=== PATIENT | male | born 1960 ===

== ENCOUNTER 2020-10-06 12:42 | Outpatient (REF) | payer OTHER, SELFPAY ==
[2020-10-06 13:10] LABS: Basophils Absolute Auto 0.1 X10*3/uL (0.0-0.2); Basophils Percent Auto 0.8 % (0-2); Eosinophils Absolute Auto 0.5 X10*3/uL (0.0-0.4); Eosinophils Percent Auto 5.3 % (0-4); Hemoglobin 15.2 g/dl (14.0-18.0); Imm Gran Abs Auto 0.02 X10*3/uL (0.00-0.03); Imm Gran Pct Auto 0.2 % (0.0-0.4); Lymphocytes Absolute Auto 3.3 X10*3/uL (1.2-4.9); Lymphocytes Percent Auto 34.8 % (20-40); MANUAL DIFF FLAG NO; Mean Corpuscular Hemoglobin 31.5 pg (27.0-33.0); Mean Corpuscular Volume 95.4 fL (80-98); Mean Platelet Volume 10.3 fL (9.4-12.4); Monocytes Absolute Auto 0.9 X10*3/uL (0.1-1.2); Monocytes Percent Auto 9.7 % (2-11); Neutrophils Absolute Auto 4.7 X10*3/uL (2.0-8.3); Neutrophils Percent Auto 49.2 % (45-73); Platelet Count 267 X10*3/uL (160-400); Red Blood Count 4.82 X10*6/uL (4.60-5.80); Red Cell Distribution Width 12.8 % (11.0-16.0); White Blood Count 9.5 X10*3/uL (4.8-10.8)
[2020-10-06 13:38] LABS: Anion Gap 11 (12-20); Blood Urea Nitrogen 16 mg/dL (9-16); Calcium 9.1 mg/dL (8.4-10.2); Carbon Dioxide 29 mmol/L (22-29); Chloride 106 mmol/L (96-108); Estimated Glomerular Filt Rate 60; Glucose Fasting 93 mg/dL (60-99); Sodium 141 mmol/L (135-145)
== END 2020-10-06 12:43 | disposition home or self-care (01) ==
LOC: HO.LAB 12:42
PROVIDERS: PCP Internal Medicine; Visit Provider Nurse Practitioner Family
DX: H93.11 Tinnitus, right ear (principal); I10 Essential (primary) hypertension
CPT/HCPCS: 36415; 80048; 85025

== ENCOUNTER 2020-11-16 13:14 | Outpatient (REF) | payer OTHER, SELFPAY | END 2020-11-16 13:15 | disposition home or self-care (01) | LOC: HO.LAB 13:14 | PROVIDERS: Visit Provider Internal Medicine | DX: Z20.822 Contact with and (suspected) exposure to COVID-19 (principal) | CPT/HCPCS: 36415; C9803; U0003 ==

== ENCOUNTER 2020-12-18 13:11 | Outpatient (REF) | payer OTHER, SELFPAY ==
[2020-12-18 15:11] LABS: PSA,Total (Free>4and<10) 0.67 ng/mL (0.00-4.00)
== END 2020-12-18 13:12 | disposition home or self-care (01) ==
LOC: HO.LAB 13:11
PROVIDERS: PCP Internal Medicine; Visit Provider Urology
DX: Z12.5 Encounter for screening for malignant neoplasm of prostate (principal); N40.0 Benign prostatic hyperplasia without lower urinary tract symptoms
CPT/HCPCS: 36415; 84153

== ENCOUNTER 2021-01-01 13:53 | Outpatient (REF) | payer OTHER, SELFPAY ==
[2021-01-01 14:35] LABS: MANUAL DIFF FLAG NO
[2021-01-01 14:40] LABS: Basophils Absolute Auto 0.1 X10*3/uL (0.0-0.2); Basophils Percent Auto 0.7 % (0-2); Eosinophils Absolute Auto 0.6 X10*3/uL (0.0-0.4); Eosinophils Percent Auto 5.6 % (0-4); Hematocrit 46.3 % (42-52); Hemoglobin 15.3 g/dl (14.0-18.0); Imm Gran Abs Auto 0.03 X10*3/uL (0.00-0.03); Imm Gran Pct Auto 0.3 % (0.0-0.4); Lymphocytes Absolute Auto 3.8 X10*3/uL (1.2-4.9); Lymphocytes Percent Auto 36.8 % (20-40); Mean Corpuscular Hemoglobin 31.7 pg (27.0-33.0); Mean Corpuscular Volume 95.9 fL (80-98); Mean Platelet Volume 10.5 fL (9.4-12.4); Monocytes Absolute Auto 0.9 X10*3/uL (0.1-1.2); Monocytes Percent Auto 9.1 % (2-11); Neutrophils Absolute Auto 4.9 X10*3/uL (2.0-8.3); Neutrophils Percent Auto 47.5 % (45-73); Platelet Count 279 X10*3/uL (160-400); Red Blood Count 4.83 X10*6/uL (4.60-5.80); Red Cell Distribution Width 13.3 % (11.0-16.0); White Blood Count 10.3 X10*3/uL (4.8-10.8)
[2021-01-01 15:00] LABS: Alanine Aminotransferase 20 U/L (0-40); Albumin Level 4.3 g/dL (3.5-5.0); Alkaline Phosphatase 86 U/L (39-117); Anion Gap 12 (12-20); Aspartate Amino Transferase 21 U/L (5-37); Bilirubin Total 0.5 mg/dL (0.0-1.0); Blood Urea Nitrogen 18 mg/dL (9-16); Calcium 9.5 mg/dL (8.4-10.2); Carbon Dioxide 31 mmol/L (22-29); Chloride 105 mmol/L (96-108); Cholesterol 181 mg/dL; Estimated Glomerular Filt Rate > 60; Glucose Fasting 101 mg/dL (60-99); HDL Cholesterol 41 mg/dL; LDL Cholesterol Calculated 111 mg/dl; Potassium 4.9 mmol/L (3.3-5.1); Sodium 143 mmol/L (135-145); Total Protein 7.5 g/dL (6.5-8.0); Triglycerides 145 mg/dL
== END 2021-01-01 13:54 | disposition home or self-care (01) ==
LOC: HO.LAB 13:53
PROVIDERS: PCP Internal Medicine; Visit Provider Nurse Practitioner Family
DX: I10 Essential (primary) hypertension (principal)
CPT/HCPCS: 36415; 80053; 80061; 85025

== ENCOUNTER → 2021-01-07 10:45 | Outpatient (BNVA) | payer OTHER, SELFPAY | PROVIDERS: PCP Internal Medicine; Visit Provider Urology | DX: Z13.89 Encounter for screening for other disorder (principal) | CPT/HCPCS: 99212 ==

== ENCOUNTER 2021-03-28 20:01 | Emergency (ER) | payer OTHER, SELFPAY ==
--- NOTE | ~2021-03-28 | XR_ITS ---
EXAMINATION: XR RIBS, RIGHT CLINICAL INFORMATION: Rib pain, fall COMPARISON: Chest x-ray 03/28/2021 TECHNIQUE: 3 views of the right ribs were obtained. FINDINGS: No displaced rib fracture is seen. Included portions of the lungs and mediastinum appear unremarkable. XR/XR ribs RT 2V IMPRESSION: No rib fracture identified.
--- NOTE | ~2021-03-28 | XR_ITS ---
EXAMINATION: PORTABLE CHEST 1 VIEW CLINICAL INFORMATION: FALL . COMPARISON: 12/12/2018. TECHNIQUE: Portable frontal view of the chest was obtained. FINDINGS: The lungs are mildly hypoexpanded. No focal infiltrate, effusion, edema, or pneumothorax. Cardiac and mediastinal silhouettes are within normal limits for technique. No acute bony abnormality seen. XR/XR chest 1V IMPRESSION: No evidence of acute disease.
--- NOTE | ~2021-03-28 | XR_ITS ---
EXAMINATION: XR ELBOW, RIGHT CLINICAL INFORMATION: Right elbow pain COMPARISON: None TECHNIQUE: AP, lateral, and oblique views of the right elbow. FINDINGS: Osseous alignment is anatomic. No acute fracture is seen. Sclerotic focus in the proximal radius is suggestive of a bone island. No evidence of effusion. XR/XR elbow RT min 3V IMPRESSION: No acute findings identified.
[2021-03-28 20:43] VITALS: BP 148/79; PULSE 72; RESP 16; TEMP 36.7; O2SAT 97; BMI 39.4
[2021-03-28 22:22] LABS: MANUAL DIFF FLAG NO
[2021-03-28 22:24] LABS: Basophils Absolute Auto 0.1 X10*3/uL (0.0-0.2); Basophils Percent Auto 0.6 % (0-2); Eosinophils Absolute Auto 0.5 X10*3/uL (0.0-0.4); Eosinophils Percent Auto 3.6 % (0-4); Hematocrit 40.7 % (42-52); Hemoglobin 13.7 g/dl (14.0-18.0); Imm Gran Abs Auto 0.04 X10*3/uL (0.00-0.03); Imm Gran Pct Auto 0.3 % (0.0-0.4); Lymphocytes Absolute Auto 3.5 X10*3/uL (1.2-4.9); Lymphocytes Percent Auto 27.6 % (20-40); Mean Corpuscular HGB Conc 33.7 g/dl (31.0-36.0); Mean Corpuscular Hemoglobin 32.2 pg (27.0-33.0); Mean Corpuscular Volume 95.8 fL (80-98); Mean Platelet Volume 10.4 fL (9.4-12.4); Monocytes Absolute Auto 1.1 X10*3/uL (0.1-1.2); Monocytes Percent Auto 8.5 % (2-11); Neutrophils Absolute Auto 7.5 X10*3/uL (2.0-8.3); Neutrophils Percent Auto 59.4 % (45-73); Platelet Count 286 X10*3/uL (160-400); Red Blood Count 4.25 X10*6/uL (4.60-5.80); Red Cell Distribution Width 12.7 % (11.0-16.0); White Blood Count 12.5 X10*3/uL (4.8-10.8)
[2021-03-28 22:57] LABS: Anion Gap 13 (12-20); Blood Urea Nitrogen 28 mg/dL (9-16); Calcium 9.3 mg/dL (8.4-10.2); Carbon Dioxide 25 mmol/L (22-29); Chloride 104 mmol/L (96-108); Creatinine Clr Calc Pharmacy 64.8; Estimated Glomerular Filt Rate 50; Glucose Random 116 mg/dL (60-115); Magnesium 2.1 mg/dL (1.6-2.6); Potassium 4.9 mmol/L (3.3-5.1); Sodium 137 mmol/L (135-145)
[2021-03-29 01:27] LABS: Glucose Urine UA NEG (NEG); Leukocyte Esterase Urine NEG (NEG); Nitrite Urine NEG (NEG); PH 6.5 (5.0-8.0); Urine Blood TRACE (NEG); Urine Ketones NEG (NEG); Urine Protein NEG (NEG-TRACE)
[2021-03-29 01:28] LABS: Appearance Urine CLEAR; Color Urine STRAW
[2021-03-29 01:33] LABS: RBC Urine 0-2 /HPF (0); WBC Urine 0 /HPF (0-4)
[2021-03-29 01:37] LABS: Amphetamine Screen Urine Not Detected (Not Detect); Barbiturates, Urine Not Detected (Not Detect); Benzodiazepines Screen Urine Not Detected (Not Detect); Cannabinoid Screen Urine Not Detected (Not Detect); Cocaine Screen Urine Not Detected (Not Detect); Opiate Screen Urine Not Detected (Not Detect); Phencyclidine Screen Urine Not Detected (Not Detect)
[2021-03-29] MEDS: 0.9 % Sodium Chloride 1,000 ML 999 ML IV ×3 (02:21)
--- NOTE | 2021-03-29 02:42 | ED_ITS ---
HPI - General Adult General Chief complaint: Fall <JOSE Rudd Last Filed: 03/29/21 02:52> Stated complaint: fall <JOSE Rudd Last Filed: 03/29/21 02:52> Time Seen by Provider: 03/28/21 23:34 <JOSE Rudd Last Filed: 03/29/21 02:52> Source: patient <JOSE Rudd Last Filed: 03/29/21 02:52> Mode of arrival: ambulatory <JOSE Rudd Last Filed: 03/29/21 02:52> Limitations: no limitations <JOSE Rudd Last Filed: 03/29/21 02:52> History of Present Illness HPI narrative: Patient presents ED for fall. Patient states he fell down some stairs and fell on his right rib and right elbow. Patient states he tripped. Patient denies hitting head or loss of consciousness. Patient is not any blood thinners. Patient has secondary complaint is generalized cramping of his body that is painful and has been chronic for the past year. Patient denies any fever or chills. <JOSE Rudd Last Filed: 03/29/21 02:52> Related Data Home medications: Previous Rx's Medication Instructions Recorded citalopram 10 mg tablet 10 mg PO DAILY 90 Days #90 tab 02/01/21 lisinopril 20 mg tablet 20 mg PO DAILY 90 Days #90 tab 02/01/21 <JOSE Rudd Last Filed: 03/29/21 02:52> Allergies/adverse reactions: Allergies Allergy/AdvReac Type Severity Reaction Status Date / Time Penicillins Allergy Mild UNKNOWN Verified 03/28/21 20:43 nicotine [NICOTINE] AdvReac Intermediate TACHYCARDIA Verified 03/28/21 20:43 (PATCH) <JOSE Rudd Last Filed: 03/29/21 02:52> Review of Systems Constitutional: Constitutional: Reports as per HPI and Reports no additional constitutional complaints <JOSE Rudd Last Filed: 03/29/21 02:52> Eyes: Eyes: Reports as per HPI and Reports no additional eye complaints <JOSE Rudd Last Filed: 03/29/21 02:52> ENT: Reports system reviewed and no additional complaints, except as documented and Reports as per HPI <JOSE Rudd Last Filed: 03/29/21 02:52> Cardiovascular: Cardiovascular: Reports as per HPI and Reports no additional cardiovascular complaints <JOSE Rudd Last Filed: 03/29/21 02:52> Comments: Right-sided rib pain due to fall <JOSE Rudd Last Filed: 03/29/21 02:52> Respiratory: Respiratory: Reports as per HPI and Reports no additional respiratory complaints <JOSE Rudd Last Filed: 03/29/21 02:52> Gastrointestinal: Gastrointestinal: Reports as per HPI and Reports no additional gastrointestinal complaints <JOSE Rudd Last Filed: 03/29/21 02:52> Genitourinary: Genitourinary: Reports no additional male genitourinary complaints and Reports as per HPI <JOSE Rudd Last Filed: 03/29/21 02:52> Musculoskeletal: Musculoskeletal: Reports no additional musculoskeletal complaints, Reports as per HPI and Reports muscle cramps (Generalized) <JOSE Rudd Last Filed: 03/29/21 02:52> Comments: Right elbow pain. <JOSE Rudd Last Filed: 03/29/21 02:52> Neurologic: Reports system reviewed and no additional complaints, except as documented and Reports as per HPI <JOSE Rudd Last Filed: 03/29/21 02:52> Psychiatric: Psychiatric: Reports no additional psychiatric complaints and Reports as per HPI <JOSE Rudd Last Filed: 03/29/21 02:52> Endocrine: Endocrine: Reports no additional endocrine complaints and Reports as per HPI <JOSE Rudd Last Filed: 03/29/21 02:52> [facility] Past Medical History Medical History: Medical History Balance disorder Dizziness Hypertension Hypertension Ringing in ears <JOSE Rudd Last Filed: 03/29/21 02:52> Surgical History: Surgical History History of surgery <JOSE Rudd Last Filed: 03/29/21 02:52> Family History Family History: Family History Father CVD (cardiovascular disease) Diabetes Mother No problems noted. Maternal Uncle Prostate cancer <JOSE Rudd - Last Filed: 03/29/21 02:52> Social History Social History: Social History (Updated 02/01/21 @ 16:16 by Ashwini Jolly MD) Alcohol intake: never Cigarettes Per Day: 10 Advance Directives: No Advance Directives Information Provided: Yes <JOSE Rudd - Last Filed: 03/29/21 02:52> Physical Exam Vital Signs: Vital Signs: Last Vital Signs Temp 98.0 F 03/28/21 20:43 Pulse 72 03/28/21 20:43 Resp 16 03/28/21 20:43 BP 148/79 H 03/28/21 20:43 Pulse Ox 97 03/28/21 20:43 Body Mass Index 39.4 <JOSE Rudd - Last Filed: 03/29/21 02:52> Vital Signs: Last Vital Signs Temp 98.0 F 03/28/21 20:43 Pulse 72 03/28/21 20:43 Resp 16 03/28/21 20:43 BP 148/79 H 03/28/21 20:43 Pulse Ox 97 03/28/21 20:43 Body Mass Index 39.4 <Cally Brush MD - Last Filed: 03/29/21 03:33> Const: General: cooperative, healthy appearing, comfortable, no acute distress, well developed, alert and awake <JOSE Rudd - Last Filed: 03/29/21 02:52> Orientation/consciousness: patient oriented x3 <JOSE Rudd - Last Filed: 03/29/21 02:52> HENMT: Head: Yes normal to inspection, Yes No palpable skull fracture present, Yes normocephalic and Yes atraumatic <JOSE Rudd - Last Filed: 03/29/21 02:52> Eyes: General: appearance normal, both eyes and all related structures <JOSE Rudd Last Filed: 03/29/21 02:52> Neck: Neck: Yes normal visual inspection, Yes full ROM, Yes no lymphadenopathy, Yes no meningeal signs, Yes trachea midline, Yes supple and No tender <Dirk Prasanna JOSE Last Filed: 03/29/21 02:52> Chest: Chest palpation & inspection: normal inspection of the chest and normal palpation of entire chest wall (Right lower rib tenderness on palpation) <Dirk PrasannaJOSE Julia Last Filed: 03/29/21 02:52> Resp: Effort & Inspection: normal respiratory effort and able to speak in complete sentences <Dirk Prasanna, PA Last Filed: 03/29/21 02:52> Auscultation: clear to auscultation bilaterally <Dirk Prasanna, [facility] Last Filed: 03/29/21 02:52> Cardio: Jugular venous distension: no JVD <Dirk Prasanna, PA Last Filed: 03/29/21 02:52> Heart sounds: S1 normal heart sound present and S2 normal heart sound present <Dirk Prasanna, PA Last Filed: 03/29/21 02:52> GI: Inspection: Yes normal to inspection and No abdominal wall ecchymosis <Dirk Prasanna [facility] Last Filed: 03/29/21 02:52> Palpation (GI): Soft to palpation, not firm, nontender, no guarding and not rigid <Dirk Prasanna, JOSE Last Filed: 03/29/21 02:52> : General: No CVA tenderness <Dirk Prasanna, JOSE Last Filed: 03/29/21 02:52> Back/Spine/Pelvis: Back: no CVA tenderness, No CVA tenderness and No back tenderness <Dirk Prasanna, PA Last Filed: 03/29/21 02:52> Skin: General skin exam: no rashes or lesions noted and elasticity normal <Dirk Prasanna, JOSE Last Filed: 03/29/21 02:52> Neuro: General: patient oriented x3, gait normal, no meningeal signs and CN's II-XI intact bilaterally <Dirk Prasanna, PA Last Filed: 03/29/21 02:52> Cranial nerves: Yes CN's II-XII intact bilaterally <Dirk Prasanna, PA Last Filed: 03/29/21 02:52> Extrem: General: Yes normal to inspection and Yes full ROM <JOSE Rudd - Last Filed: 03/29/21 02:52> Psych: Appearance: grossly normal, well kempt and not disheveled <JOSE Rudd - Last Filed: 03/29/21 02:52> Course Course Course Narrative: Patient will have labs drawn and imaging of chest ribs and right elbow. <JOSE Rudd - Last Filed: 03/29/21 02:52> Patient labs reviewed. The CPK is now trending down and there has been resolution of patient's JOHNNY. He was informed of all results, encouraged to increase water intake and discharged home in stable condition. <Cally Brush MD - Last Filed: 03/29/21 03:33> Reevaluation(s) Reevaluation #1: Initial labs shows JOHNNY with mild rhabdomyolsis. Patient will be given 3 bags of fluid and repeat chemistry and CPK will be drawn. Case signed out to Dr. Brush. No indication for head CT or cervical spine CT. Patient denies any head trauma and denies being on any blood thinners. <JOSE Rudd - Last Filed: 03/29/21 02:52> Medical Decision Making MDM Narrative Medical decision making narrative: Rib contusion. A bone contusion. Mild rhabdomyolysis. <JOSE Rudd - Last Filed: 03/29/21 02:52> Lab Data Result diagrams: : 03/28/21 22:16 03/29/21 02:57 <JOSE Rudd - Last Filed: 03/29/21 02:52> Labs: Lab Results 03/28/21 03/28/21 03/29/21 Range/Units 22:16 22:16 01:19 WBC 12.5 H (4.8-10.8) X10*3/uL RBC 4.25 L (4.60-5.80) X10*6/uL Hgb 13.7 L (14.0-18.0) g/dl Hct 40.7 L (42-52) % MCV 95.8 (80-98) fL MCH 32.2 (27.0-33.0) pg MCHC 33.7 (31.0-36.0) g/dl RDW 12.7 (11.0-16.0) % Plt Count 286 (160-400) X10*3/uL MPV 10.4 (9.4-12.4) fL Immature Gran % (Auto) 0.3 (0.0-0.4) % Neut % (Auto) 59.4 (45-73) % Lymph % (Auto) 27.6 (20-40) % [place] % (Auto) 8.5 (2-11) % Eos % (Auto) 3.6 (0-4) % Baso % (Auto) 0.6 (0-2) % Lymph # (Auto) 3.5 (1.2-4.9) X10*3/uL [place] # (Auto) 1.1 (0.1-1.2) X10*3/uL Eos # (Auto) 0.5 H (0.0-0.4) X10*3/uL Baso # (Auto) 0.1 (0.0-0.2) X10*3/uL Abs Immat Gran (auto) 0.04 H (0.00-0.03) X10*3/uL Absolute Neuts (auto) 7.5 (2.0-8.3) X10*3/uL Absolute Nucleated RBC 0.000 (0.0-0.012) X10*3/uL Nucleated RBC % (auto) 0.0 (0.0-0.2) /100WBC Sodium 137 (135-145) mmol/L Potassium 4.9 (3.3-5.1) mmol/L Chloride 104 (96-108) mmol/L Carbon Dioxide 25 (22-29) mmol/L Anion Gap 13 (12-20) BUN 28 H D (9-16) mg/dL Creatinine 1.45 H (0.5-1.4) mg/dL Estim Creat Clear Calc 64.8 Estimated GFR 50 Random Glucose 116 H (60-115) mg/dL Calcium 9.3 (8.4-10.2) mg/dL Magnesium 2.1 (1.6-2.6) mg/dL Total Bilirubin (0.0-1.0) mg/dL AST (5-37) U/L ALT (0-40) U/L Alkaline Phosphatase (39-117) U/L Total Creatine Kinase 1437 H (38-174) U/L Total Protein (6.5-8.0) g/dL Albumin (3.5-5.0) g/dL Urine Color STRAW Urine Appearance CLEAR Urine pH 6.5 (5.0-8.0) Ur Specific [place] 1.010 (1.005-1.025) Urine Protein NEG (NEG-TRACE) MG/DL Urine Glucose (UA) NEG (NEG) MG/DL Urine Ketones NEG (NEG) MG/DL Urine Blood TRACE (NEG) Urine Nitrite NEG (NEG) Ur Leukocyte Esterase NEG (NEG) Urine RBC 0-2 (0) /HPF Urine WBC 0 (0-4) /HPF Ur Squamous Epith Cells NONE /LPF Urine Bacteria NONE /LPF Urine Opiates Screen (Not Detect) Ur Barbiturates Screen (Not Detect) Ur Phencyclidine Scrn (Not Detect) Ur Amphetamines Screen (Not Detect) U Benzodiazepines Scrn (Not Detect) Urine Cocaine Screen (Not Detect) U Marijuana (THC) Screen (Not Detect) 03/29/21 03/29/21 Range/Units 01:19 02:57 WBC (4.8-10.8) X10*3/uL RBC (4.60-5.80) X10*6/uL Hgb (14.0-18.0) g/dl Hct (42-52) % MCV (80-98) fL MCH (27.0-33.0) pg MCHC (31.0-36.0) g/dl RDW (11.0-16.0) % Plt Count (160-400) X10*3/uL MPV (9.4-12.4) fL Immature Gran % (Auto) (0.0-0.4) % Neut % (Auto) (45-73) % Lymph % (Auto) (20-40) % [place] % (Auto) (2-11) % Eos % (Auto) (0-4) % Baso % (Auto) (0-2) % Lymph # (Auto) (1.2-4.9) X10*3/uL [place] # (Auto) (0.1-1.2) X10*3/uL Eos # (Auto) (0.0-0.4) X10*3/uL Baso # (Auto) (0.0-0.2) X10*3/uL Abs Immat Gran (auto) (0.00-0.03) X10*3/uL Absolute Neuts (auto) (2.0-8.3) X10*3/uL Absolute Nucleated RBC (0.0-0.012) X10*3/uL Nucleated RBC % (auto) (0.0-0.2) /100WBC Sodium 140 (135-145) mmol/L Potassium 4.4 (3.3-5.1) mmol/L Chloride 110 H (96-108) mmol/L Carbon Dioxide 26 (22-29) mmol/L Anion Gap 8 L (12-20) BUN 24 H (9-16) mg/dL Creatinine 1.22 (0.5-1.4) mg/dL Estim Creat Clear Calc 77.0 Estimated GFR > 60 Random Glucose 117 H (60-115) mg/dL Calcium 8.0 L D (8.4-10.2) mg/dL Magnesium (1.6-2.6) mg/dL Total Bilirubin 0.5 (0.0-1.0) mg/dL AST 31 D (5-37) U/L ALT 23 (0-40) U/L Alkaline Phosphatase 91 (39-117) U/L Total Creatine Kinase 1257 H (38-174) U/L Total Protein 6.0 L (6.5-8.0) g/dL Albumin 3.5 (3.5-5.0) g/dL Urine Color Urine Appearance Urine pH (5.0-8.0) Ur Specific [place] (1.005-1.025) Urine Protein (NEG-TRACE) MG/DL Urine Glucose (UA) (NEG) MG/DL Urine Ketones (NEG) MG/DL Urine Blood (NEG) Urine Nitrite (NEG) Ur Leukocyte Esterase (NEG) Urine RBC (0) /HPF Urine WBC (0-4) /HPF Ur Squamous Epith Cells /LPF Urine Bacteria /LPF Urine Opiates Screen Not Detected (Not Detect) Ur Barbiturates Screen Not Detected (Not Detect) Ur Phencyclidine Scrn Not Detected (Not Detect) Ur Amphetamines Screen Not Detected (Not Detect) U Benzodiazepines Scrn Not Detected (Not Detect) Urine Cocaine Screen Not Detected (Not Detect) U Marijuana (THC) Screen Not Detected (Not Detect) <JOSE Rudd Last Filed: 03/29/21 02:52> Lab Results 03/28/21 03/28/21 03/29/21 Range/Units 22:16 22:16 01:19 WBC 12.5 H (4.8-10.8) X10*3/uL RBC 4.25 L (4.60-5.80) X10*6/uL Hgb 13.7 L (14.0-18.0) g/dl Hct 40.7 L (42-52) % MCV 95.8 (80-98) fL MCH 32.2 (27.0-33.0) pg MCHC 33.7 (31.0-36.0) g/dl RDW 12.7 (11.0-16.0) % Plt Count 286 (160-400) X10*3/uL MPV 10.4 (9.4-12.4) fL Immature Gran % (Auto) 0.3 (0.0-0.4) % Neut % (Auto) 59.4 (45-73) % Lymph % (Auto) 27.6 (20-40) % [place] % (Auto) 8.5 (2-11) % Eos % (Auto) 3.6 (0-4) % Baso % (Auto) 0.6 (0-2) % Lymph # (Auto) 3.5 (1.2-4.9) X10*3/uL [place] # (Auto) 1.1 (0.1-1.2) X10*3/uL Eos # (Auto) 0.5 H (0.0-0.4) X10*3/uL Baso # (Auto) 0.1 (0.0-0.2) X10*3/uL Abs Immat Gran (auto) 0.04 H (0.00-0.03) X10*3/uL Absolute Neuts (auto) 7.5 (2.0-8.3) X10*3/uL Absolute Nucleated RBC 0.000 (0.0-0.012) X10*3/uL Nucleated RBC % (auto) 0.0 (0.0-0.2) /100WBC Sodium 137 (135-145) mmol/L Potassium 4.9 (3.3-5.1) mmol/L Chloride 104 (96-108) mmol/L Carbon Dioxide 25 (22-29) mmol/L Anion Gap 13 (12-20) BUN 28 H D (9-16) mg/dL Creatinine 1.45 H (0.5-1.4) mg/dL Estim Creat Clear Calc 64.8 Estimated GFR 50 Random Glucose 116 H (60-115) mg/dL Calcium 9.3 (8.4-10.2) mg/dL Magnesium 2.1 (1.6-2.6) mg/dL Total Bilirubin (0.0-1.0) mg/dL AST (5-37) U/L ALT (0-40) U/L Alkaline Phosphatase (39-117) U/L Total Creatine Kinase 1437 H (38-174) U/L Total Protein (6.5-8.0) g/dL Albumin (3.5-5.0) g/dL Urine Color STRAW Urine Appearance CLEAR Urine pH 6.5 (5.0-8.0) Ur Specific [place] 1.010 (1.005-1.025) Urine Protein NEG (NEG-TRACE) MG/DL Urine Glucose (UA) NEG (NEG) MG/DL Urine Ketones NEG (NEG) MG/DL Urine Blood TRACE (NEG) Urine Nitrite NEG (NEG) Ur Leukocyte Esterase NEG (NEG) Urine RBC 0-2 (0) /HPF Urine WBC 0 (0-4) /HPF Ur Squamous Epith Cells NONE /LPF Urine Bacteria NONE /LPF Urine Opiates Screen (Not Detect) Ur Barbiturates Screen (Not Detect) Ur Phencyclidine Scrn (Not Detect) Ur Amphetamines Screen (Not Detect) U Benzodiazepines Scrn (Not Detect) Urine Cocaine Screen (Not Detect) U Marijuana (THC) Screen (Not Detect) 03/29/21 03/29/21 Range/Units 01:19 02:57 WBC (4.8-10.8) X10*3/uL RBC (4.60-5.80) X10*6/uL Hgb (14.0-18.0) g/dl Hct (42-52) % MCV (80-98) fL MCH (27.0-33.0) pg MCHC (31.0-36.0) g/dl RDW (11.0-16.0) % Plt Count (160-400) X10*3/uL MPV (9.4-12.4) fL Immature Gran % (Auto) (0.0-0.4) % Neut % (Auto) (45-73) % Lymph % (Auto) (20-40) % [place] % (Auto) (2-11) % Eos % (Auto) (0-4) % Baso % (Auto) (0-2) % Lymph # (Auto) (1.2-4.9) X10*3/uL [place] # (Auto) (0.1-1.2) X10*3/uL Eos # (Auto) (0.0-0.4) X10*3/uL Baso # (Auto) (0.0-0.2) X10*3/uL Abs Immat Gran (auto) (0.00-0.03) X10*3/uL Absolute Neuts (auto) (2.0-8.3) X10*3/uL Absolute Nucleated RBC (0.0-0.012) X10*3/uL Nucleated RBC % (auto) (0.0-0.2) /100WBC Sodium 140 (135-145) mmol/L Potassium 4.4 (3.3-5.1) mmol/L Chloride 110 H (96-108) mmol/L Carbon Dioxide 26 (22-29) mmol/L Anion Gap 8 L (12-20) BUN 24 H (9-16) mg/dL Creatinine 1.22 (0.5-1.4) mg/dL Estim Creat Clear Calc 77.0 Estimated GFR > 60 Random Glucose 117 H (60-115) mg/dL Calcium 8.0 L D (8.4-10.2) mg/dL Magnesium (1.6-2.6) mg/dL Total Bilirubin 0.5 (0.0-1.0) mg/dL AST 31 D (5-37) U/L ALT 23 (0-40) U/L Alkaline Phosphatase 91 (39-117) U/L Total Creatine Kinase 1257 H (38-174) U/L Total Protein 6.0 L (6.5-8.0) g/dL Albumin 3.5 (3.5-5.0) g/dL Urine Color Urine Appearance Urine pH (5.0-8.0) Ur Specific [place] (1.005-1.025) Urine Protein (NEG-TRACE) MG/DL Urine Glucose (UA) (NEG) MG/DL Urine Ketones (NEG) MG/DL Urine Blood (NEG) Urine Nitrite (NEG) Ur Leukocyte Esterase (NEG) Urine RBC (0) /HPF Urine WBC (0-4) /HPF Ur Squamous Epith Cells /LPF Urine Bacteria /LPF Urine Opiates Screen Not Detected (Not Detect) Ur Barbiturates Screen Not Detected (Not Detect) Ur Phencyclidine Scrn Not Detected (Not Detect) Ur Amphetamines Screen Not Detected (Not Detect) U Benzodiazepines Scrn Not Detected (Not Detect) Urine Cocaine Screen Not Detected (Not Detect) U Marijuana (THC) Screen Not Detected (Not Detect) <Cally Brush MD - Last Filed: 03/29/21 03:33> Discharge Plan Discharge Clinical Impression: Acute dehydration, Contusion, Rhabdomyolysis <JOSE Rudd - Last Filed: 03/29/21 02:52> Patient Disposition: Home, Self-Care <JOSE Rudd - Last Filed: 03/29/21 02:52> Instructions: Dehydration (ED), Rhabdomyolysis (ED), Contusion in Adults (ED) <JOSE Rudd - Last Filed: 03/29/21 02:52> Additional Instructions: regresar al servicio de urgencias por dolor en el pecho, falta de aire, empeoramiento de los calambres musculares, brandon corporales, dolor de brenden, fiebre, escalofr?os, mareos, dolor abdominal, garrick en las heces, v?mitos con garrick, orina con garrick o cualquier otro s?ntoma preocupante Rbyant an?lisis de garrick mostr? rabdomilosis leve y deshidrataci?n. Recomendar maria esther adecuada hidrataci?n oral. Pato un seguimiento con bryant PCP. <JOSE Rudd - Last Filed: 03/29/21 02:52> Prescriptions: No Action lisinopril 20 mg tablet 20 mg PO DAILY 90 Days Qty: 90 RF: 3 citalopram 10 mg tablet 10 mg PO DAILY 90 Days Qty: 90 RF: 3 <JOSE Rudd - Last Filed: 03/29/21 02:52> Referrals: Ashwini Teague MD [Primary Care Provider] - 2 days (Dehydration. Mild rhabdomyolysis) <JOSE Rudd - Last Filed: 03/29/21 02:52>
[2021-03-29 03:29] LABS: Alanine Aminotransferase 23 U/L (0-40); Albumin Level 3.5 g/dL (3.5-5.0); Alkaline Phosphatase 91 U/L (39-117); Anion Gap 8 (12-20); Aspartate Amino Transferase 31 U/L (5-37); Bilirubin Total 0.5 mg/dL (0.0-1.0); Blood Urea Nitrogen 24 mg/dL (9-16); Carbon Dioxide 26 mmol/L (22-29); Chloride 110 mmol/L (96-108); Estimated Glomerular Filt Rate > 60; Glucose Random 117 mg/dL (60-115); Potassium 4.4 mmol/L (3.3-5.1); Sodium 140 mmol/L (135-145)
== END 2021-03-29 03:45 | disposition home or self-care (01) ==
PROVIDERS: Physician Assistant; Emergency Provider Student in an Organized Health Care Education/Training Program; PCP Internal Medicine
DX: E86.0 Dehydration (principal); T79.6XXA Traumatic ischemia of muscle, initial encounter; S20.211A Contusion of right front wall of thorax, initial encounter; W10.8XXA Fall (on) (from) other stairs and steps, initial encounter; M25.521 Pain in right elbow; I10 Essential (primary) hypertension; F41.1 Generalized anxiety disorder; F17.210 Nicotine dependence, cigarettes, uncomplicated; Y93.9 Activity, unspecified; Y92.038 Other place in apartment as the place of occurrence of the external cause; Y99.9 Unspecified external cause status; Z79.899 Other long term (current) drug therapy
CPT/HCPCS: 36415; 71045; 71100; 73080; 80048; 80053; 80307; 81001; 82550; 83735; 85025; 96360; 96361; 99283; 99284

== ENCOUNTER 2021-04-01 12:48 | Emergency (ER) | payer OTHER, SELFPAY ==
--- NOTE | ~2021-04-01 | XR_ITS ---
EXAMINATION: XR LUMBOSACRAL SPINE CLINICAL INFORMATION: Low back pain COMPARISON: Radiographs lumbar spine 02/15/2018; and renal ultrasound 05/09/2018 TECHNIQUE: Three views of the lumbosacral spine. FINDINGS: There is normal lumbar segmentation with 5 nonrib-bearing lumbar vertebrae of normal height and normal lumbar lordosis. There is no lumbar compression, spondylolisthesis, destructive process. Again, there are degenerative disc changes at L4-L5 and L5-S1. There are also degenerative changes lower thoracic spine. The SI joints and visualized sacrum are unremarkable. There are 2 calculi overlying the left kidney, lower pole 0.7 cm and interpolar region 0.4 cm. XR/XR lumbar spine 2-3V IMPRESSION: 1. Degenerative disc changes L4-L5, L5-S1, and lower thoracic spine. 2. No lumbar vertebral compression, spondylolisthesis, destructive process. 3. Left renal calculi.
--- NOTE | ~2021-04-01 | XR_ITS ---
EXAMINATION: XR KNEE, LEFT CLINICAL INFORMATION: Left knee pain COMPARISON: Radiographs left knee 07/31/2014. TECHNIQUE: Four views of the left knee. FINDINGS: There is no fracture, dislocation, or destructive process. No joint space narrowing or erosive change or chondrocalcinosis. There is likely small suprapatellar effusion with mild thickening of the suprapatellar bursa. Hoffa's fat pad appears normal. There is corticated ossicle and mild spurring at the proximal anterior tibial tubercle may represent sequela from remote [place]-Schlatter's. The deep infrapatellar recess is preserved. XR/XR knee LT 3V IMPRESSION: 1. No fracture or destructive process. 2. Probable small suprapatellar effusion. No joint narrowing or erosive change. 3. Spurring and benign corticated ossicle at the anterior tibial tubercle near the patellar tendon insertion.
[2021-04-01 13:28] VITALS: BP 133/62; PULSE 74; RESP 18; TEMP 36.6; O2SAT 97; BMI 39.4
--- NOTE | 2021-04-01 15:05 | ED.GENADULT ---
HPI - General Adult General Chief complaint: Extremity Problem Stated complaint: left leg Time Seen by Provider: 04/01/21 13:44 Source: patient Mode of arrival: ambulatory Limitations: no limitations History of Present Illness HPI narrative: 52-year-old male with history of hypertension anxiety who presents the emergency department with left low back pain that radiates into the left leg. States this started about 4 days ago after a fall for which he was seen in the emergency room. States he had no imaging low back. States the pain is bearable during the day with 100 mg of ibuprofen but at bedtime he cannot sleep. Denies associated fevers chills chest pain or shortness of breath. Denies abdominal pain nausea vomiting or changes in bowel or bladder habits. Denies any numbness and tingling in the genitals. Due to concern and continued discomfort he felt he needed to be seen. Related Data Previous Rx's Medication Instructions Recorded citalopram 10 mg tablet 10 mg PO DAILY 90 Days #90 tab 02/01/21 lisinopril 20 mg tablet 20 mg PO DAILY 90 Days #90 tab 02/01/21 acetaminophen [Tylenol] 650 mg PO Q6H PRN #60 tab 04/01/21 cyclobenzaprine 10 mg PO TID PRN 5 Days #15 tab 04/01/21 Allergies Allergy/AdvReac Type Severity Reaction Status Date / Time Penicillins Allergy Mild UNKNOWN Verified 03/28/21 20:43 nicotine [NICOTINE] AdvReac Intermediate TACHYCARDIA Verified 03/28/21 20:43 (PATCH) Review of Systems Review of Systems: Constitutional : No Weight loss, No Fever, No Chills, No Night Sweats, No Fatigue, No Malaise ENT/Mouth : No Hearing loss, No Ear Pain, No Nasal Congestion, No Sinus Pain, No Hoarseness, No sore throat, No Rhinorrhea, No Swallowing Difficulty Eyes: No Eye Pain, No Swelling, No Redness, No Foreign Body, No Discharge, No Vision Changes Cardiovascular : No Chest Pain, No SOB, No Dyspnea on Exertion, No Orthopnea, No Edema, No Palpitations Respiratory : No Cough, No Sputum, No Wheezing, No Smoke Exposure, No Dyspnea Gastrointestinal : No Nausea, No Vomiting, No Diarrhea, No Constipation, No abdominal Pain, No Hematochezia, No Melena Genitourinary : no irregular bleeding, No Dysuria, No Urinary Frequency, No Hematuria, No Urinary Incontinence, No Urgency, No Flank Pain, No Urinary Flow Changes, No Hesitancy Musculoskeletal : + back pain, + joint pain, No Myalgias, No Joint Swelling Skin : No Skin Lesions, No rash Neuro : No Weakness, No Numbness, No Paresthesias, No Loss of Consciousness, No Dizziness, No Headache Psych : No Depression, No SI/HI/AH/VH, No Social Issues, Heme/Lymph: No Bruising, No Bleeding,No Lymphadenopathy Endocrine : No Polyuria, No Polydipsia, No Temperature Intolerance [facility] Past Medical History Attestation statement: The following information was validated with the patient. Source: old records reviewed and nursing notes reviewed Medical History Balance disorder Dizziness Hypertension Hypertension Ringing in ears Surgical History History of surgery Family History Family History Father CVD (cardiovascular disease) Diabetes Mother No problems noted. Maternal Uncle Prostate cancer Social History Social History (Updated 02/01/21 @ 16:16 by Ashwini Jolly MD) Alcohol intake: never Cigarettes Per Day: 10 Advance Directives: Yes Advance Directives Information Provided: Yes Advance Directives on File: No Physical Exam Vital Signs: Vital Signs: Last Vital Signs Temp 97.9 F 04/01/21 13:28 Pulse 74 04/01/21 13:28 Resp 18 04/01/21 13:28 BP 133/62 04/01/21 13:28 Pulse Ox 97 04/01/21 13:28 Body Mass Index 39.4 vital signs have been reviewed as normal and appeared to be correct. Blood pressure normal. Heart rate normal. Respiration rate normal. Temperature normal. Oxygen saturation normal. Appearance: Alert. Oriented X3. Mild acute distress. Head: Normal external exam. Normocephalic. Atraumatic. No Walsh signs noted. No raccoon eyes noted Eyes: Conjunctiva and sclera normal. ENT: EAC normal. Moist mucous membranes. No drooling noted. No muffled voice noted. Neck: Normal inspection. Neck supple. FROM. No meningeal signs. CVS: Pulses normal throughout. Respiratory: No respiratory distress. Painless inspiration. No accessory muscle usage noted Abdomen: No visible injury noted. Back: Full range of motion noted. No midline lumbar tenderness, no CVA tenderness. Mild tenderness over left SI joint. Skin: Skin warm and dry. Normal skin color. Normal skin turgor. Extremities: No lower extremity edema. Extremities exhibit normal range of motion. Patient has mild tenderness over left knee with overlying ecchymosis no crepitus or acute deformity range of. Good distal Neuro: Oriented X 3. No motor deficit. No sensory deficit. Course Reevaluation(s) Reevaluation #1: Patient's x-rays with degenerative changes in the lumbar spine no acute fractures or dislocations. Will and muscle relaxer for continued use at home and encouraged continued use of Motrin Tylenol for pain control will refer back to primary care doctor for additional management of symptoms Medical Decision Making MDM Narrative Medical decision making narrative: Patient's vital signs are stable and he is afebrile. Patient presenting to the ED with left lower back pain with radiation to the left leg. Patient states this started 4 days ago after fall. Will obtain plain films of the left back as well as the left knee as he is also complaining of pain the region. Will medicate with Tylenol. No abnormal neurologic findings on exam no acute concern for ST cauda equina. Description of symptoms seems most consistent with sciatic will consider muscle relaxer pending plain films. No other signs of acute injury or trauma. Will continue to monitor. Discharge Plan Discharge Clinical Impression: Sciatica Qualifiers: Laterality: left Qualified Code(s): M54.32 - Sciatica, left side Back pain Qualifiers: Back pain location: low back pain Chronicity: acute Back pain laterality: left Sciatica presence: with sciatica Sciatica laterality: sciatica of left side Qualified Code(s): M54.42 - Lumbago with sciatica, left side Patient Disposition: Home, Self-Care Instructions: Sciatica (ED), Lower Back Exercises (ED) Additional Instructions: You were seen in the emergency department today for left-sided low back pain x-rays were done of the low back in the knee without abnormal findings you do have signs of early degenerative changes/arthritis which may be contributing to your discomfort. He will be prescribed a muscle relaxer to use to help with pain also continue using ibuprofen and Tylenol at home. Follow-up with your primary care doctor if pain persists. Prescriptions: New acetaminophen [Tylenol] 325 mg tablet 650 mg PO Q6H PRN (Reason: pain) Qty: 60 RF: 0 cyclobenzaprine 10 mg tablet 10 mg PO TID PRN (Reason: muscle spasm) 5 Days Qty: 15 RF: 0 No Action lisinopril 20 mg tablet 20 mg PO DAILY 90 Days Qty: 90 RF: 3 citalopram 10 mg tablet 10 mg PO DAILY 90 Days Qty: 90 RF: 3 Referrals: Physician,Unknown [Primary Care Provider] - 2 days (your pcp) Interventions: ED Discharge Assessment Last Done: 04/01/21 16:20 Discharge Date/Time: 04/01/21 16:21 Print Language: Jamaican
== END 2021-04-01 16:21 | disposition home or self-care (01) ==
PROVIDERS: Emergency Provider Emergency Medicine Emergency Medical Services
DX: M54.42 Lumbago with sciatica, left side (principal); M25.562 Pain in left knee; I10 Essential (primary) hypertension; Z79.899 Other long term (current) drug therapy
CPT/HCPCS: 72100; 73562; 99283

== ENCOUNTER 2021-06-02 09:53 | Emergency (ER) | payer OTHER, SELFPAY ==
--- NOTE | ~2021-06-02 | XR_ITS ---
EXAMINATION: XR CHEST CLINICAL INFORMATION: Right-sided chest pain COMPARISON: Chest radiographs 03/28/2021, 12/12/2018 TECHNIQUE: 2 views of the chest were obtained. FINDINGS: The lungs are clear. There is no pneumothorax, pleural reaction, infiltrate, or groundglass opacity. The costophrenic sulci are well-defined. There is no effusion. Cardiac and hilar and mediastinal contours are unremarkable. No visible acute bony abnormality. XR/XR chest 2V IMPRESSION: Unremarkable examination.
[2021-06-02 10:05] VITALS: BP 134/82; PULSE 69; RESP 18; TEMP 37; O2SAT 97; BMI 39.5
--- NOTE | 2021-06-02 10:16 | ECG_ITS ---
Test Reason : CHEST PAIN Blood Pressure : / mmHG Vent. Rate : 066 BPM Atrial Rate : 066 BPM P-R Int : 138 ms QRS Dur : 092 ms QT Int : 378 ms P-R-T Axes : 049 056 054 degrees QTc Int : 396 ms Normal sinus rhythm Normal ECG When compared with ECG of 12-DEC-2018 01:45, No significant change was found Referred By: Yas Smyth Electronically Signed By:TANIA BEAVERS MD
--- NOTE | 2021-06-02 10:17 | ED.GENADULT ---
HPI - General Adult General Chief complaint: General Medical Stated complaint: flank pain Time Seen by Provider: 06/02/21 10:16 Source: patient Mode of arrival: ambulatory Limitations: no limitations History of Present Illness HPI narrative: 60 y/o male with history of depression/anxiety and HTN presenting to the ED from home c/o right sided rib/chest pain since last night, worse this morning. He had a hard time sleeping last night and was tossing and turning all night. He denies his trouble sleeping being due to his pain. He was shakey and just couldn't sleep. He reports when he got out of bed this morning his right chest under his right underarm wsa very painful and worse when he moved or touches it. The pain radiates under his right breast. He is not SOB, has no N/V or abdominal pain. No urinary symptoms. He tried taking a hot shower to help with the pain but it didn't work. He came to the ER because he was very nervous about the pain. Since this morning the pain has gotten better after taking Tylenol. MD complaint: right sided chest paiun. Onset (ago): hour(s) Location: chest and back Radiation: other (anterior chest) Severity: mild Severity scale (1-10): 3 Quality: aching Pain Consistency: intermittent and now resolved (almost gone) Relieving factors: medication Exacerbating factors: movement and other (palpation) Associated symptoms: denies other symptoms Treatments prior to arrival: none and other (tylenol) Related Data Previous Rx's Medication Instructions Recorded citalopram 10 mg tablet 10 mg PO DAILY 90 Days #90 tab 02/01/21 lisinopril 20 mg tablet 20 mg PO DAILY 90 Days #90 tab 02/01/21 acetaminophen 325 mg tablet 650 mg PO Q6H PRN #60 tab 04/01/21 (Tylenol) cyclobenzaprine 10 mg tablet 10 mg PO TID PRN 5 Days #15 tab 04/01/21 Allergies Allergy/AdvReac Type Severity Reaction Status Date / Time Penicillins Allergy Mild UNKNOWN Verified 03/28/21 20:43 nicotine [NICOTINE] AdvReac Intermediate TACHYCARDIA Verified 03/28/21 20:43 (PATCH) Review of Systems Review of Systems: Constitutional: No Fever, No Chills ENT/Mouth: No sore throat, No Rhinorrhea, No Swallowing Difficulty Cardiovascular: + Chest Pain, No SOB, No Orthopnea, No Edema Respiratory: No Cough, No Sputum, No Wheezing, No dyspnea Gastrointestinal: No Nausea, No Vomiting, No Diarrhea, No abdominal Pain Genitourinary: No Dysuria, No Urinary Frequency, No Hematuria Musculoskeletal: No joint pain, + Myalgias Skin: No Skin Lesions, No rash Neuro: No Weakness, No Numbness, No Dizziness, No Headache Psych: + Anxiety/Panic, No Depression Heme/Lymph: No Bruising, No Lymphadenopathy [facility] Past Medical History Medical History Balance disorder Dizziness Hypertension Hypertension Ringing in ears Surgical History History of surgery Family History Family History Father CVD (cardiovascular disease) Diabetes Mother No problems noted. Maternal Uncle Prostate cancer Social History Social History (Updated 02/01/21 @ 16:16 by Ashwini Jolly MD) Alcohol intake: never Cigarettes Per Day: 10 Advance Directives: No Advance Directives Information Provided: No Physical Exam Vital Signs: Vital Signs: Last Vital Signs Temp 98.6 F 06/02/21 10:05 Pulse 69 06/02/21 10:05 Resp 18 06/02/21 10:05 BP 134/82 06/02/21 10:05 Pulse Ox 97 06/02/21 10:05 Body Mass Index 39.5 Appearance: Alert. Oriented X3. No acute distress. Eyes: Pupils equal, round and reactive to light. ENT: Pharynx normal. Neck: Normal inspection. Neck supple. CVS: Normal heart rate and rhythm. Pulses normal. Respiratory: No respiratory distress. Breath sounds normal. Right anteriolateral chest wall tenderness, no ecchymosis or erythema. Abdomen: Soft and nontender. +BS x4 Skin: Skin warm and dry. Normal skin color. Normal skin turgor. No rashes. Extremities: No lower extremity edema. Neuro: Oriented X 3. No motor deficit. No sensory deficit. Course Course Course Narrative: 60 y/o male presenting with right sided chest/flank pain. Tender chest wall in midaxillary line. VS are stable and he appears well. Suspect MSK pain. Will check EKG, labs and CXR. Reevaluation(s) Reevaluation #1: Labs showing mild JOHNNY with SCr 1.42 from a baseline of 1.22. He has had mild JOHNNY in the past. He is not vomiting or having diarrhea. His CXR is clear and EKG normal. His pain is minimal, only present with palpation. Most likely muscular pain. He follows with Dr. Soler. He is stable for discharge home with plans to increase oral hydration and follow up with Dr. Soler in 1 week for repeat blood work. All questions were answered and patient agrees with plan. Medical Decision Making Lab Data Result diagrams: 06/02/21 10:24 06/02/21 10:24 Labs: Lab Results 06/02/21 06/02/21 06/02/21 Range/Units 10:24 10:24 10:24 WBC 11.5 H (4.8-10.8) X10*3/uL RBC 4.61 (4.60-5.80) X10*6/uL Hgb 14.9 (14.0-18.0) g/dl Hct 43.8 (42-52) % MCV 95.0 (80-98) fL MCH 32.3 (27.0-33.0) pg MCHC 34.0 (31.0-36.0) g/dl RDW 12.7 (11.0-16.0) % Plt Count 278 (160-400) X10*3/uL MPV 10.1 (9.4-12.4) fL Immature Gran % (Auto) 0.3 (0.0-0.4) % Neut % (Auto) 42.3 L (45-73) % Lymph % (Auto) 41.6 H (20-40) % [place] % (Auto) 9.3 (2-11) % Eos % (Auto) 5.8 H (0-4) % Baso % (Auto) 0.7 (0-2) % Lymph # (Auto) 4.8 (1.2-4.9) X10*3/uL [place] # (Auto) 1.1 (0.1-1.2) X10*3/uL Eos # (Auto) 0.7 H (0.0-0.4) X10*3/uL Baso # (Auto) 0.1 (0.0-0.2) X10*3/uL Abs Immat Gran (auto) 0.03 (0.00-0.03) X10*3/uL Absolute Neuts (auto) 4.9 (2.0-8.3) X10*3/uL Absolute Nucleated RBC 0.000 (0.0-0.012) X10*3/uL Nucleated RBC % (auto) 0.0 (0.0-0.2) /100WBC Sodium 138 (135-145) mmol/L Potassium 4.5 (3.3-5.1) mmol/L Chloride 105 (96-108) mmol/L Carbon Dioxide 26 (22-29) mmol/L Anion Gap 12 (12-20) BUN 16 (9-16) mg/dL Creatinine 1.42 H (0.5-1.4) mg/dL Estim Creat Clear Calc 66.3 Estimated GFR 51 Random Glucose 109 (60-115) mg/dL Calcium 9.3 D (8.4-10.2) mg/dL Magnesium 2.0 (1.6-2.6) mg/dL Total Bilirubin 0.4 (0.0-1.0) mg/dL Direct Bilirubin 0.2 (0.0-0.5) mg/dL AST 20 (5-37) U/L ALT 23 (0-40) U/L Alkaline Phosphatase 93 (39-117) U/L Troponin I High Sens 4.0 (<3.5-35.0) ng/L Total Protein 7.3 D (6.5-8.0) g/dL Albumin 4.2 (3.5-5.0) g/dL Lipase 20 (8-78) U/L Urine Color Urine Appearance Urine pH (5.0-8.0) Ur Specific [place] (1.005-1.025) Urine Protein (NEG-TRACE) MG/DL Urine Glucose (UA) (NEG) MG/DL Urine Ketones (NEG) MG/DL Urine Blood (NEG) Urine Nitrite (NEG) Ur Leukocyte Esterase (NEG) 06/02/21 Range/Units 10:24 WBC (4.8-10.8) X10*3/uL RBC (4.60-5.80) X10*6/uL Hgb (14.0-18.0) g/dl Hct (42-52) % MCV (80-98) fL MCH (27.0-33.0) pg MCHC (31.0-36.0) g/dl RDW (11.0-16.0) % Plt Count (160-400) X10*3/uL MPV (9.4-12.4) fL Immature Gran % (Auto) (0.0-0.4) % Neut % (Auto) (45-73) % Lymph % (Auto) (20-40) % [place] % (Auto) (2-11) % Eos % (Auto) (0-4) % Baso % (Auto) (0-2) % Lymph # (Auto) (1.2-4.9) X10*3/uL [place] # (Auto) (0.1-1.2) X10*3/uL Eos # (Auto) (0.0-0.4) X10*3/uL Baso # (Auto) (0.0-0.2) X10*3/uL Abs Immat Gran (auto) (0.00-0.03) X10*3/uL Absolute Neuts (auto) (2.0-8.3) X10*3/uL Absolute Nucleated RBC (0.0-0.012) X10*3/uL Nucleated RBC % (auto) (0.0-0.2) /100WBC Sodium (135-145) mmol/L Potassium (3.3-5.1) mmol/L Chloride (96-108) mmol/L Carbon Dioxide (22-29) mmol/L Anion Gap (12-20) BUN (9-16) mg/dL Creatinine (0.5-1.4) mg/dL Estim Creat Clear Calc Estimated GFR Random Glucose (60-115) mg/dL Calcium (8.4-10.2) mg/dL Magnesium (1.6-2.6) mg/dL Total Bilirubin (0.0-1.0) mg/dL Direct Bilirubin (0.0-0.5) mg/dL AST (5-37) U/L ALT (0-40) U/L Alkaline Phosphatase (39-117) U/L Troponin I High Sens (<3.5-35.0) ng/L Total Protein (6.5-8.0) g/dL Albumin (3.5-5.0) g/dL Lipase (8-78) U/L Urine Color YELLOW Urine Appearance CLEAR Urine pH 6.0 (5.0-8.0) Ur Specific [place] 1.020 (1.005-1.025) Urine Protein NEG (NEG-TRACE) MG/DL Urine Glucose (UA) NEG (NEG) MG/DL Urine Ketones NEG (NEG) MG/DL Urine Blood NEG (NEG) Urine Nitrite NEG (NEG) Ur Leukocyte Esterase NEG (NEG) ECG Data Attestation: I personally reviewed and interpreted this ECG as follows: Interpretation: normal sinus rhythm, HR 66 bpom, normal CT interval, no ST segment elevations or depressions Discharge Plan Discharge Clinical Impression: Acute chest wall pain Patient Disposition: Home, Self-Care Instructions: Acute Kidney Injury (DC), Chest Wall Pain (ED) Additional Instructions: Your lab workup today showed some mild decrease in your kidney function, which you have had before. Recommend increasing your fluid intake and drinking plenty of water. Your should see your doctor in the next week for repeat labs. Your chest x-ray was normal. Your EKG was normal. Your pain is most likely due to muscular pain. Take Tylenol 975 mg every 6 hours as needed for pain. AVOID NSAIDs like Motrin, Aleve, ibuprofen due to your kidney function. If you develop new or worsening symptoms call 911 or come back to the ER for further evaluation. Prescriptions: No Action acetaminophen [Tylenol] 325 mg tablet 650 mg PO Q6H PRN (Reason: pain) Qty: 60 RF: 0 cyclobenzaprine 10 mg tablet 10 mg PO TID PRN (Reason: muscle spasm) 5 Days Qty: 15 RF: 0 lisinopril 20 mg tablet 20 mg PO DAILY 90 Days Qty: 90 RF: 3 citalopram 10 mg tablet 10 mg PO DAILY 90 Days Qty: 90 RF: 3 Interventions: ED Discharge Assessment Last Done: 06/02/21 12:31 Discharge Date/Time: 06/02/21 12:47 Print Language: Kyrgyz
[2021-06-02 10:28] LABS: MANUAL DIFF FLAG NO
[2021-06-02 10:30] LABS: Basophils Absolute Auto 0.1 X10*3/uL (0.0-0.2); Basophils Percent Auto 0.7 % (0-2); Eosinophils Absolute Auto 0.7 X10*3/uL (0.0-0.4); Eosinophils Percent Auto 5.8 % (0-4); Glucose Urine UA NEG (NEG); Hematocrit 43.8 % (42-52); Hemoglobin 14.9 g/dl (14.0-18.0); Imm Gran Abs Auto 0.03 X10*3/uL (0.00-0.03); Imm Gran Pct Auto 0.3 % (0.0-0.4); Leukocyte Esterase Urine NEG (NEG); Lymphocytes Absolute Auto 4.8 X10*3/uL (1.2-4.9); Lymphocytes Percent Auto 41.6 % (20-40); Mean Corpuscular Hemoglobin 32.3 pg (27.0-33.0); Mean Platelet Volume 10.1 fL (9.4-12.4); Monocytes Absolute Auto 1.1 X10*3/uL (0.1-1.2); Monocytes Percent Auto 9.3 % (2-11); Neutrophils Absolute Auto 4.9 X10*3/uL (2.0-8.3); Neutrophils Percent Auto 42.3 % (45-73); Nitrite Urine NEG (NEG); Platelet Count 278 X10*3/uL (160-400); Red Blood Count 4.61 X10*6/uL (4.60-5.80); Red Cell Distribution Width 12.7 % (11.0-16.0); Urine Blood NEG (NEG); Urine Ketones NEG (NEG); Urine Protein NEG (NEG-TRACE); White Blood Count 11.5 X10*3/uL (4.8-10.8)
[2021-06-02 10:32] LABS: Appearance Urine CLEAR; Color Urine YELLOW
[2021-06-02 11:36] LABS: Alanine Aminotransferase 23 U/L (0-40); Albumin Level 4.2 g/dL (3.5-5.0); Alkaline Phosphatase 93 U/L (39-117); Anion Gap 12 (12-20); Aspartate Amino Transferase 20 U/L (5-37); Bilirubin Direct 0.2 mg/dL (0.0-0.5); Bilirubin Total 0.4 mg/dL (0.0-1.0); Blood Urea Nitrogen 16 mg/dL (9-16); Calcium 9.3 mg/dL (8.4-10.2); Carbon Dioxide 26 mmol/L (22-29); Chloride 105 mmol/L (96-108); Creatinine Clr Calc Pharmacy 66.3; Estimated Glomerular Filt Rate 51; Glucose Random 109 mg/dL (60-115); Lipase 20 U/L (8-78); Potassium 4.5 mmol/L (3.3-5.1); Sodium 138 mmol/L (135-145); Total Protein 7.3 g/dL (6.5-8.0)
== END 2021-06-02 12:47 | disposition home or self-care (01) ==
PROVIDERS: Physician Assistant; Emergency Provider Emergency Medicine Emergency Medical Services; PCP Internal Medicine
DX: R07.89 Other chest pain (principal); I10 Essential (primary) hypertension; Z79.899 Other long term (current) drug therapy
CPT/HCPCS: 36415; 71046; 80048; 80076; 81003; 83690; 83735; 84484; 85025; 93005; 99283

== ENCOUNTER 2021-07-26 09:37 | Outpatient (REF) | payer OTHER, SELFPAY | END 2021-07-26 09:38 | disposition home or self-care (01) | LOC: HO.LAB 09:37 | PROVIDERS: PCP Internal Medicine; Visit Provider Internal Medicine | DX: Z20.822 Contact with and (suspected) exposure to COVID-19 (principal) | CPT/HCPCS: U0003; U0005 ==

== ENCOUNTER 2021-07-27 20:08 | Emergency (ER) | payer OTHER, SELFPAY ==
--- NOTE | 2021-07-27 21:44 | PC.NURSE ---
PT SITTING IN WAITING ROOM, REFUSING TO COME IN TO TRIAGE. STATES HES GOING TO COME BACK TOMORROW. WAITING FOR HIS ADULT SON TO BE SEEN. ADULT SON ANGRY THIS PT IS BEING CALLED IN TO TRIAGE- EXPLAINED TO BOTH THAT ADULT SON WAS ALREADY TRIAGED AND IS CURRENTLY WAITING TO SEE A DOCTOR. CURRENT PT BEING CALLED INTO TRIAGE NOT INTO A ROOM FOR TREATMENT. PT CONTINUES TO REFUSE TO BE TRIAGED.
== END 2021-07-27 21:47 | disposition left against medical advice (07) ==
PROVIDERS: Emergency Provider Emergency Medicine; PCP Internal Medicine
DX: R10.9 Unspecified abdominal pain (principal)

== ENCOUNTER 2021-11-09 09:39 | Emergency (ER) | payer OTHER, SELFPAY ==
--- NOTE | ~2021-11-09 | XR_ITS ---
EXAMINATION: XR CHEST CLINICAL INFORMATION: Chest pressure COMPARISON: Previous chest x-ray May 2021 TECHNIQUE: Frontal view of the chest was obtained. FINDINGS: No significant abnormality is noted involving the heart, lungs, mediastinum, bony thorax or soft tissues. XR/XR chest 1V IMPRESSION: Unremarkable examination.
[2021-11-09 10:47] VITALS: BP 137/85; PULSE 67; RESP 18; TEMP 36.9; O2SAT 97; BMI 33.9
--- NOTE | 2021-11-09 10:53 | ECG_ITS ---
Test Reason : chest pain Blood Pressure : / mmHG Vent. Rate : 072 BPM Atrial Rate : 072 BPM P-R Int : 138 ms QRS Dur : 082 ms QT Int : 384 ms P-R-T Axes : 041 037 053 degrees QTc Int : 420 ms Sinus rhythm with frequent Premature ventricular complexes Otherwise normal ECG When compared with ECG of 02-JUN-2021 10:24, Premature ventricular complexes are now Present Referred By: Generic ED Physician Electronically Signed By:Helio Ku
[2021-11-09 11:20] LABS: MANUAL DIFF FLAG NO
[2021-11-09 11:21] LABS: Basophils Absolute Auto 0.1 X10*3/uL (0.0-0.2); Basophils Percent Auto 0.7 % (0-2); Eosinophils Absolute Auto 0.6 X10*3/uL (0.0-0.4); Eosinophils Percent Auto 5.6 % (0-4); Hematocrit 45.6 % (42.0-52.0); Hemoglobin 15.4 g/dl (14.0-18.0); Imm Gran Abs Auto 0.02 X10*3/uL (0.00-0.03); Imm Gran Pct Auto 0.2 % (0.0-0.4); Lymphocytes Absolute Auto 4.1 X10*3/uL (1.2-4.9); Lymphocytes Percent Auto 40.7 % (20-40); Mean Corpuscular HGB Conc 33.8 g/dl (31.0-36.0); Mean Corpuscular Hemoglobin 32.5 pg (27.0-33.0); Mean Corpuscular Volume 96.2 fL (80.0-98.0); Mean Platelet Volume 10.4 fL (9.4-12.4); Monocytes Absolute Auto 1.1 X10*3/uL (0.1-1.2); Monocytes Percent Auto 10.5 % (2-11); Neutrophils Absolute Auto 4.3 x10*3/uL (2.0-8.3); Neutrophils Percent Auto 42.3 % (45-73); Platelet Count 280 X10*3/uL (160-400); Red Blood Count 4.74 X10*6/uL (4.60-5.80); Red Cell Distribution Width 12.5 % (11.0-16.0); White Blood Count 10.1 X10*3/uL (4.8-10.8)
[2021-11-09 11:35] LABS: Anion Gap 11 (12-20); Blood Urea Nitrogen 19 mg/dL (9-16); Calcium 9.7 mg/dL (8.4-10.2); Carbon Dioxide 28 mmol/L (22-29); Chloride 105 mmol/L (96-108); Creatinine Clr Calc Pharmacy 66.6; Estimated Glomerular Filt Rate 57; Glucose Random 119 mg/dL (60-115); Potassium 4.6 mmol/L (3.3-5.1); Sodium 139 mmol/L (135-145)
[2021-11-09 11:42] LABS: COVID-19 Test Negative (Negative)
--- NOTE | 2021-11-09 18:21 | ED_ITS ---
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 Mode of arrival: ambulatory Limitations: no limitations History of Present Illness complaint: HR 31 on pulse ox machine at home Onset (ago): hour(s) (8am today) Severity: mild Relieving factors: none Exacerbating factors: none Associated symptoms: other (felt some mild chest discomfort today early this morning checked his pulse and it stated 31) Treatments prior to arrival: none Related Data Previous Rx's Medication Instructions Recorded citalopram 10 mg tablet 10 mg PO DAILY 90 Days #90 tab 02/01/21 lisinopril 20 mg tablet 20 mg PO DAILY 90 Days #90 tab 02/01/21 acetaminophen 325 mg tablet 650 mg PO Q6H PRN #60 tab 04/01/21 (Tylenol) cyclobenzaprine 10 mg tablet 10 mg PO TID PRN 5 Days #15 tab 04/01/21 meclizine 25 mg tablet 25 mg PO TID PRN 30 Days #90 tab 07/07/21 gabapentin 100 mg capsule 100 mg PO TID 30 Days #90 cap 09/24/21 Allergies Allergy/AdvReac Type Severity Reaction Status Date / Time Penicillins Allergy Mild UNKNOWN Verified 07/07/21 14:07 nicotine [NICOTINE] AdvReac Intermediate TACHYCARDIA Verified 07/07/21 14:07 (PATCH) Review of Systems Review of Systems: Constitutional : No Weight loss, No Fever, No Chills ENT/Mouth : No sore throat, No Rhinorrhea Eyes: No Eye Pain, No Swelling Cardiovascular : pos Chest Pain, no SOB, no Dyspnea on Exertion, No Orthopnea, No Edema, No Palpitations Respiratory : No Cough, No Sputum Gastrointestinal : no Nausea, No Vomiting, No Diarrhea, No abdominal Pain, No Hematochezia, No Melena Genitourinary : No Dysuria, No Urinary Frequency Musculoskeletal : No joint pain, No Myalgias, No Joint Swelling Skin : No Skin Lesions, No rash Neuro : No Weakness, No Numbness, No Dizziness, No Headache Psych : No Anxiety/Panic, No Depression Heme/Lymph: No Bruising, No Lymphadenopathy Endocrine : No Polyuria, No Polydipsia All other systems reviewed and are negative PMFSH Past Medical History Attestation statement: The following information was validated with the patient. Medical History Balance disorder Dizziness Hypertension Hypertension Menieres disease Mild recurrent major depression Muscle spasm Ringing in ears Severe obesity with body mass index (BMI) of 35.0 to 39.9 with comorbidity Tremors of nervous system Surgical History History of surgery Family History Family History Father CVD (cardiovascular disease) Diabetes Mother No problems noted. Maternal Uncle Prostate cancer Family/Other Substance use disorder Social History Social History Housing: Apartment Alcohol intake: never Patient Tobacco Use Status: Current everyday Tobacco user Tobacco use type: Cigarette Cigarettes Per Day: 10 e-Cigarette/Vaping Use: Never Used Second Hand Smoke Exposure: No Advance Directives: No Advance Directives Information Provided: No service: No Current occupational status: disabled Physical Exam Vital Signs: Vital Signs: Last Vital Signs Temp 98.1 F 11/09/21 19:01 Pulse 68 11/09/21 19:20 Resp 19 11/09/21 19:20 BP 154/73 H 11/09/21 19:01 Pulse Ox 98 11/09/21 19:20 BMI result Body Mass Index 33.9 Appearance: Alert. Oriented X3. No acute distress. Eyes: Pupils equal, round and reactive to light. ENT: Pharynx normal. Neck: Normal inspection. Neck supple. CVS: Normal heart rate and rhythm. Pulses normal. on tele observed to have 3 PVCs in 2 minutes - asymptomatic during bouts Respiratory: No respiratory distress. Breath sounds normal. Abdomen: Soft and nontender. Skin: Skin warm and dry. Normal skin color. Normal skin turgor. Extremities: No lower extremity edema. No calf ttp Neuro: Oriented X 3. No motor deficit. No sensory deficit. Course Course Course Narrative: patient unsure what his machines are displaying including BP and pulse ox machines - had to go over machines I am unsure what his numbers are but currently HR above 60s trop flat Medical Decision Making MDM Narrative Medical decision making narrative: 61 yo male reported feeling a tight chest t his morning then noted his pulse ox machine at home read 31 - he tried 3 different machines and couldn't tell which was right. At this time he has no symptoms and his pulse ox machine from home is 10 pulse points lower than ours in the ED, suspect he was having PVCs at home and the machine was not picking it up. While in the ED here I can see PVCs on the monitor not in a pattern and he has no symptoms with them. I do not suspect ACS/PE. He has no CP/SOB now. Likely PVCs - will refer to PCP for holter monitoring. Lab Data Result diagrams: 11/09/21 11:05 11/09/21 11:05 Labs: Lab Results 11/09/21 11/09/21 11/09/21 Range/Units 11:05 11:05 11:06 WBC 10.1 (4.8-10.8) X10*3/uL RBC 4.74 (4.60-5.80) X10*6/uL Hgb 15.4 (14.0-18.0) g/dl Hct 45.6 (42.0-52.0) % MCV 96.2 (80.0-98.0) fL MCH 32.5 (27.0-33.0) pg MCHC 33.8 (31.0-36.0) g/dl RDW 12.5 (11.0-16.0) % Plt Count 280 (160-400) X10*3/uL MPV 10.4 (9.4-12.4) fL Immature Gran % (Auto) 0.2 (0.0-0.4) % Neut % (Auto) 42.3 L (45-73) % Lymph % (Auto) 40.7 H (20-40) % [place] % (Auto) 10.5 (2-11) % Eos % (Auto) 5.6 H (0-4) % Baso % (Auto) 0.7 (0-2) % Lymph # (Auto) 4.1 (1.2-4.9) X10*3/uL [place] # (Auto) 1.1 (0.1-1.2) X10*3/uL Eos # (Auto) 0.6 H (0.0-0.4) X10*3/uL Baso # (Auto) 0.1 (0.0-0.2) X10*3/uL Abs Immat Gran (auto) 0.02 (0.00-0.03) X10*3/uL Absolute Neuts (auto) 4.3 (2.0-8.3) x10*3/uL Absolute Nucleated RBC 0.000 (0.0-0.012) X10*3/uL Nucleated RBC % (auto) 0.0 (0.0-0.2) /100WBC Sodium 139 (135-145) mmol/L Potassium 4.6 (3.3-5.1) mmol/L Chloride 105 (96-108) mmol/L Carbon Dioxide 28 (22-29) mmol/L Anion Gap 11 L (12-20) BUN 19 H (9-16) mg/dL Creatinine 1.29 (0.5-1.4) mg/dL Estim Creat Clear Calc 66.6 Estimated GFR 57 Random Glucose 119 H (60-115) mg/dL Calcium 9.7 (8.4-10.2) mg/dL Troponin I High Sens (<3.5-35.0) ng/L COVID-19 (CHRISTIAN) Negative (Negative) COVID-19 Clin Com See Note 11/09/21 Range/Units 19:00 WBC (4.8-10.8) X10*3/uL RBC (4.60-5.80) X10*6/uL Hgb (14.0-18.0) g/dl Hct (42.0-52.0) % MCV (80.0-98.0) fL MCH (27.0-33.0) pg MCHC (31.0-36.0) g/dl RDW (11.0-16.0) % Plt Count (160-400) X10*3/uL MPV (9.4-12.4) fL Immature Gran % (Auto) (0.0-0.4) % Neut % (Auto) (45-73) % Lymph % (Auto) (20-40) % [place] % (Auto) (2-11) % Eos % (Auto) (0-4) % Baso % (Auto) (0-2) % Lymph # (Auto) (1.2-4.9) X10*3/uL [place] # (Auto) (0.1-1.2) X10*3/uL Eos # (Auto) (0.0-0.4) X10*3/uL Baso # (Auto) (0.0-0.2) X10*3/uL Abs Immat Gran (auto) (0.00-0.03) X10*3/uL Absolute Neuts (auto) (2.0-8.3) x10*3/uL Absolute Nucleated RBC (0.0-0.012) X10*3/uL Nucleated RBC % (auto) (0.0-0.2) /100WBC Sodium (135-145) mmol/L Potassium (3.3-5.1) mmol/L Chloride (96-108) mmol/L Carbon Dioxide (22-29) mmol/L Anion Gap (12-20) BUN (9-16) mg/dL Creatinine (0.5-1.4) mg/dL Estim Creat Clear Calc Estimated GFR Random Glucose (60-115) mg/dL Calcium (8.4-10.2) mg/dL Troponin I High Sens 3.9 (<3.5-35.0) ng/L COVID-19 ([facility]IAN) (Negative) COVID-19 Clin Com ECG Data Attestation: I personally reviewed and interpreted this ECG as follows: Interpretation: Rate: 72 Rhythm: NSR with occ PVCs [place]: normal Normal P waves. Normal NICOLAS. Normal QRS complex. ST T wave : normal no LEEROY qTC: normal prior studies: no acute ischemia The study has been interpreted contemporaneously by me. . Discharge Plan Discharge Clinical Impression: Frequent PVCs Patient Disposition: Home, Self-Care Instructions: Premature Ventricular Contractions (ED) Additional Instructions: return to ED for any worsening symptoms or concerns Prescriptions: No Action gabapentin 100 mg capsule 100 mg PO TID 30 Days Qty: 90 RF: 1 acetaminophen [Tylenol] 325 mg tablet 650 mg PO Q6H PRN (Reason: pain) Qty: 60 RF: 0 cyclobenzaprine 10 mg tablet 10 mg PO TID PRN (Reason: muscle spasm) 5 Days Qty: 15 RF: 0 lisinopril 20 mg tablet 20 mg PO DAILY 90 Days Qty: 90 RF: 3 citalopram 10 mg tablet 10 mg PO DAILY 90 Days Qty: 90 RF: 3 meclizine 25 mg tablet 25 mg PO TID PRN (Reason: dizziness) 30 Days Qty: 90 RF: 2 Referrals: Ashwini Teague MD [Primary Care Provider] - 2 days (Holter Monitor) Stand Alone Forms: Work/School Release Print Language: Guyanese
[2021-11-09 19:01] VITALS: BP 154/73; PULSE 65; RESP 15; TEMP 36.7; O2SAT 97
[2021-11-09 19:20] VITALS: PULSE 68; RESP 19; O2SAT 98
[2021-11-09 19:24] LABS: Troponin-I High Sensitivity 3.9 ng/L (<3.5-35.0)
== END 2021-11-09 20:06 | disposition home or self-care (01) ==
PROVIDERS: Emergency Provider Emergency Medicine; PCP Internal Medicine
DX: I49.3 Ventricular premature depolarization (principal); R07.9 Chest pain, unspecified; Z20.822 Contact with and (suspected) exposure to COVID-19; F17.200 Nicotine dependence, unspecified, uncomplicated
CPT/HCPCS: 36415; 71045; 80048; 84484; 85025; 87635; 93005; 99283; 99284

== ENCOUNTER 2021-12-14 14:40 | Outpatient (REF) | payer OTHER, SELFPAY ==
[2021-12-14 15:39] LABS: COVID-19 Test Negative (Negative)
== END 2021-12-14 14:41 | disposition home or self-care (01) ==
LOC: HO.LAB 14:40
PROVIDERS: Visit Provider Internal Medicine
DX: Z20.822 Contact with and (suspected) exposure to COVID-19 (principal)
CPT/HCPCS: 87635; C9803

== ENCOUNTER → 2021-12-30 12:42 | Outpatient (REF) | payer OTHER, SELFPAY ==
--- NOTE | 2021-12-30 12:51 | CA_ITS ---
Transthoracic Echocardiogram Patient (Last, First, Middle): Aleksandr White R Gender: Male Date of : 1960 Age: 61 Procedure Date: 12/30/2021 Procedure Type: Transthoracic Echocardiogram Location: OP Height: 170.18 cm Weight: 113.4 kg BSA: 2.22 m2 Heart Rate: bpm BP: 130 / 80 mmHg [employer] Consultant: KEVIN Rashid MD: Franchesca Ag [facility] Tear Down Matcher: Jaxson Dalal MD Symptoms: R07.89 - Other chest pain Study Quality: Fair/Contrast ECG Rhythm: Sinus Conclusions: - 1. Normal LV systolic function with impaired relaxation filling pattern 2. Normal cardiac valvular Doppler 3. Normal RV systolic pressure 4. No pericardial effusion Findings Procedure Information Contrast agent, definity, is being given per protocol without apparent complications. Left Ventricle Normal left ventricular size, thickness, and systolic function. The visually estimated ejection fraction is between 55-60%. Spectral Doppler is indicative of an impaired relaxation filling pattern. E/E prime ratio is between 8 and 15 consistent with indeterminate filling pressures. Right Ventricle Normal right ventricular cavity size and systolic function. Atria The left atrium is likely dilated. Interatrial shunt cannot be excluded. The right atrium was not well visualized. Aortic Valve The aortic valve structure and function is likely normal. There is no aortic valve stenosis. There is no aortic valve regurgitation. Mitral Valve Likely normal mitral valve structure and function. There is trace mitral valve regurgitation. There is no mitral valve stenosis. Pulmonic Valve The pulmonic valve was not well visualized. Tricuspid Valve Likely normal tricuspid valve structure and function. There is trace tricuspid valve regurgitation. The right ventricular systolic pressure is normal. The right ventricular systolic pressure is 19 mmHg. Normal right atrial pressure. There is no evidence of pulmonary hypertension. Great Vessels All visible segments of the aorta are normal in size. The pulmonary artery was not well visualized. Venous The inferior vena cava is normal in size and collapses greater than 50% with inspiration. Pericardium/Pleural There is no evidence of pericardial effusion. Prior Study Comparison Changes noted compared to prior study dated: 09/29/2017. Impaired relaxation filling pattern noted on this study Measurements 2D Linear Measurements IVSd: 1.05 0.6-0.9/0.6-1.0 cm LVIDd: 3.83 3.9-5.3/4.2-5.9 cm LVIDd Index: 1.73 2.4-3.2/2.2-3.1 cm/m2 LVIDs: 2.82 2.0-3.6 cm LVPWd: 1.00 0.7-1.1 cm LA Diam: 3.80 2.7-3.8/3.0-4.0 cm LAIDs Index: 1.71 1.5-2.3 cm/m2 LV Mass: 152.57 67-162/88-224 g LV Mass Index: 68.72 43-95/49-115 g/m2 LVOT Diam: 2.10 3.0+(-)1.3 cm 2D Systolic Function EF 4C: 55.50 >55% EF 2C: 61.90 >55% EF BiP: 56.90 >55% Mitral Valve MV Pk E: 0.58 MV PK A: 0.69 MV Decel Time: 278.00 E/A: 0.80 E'Lateral: 9.46 E'Medial: 6.96 E/E' Med: 8.30 E/E' Lat: 6.10 PHT: 81.00 MVA PHT: 2.72 Decel [place]: 2.09 Aortic Valve AoV Pk Thai: 1.49 AoV Mn Thai: 0.99 AoV VTI: 0.26 AoV Pk Grad: 9.00 Aov Mn Grad: 5.00 VERNON Cont.VTI: 2.80 LVOT LVOT Pk Thai: 1.10 LVOT Mn Thai: 0.74 LVOT VTI: 0.21 LVOT Pk Grad: 5.00 LVOT Mn Grad: 3.00 LVOT Diam: 2.10 LVOT Area: 3.46 Diastolic Function MV Pk E: 0.58 MV Pk A: 0.69 E/A: 0.80 E'Medial: 6.96 E/E' Med: 8.30 E' Laterial: 9.46 E/E' Lat: 6.10 Right Ventricle TAPSE (mm): 24.30 TVS' Thai: 11.70 Tricuspid Valve TR Pk Thai: 2.01 TR Pk Grad: 16.00 RA Press: 3.00 RVSP: 19.00 Great Vessels Aorta Sinus of Valsalva: 3.00 2.0-3.5 cm Ao Asc: 3.30 2.1-3.4 cm Ao Arch: 2.90 Updated in Other Vendor System with Status of Final Jaxson Dalal MD electronically signed on 12/31/2021 11:49:08 AM with status of Final
--- NOTE | 2021-12-30 12:51 | HM_ITS ---
* Total monitoring time 13 days and 21 hours. * Underlying rhythm is sinus. Average 73/Min. Range 46 to 154/Min. * No atrial fibrillation or flutter or AV blocks or pauses. * Rare supraventricular ectopy with minimal burden. * Rare ventricular ectopy with minimal burden. * No patient events. MTDD
== END ==
LOC: HO.CARD 12:42
PROVIDERS: PCP Internal Medicine; Visit Provider Nurse Practitioner Acute Care
DX: R07.89 Other chest pain (principal); R00.2 Palpitations
CPT/HCPCS: 93246; 93306; Q9957

== ENCOUNTER → 2022-03-10 11:22 | Outpatient (BNVA) | payer OTHER, SELFPAY | PROVIDERS: PCP Internal Medicine; Visit Provider Urology | DX: N52.9 Male erectile dysfunction, unspecified (principal) | CPT/HCPCS: 51798; 99212 ==

== ENCOUNTER 2022-12-01 07:55 | Outpatient (REF) | payer OTHER, SELFPAY ==
[2022-12-01 10:22] LABS: MANUAL DIFF FLAG NO
[2022-12-01 11:25] LABS: Basophils Absolute Auto 0.1 X10*3/uL (0.0-0.2); Basophils Percent Auto 0.7 % (0-2); Eosinophils Absolute Auto 0.5 X10*3/uL (0.0-0.4); Eosinophils Percent Auto 5.4 % (0-4); Hematocrit 42.1 % (42.0-52.0); Hemoglobin 14.2 g/dl (14.0-18.0); Imm Gran Abs Auto 0.02 X10*3/uL (0.00-0.03); Imm Gran Pct Auto 0.2 % (0.0-0.4); Lymphocytes Absolute Auto 4.2 X10*3/uL (1.2-4.9); Lymphocytes Percent Auto 41.3 % (20-40); Mean Corpuscular HGB Conc 33.7 g/dl (31.0-36.0); Mean Corpuscular Hemoglobin 31.9 pg (27.0-33.0); Mean Corpuscular Volume 94.6 fL (80.0-98.0); Mean Platelet Volume 11.1 fL (9.4-12.4); Monocytes Percent Auto 10.3 % (2-11); Neutrophils Absolute Auto 4.2 x10*3/uL (2.0-8.3); Neutrophils Percent Auto 42.1 % (45-73); Platelet Count 269 X10*3/uL (160-400); Red Blood Count 4.45 X10*6/uL (4.60-5.80); Red Cell Distribution Width 13.2 % (11.0-16.0); White Blood Count 10.1 X10*3/uL (4.8-10.8)
[2022-12-01 11:50] LABS: Estimated Average Glucose 134 mg/dL; Hemoglobin A1c % 6.3 %
[2022-12-01 12:22] LABS: PSA,Total (Free>4and<10) 1.37 ng/mL (0.00-4.00); Vitamin D 25-OH Total 15.7 ng/mL (>30)
[2022-12-01 12:29] LABS: Alanine Aminotransferase 31 U/L (0-40); Albumin Level 4.1 g/dL (3.5-5.0); Alkaline Phosphatase 87 U/L (39-117); Anion Gap 12 (12-20); Aspartate Amino Transferase 24 U/L (5-37); Bilirubin Total 0.4 mg/dL (0.0-1.0); Blood Urea Nitrogen 20 mg/dL (9-16); Carbon Dioxide 27 mmol/L (22-29); Chloride 109 mmol/L (96-108); Cholesterol 170 mg/dL; Estimated Glomerular Filt Rate 59; Glucose Fasting 92 mg/dL (60-99); HDL Cholesterol 33 mg/dL; LDL Cholesterol Calculated 99 mg/dl; Potassium 4.9 mmol/L (3.3-5.1); Sodium 143 mmol/L (135-145); Triglycerides 194 mg/dL
[2022-12-01 12:39] LABS: Folate 9.9 ng/mL (> or = 4.0); Vitamin B12 321 pg/mL (200-900)
[2022-12-01 13:11] LABS: Creatinine Urine 172.95 mg/dL
[2022-12-09 15:48] LABS: Testosterone, Free 49.2 pg/mL (35.0-155.0); Testosterone, Total 367 ng/dL (250-1100)
== END 2022-12-01 07:56 | disposition home or self-care (01) ==
LOC: HO.LAB 07:55
PROVIDERS: Nurse Practitioner Acute Care; Absent Provider Internal Medicine; PCP Internal Medicine; Visit Provider Nurse Practitioner Family
DX: Z12.5 Encounter for screening for malignant neoplasm of prostate (principal); R00.2 Palpitations; R06.02 Shortness of breath; R07.89 Other chest pain; N52.9 Male erectile dysfunction, unspecified; E66.01 Morbid (severe) obesity due to excess calories; E55.9 Vitamin D deficiency, unspecified; R25.1 Tremor, unspecified; R42 Dizziness and giddiness; R06.83 Snoring; G47.19 Other hypersomnia
CPT/HCPCS: 36415; 80053; 80061; 82043; 82306; 82607; 82746; 83036; 84153; 84402; 84403; 84443; 85025; 99202

== ENCOUNTER 2022-12-30 12:53 | Outpatient (RCR) | payer OTHER, SELFPAY ==
[2022-12-30 13:23] VITALS: BP 145/74; PULSE 66
--- NOTE | 2022-12-30 14:43 | MHC.PT.EP ---
[facility] [place] [facility] [place] [facility] [place] Office [address] Gian Stevenson [address] [phone] F: [phone] F: [phone] F: [phone] F: [phone] Physical Therapy Plan of Care Date of Evaluation: Date of Surgery: Diagnosis: DIZZINESS AND GIDDINESS Assessment: SARITA IS PLEASANT 62 YO MALE WHO REPORTS A TWO YEAR HISTORY OF EPISODES OF SHAKING WHICH BEGIN AT HIS FEET AND WORK UP THROUGH HIS ENTIRE BODY. THESE SPELLS LAST ABOUT A MINUTE OR LESS. NO PREVIOUS TRAUMA NOR INFECTIOUS PROCESS. SYMPTOMS ARE UNPREDICTABLE IN NATURE. HE ALSO REPORTS NEW ONSET OF TINNITUS AND STATES HIS NOTES HE HAS SEVERE SNORING WHICH IS WORSENING. HE SLEEPS IN A SEMI RECLINING POSITION TO AVOID BRINGING ON SYMPTOMS. HE DENIES SYMPTOMS OF DIZZINESS OR ROOM SPINNING. DENIES NAUSEA/VOMITING. EXAM IS NEGATIVE FOR BPPV AND EXAMINATION SHOWS NORMAL OCCULOMOTOR TESTING (-) VBI AND GROSSLY WNL CERVICAL AROM. HE IS NOT A CANDIDATE FOR SKILLED PT AT THIS TIME, WOULD RECOMMEND ADDITIONAL TESTING TO DETERMINE ETIOLOGY OF TREMORS. Frequency and Duration: EVAL ONLY, NOT A CANDIDATE FOR SKILLED THERAPY Short Term Goals: Fdc Goals: Treatment Plan: WOULD RECOMMEND ADDITIONAL TESTING TO DETERMINE ETIOLOGY OF TREMORS. Electronically signed by: ESTEFANIA ROBBINS PT, DPT Please sign and return to therapist. Thank you for your referral.
== END 2022-12-30 14:44 | disposition home or self-care (01) ==
LOC: HO.PT 12:53
PROVIDERS: PCP Internal Medicine; Visit Provider Nurse Practitioner Family
DX: R42 Dizziness and giddiness (principal)
CPT/HCPCS: 97161

== ENCOUNTER 2023-01-20 14:51 | Outpatient (REF) | payer OTHER, SELFPAY ==
--- NOTE | ~2023-01-20 | CT_ITS ---
EXAMINATION: CT CHEST SCREENING CLINICAL INFORMATION: Current smoker. 35 pack year history. COMPARISON: None available. TECHNIQUE: Multidetector volumetric CT imaging of the chest is performed without contrast using low dose technique. Additional 2D coronal and sagittal reformatted images and axial 3D maximum intensity projection (MIP) images are generated on the CT workstation. This CT examination was performed using dose optimization techniques as appropriate, variously including the following: *Automated exposure control *Adjustment of mA and/or kV according to patient size (this includes techniques or standardized protocols for targeted exams where dose is matched to indication/reason for exam; i.e. extremities or head) *Use of iterative reconstruction technique DLP: 81 mGy-cm FINDINGS: LUNGS: Linear scarring or subsegmental atelectasis at the left lung base. The lungs are otherwise clear with no evidence of inflammation or nodules. MEDIASTINUM: The mediastinum is normal. CORONARY ARTERY CALCIFICATION: None visualized on this study. PLEURA: There is no pleural effusion. No pleural mass or thickening. AXILLA: No lymphadenopathy. UPPER ABDOMEN: Fatty liver OSSEOUS STRUCTURES: Unremarkable. CT/CT lung screening IMPRESSION: Unremarkable examination. ASSESSMENT: Lung-RADS category 1: Negative RECOMMENDATION: Annual low-dose chest CT follow-up recommended
== END 2023-01-20 14:52 | disposition home or self-care (01) ==
LOC: HO.CT 14:51
PROVIDERS: PCP Internal Medicine; Visit Provider Physician Assistant Medical
DX: Z12.2 Encounter for screening for malignant neoplasm of respiratory organs (principal); F17.210 Nicotine dependence, cigarettes, uncomplicated
CPT/HCPCS: 71271; G0296

== ENCOUNTER → 2023-01-22 19:30 | Outpatient (REF) | payer OTHER, SELFPAY | LOC: HO.SL 19:30 | PROVIDERS: Visit Provider Nurse Practitioner Family | DX: G47.19 Other hypersomnia (principal); R06.83 Snoring; E66.01 Morbid (severe) obesity due to excess calories; R25.1 Tremor, unspecified | CPT/HCPCS: 95810 ==

== ENCOUNTER → 2023-03-02 14:03 | Outpatient (BNVA) | payer OTHER, SELFPAY | PROVIDERS: PCP Internal Medicine; Visit Provider Nurse Practitioner Family | DX: R06.83 Snoring (principal); G47.9 Sleep disorder, unspecified; G47.19 Other hypersomnia; R25.1 Tremor, unspecified | CPT/HCPCS: 99212 ==

== ENCOUNTER 2023-03-11 23:21 | Emergency (ER) | payer OTHER, SELFPAY ==
[2023-03-11 23:29] VITALS: BP 149/74; PULSE 97; RESP 18; TEMP 36; O2SAT 95; BMI 41.3
[2023-03-12 01:00] VITALS: BP 137/82; PULSE 82; RESP 16; O2SAT 98
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
== END 2023-03-12 01:30 | disposition home or self-care (01) ==
PROVIDERS: Emergency Provider Emergency Medicine; PCP Internal Medicine
DX: S16.1XXA Strain of muscle, fascia and tendon at neck level, initial encounter (principal); V43.52XA Car driver injured in collision with other type car in traffic accident, initial encounter; Y93.89 Activity, other specified; Y92.481 Parking lot as the place of occurrence of the external cause; Y99.9 Unspecified external cause status
CPT/HCPCS: 99283; 99284

== ENCOUNTER 2023-03-13 15:55 | Outpatient (REF) | payer OTHER, SELFPAY ==
[2023-03-13 18:48] LABS: Free T4 (Free Thyroxine) 1.02 ng/dL (0.71-1.85); PSA,Total (Free>4and<10) 1.07 ng/mL (0.00-4.00); Thyroid Stimulating Hormone 2.58 uIU/mL (0.32-4.0); Vitamin D 25-OH Total 26.8 ng/mL (>30)
[2023-03-16 09:17] LABS: Thyroglobulin Antibodies 36 IU/mL (< or = 1); Thyroid Peroxidase Antibodies 429 IU/mL (<9)
== END 2023-03-13 15:56 | disposition home or self-care (01) ==
LOC: HO.LAB 15:55
PROVIDERS: PCP Internal Medicine; Visit Provider Internal Medicine
DX: Z12.5 Encounter for screening for malignant neoplasm of prostate (principal); E55.9 Vitamin D deficiency, unspecified; R79.89 Other specified abnormal findings of blood chemistry
CPT/HCPCS: 36415; 82306; 84153; 84439; 84443; 86376; 86800

== ENCOUNTER → 2023-03-23 | Outpatient (REF) | payer OTHER, SELFPAY | LOC: HO.SL | PROVIDERS: PCP Internal Medicine; Visit Provider Nurse Practitioner Family | DX: G47.33 Obstructive sleep apnea (adult) (pediatric) (principal); R06.83 Snoring; G47.19 Other hypersomnia | CPT/HCPCS: 95806 ==

== ENCOUNTER → 2023-04-20 16:00 | Outpatient (REF) | payer OTHER, SELFPAY | LOC: HO.SL 16:00 | PROVIDERS: PCP Internal Medicine; Visit Provider Nurse Practitioner Family | DX: Z13.89 Encounter for screening for other disorder (principal) ==

== ENCOUNTER → 2023-06-08 14:11 | Outpatient (REF) | payer OTHER, SELFPAY | LOC: HO.SL 14:11 | PROVIDERS: Visit Provider Nurse Practitioner Family | DX: G47.33 Obstructive sleep apnea (adult) (pediatric) (principal); G47.19 Other hypersomnia; R06.83 Snoring | CPT/HCPCS: 95806 ==

== ENCOUNTER → 2023-06-08 19:00 | Outpatient (BNV) | payer OTHER, SELFPAY | PROVIDERS: Visit Provider Psychiatry & Neurology Neurology | DX: G47.33 Obstructive sleep apnea (adult) (pediatric) (principal) | CPT/HCPCS: 95806 ==

== ENCOUNTER 2023-06-12 02:12 | Emergency (ER) | payer OTHER, SELFPAY ==
--- NOTE | ~2023-06-12 | XR_ITS ---
EXAMINATION: XR CHEST CLINICAL INFORMATION: Short of breath COMPARISON: 11/09/2021 TECHNIQUE: Frontal view of the chest was obtained. FINDINGS: The lungs are well expanded. There is no focal consolidation, edema, or effusion. No pneumothorax. The cardiomediastinal silhouette is within normal limits. No acute osseous abnormality. XR/XR chest 1V IMPRESSION: Clear lungs.
[2023-06-12 02:15] VITALS: BP 162/82; PULSE 78; RESP 18; TEMP 36.9; O2SAT 97; BMI 41.2
[2023-06-12 03:01] LABS: COVID-19 Test Negative (Negative); IDNOW Serial# 08D9AD1C
[2023-06-12 03:03] LABS: IDNOW Serial# BCCEAD1C; Influenza A Negative (Negative); Influenza B2 Negative (Negative)
[2023-06-12 03:06] VITALS: O2SAT 94
--- NOTE | 2023-06-12 03:15 | PC.NURSE ---
Pt ca&ox4, no signs of distress and speaks w/o difficulty. Pt denies chest pain and sob. Pt reports an intermittent dry cough x 1 day[address] Pt vitals stable. CT in with pt. plan of care ongoing.
--- NOTE | 2023-06-12 03:20 | ED_ITS ---
HPI - General Adult General Chief complaint: Upper Respiratory Symptoms Stated complaint: Reflux, shortness of breath Time Seen by Provider: 06/12/23 02:56 Source: patient Mode of arrival: ambulatory Limitations: no limitations History of Present Illness HPI narrative: 62-year-old male came in for evaluation shortness of breath and coughing. Patient is a smoker, no recent travel or prolonged immobilization or DVT. No fever or chills. Coughing with clear sputum for about a week. When patient started to cough he started get anxious which he thinks that is why he came today to the hospital. Related Data Previous Rx's Medication Instructions Recorded acetaminophen 325 mg tablet 650 mg PO Q6H PRN pain #60 tabs 06/30/22 (Tylenol) meclizine 25 mg tablet 25 mg PO TID PRN dizziness 30 days 06/30/22 #90 tabs trazodone 50 mg tablet 50 mg PO .COMPLEX PRN sleep #2 tabs 12/01/22 cholecalciferol (vitamin D3) 50 50 mcg PO DAILY 90 days #90 caps 12/07/22 mcg (2,000 unit) capsule gabapentin 100 mg capsule 100 mg PO TID 90 days #270 caps 12/07/22 cyclobenzaprine 10 mg tablet 10 mg PO TID PRN muscle spasm #15 03/12/23 tabs ibuprofen 600 mg tablet 600 mg PO Q6H PRN pain #20 tabs 03/12/23 tadalafil 2.5 mg tablet 2.5 mg PO DAILY PRN sexual 03/13/23 activity 3 days #3 tabs citalopram 10 mg tablet 10 mg PO DAILY 90 days #90 tabs 06/03/23 lisinopril 20 mg tablet 20 mg PO DAILY 90 days #90 tabs 06/11/23 Allergies Allergy/AdvReac Type Severity Reaction Status Date / Time Penicillins Allergy Mild UNKNOWN Verified 03/13/23 15:03 nicotine [NICOTINE] AdvReac Intermediate TACHYCARDIA Verified 03/13/23 15:03 (PATCH) Review of Systems Review of Systems: All other systems are reviewed and are negative Constitutional: Reports as per HPI and Reports no additional constitutional complaints Eyes: Reports as per HPI and Reports no additional eye complaints Reports system reviewed and no additional complaints, except as documented Cardiovascular: Reports as per HPI and Reports no additional cardiovascular complaints Respiratory: Reports as per HPI and Reports no additional respiratory complaints Gastrointestinal: Reports as per HPI and Reports no additional gastrointestinal complaints Genitourinary: Reports no additional female genitourinary complaints Musculoskeletal: Reports no additional musculoskeletal complaints Skin/Breast: Reports system reviewed and no additional complaints, except as docu Psychiatric: Reports no additional psychiatric complaints Endocrine: Reports no additional endocrine complaints Hematologic/Lymphatic: Reports no additional hematologic/lymphatic complaints Allergic/Immunologic: Reports no additional allergic/immunologic complaints Reports system reviewed and no additional complaints, except as documented and Reports Abnormal speech present [facility] Past Medical History Medical History Erectile dysfunction Hypertension Hypovitaminosis D Menieres disease Moderate recurrent major depression Morbid obesity Nicotine dependence, cigarettes, uncomplicated Palpitations PVC's (premature ventricular contractions) Tremors of nervous system Surgical History History of colonoscopy History of surgery Family History Family History Father CVD (cardiovascular disease) Diabetes Mother No problems noted. Maternal Uncle Prostate cancer Family/Other Substance use disorder Social History Social History Housing: Apartment Alcohol intake: never Patient Tobacco Use Status: Current everyday Tobacco user Tobacco use type: Cigarette Cigarettes Per Day: 15 Years Smoked: (onset 17yo, 1/2-1ppd x 45yrs, 30+pyh) Smoked in Last 30 Days: Yes e-Cigarette/Vaping Use: Never Used Second Hand Smoke Exposure: Yes Use of substances other than those prescribed or required for medical reasons: No Advance Directives: No Advance Directives Information Provided: Yes service: No Current occupational status: disabled Cognitive needs: No Hearing needs: No Vision needs: Yes Physical Exam ED Vital Signs: Vital Signs - 24 hr 06/12/23 02:15 06/12/23 03:06 Temperature 98.4 F Pulse Rate 78 Respiratory Rate 18 Blood Pressure 162/82 H Pulse Oximetry 97 94 Oxygen Delivery Method Room Air Room Air BMI result Body Mass Index 41.2 Vital signs have been reviewed as appeared to be correct. Blood pressure normal . Heart rate normal. Respiration rate normal. Temperature normal. Oxygen saturation normal. Appearance: Alert. Oriented X3. No acute distress. Head: Normal external exam. Normocephalic. Atraumatic. No Walsh signs noted. No raccoon eyes noted Eyes: PERRLA. EOMI. Conjunctiva and sclera normal. Eyelids normal. ENT: TM's Normal. Pharynx normal. Uvula midline. Moist mucous membranes. No trismus noted. No drooling noted. No muffled voice noted. Neck: Normal inspection. Neck supple. FROM. No adenopathy. Thyroid Normal. No meningeal signs. No neck mass noted. CVS: Normal heart rate and rhythm. Heart sound normal. No murmurs noted. Pulses normal throughout. Respiratory: No respiratory distress. Painless inspiration. Breath sounds normal. No wheezes/rales/rhonchi noted. Chest nontender. No accessory muscle usage noted or decreased air movement noted. Abdomen: Soft and nontender. Bowel sounds normal in all 4 quadrants. No distention noted. No organomegaly noted. No visible injury noted. Back: No CVA tenderness. Full range of motion noted. Skin: Skin warm and dry. Normal skin color. Normal skin turgor. No rashes/lesions/lacerations noted. Extremities: No lower extremity edema. Extremities exhibit normal range of motion. Extremities nontender. Neuro: Oriented X 3. Cranial nerve exam: II-XII are grossly intact No motor deficit. No sensory deficit. Reflexes normal. Course Course Course Narrative: Anxious patient came in with chest pain and shortness of breath, physical exam, lab finding, chest x-ray, and EKG is unremarkable. Medical Decision Making Differential Diagnosis Differential Diagnoses: The differential diagnosis associated with the pr esentation includes (ACS, pulmonary embolism, pneumonia, pneumothorax, bronchitis, anxiety, severe anemia, electrolyte abnormality.) Admission/Observation Consideration of admission/observation: Escalation of care including admission/observation considered Lab Data MDM Lab Attestation statement: I reviewed the patient's lab results. 06/12/23 03:27 06/12/23 03:27 Labs: Lab Results 06/12/23 06/12/23 06/12/23 Range/Units 02:44 02:44 03:27 WBC 11.3 H (4.8-10.8) X10*3/uL RBC 4.14 L (4.60-5.80) X10*6/uL Hgb 13.3 L (14.0-18.0) g/dl Hct 39.2 L (42.0-52.0) % MCV 94.7 (80.0-98.0) fL MCH 32.1 (27.0-33.0) pg MCHC 33.9 (31.0-36.0) g/dl RDW 13.4 (11.0-16.0) % Plt Count 239 (160-400) X10*3/uL MPV 10.5 (9.4-12.4) fL Immature Gran % (Auto) 0.2 (0.0-0.4) % Neut % (Auto) 46.0 (45-73) % Lymph % (Auto) 40.2 H (20-40) % [place] % (Auto) 8.1 (2-11) % Eos % (Auto) 5.0 H (0-4) % Baso % (Auto) 0.5 (0-2) % Lymph # (Auto) 4.5 (1.2-4.9) X10*3/uL [place] # (Auto) 0.9 (0.1-1.2) X10*3/uL Eos # (Auto) 0.6 H (0.0-0.4) X10*3/uL Baso # (Auto) 0.1 (0.0-0.2) X10*3/uL Abs Immat Gran (auto) 0.02 (0.00-0.03) X10*3/uL Absolute Neuts (auto) 5.2 (2.0-8.3) x10*3/uL Absolute Nucleated RBC 0.000 (0.0-0.012) X10*3/uL Nucleated RBC % (auto) 0.0 (0.0-0.2) /100WBC D-Dimer High Sensitivty NG/ML Sodium (135-145) mmol/L Potassium (3.3-5.1) mmol/L Chloride (96-108) mmol/L Carbon Dioxide (22-29) mmol/L Anion Gap (12-20) BUN (9-16) mg/dL Creatinine (0.5-1.4) mg/dL Estim Creat Clear Calc Estimated GFR Random Glucose (60-115) mg/dL Calcium (8.4-10.2) mg/dL Troponin I High Sens (<3.5-35.0) ng/L COVID-19 ([facility]) Negative (Negative) COVID-19 Clin Com See Note Influenza Type A ([facility]) Negative (Negative) Influenza Type B ([facility]) Negative (Negative) Influenza A & B Note See Note 06/12/23 06/12/23 06/12/23 Range/Units 03:27 03:27 03:27 WBC (4.8-10.8) X10*3/uL RBC (4.60-5.80) X10*6/uL Hgb (14.0-18.0) g/dl Hct (42.0-52.0) % MCV (80.0-98.0) fL MCH (27.0-33.0) pg MCHC (31.0-36.0) g/dl RDW (11.0-16.0) % Plt Count (160-400) X10*3/uL MPV (9.4-12.4) fL Immature Gran % (Auto) (0.0-0.4) % Neut % (Auto) (45-73) % Lymph % (Auto) (20-40) % [place] % (Auto) (2-11) % Eos % (Auto) (0-4) % Baso % (Auto) (0-2) % Lymph # (Auto) (1.2-4.9) X10*3/uL [place] # (Auto) (0.1-1.2) X10*3/uL Eos # (Auto) (0.0-0.4) X10*3/uL Baso # (Auto) (0.0-0.2) X10*3/uL Abs Immat Gran (auto) (0.00-0.03) X10*3/uL Absolute Neuts (auto) (2.0-8.3) x10*3/uL Absolute Nucleated RBC (0.0-0.012) X10*3/uL Nucleated RBC % (auto) (0.0-0.2) /100WBC D-Dimer High Sensitivty < 150 NG/ML Sodium 143 (135-145) mmol/L Potassium 3.8 D (3.3-5.1) mmol/L Chloride 111 H (96-108) mmol/L Carbon Dioxide 25 (22-29) mmol/L Anion Gap 11 L (12-20) BUN 20 H (9-16) mg/dL Creatinine 1.40 (0.5-1.4) mg/dL Estim Creat Clear Calc 67.1 Estimated GFR 52 Random Glucose 120 H (60-115) mg/dL Calcium 9.4 (8.4-10.2) mg/dL Troponin I High Sens 4.2 (<3.5-35.0) ng/L COVID-19 ([facility]) (Negative) COVID-19 Clin Com Influenza Type A ([facility]) (Negative) Influenza Type B ([facility]) (Negative) Influenza A & B Note Independent Interpretation I performed an independent interpretation of an: EKG (Normal sinus rhythm at 63 beats per minutes, normal axis deviation, normal intervals, no ST-T changes.) and Plain X-Ray (No acute intrathoracic pathology) Radiology Impression Discussion of test interpretation with radiology: I have reviewed the radiologist's reading. (Clear lungs.) Chronic Conditions Patient?s care impacted by: Other (Smoker, anxiety.) Scores Heart Score History: -0- slightly suspicious ECG: -0- normal Age: -1- >45 - <65 Risk factory: -1- 1 or 2 risk factors Troponin: -0- < or = normal limit Score: 2 Risk: 1.7% Discharge Plan Discharge Clinical Impression: Anxiety about health Patient Disposition: Home, Self-Care Instructions: Anxiety (ED) Prescriptions: No Action acetaminophen [Tylenol] 325 mg tablet 650 mg PO Q6H PRN (Reason: pain) Qty: 60 0RF meclizine 25 mg tablet 25 mg PO TID PRN (Reason: dizziness) 30 Days Qty: 90 0RF citalopram 10 mg tablet 10 mg PO DAILY 90 Days Qty: 90 0RF lisinopril 20 mg tablet 20 mg PO DAILY 90 Days Qty: 90 0RF ibuprofen 600 mg tablet 600 mg PO Q6H PRN (Reason: pain) Qty: 20 0RF cyclobenzaprine 10 mg tablet 10 mg PO TID PRN (Reason: muscle spasm) Qty: 15 0RF gabapentin 100 mg capsule 100 mg PO TID 90 Days Qty: 270 1RF cholecalciferol (vitamin D3) 50 mcg (2,000 unit) capsule 50 mcg PO DAILY 90 Days Qty: 90 1RF tadalafil 2.5 mg tablet 2.5 mg PO DAILY PRN (Reason: sexual activity) 3 Days Qty: 3 2RF Rx Instructions: administer approximately 30min before sexual activity; do not use more than 1 dose per 24hrs trazodone 50 mg tablet 50 mg PO .COMPLEX PRN (Reason: sleep) Qty: 2 0RF Rx Instructions: 50 mg orally 1 tab 1 hr prior to sleep study, may repeat x's 1 PRN; Referrals: Ashwini Teague MD [Primary Care Provider] -
[2023-06-12 03:32] LABS: MANUAL DIFF FLAG NO
[2023-06-12 03:34] LABS: Basophils Absolute Auto 0.1 X10*3/uL (0.0-0.2); Basophils Percent Auto 0.5 % (0-2); Eosinophils Absolute Auto 0.6 X10*3/uL (0.0-0.4); Hematocrit 39.2 % (42.0-52.0); Hemoglobin 13.3 g/dl (14.0-18.0); Imm Gran Abs Auto 0.02 X10*3/uL (0.00-0.03); Imm Gran Pct Auto 0.2 % (0.0-0.4); Lymphocytes Absolute Auto 4.5 X10*3/uL (1.2-4.9); Lymphocytes Percent Auto 40.2 % (20-40); Mean Corpuscular HGB Conc 33.9 g/dl (31.0-36.0); Mean Corpuscular Hemoglobin 32.1 pg (27.0-33.0); Mean Corpuscular Volume 94.7 fL (80.0-98.0); Mean Platelet Volume 10.5 fL (9.4-12.4); Monocytes Absolute Auto 0.9 X10*3/uL (0.1-1.2); Monocytes Percent Auto 8.1 % (2-11); Neutrophils Absolute Auto 5.2 x10*3/uL (2.0-8.3); Platelet Count 239 X10*3/uL (160-400); Red Blood Count 4.14 X10*6/uL (4.60-5.80); Red Cell Distribution Width 13.4 % (11.0-16.0); White Blood Count 11.3 X10*3/uL (4.8-10.8)
[2023-06-12 03:49] LABS: D Dimer High Sensitivity < 150 NG/ML
[2023-06-12 03:55] LABS: Anion Gap 11 (12-20); Blood Urea Nitrogen 20 mg/dL (9-16); Calcium 9.4 mg/dL (8.4-10.2); Carbon Dioxide 25 mmol/L (22-29); Chloride 111 mmol/L (96-108); Creatinine Clr Calc Pharmacy 67.1; Estimated Glomerular Filt Rate 52; Glucose Random 120 mg/dL (60-115); Potassium 3.8 mmol/L (3.3-5.1); Sodium 143 mmol/L (135-145)
[2023-06-12 03:56] LABS: Troponin-I High Sensitivity 4.2 ng/L (<3.5-35.0)
--- NOTE | 2023-06-12 04:34 | ECG_ITS ---
Test Reason : CHEST PAIN Blood Pressure : / mmHG Vent. Rate : 063 BPM Atrial Rate : 063 BPM P-R Int : 170 ms QRS Dur : 094 ms QT Int : 402 ms P-R-T Axes : 051 061 057 degrees QTc Int : 411 ms Normal sinus rhythm Normal ECG When compared with ECG of 09-NOV-2021 11:10, Premature ventricular complexes are no longer Present Referred By: Adrien Caruso Electronically Signed By:OXANA ROSS
[2023-06-12 05:00] VITALS: BP 115/71; PULSE 66; RESP 18; TEMP 36.7; O2SAT 96
== END 2023-06-12 05:06 | disposition home or self-care (01) ==
PROVIDERS: Emergency Provider Emergency Medicine; PCP Internal Medicine
DX: F41.8 Other specified anxiety disorders (principal); R06.02 Shortness of breath; R05.9 Cough, unspecified; I10 Essential (primary) hypertension; F17.210 Nicotine dependence, cigarettes, uncomplicated; Z20.822 Contact with and (suspected) exposure to COVID-19
CPT/HCPCS: 36415; 71045; 80048; 84484; 85025; 85379; 87502; 87635; 93005; 99283; 99285

== ENCOUNTER 2023-07-18 15:31 | Outpatient (AMB) | payer OTHER, SELFPAY ==
[2023-07-18 15:35] VITALS: BP 124/80; BMI 41.5
--- NOTE | 2023-07-18 15:35 | A.OFFPC_ITS ---
Vital Signs 07/18/23 15:35 Height 5 ft 6 in Weight 257 lb BMI 41.5 BP 124/80 Blood Pressure Location Lt brachial Position Sitting Intake Visit Reasons: bp Intake Note: Patient here for a follow up BP Last Cleaner Required: No Accompanied by: Self / Same As Patient Allergies Penicillins Allergy (Mild, Verified 07/18/23 15:43) UNKNOWN nicotine [NICOTINE] Adverse Reaction (Intermediate, Verified 07/18/23 15:43) TACHYCARDIA (PATCH) Medication List - Last Reconciled 07/18/23 by Ashwini Jolly MD acetaminophen (Tylenol) 650 mg (2 x 325 mg) PO Q6H PRN cholecalciferol (vitamin D3) 50 mcg PO DAILY 90 days citalopram 10 mg PO DAILY 90 days cyclobenzaprine 10 mg PO TID PRN gabapentin 100 mg PO TID 90 days ibuprofen 600 mg PO Q6H PRN lisinopril 20 mg PO DAILY 90 days meclizine 25 mg PO TID PRN 30 days tadalafil 2.5 mg PO DAILY PRN 3 days trazodone 50 mg orally 1 tab 1 hr prior to sleep study, may repeat x's 1 PRN; Tobacco use date assessed: 12/07/22 Dental Screening Dental Screen Date: 07/18/23 Did you have a dental visit in the last 12 months?: No Did you have a dental problem in the last 6 months where you did not have access to dental care?: No Was dental information given to patient?: Patient has dentist HPI HPI Comments History of Present Illness Details This is a 62-year-old male with hypertension, moderate recurrent major depression, Meniere's disease and morbid obesity that comes today for follow-up on his conditions. Blood pressure stable. Depression well controlled with citalopram. On meclizine for Meniere's disease to be use as needed. He is morbidly obese with a BMI of 41.5 and was advised to diet and exercise to reach BMI goal less than 30. Still complains of occasional tremors that happens at that time and will be refer again to neurology. Advised to stop smoking. [facility] Medical History Nicotine dependence, cigarettes, uncomplicated Hypovitaminosis D Moderate recurrent major depression Morbid obesity PVC's (premature ventricular contractions) Palpitations Menieres disease Tremors of nervous system Erectile dysfunction Hypertension Surgical History History of colonoscopy History of surgery Family History Father CVD (cardiovascular disease) Diabetes Mother No problems noted. Maternal Uncle Prostate cancer Family/Other Substance use disorder Social History Housing: Apartment Alcohol intake: never Patient Tobacco Use Status: Current everyday Tobacco user Tobacco use type: Cigarette Cigarettes Per Day: 15 Years Smoked: (onset 17yo, 1/2-1ppd x 45yrs, 30+pyh) e-Cigarette/Vaping Use: Never Used Second Hand Smoke Exposure: Yes service: No Current occupational status: disabled Cognitive needs: No Hearing needs: No Vision needs: Yes Questionnaire Thrive Questionnaire Date Thrive assessed: 12/07/22 MORGAN-7 AMB Questionnaire MORGAN-7 Date MORGAN - 7 assessed: 12/07/22 Source: Developed by Drs. Ran Nolan, Elizabeth Ibrahim, Ryley Bui and colleagues, with an educational damian from [employer]. Review of Systems Const All systems reviewed & are unremarkable except as noted in HPI and below Eyes Reports no additional complaints, Denies change in vision and Denies other visual disturbances Card Denies chest pain at rest, Denies chest pain with activity, Denies edema, Denies irregular heart rhythm, Denies claudication, Denies dyspnea, Denies dyspnea on exertion, Denies orthopnea, Denies paroxysmal nocturnal dyspnea and Denies slow heart rate Resp Denies cough, Denies dyspnea and Denies dyspnea on exertion GI Denies abdominal pain, Denies change in bowel habits, Denies excessive flatus, Denies nausea and Denies vomiting Denies urinary hesitancy, Denies urinary incontinence and Denies urinary urgency Musc Denies abnormal gait, Denies atrophy, Denies deformity and Denies limited range of motion Skin/Breast Denies bleeding lesions, Denies changing lesions and Denies rash Neuro Denies abnormal gait and Denies lack of coordination Physical exam (Primary Care) Vital Signs: Last Vital Signs BP 124/80 07/18/23 15:35 BMI result Body Mass Index 41.5 Tobacco/Smoking Status: Tobacco use Status Tobacco use date assessed 12/07/22 07/18/23 15:38 Patient Tobacco Use Status Current everyday Tobacco 07/18/23 15:38 Tobacco use type Cigarette 07/18/23 15:38 e-Cigarette/Vaping Use Never Used 07/18/23 15:38 Thrive Assessment: Date of Thrive Assessment Date Thrive assessed 12/07/22 07/18/23 15:38 Eyes General: appearance normal, both eyes and all related structures Eyelids: Yes eyelids normal Conjunctivae: conjunctivae normal Neck Neck: Yes normal visual inspection and Yes supple Resp Effort & Inspection: normal respiratory effort Auscultation: clear to auscultation bilaterally Cardio Jugular venous distension: no JVD Rate: regular rate Rhythm: regular rhythm Heart sounds: S1 normal heart sound present and S2 normal heart sound present Extrem General: Yes full ROM Assessment and Plan Assessment & Plan (1) Hypertension: Code(s): I10 - Essential (primary) hypertension Qualifiers: Hypertension type: essential hypertension Qualified Code(s): I10 - Essential (primary) hypertension Plan: Continue lisinopril. Blood pressure goal is equal or less than 130/80. (2) Morbid obesity: Comment: (BMI 41 - 11/2022) Code(s): E66.01 - Morbid (severe) obesity due to excess calories Plan: Start diet and exercise. BMI goal is less than 30 (3) Moderate recurrent major depression: Code(s): F33.1 - Major depressive disorder, recurrent, moderate Plan: Continue citalopram. (4) Menieres disease: Code(s): H81.09 - Meniere's disease, unspecified ear Qualifiers: Laterality: bilateral Qualified Code(s): H81.03 - Meniere's disease, bilateral Plan: Continue meclizine as needed. Orders: Orders Lipid Panel Today E78.5 - Hyperlipidemia, unspecified Complete Blood Count Auto Diff Today D64.9 - Anemia, unspecified IRON PROFILE Today D64.9 - Anemia, unspecified Comprehensive [place]. Panel Fast Today E66.01 - Morbid (severe) obesity due to excess calories Vitamin D 25-OH Total Today E55.9 - Vitamin D deficiency, unspecified Vitamin B12 and Folate Today E53.8 - Deficiency of other specified B group vitamins PSA,Total (Free>4and<10) Today Z12.5 - Encounter for screening for malignant neoplasm of prostate Referrals Neurology Referral R25.1 - Tremor, unspecified Medications: Refilled meclizine 25 mg PO TID 30 days PRN 90 tabs 0RF dizziness meclizine 25 mg PO TID PRN 90 tabs 1RF dizziness 30 days Coding Level of Care Code Est Pt Level 4 (72722) Diagnoses Essential hypertension I10 Hypertension type: essential hypertension Morbid obesity E66.01 Moderate recurrent major depression F33.1 Meniere's disease of both ears H81.03 Laterality: bilateral Time Spent (min) 24
== END 2023-07-18 15:52 | disposition home or self-care (01) ==
PROVIDERS: PCP Internal Medicine; Visit Provider Internal Medicine
DX: I10 Essential (primary) hypertension (principal); E66.01 Morbid (severe) obesity due to excess calories; F33.1 Major depressive disorder, recurrent, moderate; Z68.41 Body mass index [BMI] 40.0-44.9, adult; H81.03 Meniere's disease, bilateral
CPT/HCPCS: 99214

== ENCOUNTER 2024-01-02 07:04 | Outpatient (REF) | payer OTHER, SELFPAY ==
[2024-01-02 07:51] LABS: Basophils Absolute Auto 0.1 X10*3/uL (0.0-0.2); Basophils Percent Auto 0.7 % (0-2); Eosinophils Absolute Auto 0.7 X10*3/uL (0.0-0.4); Eosinophils Percent Auto 5.1 % (0-4); Hematocrit 44.4 % (42.0-52.0); Hemoglobin 14.9 g/dl (14.0-18.0); Imm Gran Abs Auto 0.03 X10*3/uL (0.00-0.03); Imm Gran Pct Auto 0.2 % (0.0-0.4); Lymphocytes Absolute Auto 5.9 X10*3/uL (1.2-4.9); Lymphocytes Percent Auto 44.1 % (20-40); MANUAL DIFF FLAG SCAN; Mean Corpuscular HGB Conc 33.6 g/dl (31.0-36.0); Mean Corpuscular Volume 95.3 fL (80.0-98.0); Mean Platelet Volume 10.7 fL (9.4-12.4); Monocytes Absolute Auto 1.2 X10*3/uL (0.1-1.2); Monocytes Percent Auto 9.1 % (2-11); Neutrophils Absolute Auto 5.4 x10*3/uL (2.0-8.3); Neutrophils Percent Auto 40.8 % (45-73); Platelet Count 276 X10*3/uL (160-400); Red Blood Count 4.66 X10*6/uL (4.60-5.80); Red Cell Distribution Width 13.1 % (11.0-16.0); SCAN SMEAR FLAG 1; White Blood Count 13.3 X10*3/uL (4.8-10.8)
[2024-01-02 08:19] LABS: SLIDE REVIEW VERIFIED
[2024-01-02 08:25] LABS: Alanine Aminotransferase 22 U/L (0-40); Alkaline Phosphatase 116 U/L (39-117); Anion Gap 11 (12-20); Aspartate Amino Transferase 23 U/L (5-37); Bilirubin Total 0.2 mg/dL (0.0-1.0); Blood Urea Nitrogen 17 mg/dL (9-16); Calcium 9.3 mg/dL (8.4-10.2); Carbon Dioxide 26 mmol/L (22-29); Chloride 108 mmol/L (96-108); Cholesterol 190 mg/dL (<200); Estimated Glomerular Filt Rate > 60; Glucose Fasting 137 mg/dL (60-99); HDL Cholesterol 35 mg/dL (>40); Iron 60 mcg/dL (45-160); LDL Cholesterol Calculated 116 mg/dL (<100); Percent Iron Saturation 22 % (15-50); Potassium 4.2 mmol/L (3.3-5.1); Sodium 141 mmol/L (135-145); Total Iron Binding Capacity 275 mcg/dL (228-428); Total Protein 7.5 g/dL (6.5-8.0); Triglycerides 199 mg/dL (<150); Unsaturated Iron Binding 215 ug/dL
[2024-01-02 08:38] LABS: PSA,Total (Free>4and<10) 0.89 ng/mL (0.00-4.00)
[2024-01-02 08:40] LABS: Free T4 (Free Thyroxine) 0.85 ng/dL (0.71-1.85); Vitamin D 25-OH Total 18.9 ng/mL (>30)
[2024-01-02 08:53] LABS: Folate 8.5 ng/mL (> or = 4.0); Vitamin B12 351 pg/mL (200-900)
[2024-01-03 22:19] LABS: Thyroglobulin Antibodies 33 IU/mL (< or = 1); Thyroid Peroxidase Antibodies 271 IU/mL (<9)
== END 2024-01-02 07:05 | disposition home or self-care (01) ==
LOC: HO.LAB 07:04
PROVIDERS: PCP Internal Medicine; Visit Provider Internal Medicine
DX: Z12.5 Encounter for screening for malignant neoplasm of prostate (principal); E66.01 Morbid (severe) obesity due to excess calories; R79.89 Other specified abnormal findings of blood chemistry; E78.5 Hyperlipidemia, unspecified; D64.9 Anemia, unspecified; E55.9 Vitamin D deficiency, unspecified; E53.8 Deficiency of other specified B group vitamins
CPT/HCPCS: 36415; 80053; 80061; 82306; 82607; 82746; 83540; 84153; 84439; 84443; 85025; 86376; 86800

== ENCOUNTER 2024-01-17 15:53 | Outpatient (AMB) | payer OTHER, SELFPAY ==
[2024-01-17 15:54] VITALS: BP 128/72; BMI 41.8
--- NOTE | 2024-01-17 15:54 | A.OFFPC_ITS ---
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 Accompanied by: Self / Same As Patient Allergies Penicillins Allergy (Mild, Verified 01/17/24 16:14) UNKNOWN nicotine [NICOTINE] Adverse Reaction (Intermediate, Verified 01/17/24 16:14) TACHYCARDIA (PATCH) Medication List - Last Reconciled 01/17/24 by Ashwini Jolly MD acetaminophen (Tylenol) 650 mg (2 x 325 mg) PO Q6H PRN cholecalciferol (vitamin D3) 50 mcg PO DAILY 90 days citalopram 10 mg PO DAILY 90 days cyclobenzaprine 10 mg PO TID PRN gabapentin 100 mg PO TID 90 days ibuprofen 600 mg PO Q6H PRN lisinopril 20 mg PO DAILY 90 days meclizine 25 mg PO TID PRN 30 days tadalafil 2.5 mg PO DAILY PRN 3 days Tobacco use date assessed: 01/17/24 Dental Screening Dental Screen Date: 01/17/24 Did you have a dental visit in the last 12 months?: No Did you have a dental problem in the last 6 months where you did not have access to dental care?: No Was dental information given to patient?: Patient has dentist HPI HPI Comments History of Present Illness Details This is a 63-year-old male with hypertension, morbid obesity, moderate recurrent major depression and erectile dysfunction that complains of left elbow pain that started few weeks ago. He feels like he has a lump in the left elbow. No fever. Labs were discussed and he has impaired glucose tolerance but denies any polyuria or polydipsia. Also no weight changes. Blood pressure stable. He is morbidly obese with a BMI of 41.8 and was advised to do diet and exercise. He declines weight loss surgery. Depression has slightly improved with citalopram. Declines counseling for depression. He went to see Urology at [facility] in 2021 for his erectile dysfunction and he would like a 2nd opinion and this is why I will refer him to [facility]. [facility] Medical History (Updated 01/17/24 @ 16:29 by Ashwini Jolly MD) Nicotine dependence, cigarettes, uncomplicated Hypovitaminosis D Moderate recurrent major depression Morbid obesity PVC's (premature ventricular contractions) Palpitations Menieres disease Tremors of nervous system Erectile dysfunction Hypertension Surgical History History of colonoscopy History of surgery Family History Father CVD (cardiovascular disease) Diabetes Mother No problems noted. Maternal Uncle Prostate cancer Family/Other Substance use disorder Social History Housing: Apartment Alcohol intake: never Patient Tobacco Use Status: Current everyday Tobacco user Tobacco use type: Cigarette Cigarettes Per Day: 10 Years Smoked: (onset 17yo, 1/2-1ppd x 45yrs, 30+pyh) e-Cigarette/Vaping Use: Never Used Second Hand Smoke Exposure: Yes service: No Current occupational status: disabled Cognitive needs: No Hearing needs: No Vision needs: Yes Questionnaire PHQ-9 Over the last 2 weeks, how often have you been bothered by any of the following problems? 1. Little interest or pleasure in doing things: nearly every day 2. Feeling down, depressed, or hopeless: nearly every day 3. Trouble falling or staying asleep, or sleeping too much: nearly every day 4. Feeling tired or having little energy: nearly every day 5. Poor appetite or overeating: not at all 6. Feeling bad about yourself - or that you are a failure or have let yourself or your family down: not at all 7. Trouble concentrating on things, such as reading the newspaper or watching television: not at all 8. Moving or speaking so slowly that other people could have noticed. Or the opposite - being so fidgety or restless that you have been moving around a lot more than usual: not at all 9. Thoughts that you would be better off or of hurting yourself in some way: not at all Total score: 12 Depression Screening Interpretation: Positive Depression Screening Follow-up: Existing condition and In treatment Depression Screening Done: Yes 34360 - PHQ-9 Billing: Yes Source: Developed by Drs. Ran Nolan, ElizabethRyley Sanchez and colleagues, with an educational damian from [employer]. Thrive Questionnaire Date Thrive assessed: 01/17/24 I am a: Patient What is your living situation today?: I have a steady place to live Within the past 12 months, did the food you bought not last and you didn't have the money to get more?: Never true Within the past 12 months, did you worry whether your food would run out before you got money to buy more?: Never true Do you have trouble paying for medicines?: No Do you have trouble getting transportation to medical appointments?: No Do you have trouble paying your heating and electricity bill?: No Do you have trouble taking care of your child, family member or friend?: No Do you have trouble with day-to-day activities such as bathing, preparing meals, shopping, managing finances, etc.?: No Are you currently unemployed and looking for a job?: No Are you interested in more education?: No Please select the resources that you would like help with: None Currently or been in a relationship where the following occur: no concerns reported THRIVE Score: 0 AUDIT C Alcohol Use Questionnaire (AUDIT-C) 1. How often do you have a drink containing alcohol?: Never Total Score: 0 Score Reviewed/Action Taken: No MORGAN-7 AMB Questionnaire MORGAN-7 Date MORGAN - 7 assessed: 01/17/24 Feeling nervous, anxious, or on edge: 3 = Nearly every day Not being able to stop or control worryin = More than half the days Worrying too much about different things: 3 = Nearly every day Trouble relaxin = Not at all Being so restless that it is hard to sit still: 1 = Several days Becoming easily annoyed or irritable: 3 = Nearly every day Feeling afraid as if something awful might happen: 3 = Nearly every day Total MORGAN-7 score (0-4 normal; 5-9 mild; 10-14 moderate; 15-21 severe): 15 Source: Developed by Drs. Ran Nolan, Ryley Guzman and colleagues, with an educational damian from [employer]. MORGAN-7 Assessment Billing MORGAN-7 Assessment Tool: MORGAN-7 Assessment 38718 Review of Systems Const All systems reviewed & are unremarkable except as noted in HPI and below Eyes Reports no additional complaints, Denies change in vision and Denies other visual disturbances Card Denies chest pain at rest, Denies chest pain with activity, Denies edema, Denies irregular heart rhythm, Denies claudication, Denies dyspnea, Denies dyspnea on exertion, Denies orthopnea, Denies paroxysmal nocturnal dyspnea and Denies slow heart rate Resp Denies cough, Denies dyspnea and Denies dyspnea on exertion Physical exam (Primary Care) Vital Signs: Last Vital Signs BP 128/72 01/17/24 15:54 BMI result Body Mass Index 41.8 Tobacco/Smoking Status: Tobacco use Status Tobacco use date assessed 01/17/24 01/17/24 16:03 Patient Tobacco Use Status Current everyday Tobacco 01/17/24 16:03 Tobacco use type Cigarette 01/17/24 16:03 e-Cigarette/Vaping Use Never Used 01/17/24 16:03 PHQ-9: PHQ-9 Score PHQ-9: Total score 12 01/17/24 16:17 Depression Screening Interpretation: Positive Depression Screening Follow-up: Existing condition and In treatment Thrive Assessment: Date of Thrive Assessment Date Thrive assessed 01/17/24 01/17/24 16:03 Currently or been in a relationship where the following occur: no concerns reported Resp Effort & Inspection: normal respiratory effort Auscultation: clear to auscultation bilaterally Cardio Jugular venous distension: no JVD Rate: regular rate Rhythm: regular rhythm Heart sounds: S1 normal heart sound present and S2 normal heart sound present Extrem Other: left elbow tenderness, lump felt in left elbow General: Yes full ROM Assessment and Plan Assessment & Plan (1) Moderate recurrent major depression: Code(s): F33.1 - Major depressive disorder, recurrent, moderate Plan: Continue citalopram. (2) Hypertension: Code(s): I10 - Essential (primary) hypertension Qualifiers: Hypertension type: essential hypertension Qualified Code(s): I10 - Essential (primary) hypertension Plan: Continue lisinopril. Blood pressure goal is equal or less than 130/80. (3) Morbid obesity: Comment: (BMI 41 - 11/2022) Code(s): E66.01 - Morbid (severe) obesity due to excess calories Plan: Start diet and exercise. BMI goal is less than 30. (4) Impaired glucose tolerance: Code(s): R73.02 - Impaired glucose tolerance (oral) Plan: Repeat fasting blood glucose in 6 weeks. Start low-carbohydrate diet. (5) Left elbow pain: Code(s): M25.522 - Pain in left elbow Plan: X-ray ordered. Referred to Ortho. (6) Erectile dysfunction: Comment: (improved, no longer needs medication - per Dr. Wright - 02/2022) Code(s): N52.9 - Male erectile dysfunction, unspecified Plan: Referred to urology. Orders: Orders XR elbow LT 2V Today M25.522 - Pain in left elbow PSA,Total (Free>4and<10) Today Z12.5 - Encounter for screening for malignant neoplasm of prostate Testosterone, Free/Total Today N52.9 - Male erectile dysfunction, unspecified Comprehensive [place]. Panel Fast 6 Weeks R73.02 - Impaired glucose tolerance (oral) Referrals Urology Referral N52.9 - Male erectile dysfunction, unspecified Orthopedics Referral M25.522 - Pain in left elbow Medications: Refilled cholecalciferol (vitamin D3) 50 mcg PO DAILY 90 days 90 caps 1RF Coding Level of Care Code Est Pt Level 4 (41324) Diagnoses Moderate recurrent major depression F33.1 Essential hypertension I10 Hypertension type: essential hypertension Morbid obesity E66.01 Impaired glucose tolerance R73.02 Left elbow pain M25.522 Erectile dysfunction N52.9 Additional Codes MORGAN-7 Assessment Billing - MORGAN-7 Assessment Tool: MORGAN-7 Assessment 13968 ([id number]) Time Spent (min) 24
== END 2024-01-17 16:31 | disposition home or self-care (01) ==
PROVIDERS: PCP Internal Medicine; Visit Provider Internal Medicine
DX: I10 Essential (primary) hypertension (principal); F33.1 Major depressive disorder, recurrent, moderate; E66.01 Morbid (severe) obesity due to excess calories; Z68.41 Body mass index [BMI] 40.0-44.9, adult; R73.02 Impaired glucose tolerance (oral); M25.522 Pain in left elbow; N52.9 Male erectile dysfunction, unspecified
CPT/HCPCS: 99214

== ENCOUNTER 2024-01-24 11:17 | Outpatient (REF) | payer OTHER, SELFPAY ==
--- NOTE | ~2024-01-24 | XR_ITS ---
EXAMINATION: XR ELBOW, LEFT CLINICAL INFORMATION: Pain COMPARISON: None available. TECHNIQUE: AP, lateral, and oblique views of the left elbow. FINDINGS: No fracture or dislocation. No joint effusion. No significant degenerative changes. No localized soft tissue swelling. No radiopaque foreign body. XR/XR elbow LT 2V IMPRESSION: Unremarkable radiographs of the left elbow.
[2024-01-24 13:15] LABS: PSA,Total (Free>4and<10) 0.95 ng/mL (0.00-4.00)
[2024-01-28 14:57] LABS: Testosterone, Free 48.2 pg/mL (35.0-155.0); Testosterone, Total 292 ng/dL (250-1100)
== END 2024-01-24 11:18 | disposition home or self-care (01) ==
LOC: HO.XRAY 11:17
PROVIDERS: PCP Internal Medicine; Visit Provider Internal Medicine
DX: Z12.5 Encounter for screening for malignant neoplasm of prostate (principal); N52.9 Male erectile dysfunction, unspecified; M25.522 Pain in left elbow
CPT/HCPCS: 36415; 73070; 84153; 84402; 84403

== ENCOUNTER 2024-02-07 16:32 | Outpatient (REF) | payer OTHER, SELFPAY ==
--- NOTE | ~2024-02-07 | CT_ITS ---
EXAMINATION: CT CHEST SCREENING CLINICAL INFORMATION: Nicotine dependence, cigarettes, uncomplicated. The patient is a current smoker with a 35 pack-year history of smoking. COMPARISON: X-ray chest 06/12/2023. CT chest 01/10/2023. TECHNIQUE: Multidetector volumetric CT imaging of the chest is performed without contrast using low dose technique. Additional 2D coronal and sagittal reformatted images and axial 3D maximum intensity projection (MIP) images are generated on the CT workstation. This CT examination was performed using dose optimization techniques as appropriate, variously including the following: *Automated exposure control. *Adjustment of mA and/or kV according to patient size (this includes techniques or standardized protocols for targeted exams where dose is matched to indication/reason for exam; i.e. extremities or head). *Use of iterative reconstruction technique. DLP: 166 mGy-cm FINDINGS: LUNGS: Mild emphysematous changes are seen along with bronchial thickening. Small 3 mm nodule in the right upper lobe is unchanged (7:149 compare prior 5:147). A tiny 2 mm left upper lobe nodule is unchanged (7:233 compare 5:227). The lungs are otherwise clear with no evidence of inflammation or new or enlarging nodules. MEDIASTINUM: The mediastinum is normal. CORONARY ARTERY CALCIFICATION: None visualized on this study. PLEURA: There is no pleural effusion. No pleural mass or thickening. AXILLA: No lymphadenopathy. UPPER ABDOMEN: There is marked hepatic steatosis with heterogeneous liver attenuation. Focal fatty sparing noted near the kim hepatis. OSSEOUS STRUCTURES: Unremarkable. CT/CT lung screening IMPRESSION: No evidence of malignancy. ASSESSMENT: Lung-RADS category 2: Benign. RECOMMENDATION: Routine annual low-dose CT screening in 12 months.
== END 2024-02-07 16:33 | disposition home or self-care (01) ==
LOC: HO.CT 16:32
PROVIDERS: PCP Internal Medicine; Visit Provider Nurse Practitioner Family
DX: Z12.2 Encounter for screening for malignant neoplasm of respiratory organs (principal); F17.210 Nicotine dependence, cigarettes, uncomplicated
CPT/HCPCS: 71271

== ENCOUNTER → 2024-02-15 14:22 | Outpatient (BNVA) | payer OTHER, SELFPAY | PROVIDERS: PCP Internal Medicine; Visit Provider Physician Assistant | DX: M77.12 Lateral epicondylitis, left elbow (principal) | CPT/HCPCS: 20550; 99202; J1100 ==

== ENCOUNTER 2024-02-15 15:23 | Outpatient (AMB) | payer OTHER, SELFPAY ==
--- NOTE | 2024-02-15 14:44 | A.OFFVIS_ITS ---
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 Patient reports his pain has been present for over a year. His pain is located around all around his elbow. He has weakness and a visible lump in his elbow. No numbness or tingling. Denies injury. OTC pain mediation provides mild relief. 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 He states he has a very intense pain all around his elbow which makes him unable to use his left hand and has to compensate with his right arm. He also c/o weakness and a visible lump in his elbow. He denies any numbness or tingling and has not had any previous injury. He finds mild relief with OTC pain medication. He does not have a history of diabetes. [facility] Medical History Nicotine dependence, cigarettes, uncomplicated Hypovitaminosis D Moderate recurrent major depression Morbid obesity PVC's (premature ventricular contractions) Palpitations Menieres disease Tremors of nervous system Erectile dysfunction Hypertension Surgical History History of colonoscopy History of surgery Family History Father CVD (cardiovascular disease) Diabetes Mother No problems noted. Maternal Uncle Prostate cancer Family/Other Substance use disorder Social History Housing: Apartment Alcohol intake: never Patient Tobacco Use Status: Current everyday Tobacco user Tobacco use type: Cigarette Cigarettes Per Day: 10 Years Smoked: (onset 17yo, 1/2-1ppd x 45yrs, 30+pyh) e-Cigarette/Vaping Use: Never Used Second Hand Smoke Exposure: Yes service: No Current occupational status: disabled Cognitive needs: No Hearing needs: No Vision needs: Yes Review of Systems Const All systems reviewed & are unremarkable except as noted in HPI and below Physical Exam Vital Signs: BMI result Body Mass Index 41.8 Const General: cooperative, healthy appearing, comfortable, no acute distress, well developed and alert Orientation/consciousness: patient oriented x3 HEENT Head: Yes normal to inspection, Yes normocephalic and Yes atraumatic Eyes General: appearance normal, both eyes and all related structures Resp Effort & Inspection: normal respiratory effort and able to speak in complete sentences Cardio Rate: regular rate Peripheral pulses: Peripheral pulses 2+ throughout GI Palpation (GI): Soft to palpation Skin Lesions: no lesions Rashes: no rashes Neuro General: patient oriented x3 Extrem Other: Left elbow: Skin intact. No erythema or swelling. ROM full without pain. Tenderness over the lateral epicondyle and pain with resisted wrist extension. NVI. Office Procedures Joint Injection/Drain Joint Injection/Drain Primary Site: left tennis elbow Prep: site was prepped using aseptic technique, ethochloride spray was applied and injection warnings given Injected: 40 mg of, with 1 mL of, 1% plain lidocaine and decadron Procedure: The patient tolerated the procedure well and there was some relief with the local anesthesia Coding Details: tendon sheath Procedure code (CPT) selection complete Quality Reporting (2019) Adult ([facility] ) Smoking risk assessment performed?: Yes Patient Tobacco Use Status: Current everyday Tobacco user Assessment & Plan Assessment & Plan (1) Left lateral epicondylitis: Code(s): M77.12 - Lateral epicondylitis, left elbow Category: Medical Plan We discussed options today which include steroid injection. They did consent to move forward with the left elbow injection, which was tolerated well. I recommended rest, ice and elevation and OTC anti-inflammatories PRN for discomfort. He was also given a course of physical therapy in the office today. If symptoms persist or worsens over the next 6-8 weeks, patient will contact the office, otherwise follow-up as needed. Orders: Orders OT Evaluation and Treatment 02/15/24 M77.12 - Lateral epicondylitis, left elbow Patient Instructions: Scribed for Miguel Ángel Mitchell PA-C, by [employer], on 02/15/2024 at 3:00 PM Miguel Ángel MCDONALD PA-C, have personally reviewed and agree with the information entered by the scribe. Coding Level of Care Code New Pt Level 3 (80268) Diagnoses Left lateral epicondylitis M77.12
[2024-02-15 14:47] VITALS: BMI 41.8
== END 2024-02-15 15:29 | disposition home or self-care (01) ==
PROVIDERS: PCP Internal Medicine; Visit Provider Physician Assistant
DX: M77.12 Lateral epicondylitis, left elbow (principal)
CPT/HCPCS: 20550; 99203

== ENCOUNTER 2024-03-11 15:10 | Outpatient (REF) | payer OTHER, SELFPAY | END 2024-03-11 15:11 | disposition home or self-care (01) | LOC: HO.HOSX 15:10 | PROVIDERS: Visit Provider Physician Assistant | DX: Z13.89 Encounter for screening for other disorder (principal) ==

== ENCOUNTER 2024-03-15 12:58 | Outpatient (RCR) | payer OTHER, SELFPAY ==
--- NOTE | 2024-03-15 14:09 | MHC.OT.EP ---
[address] [phone] Occupational Therapy Plan of Care Patient Name: Aleksandr White Date of Evaluation: 03/15/24 Diagnosis: Pain Location: Lateral Epicondyle, ECRB, and proximal wrist Pain Score: 10 Pain Scale Used: Numeric (0 - 10) Aggravating Factors: movement, reaching, heavy lifting Alleviating Factors: tylenol & vicks Assessment: Pt is a 63 yr. old R hand dominant male who reports increased pain in his R elbow for over a yrs. now. 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 Thank you once again for your referral.
== END 2024-04-05 15:00 | disposition home or self-care (01) ==
LOC: HO.OT 12:58
PROVIDERS: PCP Internal Medicine; Visit Provider Physician Assistant
DX: M77.12 Lateral epicondylitis, left elbow (principal)
CPT/HCPCS: 97110; 97166; 97535

== ENCOUNTER 2024-04-02 09:25 | Emergency (ER) | payer OTHER, SELFPAY ==
--- NOTE | ~2024-04-02 | CT_ITS ---
EXAMINATION: CT ABDOMEN AND PELVIS WITHOUT CONTRAST CLINICAL INFORMATION: Left-sided flank pain with question of stone COMPARISON: None available. TECHNIQUE: Multidetector volumetric imaging was performed from the superior aspect of the liver through the pubic symphysis. Sagittal and coronal reformatted images were obtained on the technologist's workstation. This CT examination was performed using dose optimization techniques as appropriate, variously including the following: *Automated exposure control *Adjustment of mA and/or kV according to patient size (this includes techniques or standardized protocols for targeted exams where dose is matched to indication/reason for exam; i.e. extremities or head) *Use of iterative reconstruction technique DLP: 820 mGy-cm FINDINGS: LUNG BASES: The visualized lung bases are unremarkable. LIVER, GALLBLADDER, AND BILIARY TREE: The liver is enlarged with decreased attenuation consistent with hepatic steatosis. No focal hepatic lesion or biliary ductal dilatation is present. The gallbladder is unremarkable with no evidence of radiopaque gallstones, gallbladder wall thickening, or obvious pericholecystic inflammatory changes. PANCREAS: Unremarkable. SPLEEN: Unremarkable. ADRENAL GLANDS: Unremarkable. KIDNEYS AND URETERS: Left: Normal in size. Nonobstructing intrarenal calculi are seen on the left with the largest measuring 0.8 x 1.3 cm and 700 Hounsfield units. This stone is 10.1 cm from the posterior axillary line. There is a 2 mm mildly obstructing stone seen in the mid left ureter with some mild left-sided pelvocaliectasis and perinephric stranding. No left renal masses aside from presence of a single Bosniak class I upper pole cyst which needs no additional imaging or follow-up. Right: Normal in size. No calculi, hydronephrosis or renal masses are seen. The right ureter is normal. BLADDER: Unremarkable. GASTROINTESTINAL TRACT: The distal rectum appears thickened The small and large bowel are unremarkable. The appendix is not seen but there is no evidence of appendicitis evidence of appendicitis.. ABDOMINAL WALL: No significant hernia is appreciated. LYMPH NODES: No retroperitoneal lymphadenopathy. VASCULAR: Unremarkable. PELVIC VISCERA: Unremarkable. OSSEOUS STRUCTURES: Mild degenerative changes are seen from L4 through S1. No bony destruction. CT/CT abdomen pelvis wo IV con IMPRESSION: 1. 2 mm mildly obstructing mid left ureteral calculus with mild left-sided pelvocaliectasis and perinephric stranding. 2. Nonobstructing left intrarenal calculi. 3. Incidental note made of an enlarged fatty liver and thickening of the distal rectum. Fleischner guidelines were followed.
[2024-04-02 09:48] VITALS: BP 159/79; PULSE 61; RESP 18; TEMP 36.5; O2SAT 94; BMI 41.7
--- NOTE | 2024-04-02 09:52 | ECG_ITS ---
Test Reason : CHEST PAIN Blood Pressure : / mmHG Vent. Rate : 055 BPM Atrial Rate : 055 BPM P-R Int : 176 ms QRS Dur : 106 ms QT Int : 426 ms P-R-T Axes : 049 053 050 degrees QTc Int : 407 ms Sinus bradycardia Otherwise normal ECG When compared with ECG of 12-JUN-2023 04:43, No significant change was found Referred By: Generic ED Physician Electronically Signed By:AILEEN GLEASON
[2024-04-02 10:07] LABS: MANUAL DIFF FLAG NO
[2024-04-02 10:10] LABS: Basophils Absolute Auto 0.1 X10*3/uL (0.0-0.2); Basophils Percent Auto 0.8 % (0-2); Eosinophils Absolute Auto 0.6 X10*3/uL (0.0-0.4); Eosinophils Percent Auto 5.1 % (0-4); Hematocrit 42.2 % (42.0-52.0); Hemoglobin 14.6 g/dl (14.0-18.0); Imm Gran Abs Auto 0.03 X10*3/uL (0.00-0.03); Imm Gran Pct Auto 0.3 % (0.0-0.4); Lymphocytes Absolute Auto 4.6 X10*3/uL (1.2-4.9); Lymphocytes Percent Auto 40.5 % (20-40); Mean Corpuscular HGB Conc 34.6 g/dl (31.0-36.0); Mean Corpuscular Hemoglobin 32.7 pg (27.0-33.0); Mean Corpuscular Volume 94.4 fL (80.0-98.0); Mean Platelet Volume 10.6 fL (9.4-12.4); Monocytes Absolute Auto 1.2 X10*3/uL (0.1-1.2); Monocytes Percent Auto 10.2 % (2-11); Neutrophils Absolute Auto 4.9 x10*3/uL (2.0-8.3); Neutrophils Percent Auto 43.1 % (45-73); Platelet Count 217 X10*3/uL (160-400); Red Blood Count 4.47 X10*6/uL (4.60-5.80); Red Cell Distribution Width 13.1 % (11.0-16.0); White Blood Count 11.4 X10*3/uL (4.8-10.8)
[2024-04-02 10:32] LABS: Alanine Aminotransferase 22 U/L (0-40); Albumin Level 4.1 g/dL (3.5-5.0); Alkaline Phosphatase 84 U/L (39-117); Anion Gap 13 (12-20); Aspartate Amino Transferase 22 U/L (5-37); Bilirubin Direct 0.1 mg/dL (0.0-0.5); Bilirubin Total 0.4 mg/dL (0.0-1.0); Blood Urea Nitrogen 18 mg/dL (9-16); Calcium 9.3 mg/dL (8.4-10.2); Carbon Dioxide 24 mmol/L (22-29); Chloride 108 mmol/L (96-108); Creatinine Clr Calc Pharmacy 66.2; Estimated Glomerular Filt Rate 51; Glucose Random 171 mg/dL (60-115); Potassium 4.2 mmol/L (3.3-5.1); Sodium 141 mmol/L (135-145); Total Protein 7.3 g/dL (6.5-8.0)
[2024-04-02 10:41] LABS: Troponin-I High Sensitivity < 2.7 ng/L (<3.5-35.0)
[2024-04-02] MEDS: Ibuprofen 800 MG TABLET PO (11:36)
[2024-04-02] MEDS: Ondansetron ODT 4 MG TAB.RAPDIS TRANSLINGU (11:36)
--- NOTE | 2024-04-02 11:37 | PC.NURSE ---
pt medicated for nausea and pain
[2024-04-02 12:00] LABS: Appearance Urine Cloudy; Color Urine Dark Yellow; Glucose Urine UA Negative (Negative); Leukocyte Esterase Urine Trace (Negative); Nitrite Urine Negative (Negative); Specific Gravity - Urine >= 1.030 (1.005-1.025); UMIC TRIGGER UACC YES; Urine Blood Large (3+) (Negative); Urine Ketones Trace mg/dL (Negative); Urine Protein 100 (2+) mg/dL (Neg-Trace)
[2024-04-02 12:02] LABS: Bacteria Urine None Seen (None Seen); Hyaline Casts Urine 0-2 /LPF (0-2); RBC Urine >20 /HPF (0-2); UACC Culture Trigger YES
--- NOTE | 2024-04-02 13:03 | ED_ITS ---
HPI - Chest Pain General Chief Complaint: Chest Pain Stated Complaint: lower back pain Time Seen by Provider: 04/02/24 13:03 Source: patient Mode of arrival: ambulatory Limitations: no limitations History of Present Illness ED Provider: Julia Smyth PA-C HPI narrative: 63 yo male with history of anxiety, depression, MICHAEL, HTN presents for evaluation of L flank pain since this morning 5AM. He reports that he was woken up by severe pain in his left flank area, pain is now wrapping toward the front of his torso. MD complaint: chest pain Related Data Previous Rx's ?Medication ?Instructions ?Recorded acetaminophen 325 mg tablet 650 mg (2 x 325 mg) PO Q6H PRN 06/30/22 (Tylenol) pain #60 tabs cyclobenzaprine 10 mg tablet 10 mg PO TID PRN muscle spasm #15 03/12/23 tabs ibuprofen 600 mg tablet 600 mg PO Q6H PRN pain #20 tabs 03/12/23 tadalafil 2.5 mg tablet 2.5 mg PO DAILY PRN sexual 03/13/23 activity 3 days #3 tabs meclizine 25 mg tablet 25 mg PO TID PRN dizziness 30 days 07/18/23 #90 tabs cholecalciferol (vitamin D3) 50 50 mcg PO DAILY 90 days #90 caps 01/17/24 mcg (2,000 unit) capsule citalopram 10 mg tablet 10 mg PO DAILY 90 days #90 tabs 02/29/24 lisinopril 20 mg tablet 20 mg PO DAILY 90 days #90 tabs 03/10/24 gabapentin 100 mg capsule 100 mg PO TID 90 days #270 caps 04/02/24 Allergies Allergy/AdvReac Type Severity Reaction Status Date / Time Penicillins Allergy Mild UNKNOWN Verified 04/02/24 09:52 nicotine [NICOTINE] AdvReac Intermediate TACHYCARDIA Verified 04/02/24 09:52 (PATCH) [facility] Past Medical History Medical History Nicotine dependence, cigarettes, uncomplicated Hypovitaminosis D Moderate recurrent major depression Morbid obesity PVC's (premature ventricular contractions) Palpitations Menieres disease Tremors of nervous system Erectile dysfunction Hypertension Surgical History History of colonoscopy History of surgery Family History Family History Father CVD (cardiovascular disease) Diabetes Mother No problems noted. Maternal Uncle Prostate cancer Family/Other Substance use disorder Social History Social History Housing: Apartment Alcohol intake: never Patient Tobacco Use Status: Current everyday Tobacco user Tobacco use type: Cigarette Cigarettes Per Day: 10 Years Smoked: (onset 17yo, 1/2-1ppd x 45yrs, 30+pyh) e-Cigarette/Vaping Use: Never Used Second Hand Smoke Exposure: Yes Advance Directives: Yes Advance Directives Information Provided: Yes Advance Directives on File: No service: No Current occupational status: disabled Cognitive needs: No Hearing needs: No Vision needs: Yes Physical Exam 2 Vital Signs: Vital Signs: Last Vital Signs Temp 97.6 F 04/02/24 13:23 Pulse 66 04/02/24 13:23 Resp 16 04/02/24 13:23 BP 133/58 L 04/02/24 13:23 Pulse Ox 96 04/02/24 13:23 O2 Del Method Room Air 04/02/24 13:23 BMI result Body Mass Index 41.7 Medications Administered Discontinued Medications Generic Name Dose Route Start Last Admin Trade Name Denysq PRN Reason Stop Dose Admin Sodium Chloride 1,000 mls @ 999 mls/hr 04/02/24 13:15 04/02/24 13:28 Ns IV 04/02/24 14:15 999 mls/hr .Q1H1M MELISSA Administration Ibuprofen 800 mg 04/02/24 11:34 04/02/24 11:36 Ibuprofen 800 Mg Tablet PO 04/02/24 11:35 800 mg ONCE ONE Administration Ondansetron HCl 4 mg 04/02/24 11:34 04/02/24 11:36 Ondansetron Odt 4 Mg Tab.Rapdis TRANSLINGU 04/02/24 11:35 4 mg ONCE ONE Administration Medical Decision Making Lab Data 04/02/24 10:03 04/02/24 10:03 Labs: Lab Results 04/02/24 04/02/24 Range/Units 10:03 11:54 WBC 11.4 H (4.8-10.8) X10*3/uL RBC 4.47 L (4.60-5.80) X10*6/uL Hgb 14.6 (14.0-18.0) g/dl Hct 42.2 (42.0-52.0) % MCV 94.4 (80.0-98.0) fL MCH 32.7 (27.0-33.0) pg MCHC 34.6 (31.0-36.0) g/dl RDW 13.1 (11.0-16.0) % Plt Count 217 (160-400) X10*3/uL MPV 10.6 (9.4-12.4) fL Immature Gran % (Auto) 0.3 (0.0-0.4) % Neut % (Auto) 43.1 L (45-73) % Lymph % (Auto) 40.5 H (20-40) % [place] % (Auto) 10.2 (2-11) % Eos % (Auto) 5.1 H (0-4) % Baso % (Auto) 0.8 (0-2) % Lymph # (Auto) 4.6 (1.2-4.9) X10*3/uL [place] # (Auto) 1.2 (0.1-1.2) X10*3/uL Eos # (Auto) 0.6 H (0.0-0.4) X10*3/uL Baso # (Auto) 0.1 (0.0-0.2) X10*3/uL Abs Immat Gran (auto) 0.03 (0.00-0.03) X10*3/uL Absolute Neuts (auto) 4.9 (2.0-8.3) x10*3/uL Absolute Nucleated RBC 0.000 (0.0-0.012) X10*3/uL Nucleated RBC % (auto) 0.0 (0.0-0.2) /100WBC Sodium 141 (135-145) mmol/L Potassium 4.2 (3.3-5.1) mmol/L Chloride 108 (96-108) mmol/L Carbon Dioxide 24 (22-29) mmol/L Anion Gap 13 (12-20) BUN 18 H (9-16) mg/dL Creatinine 1.41 H (0.5-1.4) mg/dL Estim Creat Clear Calc 66.2 Estimated GFR 51 Random Glucose 171 H (60-115) mg/dL Calcium 9.3 (8.4-10.2) mg/dL Total Bilirubin 0.4 (0.0-1.0) mg/dL Direct Bilirubin 0.1 (0.0-0.5) mg/dL AST 22 (5-37) U/L ALT 22 (0-40) U/L Alkaline Phosphatase 84 (39-117) U/L Troponin I High Sens < 2.7 (<3.5-35.0) ng/L Total Protein 7.3 (6.5-8.0) g/dL Albumin 4.1 (3.5-5.0) g/dL Urine Color Dark Yellow Urine Appearance Cloudy Urine pH 5.0 (5.0-9.0) Ur Specific [place] >= 1.030 H (1.005-1.025) Urine Protein 100 (2+) H (Neg-Trace) mg/dL Urine Glucose (UA) Negative (Negative) mg/dL Urine Ketones Trace (Negative) mg/dL Urine Blood Large (3+) H (Negative) Urine Nitrite Negative (Negative) Ur Leukocyte Esterase Trace H (Negative) Urine RBC >20 H (0-2) /HPF Urine WBC 11-20 H (0-5) /HPF Ur Squamous Epith Cells 3-5 (0-2) /HPF Urine Bacteria None Seen (None Seen) Hyaline Casts 0-2 (0-2) /LPF Discharge Plan Discharge Prescriptions: No Action acetaminophen [Tylenol] 325 mg tablet 650 mg PO Q6H PRN (Reason: pain) Qty: 60 0RF citalopram 10 mg tablet 10 mg PO DAILY 90 Days Qty: 90 0RF lisinopril 20 mg tablet 20 mg PO DAILY 90 Days Qty: 90 0RF gabapentin 100 mg capsule 100 mg PO TID 90 Days Qty: 270 1RF ibuprofen 600 mg tablet 600 mg PO Q6H PRN (Reason: pain) Qty: 20 0RF cyclobenzaprine 10 mg tablet 10 mg PO TID PRN (Reason: muscle spasm) Qty: 15 0RF meclizine 25 mg tablet 25 mg PO TID PRN (Reason: dizziness) 30 Days Qty: 90 1RF tadalafil 2.5 mg tablet 2.5 mg PO DAILY PRN (Reason: sexual activity) 3 Days Qty: 3 2RF Rx Instructions: administer approximately 30min before sexual activity; do not use more than 1 dose per 24hrs cholecalciferol (vitamin D3) 50 mcg (2,000 unit) capsule 50 mcg PO DAILY 90 Days Qty: 90 1RF Print Language: Romanian
[2024-04-02 13:23] VITALS: BP 133/58; PULSE 66; RESP 16; TEMP 36.4; O2SAT 96
--- NOTE | 2024-04-02 13:23 | PC.NURSE ---
a&ox4. vss and up to date. pt presents to ED w/ sudden onset left flank pain that radiates to LLQ pain w/ associated n/v x 2 times. sx woke pt up around 0600 this am. pt denies urinary sx. hx of kidney stones. 20gIV placed in the right AC - IVF administered per provider order. plan of care ongoing. call hernandez placed within reach.
[2024-04-02] MEDS: 0.9 % Sodium Chloride 1,000 ML 999 ML IV (13:28)
--- NOTE | 2024-04-02 13:40 | PC.NURSE ---
pt to CT at this time.
[2024-04-02] MEDS: Morphine Sulfate 4 MG/ML CARTRIDGE IVPUSH ×2 (14:35→17:48)
[2024-04-02] MEDS: Tamsulosin HCL 0.4 MG CAPSULE PO (14:35)
[2024-04-02] MEDS: ondansetron HCL 4 MG/2 ML VIAL IVPUSH (14:36)
[2024-04-02 14:37] VITALS: BP 123/58
--- NOTE | 2024-04-02 14:47 | ED.ABDPAIN ---
HPI - Abdominal Pain General Chief Complaint: Chest Pain Stated Complaint: lower back pain Time Seen by Provider: 04/02/24 13:03 Source: patient, family, RN notes reviewed and old records reviewed Mode of arrival: ambulatory Limitations: no limitations History of Present Illness ED Provider: Julia Smyth HPI narrative: 63-year-old male with history of HTN, MICHAEL, anxiety, depression, kidney stones who presents for evaluation of left flank pain since 5AM this morning. Patient reports that he was woken up by severe sharp pain in his left flank. Pain is now wrapping toward the front of his torso. Vomited x3 this morning d/t pain. Denies urinary symptoms, denies blood in urine. Denies fevers, endorses cold sweats, does not feel like himself, unable to get comfortable. States he has had kidney stones before. Denies injury to the area. MD elicited complaint: flank pain Pertinent past history: kidney stones Onset (ago): hour(s) (10) Pain Consistency: colicky Location: L flank Severity: severe Quality: sharp Migration to: LUQ Relieving factors: medication Context: history of similar episodes Associated symptoms: nausea and vomiting Related Data Previous Rx's ?Medication ?Instructions ?Recorded acetaminophen 325 mg tablet 650 mg (2 x 325 mg) PO Q6H PRN 06/30/22 (Tylenol) pain #60 tabs meclizine 25 mg tablet 25 mg PO TID PRN dizziness 30 days 07/18/23 #90 tabs cholecalciferol (vitamin D3) 50 50 mcg PO DAILY 90 days #90 caps 01/17/24 mcg (2,000 unit) capsule citalopram 10 mg tablet 10 mg PO DAILY 90 days #90 tabs 02/29/24 lisinopril 20 mg tablet 20 mg PO DAILY 90 days #90 tabs 03/10/24 gabapentin 100 mg capsule 100 mg PO TID 90 days #270 caps 04/02/24 oxycodone 5 mg tablet 5 mg PO Q6H PRN pain #10 tabs 04/02/24 prednisone 20 mg tablet 20 mg PO DAILY #5 tabs 04/02/24 tamsulosin 0.4 mg capsule 0.4 mg PO BEDTIME #7 caps 04/02/24 Allergies Allergy/AdvReac Type Severity Reaction Status Date / Time Penicillins Allergy Mild UNKNOWN Verified 04/03/24 06:56 nicotine [NICOTINE] AdvReac Intermediate TACHYCARDIA Verified 04/03/24 06:56 (PATCH) Review of Systems Review of Systems Yes all other systems are reviewed and are negative [facility] Past Medical History Medical History Nicotine dependence, cigarettes, uncomplicated Hypovitaminosis D Moderate recurrent major depression Morbid obesity PVC's (premature ventricular contractions) Palpitations Menieres disease Tremors of nervous system Erectile dysfunction Hypertension Surgical History History of colonoscopy History of surgery Family History Family History Father CVD (cardiovascular disease) Diabetes Mother No problems noted. Maternal Uncle Prostate cancer Family/Other Substance use disorder Social History Social History Household Members: Spouse Housing: Apartment Do you presently have visiting nurse or other home services: No Alcohol intake: never Patient Tobacco Use Status: Current everyday Tobacco user Tobacco use type: Cigarette Cigarette Packs Per Day: 0.5 Cigarettes Per Day: 10.0 Years Smoked: (onset 17yo, 1/2-1ppd x 45yrs, 30+pyh) e-Cigarette/Vaping Use: Never Used Second Hand Smoke Exposure: Yes service: No Current occupational status: disabled Cognitive needs: No Hearing needs: No Vision needs: Yes Physical Exam ED Vital Signs: Vital Signs - 24 hr 04/02/24 09:48 04/02/24 13:23 04/02/24 14:37 Temperature 97.7 F 97.6 F Pulse Rate 61 66 Respiratory Rate 18 16 Blood Pressure 159/79 H 133/58 L 123/58 L Pulse Oximetry 94 96 Oxygen Delivery Method Room Air Room Air 04/02/24 18:05 04/02/24 20:50 Temperature 97.9 F 98.0 F Pulse Rate 62 69 Respiratory Rate 18 18 Blood Pressure 116/53 L 100/49 L Pulse Oximetry 95 92 Oxygen Delivery Method Room Air Room Air BMI result Body Mass Index 41.7 Appearance: Alert. Oriented X3. Appears uncomfortable. Head: normocephalic, atraumatic. Eyes: Pupils equal, round and reactive to light. Neck: Normal inspection. Neck supple. CVS: Normal heart rate and rhythm. Pulses normal. Respiratory: No respiratory distress. Breath sounds normal. Abdomen: Soft. +BS x4. TTP over left flank. Skin: Skin warm, diaphoretic. Normal skin color. Normal skin turgor. No rashes. Extremities: No lower extremity edema. No joint swelling. Neuro/psych: Oriented X 3. No motor deficit. No sensory deficit. CN II-XII grossly intact. Normal speech and cognition. Course Reevaluation(s) Reevaluation #1: CT/CT abdomen pelvis wo IV con IMPRESSION: 1. 2 mm mildly obstructing mid left ureteral calculus with mild left-sided pelvocaliectasis and perinephric stranding. 2. Nonobstructing left intrarenal calculi. 3. Incidental note made of an enlarged fatty liver and thickening of the distal rectum. The above findings were discussed with patient, suspect carrera extending is secondary to acute inflammatory process rather than infectious process, no evidence of infection on urinalysis, afebrile, no left shift. Send prescription for tamsulosin, prednisone, oxycodone to pharmacy, advised outpatient follow-up with Urology, strict return precautions. All questions answered. Stable for discharge home. Time: 22:12 Medical Decision Making Medical Decision Making [facility] Narrative: 63-year-old male with history of HTN, MICHAEL, anxiety, depression presents for evaluation of left flank pain since 5AM this morning. Pain is colicky in his left flank and wrapping to front torso, patient endorses history of kidney stones, urine dip positive for RBCs and WBCs, CBC shows leukocytosis. This presentation is suggestive of nephrolithiasis, CT abd/pelvis obtained with signficant delay due to IT rad down time. Signed out to David Art NP for f/u CT scan reading and dispo Also considered pyelonephritis as patient is having flank pain with leukocytosis. Patient denies urinary symptoms including urgency, frequency, dysuria. Patient is also afebrile. Therefore less concern for pyelonephritis. Patient denies injury preceding injury, therefore unlikely rib strain, muscle strain, and splenic contusion. Differential Diagnosis Differential Diagnoses: The differential diagnosis associated with the presentation includes Nephrolithiasis, pyelonephritis, rib strain, thoracic muscle strain, splenic contusion Lab Data [facility] Lab Attestation statement: I reviewed the patient's lab results. mild leukocytosis, mild JOHNNY 04/02/24 10:03 04/02/24 10:03 Labs: Lab Results 04/02/24 04/02/24 Range/Units 10:03 11:54 WBC 11.4 H (4.8-10.8) X10*3/uL RBC 4.47 L (4.60-5.80) X10*6/uL Hgb 14.6 (14.0-18.0) g/dl Hct 42.2 (42.0-52.0) % MCV 94.4 (80.0-98.0) fL MCH 32.7 (27.0-33.0) pg MCHC 34.6 (31.0-36.0) g/dl RDW 13.1 (11.0-16.0) % Plt Count 217 (160-400) X10*3/uL MPV 10.6 (9.4-12.4) fL Immature Gran % (Auto) 0.3 (0.0-0.4) % Neut % (Auto) 43.1 L (45-73) % Lymph % (Auto) 40.5 H (20-40) % [place] % (Auto) 10.2 (2-11) % Eos % (Auto) 5.1 H (0-4) % Baso % (Auto) 0.8 (0-2) % Lymph # (Auto) 4.6 (1.2-4.9) X10*3/uL [place] # (Auto) 1.2 (0.1-1.2) X10*3/uL Eos # (Auto) 0.6 H (0.0-0.4) X10*3/uL Baso # (Auto) 0.1 (0.0-0.2) X10*3/uL Abs Immat Gran (auto) 0.03 (0.00-0.03) X10*3/uL Absolute Neuts (auto) 4.9 (2.0-8.3) x10*3/uL Absolute Nucleated RBC 0.000 (0.0-0.012) X10*3/uL Nucleated RBC % (auto) 0.0 (0.0-0.2) /100WBC Sodium 141 (135-145) mmol/L Potassium 4.2 (3.3-5.1) mmol/L Chloride 108 (96-108) mmol/L Carbon Dioxide 24 (22-29) mmol/L Anion Gap 13 (12-20) BUN 18 H (9-16) mg/dL Creatinine 1.41 H (0.5-1.4) mg/dL Estim Creat Clear Calc 66.2 Estimated GFR 51 Random Glucose 171 H (60-115) mg/dL Calcium 9.3 (8.4-10.2) mg/dL Total Bilirubin 0.4 (0.0-1.0) mg/dL Direct Bilirubin 0.1 (0.0-0.5) mg/dL AST 22 (5-37) U/L ALT 22 (0-40) U/L Alkaline Phosphatase 84 (39-117) U/L Troponin I High Sens < 2.7 (<3.5-35.0) ng/L Total Protein 7.3 (6.5-8.0) g/dL Albumin 4.1 (3.5-5.0) g/dL Urine Color Dark Yellow Urine Appearance Cloudy Urine pH 5.0 (5.0-9.0) Ur Specific [place] >= 1.030 H (1.005-1.025) Urine Protein 100 (2+) H (Neg-Trace) mg/dL Urine Glucose (UA) Negative (Negative) mg/dL Urine Ketones Trace (Negative) mg/dL Urine Blood Large (3+) H (Negative) Urine Nitrite Negative (Negative) Ur Leukocyte Esterase Trace H (Negative) Urine RBC >20 H (0-2) /HPF Urine WBC 11-20 H (0-5) /HPF Ur Squamous Epith Cells 3-5 (0-2) /HPF Urine Bacteria None Seen (None Seen) Hyaline Casts 0-2 (0-2) /LPF Independent Historian Clinical information obtained from an independent historian. History obtained from or confirmed by: Other (adult son at bedside) External Record Review External record reviewed: Office record, Outpatient record and Prior outpatient labs Prescription Management I considered prescription management with: Pain Medication and Antibiotic Chronic Conditions Patient?s care impacted by: Hypertension Medications Administered Discontinued Medications Generic Name Dose Route Start Last Admin Trade Name Freq PRN Reason Stop Dose Admin Sodium Chloride 1,000 mls @ 999 mls/hr 04/02/24 13:15 04/02/24 15:32 Ns IV 04/02/24 14:15 Infused .Q1H1M MELISSA Infusion Sodium Chloride 1,000 mls @ 999 mls/hr 04/02/24 14:30 04/02/24 16:45 Ns IVCONT 04/02/24 15:30 Infused .Q1H1M MELISSA Infusion Ibuprofen 800 mg 04/02/24 11:34 04/02/24 11:36 Ibuprofen 800 Mg Tablet PO 04/02/24 11:35 800 mg ONCE ONE Administration Morphine Sulfate 4 mg 04/02/24 14:28 04/02/24 14:35 Morphine Sulfate 4 Mg/Ml Cartridge IVPUSH 04/02/24 14:29 4 mg ONCE ONE Administration Protocol Morphine Sulfate 4 mg 04/02/24 17:42 04/02/24 17:48 Morphine Sulfate 4 Mg/Ml Cartridge IVPUSH 04/02/24 17:43 4 mg ONCE ONE Administration Protocol Ondansetron HCl 4 mg 04/02/24 11:34 04/02/24 11:36 Ondansetron Odt 4 Mg Tab.Rapdis TRANSLINGU 04/02/24 11:35 4 mg ONCE ONE Administration Ondansetron HCl 4 mg 04/02/24 14:30 04/02/24 14:36 Ondansetron Hcl 4 Mg/2 Ml Vial IVPUSH 04/02/24 14:31 4 mg ONCE ONE Administration Tamsulosin HCl 0.4 mg 04/02/24 14:29 04/02/24 14:35 Tamsulosin Hcl 0.4 Mg Capsule PO 04/02/24 14:30 0.4 mg ONCE ONE Administration Critical Care Time Critical Care Time Critical Care Time: Yes Total Critical Care Time: 32 Attestation: I have personally provided critical care time exclusive of time spent on separately billable procedures. Time includes review of lab data, radiology results, bedside reassessments of pain after IV narcotics, VS reassessments after IVF bolus x2, and monitoring for potential decompensation. Intervention performed as documented. Discharge Plan Discharge Clinical Impression: Calculi, ureter Patient Disposition: Home, Self-Care Instructions: Ureteral Stones (ED) Additional Instructions: Imaging today reveals a kidney stone in your left ureter. Take Flomax as prescribed in addition to prednisone. A prescription for oxycodone was sent to your pharmacy for pain management. This is a narcotic medication. It may make you drowsy. You should not drive, drink alcohol, or work while taking this medication. Contact urology in the morning to arrange for a follow-up visit. Return back to emergency department any new or worsening symptoms or concerns Prescriptions: New tamsulosin 0.4 mg capsule 0.4 mg PO BEDTIME Qty: 7 0RF prednisone 20 mg tablet 20 mg PO DAILY Qty: 5 0RF oxycodone 5 mg tablet 5 mg PO Q6H PRN (Reason: pain) Qty: 10 0RF Rx Instructions: Partial Fill upon patient request. No Action acetaminophen [Tylenol] 325 mg tablet 650 mg PO Q6H PRN (Reason: pain) Qty: 60 0RF citalopram 10 mg tablet 10 mg PO DAILY 90 Days Qty: 90 0RF lisinopril 20 mg tablet 20 mg PO DAILY 90 Days Qty: 90 0RF gabapentin 100 mg capsule 100 mg PO TID 90 Days Qty: 270 1RF meclizine 25 mg tablet 25 mg PO TID PRN (Reason: dizziness) 30 Days Qty: 90 1RF cholecalciferol (vitamin D3) 50 mcg (2,000 unit) capsule 50 mcg PO DAILY 90 Days Qty: 90 1RF Referrals: Rashawn Wright MD [Physician] - Interventions: ED Discharge Assessment Last Done: 04/02/24 22:48 Discharge Date/Time: 04/02/24 22:24 Print Language: Turkmen
[2024-04-02] MEDS: 0.9 % Sodium Chloride 1,000 ML 999 ML IVCONT (15:31)
--- NOTE | 2024-04-02 15:31 | PC.NURSE ---
pt verbalizing pain level decreased s/p medication administration. IVF administered per provider order. pt waiting for CT results at this time. family bedside for support. plan of care ongoing.
--- NOTE | 2024-04-02 17:49 | PC.NURSE ---
pt verbalizing pain level increased at this time. medication administered per provider order. effectiveness pending. pt still waiting for CT results at this time.
[2024-04-02 18:05] VITALS: BP 116/53; PULSE 62; RESP 18; TEMP 36.6; O2SAT 95
[2024-04-02 20:50] VITALS: BP 100/49; PULSE 69; RESP 18; TEMP 36.7; O2SAT 92
[2024-04-02 22:48] VITALS: BP 119/55; PULSE 89; RESP 20; TEMP 36.9; O2SAT 95
== END 2024-04-02 22:24 | disposition home or self-care (01) ==
PROVIDERS: Emergency Provider Emergency Medicine; PCP Internal Medicine
DX: N20.1 Calculus of ureter (principal); R10.9 Unspecified abdominal pain; R11.2 Nausea with vomiting, unspecified; R07.89 Other chest pain; R00.1 Bradycardia, unspecified; Z79.899 Other long term (current) drug therapy
CPT/HCPCS: 36415; 74176; 80053; 81001; 82248; 84484; 85025; 87086; 87147; 93005; 96361; 96374; 96375; 96376; 99285; J2270; J2405

== ENCOUNTER → 2024-04-02 09:52 | Outpatient (BNV) | payer OTHER, SELFPAY | PROVIDERS: Emergency Provider Emergency Medicine; PCP Internal Medicine; Visit Provider Internal Medicine | DX: R07.9 Chest pain, unspecified (principal); R00.1 Bradycardia, unspecified | CPT/HCPCS: 93010 ==

== ENCOUNTER 2024-04-03 06:38 | Inpatient (IN) | payer OTHER, SELFPAY ==
[2024-04-03] VITALS (8 sets, daily range): BP systolic 96–154; BP diastolic 44–64; PULSE 63–76; RESP 14–20; TEMP 36.3–37; O2SAT 93–97; BMI 43.0; BMI 44.3
--- NOTE | ~2024-04-03 | US_ITS ---
EXAMINATION: US RETROPERITONEAL LIMITED (RENAL ONLY) CLINICAL INFORMATION: Bilateral flank pain, worse on the left side. COMPARISON: Ultrasound examination of kidneys on 05/09/2018 TECHNIQUE: Real-time ultrasound imaging of bilateral kidneys FINDINGS: RIGHT KIDNEY: 10.7 x 6.7 x 5.8 cm (SAG x AP x TRV). The kidney is normal in size, contour, and echogenicity. Renal cortical thickness is normal. No calculi or focal parenchymal lesions. No hydronephrosis. LEFT KIDNEY: 11.7 x 6.7 x 5.5 cm (SAG x AP x TRV). The kidney is normal in size, contour, and echogenicity. Renal cortical thickness is normal. Echogenic focus is seen in mid left kidney measuring 1.6 x 0.4 x 1.0 cm in size (previously 0.4 cm). Left lower pole echogenic focus is seen measuring 0.6 x 0.4 x 0.4 cm in size. There is mild right renal caliectasis and pelviectasis. US/US renal BI IMPRESSION: 1. Unchanged normal sonographic appearance of right kidney. 2. Persistent or recurrent Left renal calculi. Interval development of mild left renal caliectasis and pelviectasis.
--- NOTE | ~2024-04-03 | FL_ITS ---
EXAMINATION: XR FLUOROSCOPY WITH IMAGES CLINICAL INFORMATION: Cystoscopy and stent placement, left COMPARISON: None available. TECHNIQUE: Fluoroscopy Supervised By: Dr. Perez. Fluoroscopy Time: 13.2 seconds. Cumulative Dose: 9.52 mGy. DAP: Not recorded Images: 4. FINDINGS: 4 images demonstrate placement of a ureteral stent with injection of contrast into the left kidney. For full details, please see Dr. Perez's report. FL/FL guidance in OR IMPRESSION: Left ureteral stent placement. For full details, please see Dr. Perez's report.
[2024-04-03 07:21] LABS: MANUAL DIFF FLAG NO
[2024-04-03 07:26] LABS: Appearance Urine Clear; Color Urine Yellow; Glucose Urine UA Negative (Negative); Leukocyte Esterase Urine Trace (Negative); Nitrite Urine Negative (Negative); Specific Gravity - Urine 1.025 (1.005-1.025); UMIC TRIGGER UACC YES; Urine Blood Moderate (2+) (Negative); Urine Ketones Trace mg/dL (Negative); Urine Protein Trace mg/dL (Neg-Trace)
[2024-04-03 07:26] LABS: Basophils Absolute Auto 0.1 X10*3/uL (0.0-0.2); Basophils Percent Auto 0.4 % (0-2); Eosinophils Absolute Auto 0.3 X10*3/uL (0.0-0.4); Eosinophils Percent Auto 2.3 % (0-4); Hematocrit 39.2 % (42.0-52.0); Hemoglobin 13.5 g/dl (14.0-18.0); Imm Gran Abs Auto 0.06 X10*3/uL (0.00-0.03); Imm Gran Pct Auto 0.4 % (0.0-0.4); Lymphocytes Absolute Auto 2.6 X10*3/uL (1.2-4.9); Lymphocytes Percent Auto 17.7 % (20-40); Mean Corpuscular HGB Conc 34.4 g/dl (31.0-36.0); Mean Corpuscular Volume 95.8 fL (80.0-98.0); Mean Platelet Volume 10.6 fL (9.4-12.4); Monocytes Absolute Auto 1.1 X10*3/uL (0.1-1.2); Monocytes Percent Auto 7.5 % (2-11); Neutrophils Absolute Auto 10.5 x10*3/uL (2.0-8.3); Neutrophils Percent Auto 71.7 % (45-73); Platelet Count 218 X10*3/uL (160-400); Red Blood Count 4.09 X10*6/uL (4.60-5.80); Red Cell Distribution Width 13.2 % (11.0-16.0); White Blood Count 14.6 X10*3/uL (4.8-10.8)
[2024-04-03 07:42] LABS: Bacteria Urine None Seen (None Seen); Hyaline Casts Urine 0-2 /LPF (0-2); UACC Culture Trigger YES
[2024-04-03 07:48] LABS: Alanine Aminotransferase 24 U/L (0-40); Alkaline Phosphatase 62 U/L (39-117); Anion Gap 15 (12-20); Aspartate Amino Transferase 23 U/L (5-37); Bilirubin Direct 0.2 mg/dL (0.0-0.5); Bilirubin Total 0.4 mg/dL (0.0-1.0); Blood Urea Nitrogen 22 mg/dL (9-16); Carbon Dioxide 22 mmol/L (22-29); Chloride 107 mmol/L (96-108); Creatinine Clr Calc Pharmacy 46.3; Estimated Glomerular Filt Rate 33; Glucose Random 172 mg/dL (60-115); Lipase 45 U/L (8-78); Potassium 4.2 mmol/L (3.3-5.1); Sodium 140 mmol/L (135-145)
--- NOTE | 2024-04-03 07:58 | ED.ABDPAIN ---
HPI - Abdominal Pain General Chief Complaint: Abdominal Pain Stated Complaint: possible kidney stones Time Seen by Provider: 04/03/24 07:54 Source: patient Mode of arrival: ambulatory Limitations: no limitations History of Present Illness ED Provider: Asael MOLINA HPI narrative: This is a 63-year-old male history of obesity, hypertension, depression, anxiety, obstructive sleep apnea, kidney stones, depression, PVCs, nicotine dependence, Meniere's disease presenting to the emergency department with complaints of left-sided flank pain that wraps into his abdomen that started yesterday morning and has persisted ever since. He reports he was seen here yesterday and was told he had a kidney stone his his left kidney, he reports pain is intolerable, he reports that he was discharged home with pain medicine, he went to pick it up however does not seem to be helping. Reports he has not been able to sleep and he is very uncomfortable. Reports he woke up drenched in sweat he has not sure if he is having fevers. He has had a history of stones before this and they have felt similar. Denies chest pain, shortness of breath, nausea, vomiting, abdominal pain. MD elicited complaint: flank pain Onset (ago): day(s) (2) Pain Consistency: constant Location: L flank Severity: severe Pain scale (0-10): 10 Related Data Previous Rx's ?Medication ?Instructions ?Recorded acetaminophen 325 mg tablet 650 mg (2 x 325 mg) PO Q6H PRN 06/30/22 (Tylenol) pain #60 tabs cyclobenzaprine 10 mg tablet 10 mg PO TID PRN muscle spasm #15 03/12/23 tabs ibuprofen 600 mg tablet 600 mg PO Q6H PRN pain #20 tabs 03/12/23 tadalafil 2.5 mg tablet 2.5 mg PO DAILY PRN sexual 03/13/23 activity 3 days #3 tabs meclizine 25 mg tablet 25 mg PO TID PRN dizziness 30 days 07/18/23 #90 tabs cholecalciferol (vitamin D3) 50 50 mcg PO DAILY 90 days #90 caps 01/17/24 mcg (2,000 unit) capsule citalopram 10 mg tablet 10 mg PO DAILY 90 days #90 tabs 02/29/24 lisinopril 20 mg tablet 20 mg PO DAILY 90 days #90 tabs 03/10/24 gabapentin 100 mg capsule 100 mg PO TID 90 days #270 caps 04/02/24 oxycodone 5 mg tablet 5 mg PO Q6H PRN pain #10 tabs 04/02/24 prednisone 20 mg tablet 20 mg PO DAILY #5 tabs 04/02/24 tamsulosin 0.4 mg capsule 0.4 mg PO BEDTIME #7 caps 04/02/24 Allergies Allergy/AdvReac Type Severity Reaction Status Date / Time Penicillins Allergy Mild UNKNOWN Verified 04/03/24 06:56 nicotine [NICOTINE] AdvReac Intermediate TACHYCARDIA Verified 04/03/24 06:56 (PATCH) Review of Systems Review of Systems Yes all other systems are reviewed and are negative [facility] Past Medical History Attestation statement: The following information was validated with the patient. Source: old records reviewed and nursing notes reviewed Medical History Nicotine dependence, cigarettes, uncomplicated Hypovitaminosis D Moderate recurrent major depression Morbid obesity PVC's (premature ventricular contractions) Palpitations Menieres disease Tremors of nervous system Erectile dysfunction Hypertension Surgical History History of colonoscopy History of surgery Family History Family History Father CVD (cardiovascular disease) Diabetes Mother No problems noted. Maternal Uncle Prostate cancer Family/Other Substance use disorder Social History Social History Housing: Apartment Alcohol intake: never Patient Tobacco Use Status: Current everyday Tobacco user Tobacco use type: Cigarette Cigarettes Per Day: 10 Years Smoked: (onset 17yo, 1/2-1ppd x 45yrs, 30+pyh) Smoked in Last 30 Days: Yes e-Cigarette/Vaping Use: Never Used Second Hand Smoke Exposure: Yes Use of substances other than those prescribed or required for medical reasons: No Advance Directives: No Advance Directives Information Provided: Yes service: No Current occupational status: disabled Cognitive needs: No Hearing needs: No Vision needs: Yes Physical Exam ED Vital Signs: Vital Signs - 24 hr 04/03/24 06:54 04/03/24 08:42 04/03/24 08:48 Temperature 97.3 F 98.0 F Pulse Rate 63 66 Respiratory Rate 20 14 16 Blood Pressure 154/54 H 139/64 Pulse Oximetry 93 93 Oxygen Delivery Method Room Air Room Air BMI result Body Mass Index 43.0 vss Appearance: Alert.? Oriented X3.? No acute distress.? Head: Normocephalic, atraumatic, no step-offs or deformities Eyes: Pupils equal, round and reactive to light.? Neck: Normal inspection.? Neck supple.? CVS: Normal heart rate and rhythm.? Pulses normal.? Respiratory: No respiratory distress.? Breath sounds normal.? Abdomen: Soft and nontender.? Skin: Skin warm and dry.? Normal skin color.? Normal skin turgor.? Extremities: 5/5 strength to bilateral upper and lower extremities Back: No midline tenderness, no C-spine tenderness, full range of motion, +L CVA tenderness negative on the right Neuro: Oriented X 3.? No motor deficit.? No sensory deficit. CN 2-12 intact Course Reevaluation(s) Reevaluation #1: CBC with leukocytosis no left shift. It is increased from yesterday's labs. Chemistry with worsening BUN and creatinine likely secondary to infection and or obstructing uropathy. Urine unchanged from yesterday. No signs of infection. Ultrasound still pending. At this time infection suspected antibiotics as well as fluids ordered. Time: 08:09 Reevaluation #2: Urology recommends admission for pylo. IV atbx and hydration. On re-evaluation patient feeling better with IV morphine. Will give tamsulosin. Plan is for hospital admission Time: 11:02 Medical Decision Making Medical Decision Making [facility] Narrative: 0800 63-year-old male presents with complaints of left-sided flank pain, known kidney stone to the left flank, reports pain is worsening and thinks he may have fevers. Physical exam left-sided CVA tenderness. Patient appears uncomfortable. This is likely obstructive uropathy with superimposed pyelonephritis. Unlikely dissection, rib strain or sprain, splenic contusion or infarct, pancreatitis. Will rule out metabolic derangements. Plan will obtain ultrasound, repeat labs, urine. Differential Diagnosis Differential Diagnoses: The differential diagnosis associated with the presentation includes This is likely obstructive uropathy with superimposed pyelonephritis. Unlikely dissection, rib strain or sprain, splenic contusion or infarct, pancreatitis. Will rule out metabolic derangements. Admission/Observation Consideration of admission/observation: Escalation of care including admission/observation considered Possible Consult Healthcare Provider Management of the patient was discussed with: Assistant Secretary (Urology ) Lab Data MDM Lab Attestation statement: I reviewed the patient's lab results. 04/03/24 07:16 04/03/24 07:16 Labs: Lab Results 04/03/24 04/03/24 04/03/24 Range/Units 07:16 07:18 08:59 WBC 14.6 H (4.8-10.8) X10*3/uL RBC 4.09 L (4.60-5.80) X10*6/uL Hgb 13.5 L (14.0-18.0) g/dl Hct 39.2 L (42.0-52.0) % MCV 95.8 (80.0-98.0) fL MCH 33.0 (27.0-33.0) pg MCHC 34.4 (31.0-36.0) g/dl RDW 13.2 (11.0-16.0) % Plt Count 218 (160-400) X10*3/uL MPV 10.6 (9.4-12.4) fL Immature Gran % (Auto) 0.4 (0.0-0.4) % Neut % (Auto) 71.7 (45-73) % Lymph % (Auto) 17.7 L (20-40) % [place] % (Auto) 7.5 (2-11) % Eos % (Auto) 2.3 (0-4) % Baso % (Auto) 0.4 (0-2) % Lymph # (Auto) 2.6 (1.2-4.9) X10*3/uL [place] # (Auto) 1.1 (0.1-1.2) X10*3/uL Eos # (Auto) 0.3 (0.0-0.4) X10*3/uL Baso # (Auto) 0.1 (0.0-0.2) X10*3/uL Abs Immat Gran (auto) 0.06 H (0.00-0.03) X10*3/uL Absolute Neuts (auto) 10.5 H (2.0-8.3) x10*3/uL Absolute Nucleated RBC 0.000 (0.0-0.012) X10*3/uL Nucleated RBC % (auto) 0.0 (0.0-0.2) /100WBC Sodium 140 (135-145) mmol/L Potassium 4.2 (3.3-5.1) mmol/L Chloride 107 (96-108) mmol/L Carbon Dioxide 22 (22-29) mmol/L Anion Gap 15 (12-20) BUN 22 H (9-16) mg/dL Creatinine 2.05 H (0.5-1.4) mg/dL Estim Creat Clear Calc 46.3 Estimated GFR 33 Random Glucose 172 H (60-115) mg/dL Lactic Acid 1.2 (0.5-2.0) mmol/L Calcium 9.0 (8.4-10.2) mg/dL Total Bilirubin 0.4 (0.0-1.0) mg/dL Direct Bilirubin 0.2 (0.0-0.5) mg/dL AST 23 (5-37) U/L ALT 24 (0-40) U/L Alkaline Phosphatase 62 (39-117) U/L Total Protein 7.0 (6.5-8.0) g/dL Albumin 4.0 (3.5-5.0) g/dL Lipase 45 (8-78) U/L Urine Color Yellow Urine Appearance Clear Urine pH 5.0 (5.0-9.0) Ur Specific [place] 1.025 (1.005-1.025) Urine Protein Trace (Neg-Trace) mg/dL Urine Glucose (UA) Negative (Negative) mg/dL Urine Ketones Trace (Negative) mg/dL Urine Blood Moderate (2+) H (Negative) Urine Nitrite Negative (Negative) Ur Leukocyte Esterase Trace H (Negative) Urine RBC 6-10 H (0-2) /HPF Urine WBC 11-20 H (0-5) /HPF Ur Squamous Epith Cells 3-5 (0-2) /HPF Urine Bacteria None Seen (None Seen) Hyaline Casts 0-2 (0-2) /LPF Independent Interpretation I performed an independent interpretation of an: Ultrasound and CT Scan (Ct from 04/02/24 CT/CT abdomen pelvis wo IV con IMPRESSION: 1. 2 mm mildly obstructing mid left ureteral calculus with mild left-sided pelvocaliectasis and perinephric stranding. 2. Nonobstructing left intrarenal calculi. 3. Incidental note made of an enlarged fatty liver and thickening of the dis) Radiology Impression Discussion of test interpretation with radiology: I have reviewed the radiologist's reading. External Record Review External record reviewed: Inpatient record, Office record, Outpatient record, Prior outpatient labs, Prior outpatient radiology, Primary care record and Outside ED record Prescription Management I considered prescription management with: Pain Medication (oxycodone at home ) Chronic Conditions Patient?s care impacted by: Other (obesity, hypertension, depression, anxiety, obstructive sleep apnea, kidney stones, depression, PVCs, nicotine dependence, Meniere's disease) Medications Administered Discontinued Medications Generic Name Dose Route Start Last Admin Trade Name Freq PRN Reason Stop Dose Admin Ceftriaxone Sodium 1 gm/ 50 mls @ 100 mls/hr 04/03/24 08:09 04/03/24 10:35 Sodium Chloride IV 04/03/24 08:38 Infused ONCE ONE Infusion Sodium Chloride 3,624 mls @ 3,624 mls/hr 04/03/24 08:09 04/03/24 08:42 Ns 30 ml/kg infuse over 1 hr (3624 ml) 04/03/24 09:08 3,624 mls/hr IV Administration .Q1H STA Ketorolac Tromethamine 30 mg 04/03/24 07:53 04/03/24 08:42 Ketorolac Tromethamine 15 Mg/Ml Vial IVPUSH 04/03/24 07:54 30 mg ONCE ONE Administration Morphine Sulfate 4 mg 04/03/24 07:53 04/03/24 08:42 Morphine Sulfate 4 Mg/Ml Cartridge IVPUSH 04/03/24 07:54 4 mg ONCE ONE Administration Protocol Critical Care Time Critical Care Time Critical Care Time: Yes Total Critical Care Time: 35 Attestation: I attest to this time spent taking care of the patient, obtaining history, physical, reviewing labs, imaging, speaking to my attending, specialist or hospitalist. Discharge Plan Discharge Clinical Impression: Acute pyelonephritis, Obstructive uropathy, JOHNNY (acute kidney injury) Patient Disposition: Admitted As Inpatient Prescriptions: No Action acetaminophen [Tylenol] 325 mg tablet 650 mg PO Q6H PRN (Reason: pain) Qty: 60 0RF citalopram 10 mg tablet 10 mg PO DAILY 90 Days Qty: 90 0RF lisinopril 20 mg tablet 20 mg PO DAILY 90 Days Qty: 90 0RF gabapentin 100 mg capsule 100 mg PO TID 90 Days Qty: 270 1RF ibuprofen 600 mg tablet 600 mg PO Q6H PRN (Reason: pain) Qty: 20 0RF cyclobenzaprine 10 mg tablet 10 mg PO TID PRN (Reason: muscle spasm) Qty: 15 0RF tamsulosin 0.4 mg capsule 0.4 mg PO BEDTIME Qty: 7 0RF prednisone 20 mg tablet 20 mg PO DAILY Qty: 5 0RF oxycodone 5 mg tablet 5 mg PO Q6H PRN (Reason: pain) Qty: 10 0RF Rx Instructions: Partial Fill upon patient request. meclizine 25 mg tablet 25 mg PO TID PRN (Reason: dizziness) 30 Days Qty: 90 1RF tadalafil 2.5 mg tablet 2.5 mg PO DAILY PRN (Reason: sexual activity) 3 Days Qty: 3 2RF Rx Instructions: administer approximately 30min before sexual activity; do not use more than 1 dose per 24hrs cholecalciferol (vitamin D3) 50 mcg (2,000 unit) capsule 50 mcg PO DAILY 90 Days Qty: 90 1RF Print Language: Luxembourgish
[2024-04-03] MEDS: Ketorolac Tromethamine 15 MG/ML VIAL 30 MG IVPUSH (08:42)
[2024-04-03] MEDS: Morphine Sulfate 4 MG/ML CARTRIDGE IVPUSH ×2 (08:42→14:14)
--- NOTE | 2024-04-03 09:08 | PC.NURSE ---
pt a&ox4, hypertensive, other vss, 20G PIV R AC, sepsis fld bolus running, medicated per MAR for pain. delay in abx d/t need for blood cultures. u/s at bedside. no new orders at this time.
[2024-04-03 09:13] LABS: Lactic Acid 1.2 mmol/L (0.5-2.0)
[2024-04-03] MEDS: cefTRIAXone sodium 1 GM in 0.9 % Sodium Chloride 50 ML IV (09:13)
--- NOTE | 2024-04-03 11:13 | P.HPHOSP_ITS ---
History of Present Illness Date of Service: 04/03/24 Attending physician on admission: Sara Pimentel Chief Complaint: Flank Pain Pt is a 63-year-old male with a PMH significant for HTN, peripheral neuropathy, Meniere's disease, and mood disorder?who originally presented to the ED yesterday for evaluation of left flank pain. Patient reports he noticed severe left flank pain wrapping around to his lower abdomen yesterday morning when he awoke. Has experienced subjective fever and chills, though never took his temperature at home. Has noticed a reduction in the quantity of his urine stream, but denies gross hematuria or dysuria. Some nausea with 2 episodes of vomiting. Presented to the ED yesterday were CT of abdomen and pelvis found a small 2 mm mildly obstructing left ureteral calculus. Was discharged home on tamsulosin, prednisone, and pain meds. Patient did not experience any reduction his symptoms last night or this morning, so presented again to the ED for evaluation of intractable left flank pain. Denies chest pain/pressure, palpitations. No shortness of breath or difficulty breathing. Denies alcohol history, but currently reports smoking half a pack daily. In the ED pt was slightly hypertensive up to 154/54, vitals otherwise WNL. Labs were significant for leukocytosis of 14.6 and creatinine 2.05, otherwise grossly unremarkable. Stable H& H. No significant electrolyte abnormalities. Lactic acid WNL. Hepatic function WNL. UA showing moderate amount of blood, trace amount of leukocyte esterase, and urine wbc's [address]?of abdomen and pelvis yesterday found 2 mm mildly obstructing mid left ureteral calculus with mild left-sided pelvocaliectasis empiric phrenic stranding. Renal ultrasound today found persistent left renal calculi with interval development of mild left renal caliectasis and pelviectasis. EKG demonstrated sinus bradycardia 55 with no evidence of significant ST elevations or depressions. Pt was treated with IVF, ketorolac, morphine, tamsulosin, and ceftriaxone. Pt will be admitted to the hospital for treatment further evaluation of JOHNNY in the setting of left obstructing uropathy. Review of Systems 2 Review of Systems: Left flank pain Reduced urine stream Subjective fever and chills at home Nausea and vomiting Denies chest pain/pressure, palpitations No shortness of breath or difficulty breathing [facility] Medical History Nicotine dependence, cigarettes, uncomplicated Hypovitaminosis D Moderate recurrent major depression Morbid obesity PVC's (premature ventricular contractions) Palpitations Menieres disease Tremors of nervous system Erectile dysfunction Hypertension Family History Father CVD (cardiovascular disease) Diabetes Mother No problems noted. Maternal Uncle Prostate cancer Family/Other Substance use disorder Surgical History History of colonoscopy History of surgery Social History Housing: Apartment Alcohol intake: never Patient Tobacco Use Status: Current everyday Tobacco user Tobacco use type: Cigarette Cigarettes Per Day: 10 Years Smoked: (onset 17yo, 1/2-1ppd x 45yrs, 30+pyh) Smoked in Last 30 Days: Yes e-Cigarette/Vaping Use: Never Used Second Hand Smoke Exposure: Yes Use of substances other than those prescribed or required for medical reasons: No Advance Directives: No Advance Directives Information Provided: Yes service: No Current occupational status: disabled Cognitive needs: No Hearing needs: No Vision needs: Yes Meds Allergies Allergy/AdvReac Type Severity Reaction Status Date / Time Penicillins Allergy Mild UNKNOWN Verified 04/03/24 06:56 nicotine [NICOTINE] AdvReac Intermediate TACHYCARDIA Verified 04/03/24 06:56 (PATCH) Physical Exam 2 Vital Signs and Narrative: Vital Signs: Last Vital Signs Temp 98.0 F 04/03/24 08:48 Pulse 66 04/03/24 08:48 Resp 16 04/03/24 08:48 BP 139/64 04/03/24 08:48 Pulse Ox 93 04/03/24 08:48 O2 Del Method Room Air 04/03/24 08:48 BMI result Body Mass Index 43.0 Constitutional: Alert, in no acute distress. Mental Status: Oriented to person, place and time. Eyes: Pupils are equal, round, and reactive to light. Ear, Nose, and Throat: Oropharynx clear, mucous membranes moist. Ears and nose without deformities. Trachea midline. Respiratory: Clear to auscultation bilaterally. No wheezing, rales, or rhonchi. Cardiovascular: S1, S2 regular. No murmurs, rubs, or gallops. Gastrointestinal: Abdomen soft, non-distended, but with LLQ tenderness. Normal bowel sounds. Back: Left CVA tenderness. Neurologic: Cranial nerves II-XII are grossly intact bilaterally. No focal neurological deficits. Moves all extremities spontaneously. Skin: Warm, dry. Extremities: No edema. Psychiatric: Normal mood and affect. Results Labs 04/03/24 07:16 04/03/24 07:16 Labs: Laboratory Results - last 24 hr 04/03/24 04/03/24 04/03/24 07:16 07:18 08:59 MCV 95.8 MCH 33.0 MCHC 34.4 RDW 13.2 Plt Count 218 MPV 10.6 Immature Gran % (Auto) 0.4 Neut % (Auto) 71.7 Lymph % (Auto) 17.7 L [place] % (Auto) 7.5 Eos % (Auto) 2.3 Baso % (Auto) 0.4 Lymph # (Auto) 2.6 [place] # (Auto) 1.1 Eos # (Auto) 0.3 Baso # (Auto) 0.1 Abs Immat Gran (auto) 0.06 H Absolute Neuts (auto) 10.5 H Absolute Nucleated RBC 0.000 Nucleated RBC % (auto) 0.0 Anion Gap 15 Estim Creat Clear Calc 46.3 Estimated GFR 33 Random Glucose 172 H Lactic Acid 1.2 Calcium 9.0 Total Bilirubin 0.4 Direct Bilirubin 0.2 AST 23 ALT 24 Alkaline Phosphatase 62 Total Protein 7.0 Albumin 4.0 Lipase 45 Urine Color Yellow Urine Appearance Clear Urine pH 5.0 Ur Specific [place] 1.025 Urine Protein Trace Urine Glucose (UA) Negative Urine Ketones Trace Urine Blood Moderate (2+) H Urine Nitrite Negative Ur Leukocyte Esterase Trace H Urine RBC 6-10 H Urine WBC 11-20 H Ur Squamous Epith Cells 3-5 Urine Bacteria None Seen Hyaline Casts 0-2 Imaging Radiologist's Impressions: Impressions Renal Ultrasound 04/03/24 09:30 IMPRESSION: 1. Unchanged normal sonographic appearance of right kidney. 2. Persistent or recurrent Left renal calculi. Interval development of mild left renal caliectasis and pelviectasis. Assessment and Plan (1) JOHNNY (acute kidney injury): Status: Acute (2) Obstructive uropathy: Status: Acute Plan Pt is a 63-year-old male with a PMH significant for HTN, peripheral neuropathy, Meniere's disease, and mood disorder?who originally presented to the ED yesterday for evaluation of left flank pain. Pt will be admitted to the hospital for treatment further evaluation of JOHNNY in the setting of left obstructive uropathy. JOHNNY in the setting of left obstructive uropathy CT of abdomen/pelvis yesterday found 2 mm mildly obstructing mid left ureteral calculus Renal ultrasound today found interval development of mild left renal caliectasis and pelviectasis Pt initially presented to ED yesterday and d/c on tamsulosin, prednisone, and pain control Will treat with maintenance fluids, tamsulosin, and analgesics for pain management Hold prednisone Urology consult Screen urine for passing of stone Question of pyelonephritis In the setting of obstructive uropathy Does not meet sepsis criteria: Leukocytosis, but no tachycardia, tachypnea, or fever; lactic acid WNL Patient given IVF and started on broad-spectrum antibiotics in the ED Will empirically treat with ceftriaxone, started 04/03/2024 Will get urine culture, follow cultures HTN Hold lisinopril due to JOHNNY Monitor BP Meniere's disease Continue meclizine Peripheral neuropathy Continue gabapentin Mood disorder Continue citalopram Full Code Attending:?Dr. Pimentel DVT Prophylaxis: Lovenox Pt will require a hospitalization of at least two nights for treatment of?JOHNNY in the setting of left obstructive uropathy. Given that patient initially presented to the hospital yesterday and has had interval change of worsening left renal caliectasis and pelviectasis,pPatient required administration of IV fluids, IV analgesics, close monitoring of labs for JOHNNY resolution, and specialist consultation with Urology. Quality Stroke Does the patient have a stroke diagnosis?: No VTE Prior VTE?: No VTE Risk Level:: Medical - moderate - high VTE Device Contraindication: Treatment Not Indicated VTE Drug Contraindication: N/A - Med Ordered
[2024-04-03] MEDS: Tamsulosin HCL 0.4 MG CAPSULE PO (11:33)
--- NOTE | 2024-04-03 12:01 | PHA.MEDREC ---
Pharmacy Consult ? Medication Reconciliation Pharmacy has completed the medication reconciliation.[employer] used. Spoke to pt at bedside, able to name most medications unprompted. Pt reports needing to start vitamin D but has not filled from pharmacy yet. Reports taking blood pressure, pain meds, and prednisone this morning
--- NOTE | 2024-04-03 12:43 | PC.NURSE ---
pt reeducated multiple time on keeping arm straight for fld administration. pt also requesting to go outside to smoke cigarettes stating he left yesterday to smoke and was able to come back in. explained to pt that he was admitted and that he cannot leave to go smoke and come back in, nor would he be able to on the floor. offered patches and gum - pt declined d/t tachycardia w meds. pt requesting additional pain medicine.
[2024-04-03] MEDS: 0.9 % Sodium Chloride 1,000 ML 100 ML IVCONT (15:54)
[2024-04-03] MEDS: Gabapentin 100 MG CAPSULE PO ×2 (15:55→20:30)
[2024-04-03] MEDS: Enoxaparin Sodium 40 MG/0.4 ML SYRINGE SUBCUT (15:57)
[2024-04-03] MEDS: 0.9 % Sodium Chloride Flush 3 ML SYRINGE IVFLUSH (20:30)
[2024-04-04] VITALS (10 sets, daily range): BP systolic 114–170; BP diastolic 55–79; PULSE 58–102; RESP 17–20; TEMP 36.2–37.2; O2SAT 92–96
[2024-04-04 06:51] LABS: Hematocrit 36.8 % (42.0-52.0); Hemoglobin 12.3 g/dl (14.0-18.0); Mean Corpuscular HGB Conc 33.4 g/dl (31.0-36.0); Mean Corpuscular Hemoglobin 32.5 pg (27.0-33.0); Mean Corpuscular Volume 97.1 fL (80.0-98.0); Platelet Count 206 X10*3/uL (160-400); Red Blood Count 3.79 X10*6/uL (4.60-5.80); Red Cell Distribution Width 13.2 % (11.0-16.0); White Blood Count 15.1 X10*3/uL (4.8-10.8)
[2024-04-04 07:01] LABS: Anion Gap 9 (12-20); Blood Urea Nitrogen 23 mg/dL (9-16); Calcium 7.9 mg/dL (8.4-10.2); Carbon Dioxide 21 mmol/L (22-29); Chloride 112 mmol/L (96-108); Creatinine Clr Calc Pharmacy 46.6; Estimated Glomerular Filt Rate 33; Glucose Random 168 mg/dL (60-115); Potassium 4.1 mmol/L (3.3-5.1); Sodium 138 mmol/L (135-145)
[2024-04-04] MEDS: Escitalopram Oxalate 5 MG TABLET PO (08:05)
[2024-04-04] MEDS: Cholecalciferol (Vitamin D3) 25 MCG TABLET 50 MCG PO (08:05)
[2024-04-04] MEDS: Gabapentin 100 MG CAPSULE PO ×3 (08:05→20:07)
[2024-04-04] MEDS: Morphine Sulfate 4 MG/ML CARTRIDGE IVPUSH ×2 (08:09→20:08)
--- NOTE | 2024-04-04 08:09 | PM.UROCN ---
History of Present Illness Consult details Consult date: 04/04/24 Requesting physician: Sara Pimentel Narrative: Aleksandr is a 63-year-old Croatian-speaking male who presented to the ED on 04/02/2024 with left flank pain. CT imaging noted left renal stone and a 2 mm ureteral stone. The patient re-presented on 04/03/2024 with persistent left flank pain renal ultrasound was done noting persistent mild hydronephrosis on the left. Blood work noted worsening renal function. I have discussed cystoscopy left ureteral stent. Certified orthopedic podiatrist present. Consent obtained. Review of Systems Review of Systems: 10 point review of systems negative other than stated in HPI [facility] Past Medical History Medical History Nicotine dependence, cigarettes, uncomplicated Hypovitaminosis D Moderate recurrent major depression Morbid obesity PVC's (premature ventricular contractions) Palpitations Menieres disease Tremors of nervous system Erectile dysfunction Hypertension Family History Family History Father CVD (cardiovascular disease) Diabetes Mother No problems noted. Maternal Uncle Prostate cancer Family/Other Substance use disorder Surgical History Surgical History History of colonoscopy History of surgery Social History Social History Household Members: Spouse Housing: Apartment Do you presently have visiting nurse or other home services: No Alcohol intake: never Patient Tobacco Use Status: Current everyday Tobacco user Tobacco use type: Cigarette Cigarette Packs Per Day: 0.5 Cigarettes Per Day: 10.0 Years Smoked: (onset 17yo, 1/2-1ppd x 45yrs, 30+pyh) e-Cigarette/Vaping Use: Never Used Second Hand Smoke Exposure: Yes service: No Current occupational status: disabled Cognitive needs: No Hearing needs: No Vision needs: Yes Meds Allergies Allergy/AdvReac Type Severity Reaction Status Date / Time Penicillins Allergy Mild UNKNOWN Verified 04/03/24 06:56 nicotine [NICOTINE] AdvReac Intermediate TACHYCARDIA Verified 04/03/24 06:56 (PATCH) Active Medications: Current Medications Acetaminophen (Acetaminophen 325 Mg Tablet) 650 mg PO Q6H PRN PRN Reason: Pain, Mild (Pain Scale 1-3) Benzonatate (Benzonatate 100 Mg Capsule) 100 mg PO TID PRN PRN Reason: Cough Docusate Sodium (Docusate Sodium 100 Mg Capsule) 100 mg PO DAILY PRN PRN Reason: Constipation Enoxaparin Sodium (Enoxaparin Sodium 40 Mg/0.4 Ml Syringe) 40 mg SUBCUT Q24H [facility] Last Admin: 04/03/24 15:57 Dose: 40 mg Escitalopram Oxalate (Escitalopram Oxalate 5 Mg Tablet) 5 mg PO DAILY [facility] Gabapentin (Gabapentin 100 Mg Capsule) 100 mg PO TID [facility] Last Admin: 04/03/24 20:30 Dose: 100 mg Sodium Chloride (Ns) 1,000 mls @ 100 mls/hr IVCONT .Q10H [facility] Last Infusion: 04/04/24 07:49 Dose: Infused Ceftriaxone Sodium 1 gm/ (Sodium Chloride) 50 mls @ 100 mls/hr IV Q24H [facility] Meclizine HCl (Meclizine Hcl 25 Mg Tablet) 25 mg PO TID PRN PRN Reason: dizziness Melatonin (Melatonin 3 Mg Tablet) 6 mg PO BEDTIME PRN PRN Reason: Insomnia Morphine Sulfate (Morphine Sulfate 4 Mg/Ml Cartridge) 4 mg IVPUSH Q4H PRN; Protocol PRN Reason: Pain, Severe (Pain Scale 7-10) Last Admin: 04/03/24 14:14 Dose: 4 mg Ondansetron HCl (Ondansetron Hcl 4 Mg/2 Ml Vial) 4 mg IVPUSH Q8H PRN PRN Reason: Nausea and Vomiting Sodium Chloride (0.9 % Sodium Chloride Flush 3 Ml Syringe) 3 ml IVFLUSH QSHIFT [facility] Last Admin: 04/03/24 20:30 Dose: 3 ml Tamsulosin HCl (Tamsulosin Hcl 0.4 Mg Capsule) 0.4 mg PO BEDTIME [facility] Vitamin D (Cholecalciferol (Vitamin D3) 25 Mcg Tablet) 50 mcg PO DAILY [facility] Physical Exam Vital Signs: Vital Signs: Last Vital Signs Temp 97.4 F 04/04/24 07:56 Pulse 60 04/04/24 07:56 Resp 18 04/04/24 07:56 BP 167/71 H 04/04/24 07:56 Pulse Ox 96 04/04/24 07:56 O2 Del Method Room Air 04/04/24 07:56 BMI result Body Mass Index 44.3 Const: General: healthy appearing, no acute distress and well developed Orientation/consciousness: patient oriented x3 HEENT: Head: Yes normocephalic and Yes atraumatic Eyes: Conjunctivae: conjunctivae normal Neck: Neck: Yes normal visual inspection Chest: Chest palpation & inspection: normal inspection of the chest Resp: Effort & Inspection: normal respiratory effort Cardio: Rate: regular rate GI: Inspection: Yes normal to inspection Palpation (GI): Soft to palpation : General: Yes CVA tenderness (Left) Back/Spine/Pelvis: Back: CVA tenderness (Left) Skin: General skin exam: no rashes or lesions noted Neuro: General: patient oriented x3 Extrem: General: No pedal edema Psych: Appearance: grossly normal Affect: normal affect Results Labs 04/04/24 06:26 04/04/24 06:26 Labs: Abnormal lab results 04/03/24 04/04/24 Range/Units 07:18 06:26 WBC 15.1 H (4.8-10.8) X10*3/uL RBC 3.79 L (4.60-5.80) X10*6/uL Hgb 12.3 L (14.0-18.0) g/dl Hct 36.8 L (42.0-52.0) % Chloride 112 H (96-108) mmol/L Carbon Dioxide 21 L (22-29) mmol/L Anion Gap 9 L (12-20) BUN 23 H (9-16) mg/dL Creatinine 2.07 H (0.5-1.4) mg/dL Random Glucose 168 H (60-115) mg/dL Calcium 7.9 L D (8.4-10.2) mg/dL Urine Blood Moderate (2+) H (Negative) Ur Leukocyte Esterase Trace H (Negative) Urine RBC 6-10 H (0-2) /HPF Urine WBC 11-20 H (0-5) /HPF Short CBC 04/04/24 Range/Units 06:26 WBC 15.1 H (4.8-10.8) X10*3/uL Hgb 12.3 L (14.0-18.0) g/dl Hct 36.8 L (42.0-52.0) % Plt Count 206 (160-400) X10*3/uL BMP 04/04/24 06:26 Sodium 138 Potassium 4.1 Chloride 112 H Carbon Dioxide 21 L BUN 23 H Creatinine 2.07 H Calcium 7.9 L D Urine 04/03/24 Range/Units 07:18 Urine Color Yellow Urine Appearance Clear Urine pH 5.0 (5.0-9.0) Ur Specific [place] 1.025 (1.005-1.025) Urine Protein Trace (Neg-Trace) mg/dL Urine Glucose (UA) Negative (Negative) mg/dL Imaging Abdomen CT scan report/results: report reviewed and image reviewed Additional studies: Date of Service: 04/02/24 EXAMINATION: CT ABDOMEN AND PELVIS WITHOUT CONTRAST CLINICAL INFORMATION: Left-sided flank pain with question of stone COMPARISON: None available. TECHNIQUE: Multidetector volumetric imaging was performed from the superior aspect of the liver through the pubic symphysis. Sagittal and coronal reformatted images were obtained on the technologist's workstation. This CT examination was performed using dose optimization techniques as appropriate, variously including the following: *Automated exposure control *Adjustment of mA and/or kV according to patient size (this includes techniques or standardized protocols for targeted exams where dose is matched to indication/reason for exam; i.e. extremities or head) *Use of iterative reconstruction technique DLP: 820 mGy-cm FINDINGS: LUNG BASES: The visualized lung bases are unremarkable. LIVER, GALLBLADDER, AND BILIARY TREE: The liver is enlarged with decreased attenuation consistent with hepatic steatosis. No focal hepatic lesion or biliary ductal dilatation is present. The gallbladder is unremarkable with no evidence of radiopaque gallstones, gallbladder wall thickening, or obvious pericholecystic inflammatory changes. PANCREAS: Unremarkable. SPLEEN: Unremarkable. ADRENAL GLANDS: Unremarkable. KIDNEYS AND URETERS: Left: Normal in size. Nonobstructing intrarenal calculi are seen on the left with the largest measuring 0.8 x 1.3 cm and 700 Hounsfield units. This stone is 10.1 cm from the posterior axillary line. There is a 2 mm mildly obstructing stone seen in the mid left ureter with some mild left-sided pelvocaliectasis and perinephric stranding. No left renal masses aside from presence of a single Bosniak class I upper pole cyst which needs no additional imaging or follow-up. Right: Normal in size. No calculi, hydronephrosis or renal masses are seen. The right ureter is normal. BLADDER: Unremarkable. GASTROINTESTINAL TRACT: The distal rectum appears thickened The small and large bowel are unremarkable. The appendix is not seen but there is no evidence of appendicitis evidence of appendicitis.. ABDOMINAL WALL: No significant hernia is appreciated. LYMPH NODES: No retroperitoneal lymphadenopathy. VASCULAR: Unremarkable. PELVIC VISCERA: Unremarkable. OSSEOUS STRUCTURES: Mild degenerative changes are seen from L4 through S1. No bony destruction. IMPRESSION: 1. 2 mm mildly obstructing mid left ureteral calculus with mild left-sided pelvocaliectasis and perinephric stranding. 2. Nonobstructing left intrarenal calculi. 3. Incidental note made of an enlarged fatty liver and thickening of the distal rectum. Assessment and Plan (1) JOHNNY (acute kidney injury): Status: Acute (2) Obstructive uropathy: Status: Acute Plan Cystoscopy left ureteral stent. Certified orthopedic podiatrist present. Consent obtained. Procedures Date of Service Date of Service: 04/04/24
[2024-04-04] MEDS: cefTRIAXone sodium 1 GM in 0.9 % Sodium Chloride 50 ML IV (08:11)
[2024-04-04] MEDS: 0.9 % Sodium Chloride 1,000 ML 100 ML IVCONT ×2 (08:16→22:13)
[2024-04-04] MEDS: Acetaminophen 325 MG TABLET 650 MG PO (10:21)
[2024-04-04] MEDS: Enoxaparin Sodium 40 MG/0.4 ML SYRINGE SUBCUT (11:57)
--- NOTE | 2024-04-04 12:30 | MHC.CM.PN ---
PT REPORTS HE LIVES WITH HIS AND IS INDEPENDENT WITH CARE HE HAS NO DME AND NO SERVICES HE WILL COMPLETE A HCP NAMING HIS S/O AND SON HIS AGENTS PCP: [facility] DCP: HOME NO SERVICES VIA PRIVATE TRANSPORT
--- NOTE | 2024-04-04 15:44 | HO.PM.IMPN ---
Subjective Subjective Date of Service: 04/04/24 Interval History: Flank Pain Review of Systems flank pain improving no fevers or chills Physical Exam Vital Signs: Vital Signs: Last Vital Signs Temp 97.4 F 04/04/24 07:56 Pulse 60 04/04/24 07:56 Resp 18 04/04/24 07:56 BP 167/71 H 04/04/24 07:56 Pulse Ox 96 04/04/24 07:56 O2 Del Method Room Air 04/04/24 07:56 BMI result Body Mass Index 44.3 Appearance: Alert.? Oriented X3.? . cvs: rrr, [id number] , no murmur res: clear to auscultation ,no rhonchii or wheezing abd: no rebound or guarding ,nt, bs present. ext pulses present , no cyanosis neuro: axo3 , nonfocal. Objective Data Active Medications Acetaminophen (Acetaminophen 325 Mg Tablet) 650 mg PO Q6H PRN PRN Reason: Pain, Mild (Pain Scale 1-3) Last Admin: 04/04/24 10:21 Dose: 650 mg Documented By: PORTER Benzonatate (Benzonatate 100 Mg Capsule) 100 mg PO TID PRN PRN Reason: Cough Docusate Sodium (Docusate Sodium 100 Mg Capsule) 100 mg PO DAILY PRN PRN Reason: Constipation Enoxaparin Sodium (Enoxaparin Sodium 40 Mg/0.4 Ml Syringe) 40 mg SUBCUT Q24H [facility] Last Admin: 04/04/24 11:57 Dose: 40 mg Documented By: HEMANTH Escitalopram Oxalate (Escitalopram Oxalate 5 Mg Tablet) 5 mg PO DAILY [facility] Last Admin: 04/04/24 08:05 Dose: 5 mg Documented By: HEMANTH Gabapentin (Gabapentin 100 Mg Capsule) 100 mg PO TID [facility] Last Admin: 04/04/24 15:04 Dose: 100 mg Documented By: PORTER Sodium Chloride (Ns) 1,000 mls @ 100 mls/hr IVCONT .Q10H [facility] Last Admin: 04/04/24 08:16 Dose: 100 mls/hr Documented By: HEMANTH Comments: 100 ml/hr Ceftriaxone Sodium 1 gm/ (Sodium Chloride) 50 mls @ 100 mls/hr IV Q24H [facility] Last Infusion: 04/04/24 08:52 Dose: Infused Documented By: PORTER Meclizine HCl (Meclizine Hcl 25 Mg Tablet) 25 mg PO TID PRN PRN Reason: dizziness Melatonin (Melatonin 3 Mg Tablet) 6 mg PO BEDTIME PRN PRN Reason: Insomnia Morphine Sulfate (Morphine Sulfate 4 Mg/Ml Cartridge) 4 mg IVPUSH Q4H PRN; Protocol PRN Reason: Pain, Severe (Pain Scale 7-10) Last Admin: 04/04/24 08:09 Dose: 4 mg Documented By: PORTER Ondansetron HCl (Ondansetron Hcl 4 Mg/2 Ml Vial) 4 mg IVPUSH Q8H PRN PRN Reason: Nausea and Vomiting Sodium Chloride (0.9 % Sodium Chloride Flush 3 Ml Syringe) 3 ml IVFLUSH QSHIFT [facility] Last Admin: 04/04/24 15:00 Dose: Not Given Documented By: PORTER Non-Admin Reason: IV Running Tamsulosin HCl (Tamsulosin Hcl 0.4 Mg Capsule) 0.4 mg PO BEDTIME [facility] Vitamin D (Cholecalciferol (Vitamin D3) 25 Mcg Tablet) 50 mcg PO DAILY [facility] Last Admin: 04/04/24 08:05 Dose: 50 mcg Documented By: HEMANTH Labs 04/04/24 06:26 04/04/24 06:26 Labs: Laboratory Results - last 24 hr 04/04/24 06:26 MCV 97.1 MCH 32.5 MCHC 33.4 RDW 13.2 Plt Count 206 MPV 11.0 Absolute Nucleated RBC 0.000 Nucleated RBC % (auto) 0.0 Anion Gap 9 L Estim Creat Clear Calc 46.6 Estimated GFR 33 Random Glucose 168 H Calcium 7.9 L D Microbiology Microbiology Results: Microbiology 04/03/24 18:22 Urine Culture - Preliminary Urine clean catch - Clean Catch Midstream No growth to date. 04/03/24 09:07 Blood Culture - Preliminary Blood - Venous No growth after 24 hours. 04/03/24 08:59 Blood Culture - Preliminary Blood - Venous No growth after 24 hours. Assessment and Plan (1) JOHNNY (acute kidney injury): Status: Acute (2) Obstructive uropathy: Status: Acute (3) Acute pyelonephritis: Status: Acute Assessment and Plan: 63-year-old male with a PMH significant for HTN, peripheral neuropathy, Meniere's disease, and mood disorder?who originally presented to the ED yesterday for evaluation of left flank pain. Pt will be admitted to the hospital for treatment further evaluation of JOHNNY in the setting of left obstructive uropathy. JOHNNY in the setting of left obstructive uropathy CT of abdomen/pelvis yesterday found 2 mm mildly obstructing mid left ureteral calculus Renal ultrasound today found interval development of mild left renal caliectasis and pelviectasis continue maintenance fluids, tamsulosin, and analgesics for pain management,Hold prednisone Urology consult Question of pyelonephritis In the setting of obstructive uropathy Does not meet sepsis criteria: Leukocytosis, but no tachycardia, tachypnea, or fever; lactic acid WNL Patient given IVF and started on broad-spectrum antibiotics in the ED Will empirically treat with ceftriaxone, started 04/03/2024 Will get urine culture, follow cultures HTN Hold lisinopril due to JOHNNY Monitor BP Meniere's disease Continue meclizine Peripheral neuropathy Continue gabapentin Mood disorder Continue citalopram Full Code DVT Prophylaxis: Lovenox ongoing hospitalization of at least two nights for treatment of?JOHNNY in the setting of left obstructive uropathy- require administration of IV fluids, IV analgesics, close monitoring of labs for JOHNNY resolution, and specialist consultation with Urology. Quality Stroke Does the patient have a stroke diagnosis?: No VTE Prior VTE?: No VTE Risk Level:: Medical - moderate - high VTE Device Contraindication: Treatment Not Indicated VTE Drug Contraindication: N/A - Med Ordered
--- NOTE | 2024-04-04 16:39 | MHC.SHP ---
Pre-Procedural Eval Section A - 24 Hr Update-Section A only Date of Service: 04/04/24 The patient is an INPATIENT: Yes The patient has been examined within 24 hours of the surgical procedure. The History & Physical has been completed within 30 days and I have reviewed it.: Yes Section B - Complete if H&P > 30 days Chief Complaint: Left obstructive uropathy pyelonephritis Allergies: Allergies Allergy/AdvReac Type Severity Reaction Status Date / Time Penicillins Allergy Mild UNKNOWN Verified 04/03/24 06:56 nicotine [NICOTINE] AdvReac Intermediate TACHYCARDIA Verified 04/03/24 06:56 (PATCH) Plan Diagnosis/Plan: Unchanged I have reviewed the history and physical and performed a pertinent physical examination on my patient. No changes have occurred unless specified. Plan for Cystoscopy, Left retrograde ureteral stent, possible ureteroscopy. Risks discussed included but not limited to, possible need to repeat procedure. Irritative voiding symptoms, bladder spasms, urgency, blood in urine. Time Spent With Patient Time: Total time managing care of this patient today ____ minutes.
[2024-04-04 16:52] LABS: Glucose, Whole Blood 98 mg/dL (60-115)
--- NOTE | 2024-04-04 18:12 | HO.ANESPROP2 ---
[facility] Active Problems Active Problems: All Active Problems JOHNNY (acute kidney injury) (Acute) Obstructive uropathy (Acute) Acute pyelonephritis (Acute) Left lateral epicondylitis (Acute) Impaired glucose tolerance (Acute) Left elbow pain (Acute) Physical exam (Acute) Erectile dysfunction (Acute) Sleep difficulties (Acute) Hypovitaminosis D (Acute) PVC's (premature ventricular contractions) (Acute) Morbid obesity (Acute) Hypertension (Acute) Shortness of breath (Acute) Nicotine dependence, cigarettes, uncomplicated (Acute) MICHAEL (obstructive sleep apnea) (Acute) Snoring (Acute) Excessive daytime sleepiness (Acute) Elevated TSH (Acute) Moderate recurrent major depression (Acute) MORGAN (generalized anxiety disorder) (Acute) Menieres disease (Acute) Ringing in ears (Acute) Balance disorder (Acute) Tremors of nervous system (Acute) Past Medical History Medical History Nicotine dependence, cigarettes, uncomplicated Hypovitaminosis D Moderate recurrent major depression Morbid obesity PVC's (premature ventricular contractions) Palpitations Menieres disease Tremors of nervous system Erectile dysfunction Hypertension Family History Family History Father CVD (cardiovascular disease) Diabetes Mother No problems noted. Maternal Uncle Prostate cancer Family/Other Substance use disorder Family history of problems with anesthesia: No Surgical History Surgical History History of colonoscopy History of surgery History of Problems with Anesthesia: No Social History Social History Household Members: Spouse Housing: Apartment Do you presently have visiting nurse or other home services: No Alcohol intake: never Patient Tobacco Use Status: Current everyday Tobacco user Tobacco use type: Cigarette Cigarette Packs Per Day: 0.5 Cigarettes Per Day: 10.0 Years Smoked: (onset 17yo, 1/2-1ppd x 45yrs, 30+pyh) e-Cigarette/Vaping Use: Never Used Second Hand Smoke Exposure: Yes service: No Current occupational status: disabled Cognitive needs: No Hearing needs: No Vision needs: Yes Meds Allergies Allergy/AdvReac Type Severity Reaction Status Date / Time Penicillins Allergy Mild UNKNOWN Verified 04/03/24 06:56 nicotine [NICOTINE] AdvReac Intermediate TACHYCARDIA Verified 04/03/24 06:56 (PATCH) Active Medications: Current Medications Acetaminophen (Acetaminophen 325 Mg Tablet) 650 mg PO Q6H PRN PRN Reason: Pain, Mild (Pain Scale 1-3) Last Admin: 04/04/24 10:21 Dose: 650 mg Benzonatate (Benzonatate 100 Mg Capsule) 100 mg PO TID PRN PRN Reason: Cough Docusate Sodium (Docusate Sodium 100 Mg Capsule) 100 mg PO DAILY PRN PRN Reason: Constipation Enoxaparin Sodium (Enoxaparin Sodium 40 Mg/0.4 Ml Syringe) 40 mg SUBCUT Q24H [facility] Last Admin: 04/04/24 11:57 Dose: 40 mg Escitalopram Oxalate (Escitalopram Oxalate 5 Mg Tablet) 5 mg PO DAILY [facility] Last Admin: 04/04/24 08:05 Dose: 5 mg Gabapentin (Gabapentin 100 Mg Capsule) 100 mg PO TID [facility] Last Admin: 04/04/24 15:04 Dose: 100 mg Sodium Chloride (Ns) 1,000 mls @ 100 mls/hr IVCONT .Q10H [facility] Last Admin: 04/04/24 08:16 Dose: 100 mls/hr Ceftriaxone Sodium 1 gm/ (Sodium Chloride) 50 mls @ 100 mls/hr IV Q24H [facility] Last Infusion: 04/04/24 08:52 Dose: Infused Meclizine HCl (Meclizine Hcl 25 Mg Tablet) 25 mg PO TID PRN PRN Reason: dizziness Melatonin (Melatonin 3 Mg Tablet) 6 mg PO BEDTIME PRN PRN Reason: Insomnia Morphine Sulfate (Morphine Sulfate 4 Mg/Ml Cartridge) 4 mg IVPUSH Q4H PRN; Protocol PRN Reason: Pain, Severe (Pain Scale 7-10) Last Admin: 04/04/24 08:09 Dose: 4 mg Ondansetron HCl (Ondansetron Hcl 4 Mg/2 Ml Vial) 4 mg IVPUSH Q8H PRN PRN Reason: Nausea and Vomiting Sodium Chloride (0.9 % Sodium Chloride Flush 3 Ml Syringe) 3 ml IVFLUSH QSHIFT [facility] Last Admin: 04/04/24 15:00 Dose: Not Given Tamsulosin HCl (Tamsulosin Hcl 0.4 Mg Capsule) 0.4 mg PO BEDTIME [facility] Vitamin D (Cholecalciferol (Vitamin D3) 25 Mcg Tablet) 50 mcg PO DAILY [facility] Last Admin: 04/04/24 08:05 Dose: 50 mcg Exam Height,Weight and Vital Signs: Height 5 ft 6 in Weight 124.4 kg Last Vital Signs Temp 97.4 F 04/04/24 16:28 Pulse 64 04/04/24 16:28 Resp 20 04/04/24 16:28 BP 158/70 H 04/04/24 16:28 Pulse Ox 95 04/04/24 16:28 O2 Del Method Room Air 04/04/24 16:28 Pertinent Lab Results Pertinent Lab Results: Laboratory Tests 04/03/24 04/03/24 04/03/24 07:16 07:18 08:59 WBC 14.6 H RBC 4.09 L Hgb 13.5 L Hct 39.2 L MCV 95.8 MCH 33.0 MCHC 34.4 RDW 13.2 Plt Count 218 MPV 10.6 Immature Gran % (Auto) 0.4 Neut % (Auto) 71.7 Lymph % (Auto) 17.7 L [place] % (Auto) 7.5 Eos % (Auto) 2.3 Baso % (Auto) 0.4 Lymph # (Auto) 2.6 [place] # (Auto) 1.1 Eos # (Auto) 0.3 Baso # (Auto) 0.1 Abs Immat Gran (auto) 0.06 H Absolute Neuts (auto) 10.5 H Absolute Nucleated RBC 0.000 Nucleated RBC % (auto) 0.0 Sodium 140 Potassium 4.2 Chloride 107 Carbon Dioxide 22 Anion Gap 15 BUN 22 H Creatinine 2.05 H Estim Creat Clear Calc 46.3 Estimated GFR 33 POC Glucose Random Glucose 172 H Lactic Acid 1.2 Calcium 9.0 Total Bilirubin 0.4 Direct Bilirubin 0.2 AST 23 ALT 24 Alkaline Phosphatase 62 Total Protein 7.0 Albumin 4.0 Lipase 45 Urine Color Yellow Urine Appearance Clear Urine pH 5.0 Ur Specific [place] 1.025 Urine Protein Trace Urine Glucose (UA) Negative Urine Ketones Trace Urine Blood Moderate (2+) H Urine Nitrite Negative Ur Leukocyte Esterase Trace H Urine RBC 6-10 H Urine WBC 11-20 H Ur Squamous Epith Cells 3-5 Urine Bacteria None Seen Hyaline Casts 0-2 04/04/24 04/04/24 06:26 16:49 WBC 15.1 H RBC 3.79 L Hgb 12.3 L Hct 36.8 L MCV 97.1 MCH 32.5 MCHC 33.4 RDW 13.2 Plt Count 206 MPV 11.0 Immature Gran % (Auto) Neut % (Auto) Lymph % (Auto) [place] % (Auto) Eos % (Auto) Baso % (Auto) Lymph # (Auto) [place] # (Auto) Eos # (Auto) Baso # (Auto) Abs Immat Gran (auto) Absolute Neuts (auto) Absolute Nucleated RBC 0.000 Nucleated RBC % (auto) 0.0 Sodium 138 Potassium 4.1 Chloride 112 H Carbon Dioxide 21 L Anion Gap 9 L BUN 23 H Creatinine 2.07 H Estim Creat Clear Calc 46.6 Estimated GFR 33 POC Glucose 98 Random Glucose 168 H Lactic Acid Calcium 7.9 L D Total Bilirubin Direct Bilirubin AST ALT Alkaline Phosphatase Total Protein Albumin Lipase Urine Color Urine Appearance Urine pH Ur Specific [place] Urine Protein Urine Glucose (UA) Urine Ketones Urine Blood Urine Nitrite Ur Leukocyte Esterase Urine RBC Urine WBC Ur Squamous Epith Cells Urine Bacteria Hyaline Casts Airway Mallampati Class: III TM Dist: >3cm Neck ROM: Full Assessment and Plan Assessment Anesthesia Assessment: Anesthesia Plan Discussed and Chart Reviewed Final Anesthetic Review Family History of Problems with Anesthesia: No History of Problems with Anesthesia: No NPO: Yes ASA Class: III Final Preanesthetic Review: No Changes in Pt Med Stat, Meds/Allgs Chart Reviewed, Consent Obtained/Reviewed and Anes Risks/Benef Reviewed Patient Risk: Intermediate Procedure Risk: Low Anesthetic Plan Anesthetic Plan: GA Disposition: Standard PACU
--- NOTE | 2024-04-04 19:04 | W.PM.OPN ---
Operative Note Operative Note Date of Service: 04/04/24 Narrative: PreOperative Diagnosis:?? Left ureteral stone, obstructive uropathy Post Operative Diagnosis:?? ?Left ureteral stone, obstructive uropathy Procedure: Cystoscopy, left retrograde left stent insertion, size 6 fr by 26 cm, ureteral stone sent for analysis Surgeon:?Dr Joanne Perez Anesthesia:? General Indications for procedure: Left ureteral stone, patient with acute kidney injury. Procedure: After informed consent was verified the patient was brought to the operating placed on the OR table in supine position.? General Anesthesia was administered per protocol.? The patient was placed in lithotomy position, prepped and draped in the usual sterile fashion.? Safety pause time-out and side of surgery confirmed.? Antibiotics confirmed. A 22 Czech cystoscope was inserted transurethrally, the bulbous urethra was within normal limits. The prostatic urethra was nonobstructive. The bladder was visualized.? Both ureteric orifices were in normal position. The ureteral stone was noted in the bladder. The stone was extracted and sent for analysis. The? left ureteric orifice was cannulated? and a retrograde examination was performed, minimal ureteral dilation, no significant dilation of the renal pelvis or calyces. Urine from the renal pelvis was sent for culture. A hydrophilic guidewire was placed up to the level of the renal pelvis under fluoroscopy. A with 6 fr by 26 cm ureteral stent was passed over the guide wire under fluoroscopic guidance. The guide wire was removed. The bladder was emptied.? The rigid cystoscope was removed. ? The patient tolerated the procedure well and was brought to the recovery room in stable condition. Complications: None Drains: Ureteral stent as dictated above
[2024-04-04] MEDS: Tamsulosin HCL 0.4 MG CAPSULE PO (20:07)
[2024-04-04] MEDS: 0.9 % Sodium Chloride Flush 3 ML SYRINGE IVFLUSH (20:08)
[2024-04-04] MEDS: Melatonin 3 MG TABLET 6 MG PO (20:12)
[2024-04-04] MEDS: traZODone HCL 25 MG HALFTAB PO (22:38)
[2024-04-05] MEDS: Morphine Sulfate 4 MG/ML CARTRIDGE IVPUSH ×2 (00:07→07:39)
[2024-04-05 03:20] VITALS: BP 129/59; PULSE 68; RESP 18; TEMP 36.1; O2SAT 96
[2024-04-05 06:41] LABS: Anion Gap 10 (12-20); Blood Urea Nitrogen 21 mg/dL (9-16); Calcium 8.6 mg/dL (8.4-10.2); Carbon Dioxide 24 mmol/L (22-29); Chloride 112 mmol/L (96-108); Estimated Glomerular Filt Rate 51; Glucose Random 147 mg/dL (60-115); Potassium 5.2 mmol/L (3.3-5.1); Sodium 141 mmol/L (135-145)
[2024-04-05 07:04] VITALS: BP 134/62; PULSE 60; RESP 18; TEMP 36.2; O2SAT 96
[2024-04-05 08:14] LABS: Hematocrit 38.6 % (42.0-52.0); Hemoglobin 13.1 g/dl (14.0-18.0); Mean Corpuscular HGB Conc 33.9 g/dl (31.0-36.0); Mean Corpuscular Hemoglobin 32.9 pg (27.0-33.0); Mean Platelet Volume 11.5 fL (9.4-12.4); Platelet Count 227 X10*3/uL (160-400); Red Blood Count 3.98 X10*6/uL (4.60-5.80); Red Cell Distribution Width 13.2 % (11.0-16.0); White Blood Count 12.3 X10*3/uL (4.8-10.8)
[2024-04-05] MEDS: Sodium Zirconium Cyclosilicate 5 GM POWD.PACK PO (08:20)
[2024-04-05] MEDS: Gabapentin 100 MG CAPSULE PO (08:22)
[2024-04-05] MEDS: Escitalopram Oxalate 5 MG TABLET PO (08:22)
[2024-04-05] MEDS: Cholecalciferol (Vitamin D3) 25 MCG TABLET 50 MCG PO (08:22)
[2024-04-05] MEDS: cefTRIAXone sodium 1 GM in 0.9 % Sodium Chloride 50 ML IV (08:26)
[2024-04-05 11:29] VITALS: BP 130/60; PULSE 65; RESP 18; TEMP 36.4; O2SAT 97
[2024-04-05 12:39] VITALS: O2SAT 95
--- NOTE | 2024-04-05 12:46 | MHC.CM.PN ---
Patient medically cleared for dc home self care. Son is at bedside to transport. RN aware.
--- NOTE | 2024-04-05 13:06 | P.DS_ITS ---
DS: Providers Provider Date of Service: 04/05/24 Date of admission: 04/03/24 11:59 Date of discharge: 04/05/24 Primary care physician: Ashwini Jolly MD Consults: 04/03/24 11:05 Consult to Urology Stat Consulting Provider: Joanne Perez Reason for consultation: obstructing uropathy and pylo DS: Diagnosis Discharge Diagnosis (1) JOHNNY (acute kidney injury): Status: Acute (2) Obstructive uropathy: Status: Acute (3) Acute pyelonephritis: Status: Acute DS: Summary Hospital Course Hospital Course: 63-year-old male with a PMH significant for HTN, peripheral neuropathy, Meniere's disease, and mood disorder?who originally presented to the ED yesterday for evaluation of left flank pain. Patient reports he noticed severe left flank pain wrapping around to his lower abdomen yesterday morning when he awoke. Has experienced subjective fever and chills, though never took his tempe rature at home. Has noticed a reduction in the quantity of his urine stream, but denies gross hematuria or dysuria. Some nausea with 2 episodes of vomiting. Presented to the ED yesterday were CT of abdomen and pelvis found a small 2 mm mildly obstructing left ureteral calculus. Was discharged home on tamsulosin, prednisone, and pain meds. Patient did not experience any reduction his symptoms last night or this morning, so presented again to the ED for evaluation of intractable left flank pain. Denies chest pain/pressure, palpitations. No shortness of breath or difficulty breathing. Denies alcohol history, but currently reports smoking half a pack daily. In the ED pt was slightly hypertensive up to 154/54, vitals otherwise WNL. Labs were significant for leukocytosis of 14.6 and creatinine 2.05, otherwise grossly unremarkable. Stable H& H. No significant electrolyte abnormalities. Lactic acid WNL. Hepatic function WNL. UA showing moderate amount of blood, trace amount of leukocyte esterase, and urine wbc's [address]?of abdomen and pelvis yesterday found 2 mm mildly obstructing mid left ureteral calculus with mild left-sided pelvocaliectasis empiric phrenic stranding. Renal ultrasound today found persistent left renal calculi with interval development of mild left renal caliectasis and pelviectasis. EKG demonstrated sinus bradycardia 55 with no evidence of significant ST elevations or depressions. Pt was treated with IVF, ketorolac, morphine, tamsulosin, and ceftriaxone. Pt will be admitted to the hospital for treatment further evaluation of JOHNNY in the setting of left obstructing uropathy. Hospital course: Patient came to the hospital with flank pain-found to have JOHNNY, obstructive uropathy secondary to left ureteral stone: Had leukocytosis, blood cultures sent, lactic acid normal, Patient was started on IV hydration, hold lisinopril: JOHNNY seems to be improving significantly, patient had seen by Urology --C ystoscopy, left retrograde left stent insertion, size 6 fr by 26 cm, ureteral stone sent for analysis. Patient UA is positive for pyuria and hematuria, urine culture so far negative, but patient has some pain with urination: Discussed with urology added Ceftin 500 mg p.o. b.i.d. for 5 more days. Mild hyperkalemia-given Lokelma, low-potassium diet. Monitor BMP out patiently in 1 week, hold lisinopril-which can be started out patiently if needed for blood pressure after repeating BMP. We will give him 1 week of amlodipine 2.5 mg daily. Further management outpatient Patient is to follow-up with Urology outpatient. plan: Encouraged for p.o. hydration, monitor BMP outpatient in 1 week, hold lisinopril until repeat BMP. If renal function seems improving then patient can go back on lisinopril and stop amlodipine. Patient is to follow-up out patiently with PCP and Urology Assessment and plan coordination time spent 40 minute. Time Attestation Total time managing care of this patient today: 40 mintues. Discharge Coordination Time (in mins): 40 minute Quality: Safe Use of Opioids Does Pt have an Active Cancer Diagnosis on the Problem List?: No Quality: Stroke Does the patient have a stroke diagnosis?: No Physical Exam Vital Signs: Vital Signs: Last Vital Signs Temp 97.6 F 04/05/24 11:29 Pulse 65 04/05/24 11:29 Resp 18 04/05/24 11:29 BP 130/60 04/05/24 11:29 Pulse Ox 95 04/05/24 12:39 O2 Del Method Room Air 04/05/24 12:39 O2 Flow Rate 2 04/05/24 11:29 BMI result Body Mass Index 44.3 Appearance: Alert.? Oriented X3.? . cvs: rrr, [id number] , no murmur res: clear to auscultation ,no rhonchii or wheezing abd: no rebound or guarding ,nt, bs present. ext pulses present , no cyanosis neuro: axo3 , nonfocal. DS: Data Data Completed and Pending Pending studies at discharge: Pending at discharge 04/04/24 18:48 Surgical [PTH] Routine Labs on day of discharge: Laboratory Results - last 24 hr 04/04/24 04/05/24 16:49 05:51 WBC 12.3 H RBC 3.98 L Hgb 13.1 L Hct 38.6 L MCV 97.0 MCH 32.9 MCHC 33.9 RDW 13.2 Plt Count 227 MPV 11.5 Absolute Nucleated RBC 0.000 Nucleated RBC % (auto) 0.0 Hold Purple Top SEE NOTE Sodium 141 Potassium 5.2 H D Chloride 112 H Carbon Dioxide 24 Anion Gap 10 L BUN 21 H Creatinine 1.42 H Estim Creat Clear Calc 68.0 Estimated GFR 51 POC Glucose 98 Random Glucose 147 H Calcium 8.6 D Preliminary micro results at discharge 04/04/24 18:49 Urine Culture - Preliminary Urine clean catch - Urine wilson top No growth to date. 04/03/24 09:07 Blood Culture - Preliminary Blood - Venous No growth after 48 hours. 04/03/24 08:59 Blood Culture - Preliminary Blood - Venous No growth after 48 hours. Imaging Chest x-ray: Radiologist's impression: ITS Impressions Renal Ultrasound 04/03/24 09:30 IMPRESSION: 1. Unchanged normal sonographic appearance of right kidney. 2. Persistent or recurrent Left renal calculi. Interval development of mild left renal caliectasis and pelviectasis. Discharge Plan Discharge Anticipated Discharge Date/Time: 04/05/24 12:26 Patient Disposition: Home, Self-Care Discharge Diagnosis: Obstructive uropathy due to left ureteral calculus, JOHNNY Referrals: Joanne Perez MD [Physician] - 1 Week Ashwini Teague MD [Primary Care Provider] - 1 Week Discharge Medications: New benzonatate 100 mg Capsule 100 mg PO TID PRN (Reason: Cough) Qty: 20 0RF cefuroxime axetil 500 mg tablet 500 mg PO Q12H Qty: 10 0RF amlodipine 2.5 mg tablet 2.5 mg PO DAILY Qty: 30 0RF Rx Instructions: Use amlodipine 2.5 mg for 1 week, repeat BMP if kidney function better than can switch back to lisinopril and stop amlodipine at that time. Continued citalopram 10 mg tablet 10 mg PO DAILY 90 Days Qty: 90 0RF gabapentin 100 mg capsule 100 mg PO TID 90 Days Qty: 270 1RF tamsulosin 0.4 mg capsule 0.4 mg PO BEDTIME Qty: 7 0RF oxycodone 5 mg tablet 5 mg PO Q6H PRN (Reason: pain) Qty: 10 0RF Rx Instructions: Partial Fill upon patient request. meclizine 25 mg tablet 25 mg PO TID PRN (Reason: dizziness) 30 Days Qty: 90 1RF cholecalciferol (vitamin D3) 50 mcg (2,000 unit) capsule 50 mcg PO DAILY 90 Days Qty: 90 1RF Changed acetaminophen [Tylenol] 325 mg tablet 975 mg PO Q6H PRN (Reason: pain) Qty: 20 0RF Held lisinopril 20 mg tablet 20 mg PO DAILY 90 Days Qty: 90 0RF Hold Instructions: Resume on 04/11/24. Discontinued prednisone 20 mg tablet 20 mg PO DAILY Qty: 5 0RF Discharge Orders: Discharge Order (Routine); Ordered 04/05/24 Ordered By: Sara Pimentel Diet: Advance to usual diet Activity on Discharge: As tolerated Stand Alone Forms: Patient Portal Discharge page Print Language: Macedonian Care Plan Goals: Patient came to the hospital with flank pain-found to have JOHNNY, obstructive uropathy secondary to left ureteral stone: Had leukocytosis, blood cultures sent, lactic acid normal, Patient was started on IV hydration, hold lisinopril: JOHNNY seems to be improving significantly, patient had seen by Urology -- Cystoscopy, left retrograde left stent insertion, size 6 fr by 26 cm, ureteral stone sent for analysis. Patient UA is positive for pyuria and hematuria, urine culture so far negative, but patient has some pain with urination: Discussed with urology added Ceftin 500 mg p.o. b.i.d. for 5 more days. Monitor BMP out patiently in 1 week, hold lisinopril-which can be started out patiently if needed for blood pressure after repeating BMP. We will give him 1 week of amlodipine 2.5 mg daily. Further management outpatient Patient is to follow-up with Urology outpatient. Health Concerns: As above. Plan of Treatment: As above. Assessment: As above.
--- NOTE | 2024-04-05 18:05 | HO.POSTANES ---
Post Anesthesia Evaluation Post Anesthesia Evaluation Date of Service: 04/05/24 Vital Signs: Vital Signs Temp Pulse Resp BP Pulse Ox O2 Del Method O2 Flow Rate 04/05/24 12:39 95 Room Air 04/05/24 11:29 97.6 F 65 18 130/60 97 Nasal Cannula 2 04/05/24 07:04 97.2 F 60 18 134/62 96 Room Air Anesthesia: General LMA Mental Status: Awake Pain Control: Satisfactory Nausea/Vomiting: None Hydration: Adequate Anesthesia-Related Issues: No Anes. Related Issues
[2024-04-13 04:39] LABS: Stone Source STONE
== END 2024-04-05 13:40 | disposition home or self-care (01) | DRG 446 ==
LOC: HO.ED 11:07 → HO.EDOVER 12:12 → HO.S3 15:38
PROVIDERS: Physician Assistant; Urology; Admitting Provider Student in an Organized Health Care Education/Training Program; Emergency Provider Emergency Medicine Emergency Medical Services; PCP Internal Medicine; Visit Provider Internal Medicine
PROC: 0TC78ZZ Extirpation of Matter from Left Ureter, Via Natural or Artificial Opening Endoscopic (ICD-10-PCS; principal; 2024-04-04 17:00)
DX: N13.6 Pyonephrosis (principal); N17.9 Acute kidney failure, unspecified; R31.9 Hematuria, unspecified; E87.5 Hyperkalemia; F32.9 Major depressive disorder, single episode, unspecified; F17.210 Nicotine dependence, cigarettes, uncomplicated; I10 Essential (primary) hypertension; H81.09 Meniere's disease, unspecified ear; Z71.6 Tobacco abuse counseling; Z79.899 Other long term (current) drug therapy
CPT/HCPCS: 36415; 76775; 80048; 80076; 81001; 82365; 82947; 83605; 83690; 85025; 85027; 87040; 87086; 88300; 99285; C1758; C1769; C2617; J0131; J0690; J0696; J1100; J1650; J1885; J2250; J2270; J2405; J2704; J3010; Q9967

== ENCOUNTER → 2024-04-03 11:59 | Outpatient (BNV) | payer OTHER, SELFPAY | PROVIDERS: Admitting Provider Student in an Organized Health Care Education/Training Program; Emergency Provider Emergency Medicine Emergency Medical Services; PCP Internal Medicine; Visit Provider Urology | DX: N17.9 Acute kidney failure, unspecified (principal); N13.9 Obstructive and reflux uropathy, unspecified; N20.1 Calculus of ureter | CPT/HCPCS: 52332; 74420; 99222 ==

== ENCOUNTER → 2024-04-03 11:59 | Outpatient (BNV) | payer OTHER, SELFPAY | PROVIDERS: Admitting Provider Student in an Organized Health Care Education/Training Program; Emergency Provider Emergency Medicine Emergency Medical Services; PCP Internal Medicine; Visit Provider Student in an Organized Health Care Education/Training Program | DX: N17.9 Acute kidney failure, unspecified (principal); N13.9 Obstructive and reflux uropathy, unspecified; N10 Acute pyelonephritis | CPT/HCPCS: 99223; 99232; 99239 ==

== ENCOUNTER 2024-04-17 13:01 | Outpatient (AMB) | payer OTHER, SELFPAY ==
--- NOTE | 2024-04-17 14:39 | A.OFFVIS_ITS ---
Intake Visit Reasons: cysto/stent removal Intake Note: Patient is Present for Cystoscopy/Stent Removal Urology Med: Tamsulosin Antibiotic Allergy: Penicillin Blood Thinner: None URO- G Disposable Cystoscope lot:[id number] exp:11/23/26 Construction Site Crossing Guard Required: Yes Construction Site Crossing Guard Language: Loom Fixer Name: [id number] Information Interpreted: non-clinical & clinical Allergies Penicillins Allergy (Mild, Verified 04/17/24 14:42) UNKNOWN nicotine [NICOTINE] Adverse Reaction (Intermediate, Verified 04/17/24 14:42) TACHYCARDIA (PATCH) HPI Comments Details: 04/17/2024--Aleksandr is a Ethiopian-speaking male. Construction Site Crossing Guard services used. The patient is status post cystoscopy left ureteral stent and stone extraction. Cystoscopy stent removal performed without difficulty. I have discussed further treatment for left kidney stone which measures greater than 1 cm. Discussed left shockwave lithotripsy. Pamphlet given to patient in Ethiopian. [facility] Medical History Nicotine dependence, cigarettes, uncomplicated Hypovitaminosis D Moderate recurrent major depression Morbid obesity PVC's (premature ventricular contractions) Palpitations Menieres disease Tremors of nervous system Erectile dysfunction Hypertension Surgical History History of colonoscopy History of surgery Family History Father CVD (cardiovascular disease) Diabetes Mother No problems noted. Maternal Uncle Prostate cancer Family/Other Substance use disorder Social History Household Members: Spouse Housing: Apartment Do you presently have visiting nurse or other home services: No Alcohol intake: never Patient Tobacco Use Status: Current everyday Tobacco user Tobacco use type: Cigarette Cigarette Packs Per Day: 0.5 Cigarettes Per Day: 10.0 Years Smoked: (onset 17yo, 1/2-1ppd x 45yrs, 30+pyh) e-Cigarette/Vaping Use: Never Used Second Hand Smoke Exposure: Yes service: No Current occupational status: disabled Cognitive needs: No Hearing needs: No Vision needs: Yes Review of Systems Const All systems reviewed & are unremarkable except as noted in HPI and below Reports no additional complaints Eyes Reports no additional complaints ENT Reports no additional complaints Card Reports no additional complaints Resp Reports no additional complaints GI Reports no additional complaints Reports as per HPI Musc Reports no additional complaints Skin/Breast Reports system reviewed and no additional complaints, except as documented Neuro Reports no additional complaints Psych Reports no additional complaints Endo Reports no additional complaints Kosta/Lymph Reports no additional complaints Aller/Immun Reports no additional complaints Office Procedures Cystoscopy Consent Discussed risk and benefit or proposed procedure with the patient. Information consent for procedure given to the patient. Discussed technical aspects, risks, benefits and alternatives in full. Addressed all of the patient's questions and concerns regarding the procedure. The patient demonstrated knowledge and understanding. They wish to proceed with this procedure. Preparation The patient was prepped in the usual manner. A electrical journeyman was present and in the room. Genitalia was prepped with betadine solution in a sterile manner. Lidocaine Jelly 2% was placed into the urethra and 16Fr flexible Olympus cystoscope was inserted into the meatus after adequate lubrication. Time out per protocol performed. Bladder Inspection Cystoscopy findings: mild edema ureteral orifice which is expected, distal end of ureteral stent visualized. The grasping forceps were used and the stent was removed without difficulty. [id number] with stent removal DISPOSABLE SCOPE URO-G FLEXIBLE SCOPE Procedure code (CPT) selection complete Office Meds lidocaine HCl 2 % mucosal jelly in applicator Performing Provider: Joanne Perez MD Performing Location: [facility] [place] [facility] Administered by: Smith Jaimes LPN on 04/17/24 15:01 Dose Route Admin Location Dispensed Lot Number Expiration Date [facility] Commercial Painter 10 mL intra-urethral 10 mL naproxen 500 mg tablet Performing Provider: Joanne Perez MD Performing Location: [facility] [place] [facility] Administered by: Smith Jaimes LPN on 04/17/24 15:01 Dose Route Admin Location Dispensed Lot Number Expiration Date ND Commercial Painter 500 mg PO 1 tab ciprofloxacin HCl 500 mg tablet Performing Provider: Joanne Perez MD Performing Location: [facility] [place] [facility] Administered by: Smith Jaimes LPN on 04/17/24 15:01 Dose Route Admin Location Dispensed Lot Number Expiration Date ND Commercial Painter 500 mg PO 1 tab Results AMB Urinalysis, Automated UA Leukoctes 15 Emily/uL Last Edit by Carley Horta, RMA on 04/17/24 14:54 UA Nitrite Negative Last Edit by Carley Horta, RMA on 04/17/24 14:54 UA Urobilinogen 0.2 mg/dL Last Edit by Carley Horta, RMA on 04/17/24 14:5 4 UA Protein 100 mg/dL Last Edit by Carley Horta, RMA on 04/17/24 14:54 UA pH 5.5 Last Edit by Carley Horta, RMA on 04/17/24 14:54 UA Blood 80 Wolfgang/uL Last Edit by Carley Horta, RMA on 04/17/24 14:54 UA Specific Loring 1.025 Last Edit by Carley Horta, A on 04/17/24 14: 54 UA Ketone Negative Last Edit by Carley Horta, RMA on 04/17/24 14:54 UA Bilirubin 0 mg/dL Last Edit by Carley Horta, RMA on 04/17/24 14:54 UA Glucose 0 mg/dL Last Edit by Carley Horta, A on 04/17/24 14:54 Quality Reporting (2019) Adult ([facility] 138/12/14/68) Smoking risk assessment performed?: Yes Patient Tobacco Use Status: Current everyday Tobacco user Results Reviewed Results Reviewed: Laboratory Last Values Urine pH (Auto) 5.5 04/17/24 14:44 Specific Loring (Auto) 1.025 04/17/24 14:44 Urine Protein (Auto) 100 mg/dL 04/17/24 14:44 Glucose (UA)(Auto) 0 mg/dL 04/17/24 14:44 Urine Ketones (Auto) Negative 04/17/24 14:44 Urine Blood (Auto) 80 Wolfgang/uL 04/17/24 14:44 Urine Nitrite (Auto) Negative 04/17/24 14:44 Urine Bilirubin (Auto) 0 mg/dL 04/17/24 14:44 Urine Urobilinogen (Auto) 0.2 mg/dL 04/17/24 14:44 Leukocyte Esterase (Auto) 15 Emily/uL 04/17/24 14:44 Date of Service: 04/02/24 EXAMINATION: CT ABDOMEN AND PELVIS WITHOUT CONTRAST CLINICAL INFORMATION: Left-sided flank pain with question of stone COMPARISON: None available. TECHNIQUE: Multidetector volumetric imaging was performed from the superior aspect of the liver through the pubic symphysis. Sagittal and coronal reformatted images were obtained on the technologist's workstation. This CT examination was performed using dose optimization techniques as appropriate, variously including the following: *Automated exposure control *Adjustment of mA and/or kV according to patient size (this includes techniques or standardized protocols for targeted exams where dose is matched to indication/reason for exam; i.e. extremities or head) *Use of iterative reconstruction technique DLP: 820 mGy-cm FINDINGS: LUNG BASES: The visualized lung bases are unremarkable. LIVER, GALLBLADDER, AND BILIARY TREE: The liver is enlarged with decreased attenuation consistent with hepatic steatosis. No focal hepatic lesion or biliary ductal dilatation is present. The gallbladder is unremarkable with no evidence of radiopaque gallstones, gallbladder wall thickening, or obvious pericholecystic inflammatory changes. PANCREAS: Unremarkable. SPLEEN: Unremarkable. ADRENAL GLANDS: Unremarkable. KIDNEYS AND URETERS: Left: Normal in size. Nonobstructing intrarenal calculi are seen on the left with the largest measuring 0.8 x 1.3 cm and 700 Hounsfield units. This stone is 10.1 cm from the posterior axillary line. There is a 2 mm mildly obstructing stone seen in the mid left ureter with some mild left-sided pelvocaliectasis and perinephric stranding. No left renal masses aside from presence of a single Bosniak class I upper pole cyst which needs no additional imaging or follow-up. Right: Normal in size. No calculi, hydronephrosis or renal masses are seen. The right ureter is normal. BLADDER: Unremarkable. GASTROINTESTINAL TRACT: The distal rectum appears thickened The small and large bowel are unremarkable. The appendix is not seen but there is no evidence of appendicitis evidence of appendicitis.. ABDOMINAL WALL: No significant hernia is appreciated. LYMPH NODES: No retroperitoneal lymphadenopathy. VASCULAR: Unremarkable. PELVIC VISCERA: Unremarkable. OSSEOUS STRUCTURES: Mild degenerative changes are seen from L4 through S1. No bony destruction. IMPRESSION: 1. 2 mm mildly obstructing mid left ureteral calculus with mild left-sided pelvocaliectasis and perinephric stranding. 2. Nonobstructing left intrarenal calculi. 3. Incidental note made of an enlarged fatty liver and thickening of the distal rectum. Assessment & Plan Assessment & Plan (1) Renal and ureteric calculus: Code(s): N20.2 - Calculus of kidney with calculus of ureter Category: Medical (2) Obstructive uropathy: Code(s): N13.9 - Obstructive and reflux uropathy, unspecified Category: Medical Plan Schedule left ESWL Orders: Orders AMB Cystoscopy Today N20.1 - Calculus of ureter AMB Urinalysis Automated Today Z13.9 - Encounter for screening, unspecified Patient Instructions: The patient had an opportunity to ask questions regarding treatment plan. The patient expressed understanding and agreement with the above treatment plan. The patient is aware they should contact our office by phone for worsening of their current condition or the appearance of new symptoms. Compliance is encouraged with any medications and followup testing that is ordered. It is a privilege to be allowed the opportunity to participate in the urologic care of your patient. If you have any questions or concerns regarding treatment for the above conditions please do not hesitate to contact me. The office telephone contact is [phone]. This note is constructed in part using voice recognition software. While every effort has been made to ensure accuracy contract administrator errors may have been included. Yours sincerely, Joanne Perez MD Coding Level of Care Code Est Pt Level 4 (77108) Diagnoses Renal and ureteric calculus N20.2 Obstructive uropathy N13.9 CPT Codes Cystoscopy - CPT: 02437-[id number] with stent removal ([id number])
== END 2024-04-17 15:37 | disposition home or self-care (01) ==
PROVIDERS: PCP Internal Medicine; Visit Provider Urology
DX: N20.2 Calculus of kidney with calculus of ureter (principal); N13.9 Obstructive and reflux uropathy, unspecified; N20.1 Calculus of ureter; Z96.0 Presence of urogenital implants; Z13.9 Encounter for screening, unspecified
CPT/HCPCS: 52310; 99214

== ENCOUNTER → 2024-04-17 13:01 | Outpatient (BNVA) | payer OTHER, SELFPAY | PROVIDERS: PCP Internal Medicine; Visit Provider Urology | DX: N20.2 Calculus of kidney with calculus of ureter (principal); N13.9 Obstructive and reflux uropathy, unspecified; Z46.6 Encounter for fitting and adjustment of urinary device | CPT/HCPCS: 52310; 81003; 99212 ==

== ENCOUNTER 2024-05-02 05:31 | Emergency (ER) | payer OTHER, SELFPAY ==
--- NOTE | 2024-05-02 | ECG_ITS ---
Test Reason : chest pain Blood Pressure : / mmHG Vent. Rate : 069 BPM Atrial Rate : 069 BPM P-R Int : 148 ms QRS Dur : 084 ms QT Int : 372 ms P-R-T Axes : 045 049 048 degrees QTc Int : 398 ms Normal sinus rhythm Normal ECG When compared with ECG of 02-APR-2024 09:52, No significant change was found Referred By: Generic ED Physician Electronically Signed By:Helio Ku
--- NOTE | ~2024-05-02 | XR_ITS ---
EXAMINATION: XR CHEST CLINICAL INFORMATION: Chest pain COMPARISON: CT lung from 02/07/2024, chest radiograph from 06/12/2023 TECHNIQUE: 2 views of the chest were obtained. FINDINGS: No focal consolidation. No pneumothorax. Trachea is midline. Cardiac mediastinal silhouette is stable. No large pleural effusion. Osseous structures are intact. Soft tissues are unremarkable XR/XR chest 2V IMPRESSION: No acute cardiopulmonary process.
[2024-05-02 05:36] VITALS: BP 157/88; BP 162/90; PULSE 66; PULSE 76; RESP 16; TEMP 36.3; O2SAT 96; BMI 37.3
[2024-05-02 06:05] LABS: Basophils Absolute Auto 0.1 X10*3/uL (0.0-0.2); Basophils Percent Auto 0.6 % (0-2); Eosinophils Absolute Auto 0.6 X10*3/uL (0.0-0.4); Eosinophils Percent Auto 5.1 % (0-4); Hematocrit 41.1 % (42.0-52.0); Hemoglobin 14.3 g/dl (14.0-18.0); Imm Gran Abs Auto 0.03 X10*3/uL (0.00-0.03); Imm Gran Pct Auto 0.3 % (0.0-0.4); Lymphocytes Absolute Auto 3.9 X10*3/uL (1.2-4.9); Lymphocytes Percent Auto 34.8 % (20-40); MANUAL DIFF FLAG NO; Mean Corpuscular HGB Conc 34.8 g/dl (31.0-36.0); Mean Corpuscular Hemoglobin 32.6 pg (27.0-33.0); Mean Corpuscular Volume 93.8 fL (80.0-98.0); Mean Platelet Volume 10.3 fL (9.4-12.4); Monocytes Absolute Auto 1.3 X10*3/uL (0.1-1.2); Monocytes Percent Auto 11.5 % (2-11); Neutrophils Absolute Auto 5.4 x10*3/uL (2.0-8.3); Neutrophils Percent Auto 47.7 % (45-73); Platelet Count 278 X10*3/uL (160-400); Red Blood Count 4.38 X10*6/uL (4.60-5.80); Red Cell Distribution Width 12.9 % (11.0-16.0); White Blood Count 11.2 X10*3/uL (4.8-10.8)
[2024-05-02 06:19] LABS: Alanine Aminotransferase 24 U/L (0-40); Albumin Level 4.1 g/dL (3.5-5.0); Alkaline Phosphatase 86 U/L (39-117); Anion Gap 11 (12-20); Aspartate Amino Transferase 22 U/L (5-37); Bilirubin Total 0.2 mg/dL (0.0-1.0); Blood Urea Nitrogen 19 mg/dL (9-16); Calcium 9.2 mg/dL (8.4-10.2); Carbon Dioxide 24 mmol/L (22-29); Chloride 109 mmol/L (96-108); Creatinine Clr Calc Pharmacy 81.6; Estimated Glomerular Filt Rate > 60; Glucose Random 115 mg/dL (60-115); Potassium 4.1 mmol/L (3.3-5.1); Sodium 140 mmol/L (135-145); Total Protein 7.3 g/dL (6.5-8.0)
[2024-05-02 06:25] LABS: Troponin-I High Sensitivity 15.2 ng/L (<3.5-35.0)
[2024-05-02 06:42] VITALS: BP 134/54; PULSE 66; RESP 18; TEMP 36.4; O2SAT 98
--- NOTE | 2024-05-02 06:43 | ED.CHESTPAIN ---
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 Patient states that he started having chest pain that is reducible with palpation however, now, the pain is resolved. Patient denies any dizziness, lightheadedness, abdominal pain, nausea, vomiting, fever, chills, blurry vision, double vision, loss of vision, difficulty breathing, shortness of breath, back pain, night sweats, pain with urination, increased urinary frequency, increased urinary urgency, blood in his urine or stool, syncope or a near syncopal episode, recent trauma or falls, bowel incontinence, bladder incontinence, or any other complaints at this time. MD complaint: chest pain Relieving factors: nothing Exacerbating factors: palpation Risk Factors Coronary artery disease risk factors: hypertension Related Data Previous Rx's ?Medication ?Instructions ?Recorded meclizine 25 mg tablet 25 mg PO TID PRN dizziness 30 days 07/18/23 #90 tabs cholecalciferol (vitamin D3) 50 50 mcg PO DAILY 90 days #90 caps 01/17/24 mcg (2,000 unit) capsule citalopram 10 mg tablet 10 mg PO DAILY 90 days #90 tabs 02/29/24 lisinopril 20 mg tablet 20 mg PO DAILY 90 days #90 tabs 03/10/24 gabapentin 100 mg capsule 100 mg PO TID 90 days #270 caps 04/02/24 tamsulosin 0.4 mg capsule 0.4 mg PO BEDTIME #7 caps 04/02/24 amlodipine 2.5 mg tablet 2.5 mg PO DAILY #30 tabs 04/05/24 benzonatate 100 mg capsule 100 mg PO TID PRN Cough #20 caps 04/05/24 cefuroxime axetil 500 mg tablet 500 mg PO Q12H #10 tabs 04/05/24 oxycodone 5 mg tablet 5 mg PO Q6H PRN pain #10 tabs 04/05/24 acetaminophen 325 mg tablet 975 mg (3 x 325 mg) PO Q6H PRN 04/09/24 (Tylenol) pain #20 tabs Allergies Allergy/AdvReac Type Severity Reaction Status Date / Time Penicillins Allergy Mild UNKNOWN Verified 05/02/24 05:40 nicotine [NICOTINE] AdvReac Intermediate TACHYCARDIA Verified 05/02/24 05:40 (PATCH) Review of Systems Constitutional: Constitutional: Reports no additional constitutional complaints, Denies chills, Denies fever(s) and Denies night sweats Eyes: Eyes: Reports no additional eye complaints, Denies blurry vision, Denies change in vision, Denies diplopia, Denies eye discharge, Denies loss of vision and Denies eye pain ENT: Denies dizziness Cardiovascular: Cardiovascular: Reports no additional cardiovascular complaints, Reports chest pain, Denies lightheadedness, Denies Loss of Consciousness and Denies dyspnea Respiratory: Respiratory: Reports no additional respiratory complaints and Denies dyspnea Gastrointestinal: Gastrointestinal: Reports no additional gastrointestinal complaints, Denies abdominal pain, Denies melena, Denies hematochezia, Denies change in bowel habits and Denies change in stool character Genitourinary: Genitourinary: Reports no additional male genitourinary complaints, Denies hematuria, Denies oliguria, Denies difficulty urinating, Denies dysuria, Denies urinary frequency, Denies urinary hesitancy, Denies urinary incontinence and Denies urinary urgency Musculoskeletal: Musculoskeletal: Reports no additional musculoskeletal complaints, Denies numbness and Denies tingling Neurologic: Denies dizziness, Denies loss of vision, Denies numbness and Denies tingling Psychiatric: Psychiatric: Reports no additional psychiatric complaints Endocrine: Endocrine: Reports no additional endocrine complaints Hematologic/Lymphatic: Hematologic/Lymphatic: Reports no additional hematologic/lymphatic complaints Allergic/Immunologic: Allergic/Immunologic: Reports no additional allergic/immunologic complaints PMFSH Past Medical History Attestation statement: The following information was validated with the patient. Source: old records reviewed and nursing notes reviewed Medical History Nicotine dependence, cigarettes, uncomplicated Hypovitaminosis D Moderate recurrent major depression Morbid obesity PVC's (premature ventricular contractions) Palpitations Menieres disease Tremors of nervous system Erectile dysfunction Hypertension Surgical History History of colonoscopy History of surgery Family History Family History Father CVD (cardiovascular disease) Diabetes Mother No problems noted. Maternal Uncle Prostate cancer Family/Other Substance use disorder Social History Social History Household Members: Spouse Housing: Apartment Do you presently have visiting nurse or other home services: No Alcohol intake: never Patient Tobacco Use Status: Current everyday Tobacco user Tobacco use type: Cigarette Cigarette Packs Per Day: 0.5 Cigarettes Per Day: 10.0 Years Smoked: (onset 17yo, 1/2-1ppd x 45yrs, 30+pyh) Smoked in Last 30 Days: Yes e-Cigarette/Vaping Use: Never Used Second Hand Smoke Exposure: Yes Use of substances other than those prescribed or required for medical reasons: No Advance Directives: No Advance Directives Information Provided: Yes service: No Current occupational status: disabled Cognitive needs: No Hearing needs: No Vision needs: Yes Physical Exam Vital Signs: Vital Signs: Last Vital Signs Temp 97.8 F 05/02/24 09:20 Pulse 67 05/02/24 09:20 Resp 14 05/02/24 09:20 BP 155/67 H 05/02/24 09:20 Pulse Ox 97 05/02/24 09:20 O2 Del Method Room Air 05/02/24 09:20 BMI result Body Mass Index 37.3 Const: General: cooperative, no acute distress, alert and awake Nutritional Appearance: well nourished Orientation/consciousness: patient oriented x3 Limitations: no limitations HEENT: Head: Yes normal to inspection and Yes atraumatic Ears: hearing grossly normal bilaterally and external ears normal General nose exam: Normal external nose present, no nasal discharge noted and no epistaxis Face and sinus: Yes normal facial exam, No abrasion and No laceration Mouth: Normal oral and palatal mucosa present, no drooling and no muffled voice Eyes: General: appearance normal, both eyes and all related structures Periorbital: periorbital findings normal Eyelids: Yes eyelids normal Conjunctivae: conjunctivae normal Pupils: Equal, round and reactive pupils present EOM: EOMs intact bilaterally Neck: Neck: Yes normal visual inspection, Yes full ROM and Yes no lymphadenopathy Chest: Chest palpation & inspection: normal inspection of the chest Resp: Effort & Inspection: normal respiratory effort and able to speak in complete sentences GI: Inspection: Yes normal to inspection Neuro: General: patient oriented x3 and moves all extremities Cranial nerves: Yes Equal, round and reactive pupils present Cognition (Neuro): normal cognition Extrem: General: Yes normal to inspection, Yes full ROM and Yes capillary refill normal Psych: Appearance: grossly normal Mental Status: mental status grossly normal Affect: normal affect Attitude: cooperative Thought process: Normal thought process present Thought content: Normal thought content present Insight: Good insight present (Psych) Medical Decision Making Medical Decision Making [facility] Narrative: Patient is a 63 year old assigned male at with a history of HTN, MICHAEL, and menieres disease presenting to the emergency department today with chest pain that has now resolved. Patient's physical exam was unremarkable. Patient's blood work was unremarkable. Patient's EKG was unremarkable. Patient's chest x-ray showed no acute process. I explained my physical exam findings as well as all test results to the patient. I answered all questions asked by the patient. I stressed the importance of the patient taking his medication as directed (either prescribed or as the over the counter packaging recommends). I stressed the importance of the patient following up with his primary care provider. I stressed the importance of the patient returning to the emergency department immediately if his symptoms were to worsen or if he were to develop any dizziness, shortness of breath, difficulty breathing, chest pain, blurry vision, loss of vision, nausea, vomiting, abdominal pain, fever, chills, back pain, or any other complaints. Patient verbalized agreement and understanding with this treatment plan and discharge in police custody. Differential Diagnosis Differential Diagnoses: The differential diagnosis associated with the presentation includes NSTEMI STEMI Chest pain Stable angina Unstable angina Costochondritis Admission/Observation Consideration of admission/observation: Escalation of care including admission/observation considered Patient would have been admitted to the hospital had his work up had any findings where hospital admission was appropriate and his clinical presentation warranted hospital admission. Lab Data [facility] Lab Attestation statement: I reviewed the patient's lab results. My interpretation of these results are in the [facility] Rationale portion of this note. 05/02/24 06:00 05/02/24 06:00 Labs: Lab Results 05/02/24 05/02/24 Range/Units 06:00 07:29 WBC 11.2 H (4.8-10.8) X10*3/uL RBC 4.38 L (4.60-5.80) X10*6/uL Hgb 14.3 (14.0-18.0) g/dl Hct 41.1 L (42.0-52.0) % MCV 93.8 (80.0-98.0) fL MCH 32.6 (27.0-33.0) pg MCHC 34.8 (31.0-36.0) g/dl RDW 12.9 (11.0-16.0) % Plt Count 278 (160-400) X10*3/uL MPV 10.3 (9.4-12.4) fL Immature Gran % (Auto) 0.3 (0.0-0.4) % Neut % (Auto) 47.7 (45-73) % Lymph % (Auto) 34.8 (20-40) % Mitchell % (Auto) 11.5 H (2-11) % Eos % (Auto) 5.1 H (0-4) % Baso % (Auto) 0.6 (0-2) % Lymph # (Auto) 3.9 (1.2-4.9) X10*3/uL Mitchell # (Auto) 1.3 H (0.1-1.2) X10*3/uL Eos # (Auto) 0.6 H (0.0-0.4) X10*3/uL Baso # (Auto) 0.1 (0.0-0.2) X10*3/uL Abs Immat Gran (auto) 0.03 (0.00-0.03) X10*3/uL Absolute Neuts (auto) 5.4 (2.0-8.3) x10*3/uL Absolute Nucleated RBC 0.000 (0.0-0.012) X10*3/uL Nucleated RBC % (auto) 0.0 (0.0-0.2) /100WBC Sodium 140 (135-145) mmol/L Potassium 4.1 D (3.3-5.1) mmol/L Chloride 109 H (96-108) mmol/L Carbon Dioxide 24 (22-29) mmol/L Anion Gap 11 L (12-20) BUN 19 H (9-16) mg/dL Creatinine 1.15 (0.5-1.4) mg/dL Estim Creat Clear Calc 81.6 Estimated GFR > 60 Random Glucose 115 (60-115) mg/dL Calcium 9.2 D (8.4-10.2) mg/dL Total Bilirubin 0.2 (0.0-1.0) mg/dL AST 22 (5-37) U/L ALT 24 (0-40) U/L Alkaline Phosphatase 86 (39-117) U/L Troponin I High Sens 15.2 D 16.5 (<3.5-35.0) ng/L Total Protein 7.3 (6.5-8.0) g/dL Albumin 4.1 (3.5-5.0) g/dL Influenza Type A (PCR) NEGATIVE (Negative) Influenza Type B (PCR) NEGATIVE (Negative) RSV RNA Qual (PCR) NEGATIVE (Negative) SARS-CoV-2 RNA (RT-PCR) NEGATIVE (Negative) Independent Interpretation I performed an independent interpretation of an: EKG and Plain X-Ray Interpretation: My interpretation is in agreement with the radiologist's impression of this imaging study. EXAMINATION: XR CHEST CLINICAL INFORMATION: Chest pain COMPARISON: CT lung from 02/07/2024, chest radiograph from 06/12/2023 TECHNIQUE: 2 views of the chest were obtained. FINDINGS: No focal consolidation. No pneumothorax. Trachea is midline. Cardiac mediastinal silhouette is stable. No large pleural effusion. Osseous structures are intact. Soft tissues are unremarkable XR/XR chest 2V IMPRESSION: No acute cardiopulmonary process. Dictated By: Carlota Holland MD Signed By: Electronically signed by Carlota Holland MD 05/02/24 0828 Vent. Rate: 069 BPM Atrial Rate: 069 BPM P-R Int: 148 ms QRS Dur: 084 ms QT Int: 372 ms P-R-T Axes: 045 049 048 degrees QTc Int: 398 ms Normal sinus rhythm Normal ECG When compared with ECG of 02-APR-2024 09:52, No significant change was found DD/ 0548 Radiology Impression Discussion of test interpretation with radiology: I have reviewed the radiologist's reading. Independent Historian Clinical information obtained from an independent historian. History obtained from or confirmed by: EMS (EMS provided additional history and confirmed the history provided by the patient.) and Other (Police provided additional history and confirmed the history provided by the patient.) Chronic Conditions Patient?s care impacted by: Hypertension Discharge Plan Discharge Clinical Impression: Chest pain Patient Disposition: Home, Self-Care Instructions: Chest Pain (DC) Additional Instructions: Follow up with your primary care provider. Return to the emergency department immediately if your symptoms worsen or if you develop any dizziness, shortness of breath, difficulty breathing, chest pain, blurry vision, loss of vision, nausea, vomiting, abdominal pain, fever, chills, back pain, or any other complaints. Pato?seguimiento?con gill m?dico de atenci?n primaria. Acuda inmediatamente al servicio de urgencias si raymond s?ntomas empeoran o si presenta falta de aliento, dificultad para respirar, dolor tor?cico, mareos, aturdimiento, dolor de espalda, dolor abdominal, fiebre, escalofr?os o cualquier otro s?ntoma. Prescriptions: No Action citalopram 10 mg tablet 10 mg PO DAILY 90 Days Qty: 90 0RF lisinopril 20 mg tablet 20 mg PO DAILY 90 Days Qty: 90 0RF Hold Instructions: Resume on 04/11/24. gabapentin 100 mg capsule 100 mg PO TID 90 Days Qty: 270 1RF acetaminophen [Tylenol] 325 mg tablet 975 mg PO Q6H PRN (Reason: pain) Qty: 20 0RF tamsulosin 0.4 mg capsule 0.4 mg PO BEDTIME Qty: 7 0RF benzonatate 100 mg Capsule 100 mg PO TID PRN (Reason: Cough) Qty: 20 0RF cefuroxime axetil 500 mg tablet 500 mg PO Q12H Qty: 10 0RF oxycodone 5 mg tablet 5 mg PO Q6H PRN (Reason: pain) Qty: 10 0RF Rx Instructions: Partial Fill upon patient request. amlodipine 2.5 mg tablet 2.5 mg PO DAILY Qty: 30 0RF Rx Instructions: Use amlodipine 2.5 mg for 1 week, repeat BMP if kidney function better than can switch back to lisinopril and stop amlodipine at that time. meclizine 25 mg tablet 25 mg PO TID PRN (Reason: dizziness) 30 Days Qty: 90 1RF cholecalciferol (vitamin D3) 50 mcg (2,000 unit) capsule 50 mcg PO DAILY 90 Days Qty: 90 1RF Referrals: [facility] Family Medicine [Provider Group] (Call to establish and follow up with a primary care provider. If you already have a primary care provider, please follow up with them.) [facility] [place] [Provider Group] [facility] [Provider Group] Interventions: ED Discharge Assessment Last Done: 05/02/24 09:20 Discharge Date/Time: 05/02/24 09:20 Print Language: Belarusian
[2024-05-02 07:58] LABS: Troponin-I High Sensitivity 16.5 ng/L (<3.5-35.0)
[2024-05-02 08:22] LABS: Influenza A PCR NEGATIVE (Negative); Influenza B PCR NEGATIVE (Negative); Resp Syncy Virus RNA Qual PCR NEGATIVE (Negative); SARS COV2 PCR INHOUSE NEGATIVE (Negative)
[2024-05-02 08:43] VITALS: BP 155/67; PULSE 67; RESP 14; TEMP 36.6; O2SAT 97
[2024-05-02 09:20] VITALS: BP 155/67; PULSE 67; RESP 14; TEMP 36.6; O2SAT 97
== END 2024-05-02 09:20 | disposition home or self-care (01) ==
PROVIDERS: Physician Assistant Medical; Emergency Provider Emergency Medicine
DX: R07.9 Chest pain, unspecified (principal); I10 Essential (primary) hypertension; Z03.818 Encounter for observation for suspected exposure to other biological agents ruled out; Z79.899 Other long term (current) drug therapy
CPT/HCPCS: 0241U; 36415; 71046; 80053; 84484; 85025; 93005; 99283; 99284

== ENCOUNTER → 2024-05-02 05:48 | Outpatient (BNV) | payer OTHER, SELFPAY | PROVIDERS: Emergency Provider Emergency Medicine; Visit Provider Internal Medicine Cardiovascular Disease | DX: R07.9 Chest pain, unspecified (principal) | CPT/HCPCS: 93010 ==

== ENCOUNTER 2024-06-01 13:11 | Emergency (ER) | payer OTHER, SELFPAY ==
[2024-06-01 13:19] VITALS: BP 120/56; PULSE 70; RESP 16; TEMP 36.3; O2SAT 97; BMI 40.2
--- NOTE | 2024-06-01 13:19 | ED.GENADULT ---
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 Reports 2 days ago he was working on an old car beneath it, he believes some dirt or rust debris had gotten into his eyes. He felt irritation immediately. He went in rinsed out his eyes with water and has been doing so since then but he continues to have discomfort to both of his eyes feeling as though something stuck in it. His left eye feels particularly worse. He denies any vision changes. Denies pain behind the I or pressure. He reports excessive tearing but denies any pus-like discharge. No associated fevers or chills. Last tetanus vaccination in 2017 Related Data Previous Rx's ?Medication ?Instructions ?Recorded meclizine 25 mg tablet 25 mg PO TID PRN dizziness 30 days 07/18/23 #90 tabs cholecalciferol (vitamin D3) 50 50 mcg PO DAILY 90 days #90 caps 01/17/24 mcg (2,000 unit) capsule citalopram 10 mg tablet 10 mg PO DAILY 90 days #90 tabs 02/29/24 lisinopril 20 mg tablet 20 mg PO DAILY 90 days #90 tabs 03/10/24 gabapentin 100 mg capsule 100 mg PO TID 90 days #270 caps 04/02/24 tamsulosin 0.4 mg capsule 0.4 mg PO BEDTIME #7 caps 04/02/24 amlodipine 2.5 mg tablet 2.5 mg PO DAILY #30 tabs 04/05/24 benzonatate 100 mg capsule 100 mg PO TID PRN Cough #20 caps 04/05/24 cefuroxime axetil 500 mg tablet 500 mg PO Q12H #10 tabs 04/05/24 oxycodone 5 mg tablet 5 mg PO Q6H PRN pain #10 tabs 04/05/24 acetaminophen 325 mg tablet 975 mg (3 x 325 mg) PO Q6H PRN 04/09/24 (Tylenol) pain #20 tabs ofloxacin 0.3 % eye drops 2 drp ophthalmic (eye) QID 5 days 06/01/24 #5 mL Allergies Allergy/AdvReac Type Severity Reaction Status Date / Time Penicillins Allergy Mild UNKNOWN Verified 06/01/24 13:21 nicotine [NICOTINE] AdvReac Intermediate TACHYCARDIA Verified 06/01/24 13:21 (PATCH) Review of Systems Review of Systems: Yes all other systems are reviewed and are negative [facility] Past Medical History Attestation statement: The following information was validated with the patient. Source: old records reviewed Medical History Nicotine dependence, cigarettes, uncomplicated Hypovitaminosis D Moderate recurrent major depression Morbid obesity PVC's (premature ventricular contractions) Palpitations Menieres disease Tremors of nervous system Erectile dysfunction Hypertension Surgical History History of colonoscopy History of surgery Family History Family History Father CVD (cardiovascular disease) Diabetes Mother No problems noted. Maternal Uncle Prostate cancer Family/Other Substance use disorder Social History Social History Household Members: Spouse Housing: Apartment Do you presently have visiting nurse or other home services: No Alcohol intake: never Patient Tobacco Use Status: Current everyday Tobacco user Tobacco use type: Cigarette Cigarette Packs Per Day: 0.5 Cigarettes Per Day: 10.0 Years Smoked: (onset 17yo, 1/2-1ppd x 45yrs, 30+pyh) e-Cigarette/Vaping Use: Never Used Second Hand Smoke Exposure: Yes Advance Directives: No Advance Directives Information Provided: No Do you have a plan to hurt others: No Plan service: No Current occupational status: disabled Cognitive needs: No Hearing needs: No Vision needs: Yes Physical Exam ED Vital Signs: Vital Signs - 24 hr 06/01/24 13:19 Temperature 97.4 F Pulse Rate 70 Respiratory Rate 16 Blood Pressure 120/56 L Pulse Oximetry 97 Oxygen Delivery Method Room Air BMI result Body Mass Index 40.2 Appearance: Alert.?Oriented to person, place and time. No acute distress.?Normal affect. Eyes: Pupils equal, round and reactive to light.? Sclera noninjected. No conjunctival erythema. No retained foreign body. Fluorescein uptake on right over iris at 06:00 o'clock, fluorescein uptake on left over sclera at 06:00 o'clock ENT: Pharynx normal.?? Neck: Normal inspection.? Neck supple.?? CVS: Heart sounds normal. Normal heart rate and rhythm.? Pulses normal.?? Respiratory: No respiratory distress.? Lung sounds clear to auscultation bilaterally?? Skin: Skin warm and dry.? Normal skin color.? Extremities: No lower extremity edema.? Neuro: Moves all extremities spontaneously. Sensation intact bilaterally. CN II-XII intact. No focal neuro deficits. Ambulates with normal steady gait. Course Course Course Narrative: This is a rapid medical exam performed by Venkatesh Dickerson NP: Additional HPI, ROS, PE not included below will be deferred to primary provider. Patient is a 63-year-old male presenting to the emergency department with complaint of foreign body to left eye. [place] something fall into both of his eyes, has been trying to irrigate them but left eye continues to bother him. Plan: visual acuity, tetracaine and fluorescein ordered Medications Administered Discontinued Medications Generic Name Dose Route Start Last Admin Trade Name Denysq PRN Reason Stop Dose Admin Fluorescein Sodium 1 strip 06/01/24 13:20 06/01/24 14:01 Fluorescein Sodium Strip EYE-BOTH 06/01/24 13:21 1 strip ONCE ONE Administration Tetracaine HCl 1 drop 06/01/24 13:20 06/01/24 14:01 Tetracaine Hcl 0.5% Oph Shannon 5 Ml Drops EYE-BOTH 06/01/24 13:21 1 drop ONCE ONE Administration Tetracaine HCl 1 drop 06/01/24 13:30 06/01/24 14:01 Tetracaine Hcl/Pf 0.5% Oph Shannon 4 Ml Drops EYE-BOTH 06/01/24 13:31 1 drop ONCE ONE Administration Medical Decision Making Medical Decision Making MDM Narrative: Patient is a 63-year-old male who presents emergency department for evaluation a foreign sensation to the bilateral eyes left worse than right as per HPI. Examination is consistent with corneal abrasion. No retained foreign body. No penetrating injury to suggest globe rupture. No hyphema, no chemosis, negative Jose sign, not consistent with conjunctivitis. Tdap was updated today. Discussed appropriate treatment and outpatient follow-up with Ophthalmology, worrisome signs and symptoms that would warrant re-evaluation. Stable for discharge Differential Diagnosis Differential Diagnoses: The differential diagnosis associated with the presentation includes External Record Review External record reviewed: Outpatient record Prescription Management I considered prescription management with: Antibiotic Discharge Plan Discharge Clinical Impression: Bilateral corneal abrasions Qualifiers: Encounter type: initial encounter Qualified Code(s): S05.01XA - Injury of conjunctiva and corneal abrasion without foreign body, right eye, initial encounter Patient Disposition: Home, Self-Care Instructions: Corneal Abrasion (ED) Additional Instructions: Use the eyedrops as prescribed. As discussed, do not rub the eye you may gently pat the eye if it is excessively watering. Contact the eye doctor's office provided to you Monday morning to arrange for a follow-up appointment. Return to emergency department any new or worsening symptoms or concerns. Prescriptions: New ofloxacin 0.3 % drops 2 drp ophthalmic (eye) QID 5 Days Qty: 5 0RF Rx Instructions: Apply to both eyes No Action citalopram 10 mg tablet 10 mg PO DAILY 90 Days Qty: 90 0RF lisinopril 20 mg tablet 20 mg PO DAILY 90 Days Qty: 90 0RF Hold Instructions: Resume on 04/11/24. gabapentin 100 mg capsule 100 mg PO TID 90 Days Qty: 270 1RF acetaminophen [Tylenol] 325 mg tablet 975 mg PO Q6H PRN (Reason: pain) Qty: 20 0RF tamsulosin 0.4 mg capsule 0.4 mg PO BEDTIME Qty: 7 0RF benzonatate 100 mg Capsule 100 mg PO TID PRN (Reason: Cough) Qty: 20 0RF cefuroxime axetil 500 mg tablet 500 mg PO Q12H Qty: 10 0RF oxycodone 5 mg tablet 5 mg PO Q6H PRN (Reason: pain) Qty: 10 0RF Rx Instructions: Partial Fill upon patient request. amlodipine 2.5 mg tablet 2.5 mg PO DAILY Qty: 30 0RF Rx Instructions: Use amlodipine 2.5 mg for 1 week, repeat BMP if kidney function better than can switch back to lisinopril and stop amlodipine at that time. meclizine 25 mg tablet 25 mg PO TID PRN (Reason: dizziness) 30 Days Qty: 90 1RF cholecalciferol (vitamin D3) 50 mcg (2,000 unit) capsule 50 mcg PO DAILY 90 Days Qty: 90 1RF Referrals: Ranjan Estrella [Physician] - Ashwini Teague MD [Primary Care Provider] - Print Language: Frisian
[2024-06-01] MEDS: Tetracaine HCl 0.5% Oph Sol 5 ML DROPS 1 DROP EYE-BOTH (14:01)
[2024-06-01] MEDS: Tetracaine HCl/PF 0.5% Oph Sol 4 ML DROPS 1 DROP EYE-BOTH (14:01)
[2024-06-01] MEDS: Fluorescein Sodium STRIP 1 STRIP EYE-BOTH (14:01)
[2024-06-01] MEDS: Diphth,Pertus(ACell),Tet Adult 0.5 ML SYRINGE IM (14:51)
[2024-06-01 15:22] VITALS: BP 120/72; PULSE 81; RESP 16; TEMP 36.7; O2SAT 98
[2024-06-01 15:23] VITALS: BP 120/72; PULSE 81; RESP 16; TEMP 36.7; O2SAT 98
== END 2024-06-01 15:25 | disposition home or self-care (01) ==
PROVIDERS: Emergency Provider Emergency Medicine; PCP Internal Medicine
DX: S05.01XA Injury of conjunctiva and corneal abrasion without foreign body, right eye, initial encounter (principal); S05.02XA Injury of conjunctiva and corneal abrasion without foreign body, left eye, initial encounter; X58.XXXA Exposure to other specified factors, initial encounter; Y93.89 Activity, other specified; Y92.9 Unspecified place or not applicable; Y99.9 Unspecified external cause status; Z23 Encounter for immunization
CPT/HCPCS: 90471; 90715; 99283; 99284

== ENCOUNTER 2024-06-12 06:35 | Day surgery (SDC) | payer OTHER, SELFPAY ==
[2024-06-10 13:32] VITALS: BMI 41.8
--- NOTE | 2024-06-10 14:51 | HO.ANESPROP2 ---
HPI - Anesthesia Eval Consult details Narrative: 63yo M for Left Lithotripsy ESW [facility] [place] [facility] 06/01/24 with bilateral corneal abrasions PMFSH Active Problems Active Problems: All Active Problems Renal and ureteric calculus (Acute) JOHNNY (acute kidney injury) (Acute) Obstructive uropathy (Acute) Acute pyelonephritis (Acute) Left lateral epicondylitis (Acute) Impaired glucose tolerance (Acute) Left elbow pain (Acute) Physical exam (Acute) Erectile dysfunction (Acute) Sleep difficulties (Acute) Hypovitaminosis D (Acute) PVC's (premature ventricular contractions) (Acute) Morbid obesity (Acute) Hypertension (Acute) Shortness of breath (Acute) Nicotine dependence, cigarettes, uncomplicated (Acute) MICHAEL (obstructive sleep apnea) (Acute) Snoring (Acute) Excessive daytime sleepiness (Acute) Elevated TSH (Acute) Moderate recurrent major depression (Acute) MORGAN (generalized anxiety disorder) (Acute) Menieres disease (Acute) Ringing in ears (Acute) Balance disorder (Acute) Tremors of nervous system (Acute) Past Medical History Medical History Nicotine dependence, cigarettes, uncomplicated Hypovitaminosis D Moderate recurrent major depression Morbid obesity PVC's (premature ventricular contractions) Palpitations Menieres disease Tremors of nervous system Erectile dysfunction Hypertension Family History Family History Father CVD (cardiovascular disease) Diabetes Mother No problems noted. Maternal Uncle Prostate cancer Family/Other Substance use disorder Family history of problems with anesthesia: No Surgical History Surgical History History of colonoscopy History of surgery History of Problems with Anesthesia: No Social History Social History Household Members: Spouse Housing: Apartment Do you presently have visiting nurse or other home services: No Alcohol intake: never Patient Tobacco Use Status: Current everyday Tobacco user Tobacco use type: Cigarette Cigarette Packs Per Day: 0.5 Cigarettes Per Day: 10 Years Smoked: (onset 17yo, 1/2-1ppd x 45yrs, 30+pyh) e-Cigarette/Vaping Use: Never Used Second Hand Smoke Exposure: Yes service: No Current occupational status: disabled Cognitive needs: No Hearing needs: No Vision needs: Yes Meds Allergies Allergy/AdvReac Type Severity Reaction Status Date / Time Penicillins Allergy Mild UNKNOWN Verified 06/01/24 13:21 nicotine [NICOTINE] AdvReac Intermediate TACHYCARDIA Verified 06/01/24 13:21 (PATCH) Exam Height,Weight and Vital Signs: Height 5 ft 6 in Weight 117.48 kg Pertinent Lab Results Pertinent Lab Results: Laboratory Tests 05/02/24 06:00 WBC 11.2 H Hgb 14.3 Hct 41.1 L Plt Count 278 Sodium 140 Potassium 4.1 D Chloride 109 H Carbon Dioxide 24 BUN 19 H Creatinine 1.15 Narrative Narrative: EKG 04/2024 Vent. Rate : 069 BPM Atrial Rate : 069 BPM P-R Int : 148 ms QRS Dur : 084 ms QT Int : 372 ms P-R-T Axes : 045 049 048 degrees QTc Int : 398 ms Normal sinus rhythm Normal ECG When compared with ECG of 02-APR-2024 09:52, No significant change was found Assessment and Plan Assessment Anesthesia Assessment: Chart Reviewed Final Anesthetic Review Family History of Problems with Anesthesia: No History of Problems with Anesthesia: No
--- NOTE | ~2024-06-12 | XR_ITS ---
EXAMINATION: XR ABDOMEN KUB CLINICAL INDICATION: Left kidney stone COMPARISON: CT scan of abdomen and pelvis on 04/02/2024 TECHNIQUE: AP view of the abdomen. FINDINGS: AP supine x-rays of the abdomen show nonspecific bowel gas pattern. No abnormal bowel dilatation is seen. Left mid renal calculus measuring 0.8 x 0.7 cm in size is seen. XR/XR KUB IMPRESSION: 0.8 x 0.7 cm left mid renal calculus is seen. The additional smaller left upper renal calculus is not well visualized on plain x-rays. Electronically signed by: Sebastian Jovel MD 06/12/2024 08:41 AM EDT
[2024-06-12 07:12] VITALS: BP 150/78; PULSE 68; RESP 16; TEMP 36.1; O2SAT 96
[2024-06-12] MEDS: Lactated Ringers 1,000 ML 100 ML IVCONT (07:22)
--- NOTE | 2024-06-12 07:46 | MHC.SHP ---
Pre-Procedural Eval Section A - 24 Hr Update-Section A only Date of Service: 06/12/24 The patient is an INPATIENT: No Changes since office visit: No Cold of Flu in the past 2 weeks, No New Medical Problems, No Changes in Medication and No Patient answered all questions The patient has been examined within 24 hours of the surgical procedure. The History & Physical has been completed within 30 days and I have reviewed it.: Yes Section B - Complete if H&P > 30 days Chief Complaint: Calculus of kidney with calculus of ureter Details of Present Illness: left renal calculus Relevant Family History (Specify if Yes): No Relevant Social History: None Present Medications: see Short Stay Collaborative assessment Medical History: No relevant PMH History of Previous Operations: No relevant previous surgery Allergies: Allergies Allergy/AdvReac Type Severity Reaction Status Date / Time Penicillins Allergy Mild UNKNOWN Verified 06/01/24 13:21 nicotine [NICOTINE] AdvReac Intermediate TACHYCARDIA Verified 06/01/24 13:21 (PATCH) Review of Systems Sugical H&P ROS: Negative: Constitution, Cardiovascular, Respiratory, Neurological, Psychiatric, Hem-Onc, Allergic/Immunologic, Gastrointestinal, Genitourinary, Musculoskeletal, Integumentary, Endocrine and Eyes/Ears/Nose/Throat Exam Surgical H&P Exam: Normal: HEENT, Normal: Heart, Normal: Lungs, Normal: Extremities, Normal: Abdomen, Normal: Skin and Normal: Neurological Plan Diagnosis/Plan: Unchanged (left ESWL) I have reviewed the history and physical and performed a pertinent physical examination on my patient. No changes have occurred unless specified. Time Spent With Patient Time: Total time managing care of this patient today ____ minutes.
[2024-06-12] MEDS: Lactated Ringers 1,000 ML 999 ML IV (08:37)
--- NOTE | 2024-06-12 09:20 | HO.ANESPROP2 ---
[facility] Active Problems Active Problems: All Active Problems Renal and ureteric calculus (Acute) JOHNNY (acute kidney injury) (Acute) Obstructive uropathy (Acute) Acute pyelonephritis (Acute) Left lateral epicondylitis (Acute) Impaired glucose tolerance (Acute) Left elbow pain (Acute) Physical exam (Acute) Erectile dysfunction (Acute) Sleep difficulties (Acute) Hypovitaminosis D (Acute) PVC's (premature ventricular contractions) (Acute) Morbid obesity (Acute) Hypertension (Acute) Shortness of breath (Acute) Nicotine dependence, cigarettes, uncomplicated (Acute) MICHAEL (obstructive sleep apnea) (Acute) Snoring (Acute) Excessive daytime sleepiness (Acute) Elevated TSH (Acute) Moderate recurrent major depression (Acute) MORGAN (generalized anxiety disorder) (Acute) Menieres disease (Acute) Ringing in ears (Acute) Balance disorder (Acute) Tremors of nervous system (Acute) Past Medical History Medical History Nicotine dependence, cigarettes, uncomplicated Hypovitaminosis D Moderate recurrent major depression Morbid obesity PVC's (premature ventricular contractions) Palpitations Menieres disease Tremors of nervous system Erectile dysfunction Hypertension Functional capacity: independent ambulation Family History Family History Father CVD (cardiovascular disease) Diabetes Mother No problems noted. Maternal Uncle Prostate cancer Family/Other Substance use disorder Family history of problems with anesthesia: No Surgical History Surgical History History of colonoscopy History of surgery History of Problems with Anesthesia: No Social History Social History Household Members: Spouse Housing: Apartment Do you presently have visiting nurse or other home services: No Alcohol intake: never Patient Tobacco Use Status: Current everyday Tobacco user Tobacco use type: Cigarette Cigarette Packs Per Day: 0.5 Cigarettes Per Day: 10 Years Smoked: (onset 17yo, 1/2-1ppd x 45yrs, 30+pyh) e-Cigarette/Vaping Use: Never Used Second Hand Smoke Exposure: Yes Use of substances other than those prescribed or required for medical reasons: No Are you DNR?: No Advance Directives: No Advance Directives Information Provided: Yes service: No Current occupational status: disabled Cognitive needs: No Hearing needs: No Vision needs: Yes Meds Allergies Allergy/AdvReac Type Severity Reaction Status Date / Time Penicillins Allergy Mild UNKNOWN Verified 06/01/24 13:21 nicotine [NICOTINE] AdvReac Intermediate TACHYCARDIA Verified 06/01/24 13:21 (PATCH) Active Medications: Current Medications Albuterol Sulfate (Albuterol Sulfate (0.083%) 2.5 Mg/3 Ml Vial.Neb) 2.5 mg INHALE ONCE PRN PRN Reason: Shortness of Breath/Wheezing Lactated Ringer's (Lr) 1,000 mls @ 100 mls/hr IVCONT .Q10H MELISSA Last Admin: 06/12/24 07:22 Dose: 100 mls/hr Exam Height,Weight and Vital Signs: Height 5 ft 6 in Weight 117.48 kg Last Vital Signs Temp 97.0 F 06/12/24 07:12 Pulse 68 06/12/24 07:12 Resp 16 06/12/24 07:12 BP 150/78 H 06/12/24 07:12 Pulse Ox 96 06/12/24 07:12 O2 Del Method Room Air 06/12/24 07:12 Airway Mallampati Class: IV TM Dist: >3cm Neck ROM: Full Heart: RRR Lungs: CTA Assessment and Plan Assessment Anesthesia Assessment: Anesthesia Plan Discussed, Smoking Cess. Discussed and Chart Reviewed Final Anesthetic Review Family History of Problems with Anesthesia: No History of Problems with Anesthesia: No ASA Class: III Final Preanesthetic Review: Meds/Allgs Chart Reviewed, Consent Obtained/Reviewed and Anes Risks/Benef Reviewed Patient Risk: Intermediate Anesthetic Plan Anesthetic Plan: GA Disposition: Standard PACU
--- NOTE | 2024-06-12 09:24 | W.PM.OPN ---
Operative Note Operative Note Date of Service: 06/12/24 Narrative: PreOperative Diagnosis: Left Renal stones Post Operative Diagnosis: Left Renal stones Procedure: Left ESWL Surgeon: Dr Rashawn Wright Anesthesia: mac/sedation Indications for procedure: The patient understands ESWL may be a staged procedure and subsequent intervention may be required based on imaging after ESWL. Quoted stone clearance rates for a solitary procedure are in the 70-80% range based primarily on stone location. They also understand there is a risk of bleeding to the kidney, infection, damage to adjacent organs, and stone migration following the procedure. - Imaging 13 mm left midpole Procedure optimization has been performed with IV acetaminophen given in the holding area and 1 L of lactated Ringer's to be given in order to optimize the fluid-stone interface. 20 mg of IV Lasix will be given in the last 5 minutes of the procedure to optimize stone clearance. Procedure: After informed consent was verified the patient was brought to the operating room and placed in a supine position. Anesthesia was performed per protocol. Safety pause time-out was performed. Imaging was displayed in the room and laterality confirmed. ESWL was performed. The 1st 500 shocks were performed at 60 hertz. These were performed with increasing power. Once maximum power was reached the rate was increased to 180 hertz. A total of 2500 shocks were given. Targeted imaging with ultrasound/fluoroscopy showed stone smudging suggestive of disintegration. The patient tolerated the procedure well and was transferred to the recovery area upon completion. Post procedure imaging will be organized. There was no evidence for flank discoloration.
[2024-06-12 09:43] VITALS: BP 114/60; PULSE 73; RESP 16; TEMP 36.3; O2SAT 96
[2024-06-12 09:48] VITALS: BP 101/59; PULSE 65; RESP 18; O2SAT 97
[2024-06-12 09:52] VITALS: BP 110/59; PULSE 61; RESP 18; O2SAT 94
[2024-06-12 09:57] VITALS: BP 109/56; PULSE 59; RESP 18; O2SAT 95
[2024-06-12] MEDS: Ketorolac Tromethamine 15 MG/ML VIAL IVPUSH (10:09)
[2024-06-12 10:13] VITALS: BP 127/65; PULSE 66; RESP 18; O2SAT 95
--- NOTE | 2024-06-12 14:43 | HO.POSTANES ---
Post Anesthesia Evaluation Post Anesthesia Evaluation Date of Service: 06/12/24 Vital Signs: Vital Signs Temp Pulse Resp BP Pulse Ox O2 Del Method 06/12/24 10:13 66 18 127/65 95 06/12/24 09:57 59 18 109/56 L 95 Room Air 06/12/24 09:52 61 18 110/59 L 94 06/12/24 09:48 65 18 101/59 L 97 06/12/24 09:43 97.4 F 73 16 114/60 96 Room Air 06/12/24 07:12 97.0 F 68 16 150/78 H 96 Room Air Anesthesia: General LMA Mental Status: Awake Pain Control: Satisfactory Nausea/Vomiting: None Hydration: Adequate Anesthesia-Related Issues: No Anes. Related Issues
== END 2024-06-12 10:59 | disposition home or self-care (01) ==
PROVIDERS: PCP Internal Medicine; Visit Provider Urology
PROC: (CPT 50590; principal; 2024-06-12 08:50)
DX: N20.2 Calculus of kidney with calculus of ureter (principal); N13.9 Obstructive and reflux uropathy, unspecified; N52.9 Male erectile dysfunction, unspecified; I10 Essential (primary) hypertension; E55.9 Vitamin D deficiency, unspecified; F33.1 Major depressive disorder, recurrent, moderate; E66.01 Morbid (severe) obesity due to excess calories; Z79.899 Other long term (current) drug therapy; Z88.0 Allergy status to penicillin; F17.210 Nicotine dependence, cigarettes, uncomplicated
CPT/HCPCS: 50590; 74018; J0131; J1885; J1940; J2250; J2371; J2704; J3010

== ENCOUNTER → 2024-06-12 06:35 | Outpatient (BNV) | payer OTHER, SELFPAY | PROVIDERS: PCP Internal Medicine; Visit Provider Urology | DX: N20.0 Calculus of kidney (principal) | CPT/HCPCS: 50590 ==

== ENCOUNTER 2024-07-29 15:08 | Outpatient (AMB) | payer OTHER, SELFPAY ==
[2024-07-29 15:13] VITALS: BP 112/76; BMI 40.2
--- NOTE | 2024-07-29 15:13 | MHC.PC.OV ---
Vital Signs 07/29/24 15:13 Height 5 ft 6 in Weight 249 lb BMI 40.2 BP 112/76 Blood Pressure Location Lt brachial Position Sitting Intake Visit Reasons: Physical Exam Intake Note: Patient here for a Physical Exam Film Or Videotape Editor Required: No Accompanied by: Self / Same As Patient Allergies Penicillins Allergy (Mild, Verified 07/29/24 15:33) UNKNOWN nicotine [NICOTINE] Adverse Reaction (Intermediate, Verified 07/29/24 15:33) TACHYCARDIA (PATCH) Medication List - Last Reconciled 07/29/24 by Ashwini Jolly MD acetaminophen (Tylenol) 975 mg (3 x 325 mg) PO Q6H PRN amlodipine 2.5 mg PO DAILY cholecalciferol (vitamin D3) 50 mcg PO DAILY 90 days citalopram 10 mg PO DAILY 90 days gabapentin 100 mg PO TID 90 days lisinopril 20 mg PO DAILY 90 days meclizine 25 mg PO TID PRN 30 days naproxen 500 mg PO BID PRN 7 days ofloxacin 0.3% 2 drps ophthalmic (eye) QID 5 days tamsulosin 0.4 mg PO BEDTIME 14 days Tobacco use date assessed: 01/17/24 Dental Screening Dental Screen Date: 01/17/24 HPI HPI Comments History of Present Illness Details This is a 63-year-old male with moderate recurrent major depression and morbid obesity that comes for his physical exam. Colonoscopy done 2014 was normal. Depression has been in remission. He is morbidly obese with a BMI of 40.2 and was advised to do diet and exercise to reach BMI goal less than 30. Complains of sinus pain and an x-ray will be order. Has a stye and erythromycin ointment will be order. [facility] Medical History (Updated 07/29/24 @ 19:40 by Ashwini Jolly MD) JOHNNY (acute kidney injury) Nicotine dependence, cigarettes, uncomplicated Hypovitaminosis D Moderate recurrent major depression Morbid obesity PVC's (premature ventricular contractions) Palpitations Menieres disease Tremors of nervous system Erectile dysfunction Hypertension Surgical History History of colonoscopy History of surgery Family History (Updated 07/29/24 @ 15:39 by Ashwini Jolly MD) Father CVD (cardiovascular disease) Diabetes Mother No problems noted. Maternal Uncle Prostate cancer Family/Other Substance use disorder Social History Household Members: Spouse Housing: Apartment Do you presently have visiting nurse or other home services: No Alcohol intake: never Patient Tobacco Use Status: Current everyday Tobacco user Tobacco use type: Cigarette Cigarette Packs Per Day: 0.5 Cigarettes Per Day: 10 Years Smoked: (onset 17yo, 1/2-1ppd x 45yrs, 30+pyh) e-Cigarette/Vaping Use: Never Used Second Hand Smoke Exposure: Yes service: No Current occupational status: disabled Cognitive needs: No Hearing needs: No Vision needs: Yes Questionnaire Thrive Questionnaire Date Thrive assessed: 04/04/24 I am a: Patient What is your living situation today?: I do not have a steady places to live I am temporarily staying with others Within the past 12 months, did the food you bought not last and you didn't have the money to get more?: Sometimes True Within the past 12 months, did you worry whether your food would run out before you got money to buy more?: Sometimes True Do you have trouble paying for medicines?: Yes Do you have trouble getting transportation to medical appointments?: No Do you have trouble paying your heating and electricity bill?: Yes Do you have trouble taking care of your child, family member or friend?: Yes Do you have trouble with day-to-day activities such as bathing, preparing meals, shopping, managing finances, etc.?: Yes Are you currently unemployed and looking for a job?: Yes Are you interested in more education?: Yes Please select the resources that you would like help with: None Currently or been in a relationship where the following occur: No concerns reported THRIVE Score: 4 AUDIT C Alcohol Use Questionnaire (AUDIT-C) 1. How often do you have a drink containing alcohol?: Never Total Score: 0 MORGAN-7 AMB Questionnaire MORGAN-7 Date MORGAN - 7 assessed: 01/17/24 Feeling nervous, anxious, or on edge: 3 = Nearly every day Not being able to stop or control worryin = Nearly every day Worrying too much about different things: 3 = Nearly every day Trouble relaxin = Nearly every day Being so restless that it is hard to sit still: 3 = Nearly every day Becoming easily annoyed or irritable: 3 = Nearly every day Feeling afraid as if something awful might happen: 3 = Nearly every day Total MORGAN-7 score (0-4 normal; 5-9 mild; 10-14 moderate; 15-21 severe): 21 Source: Developed by Drs. Ran Nolan, Elizabeth Ibrahim, Ryley Bui and colleagues, with an educational damian from [employer]. Review of Systems Const All systems reviewed & are unremarkable except as noted in HPI and below Card Denies chest pain at rest, Denies chest pain with activity, Denies edema, Denies irregular heart rhythm, Denies claudication, Denies dyspnea, Denies dyspnea on exertion, Denies orthopnea, Denies paroxysmal nocturnal dyspnea and Denies slow heart rate Resp Denies cough, Denies dyspnea and Denies dyspnea on exertion GI Denies abdominal pain, Denies change in bowel habits, Denies excessive flatus, Denies nausea and Denies vomiting Physical exam (Primary Care) Vital Signs: Last Vital Signs BP 112/76 07/29/24 15:13 BMI result Body Mass Index 40.2 BMI Assessment/Plan discussion: High BMI High, discussed plan: lifestyle, weight reduction, dietary and physical activity Tobacco/Smoking Status: Tobacco use Status Tobacco use date assessed 01/17/24 07/29/24 15:14 Patient Tobacco Use Status Current everyday Tobacco 07/29/24 15:14 Tobacco use type Cigarette 07/29/24 15:14 e-Cigarette/Vaping Use Never Used 07/29/24 15:14 Thrive Assessment: Date of Thrive Assessment Date Thrive assessed 04/04/24 07/29/24 15:14 Currently or been in a relationship where the following occur: No concerns reported [facility] General nose exam: Normal external nose present and No nasal discharge present Face and sinus: Yes sinuses nontender Mouth: lip normal Eyes General: appearance normal, both eyes and all related structures Eyelids: Yes eyelids normal Conjunctivae: conjunctivae normal Neck Neck: Yes normal visual inspection and Yes supple Resp Effort & Inspection: normal respiratory effort Auscultation: clear to auscultation bilaterally Cardio Jugular venous distension: no JVD Rate: regular rate Rhythm: regular rhythm Heart sounds: S1 normal heart sound present and S2 normal heart sound present GI Inspection: Yes normal to inspection Palpation (GI): Soft to palpation and nontender Auscultation: normal bowel sounds Skin General skin exam: no rashes or lesions noted Neuro General: no focal motor deficits Extrem General: Yes full ROM Psych Appearance: grossly normal Coding Level of Care Code Est Pt Level 3 (09033) Est Pt Prev Care 40-64y(86479) Diagnoses Physical exam Z00.00 Morbid obesity E66.01 Moderate recurrent major depression F33.1 Sinus pain J34.89 Stye H00.019 Time Spent (min) 34 Assessment & Plan Assessment & Plan (1) Physical exam: Code(s): Z00.00 - Encounter for general adult medical examination without abnormal findings Category: Medical Plan: Repeat in a year. (2) Morbid obesity: Comment: (BMI 41 - 11/2022) Code(s): E66.01 - Morbid (severe) obesity due to excess calories Category: Medical Plan: Start diet and exercise. BMI goal is less than 30. (3) Moderate recurrent major depression: Code(s): F33.1 - Major depressive disorder, recurrent, moderate Category: Medical Plan: In remission. (4) Sinus pain: Code(s): J34.89 - Other specified disorders of nose and nasal sinuses Category: Medical Plan: X-ray ordered. (5) Stye: Code(s): H00.019 - Hordeolum externum unspecified eye, unspecified eyelid Category: Medical Plan: Start erythromycin. Orders: Orders Lipid Panel Today E78.5 - Hyperlipidemia, unspecified Vitamin D 25-OH Total Today E55.9 - Vitamin D deficiency, unspecified PSA,Total (Free>4and<10) Today R35.1 - Nocturia Comprehensive [place]. Panel Fast Today Z00.00 - Encounter for general adult medical examination without abnormal findings XR sinus <3V Today J34.89 - Other specified disorders of nose and nasal sinuses Medications: New erythromycin 1 appl ophthalmic (eye) DAILY 7 days 3.5 grams 0RF Refilled cholecalciferol (vitamin D3) 50 mcg PO DAILY 90 days 90 caps 1RF lisinopril 20 mg PO DAILY 90 days 90 tabs 0RF amlodipine Use amlodipine 2.5 mg for 1 week, repeat BMP if kidney function better than can switch back to lisinopril and stop amlodipine at that time. 2.5 mg PO DAILY 30 tabs 0RF acetaminophen (Tylenol) 975 mg (3 x 325 mg) PO Q6H PRN 20 tabs 0RF pain citalopram 10 mg PO DAILY 90 days 90 tabs 0RF naproxen 500 mg PO BID 7 days PRN 14 tabs 0RF pain
== END 2024-07-29 15:47 | disposition home or self-care (01) ==
PROVIDERS: PCP Internal Medicine; Visit Provider Internal Medicine
DX: Z00.00 Encounter for general adult medical examination without abnormal findings (principal); E66.813 Obesity, class 3; Z68.41 Body mass index [BMI] 40.0-44.9, adult; F33.1 Major depressive disorder, recurrent, moderate; H00.011 Hordeolum externum right upper eyelid; J34.89 Other specified disorders of nose and nasal sinuses

== ENCOUNTER → 2024-07-29 15:08 | Outpatient (BNVA) | payer OTHER, SELFPAY | PROVIDERS: PCP Internal Medicine; Visit Provider Internal Medicine | DX: Z00.00 Encounter for general adult medical examination without abnormal findings (principal); E66.01 Morbid (severe) obesity due to excess calories | CPT/HCPCS: 99212; 99396 ==

== ENCOUNTER 2024-08-09 16:56 | Emergency (ER) | payer OTHER, SELFPAY ==
--- NOTE | ~2024-08-09 | XR_ITS ---
EXAMINATION: XR CHEST CLINICAL INFORMATION: Cough, rib pain COMPARISON: None available. TECHNIQUE: 2 views of the chest were obtained. FINDINGS: No significant abnormality is noted involving the heart, lungs, mediastinum, bony thorax or soft tissues. XR/XR chest 2V IMPRESSION: Unremarkable examination. Electronically signed by: Caio Hamilton DO 08/09/2024 09:24 PM EDT
--- NOTE | 2024-08-09 16:59 | ED.GENADULT ---
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 Patient reports a cough with subjective fevers for the last 2 weeks. He reports that his symptoms are improving since his onset He does not feel short of breath pain He has bilateral chest pain when coughing. He denies any recent travel, leg swelling or history of DVT/PE His is he was similar symptoms No other complaints or concerns at this time Related Data Previous Rx's ?Medication ?Instructions ?Recorded gabapentin 100 mg capsule 100 mg PO TID 90 days #270 caps 04/02/24 ofloxacin 0.3 % eye drops 2 drp ophthalmic (eye) QID 5 days 06/01/24 #5 mL tamsulosin 0.4 mg capsule 0.4 mg PO BEDTIME 14 days #14 caps 06/12/24 meclizine 25 mg tablet 25 mg PO TID PRN dizziness 30 days 07/21/24 #90 tabs acetaminophen 325 mg tablet 975 mg (3 x 325 mg) PO Q6H PRN 07/29/24 (Tylenol) pain #20 tabs amlodipine 2.5 mg tablet 2.5 mg PO DAILY #30 tabs 07/29/24 cholecalciferol (vitamin D3) 50 50 mcg PO DAILY 90 days #90 caps 07/29/24 mcg (2,000 unit) capsule citalopram 10 mg tablet 10 mg PO DAILY 90 days #90 tabs 07/29/24 erythromycin 5 mg/gram (0.5 %) eye 1 appl ophthalmic (eye) DAILY 7 07/29/24 ointment days #3.5 grams lisinopril 20 mg tablet 20 mg PO DAILY 90 days #90 tabs 07/29/24 naproxen 500 mg tablet 500 mg PO BID PRN pain 7 days #14 07/29/24 tabs benzonatate 200 mg capsule 200 mg PO TID PRN cough #20 caps 08/09/24 Allergies Allergy/AdvReac Type Severity Reaction Status Date / Time Penicillins Allergy Mild UNKNOWN Verified 08/09/24 17:02 nicotine [NICOTINE] AdvReac Intermediate TACHYCARDIA Verified 08/09/24 17:02 (PATCH) Review of Systems Constitutional: Constitutional: Reports chills, Reports fever(s), Denies headache(s), Reports malaise and Reports weakness ENT: Denies vertigo and Denies headache(s) Cardiovascular: Cardiovascular: Denies dyspnea Respiratory: Respiratory: Reports chest congestion, Reports cough, Reports pain with cough and Denies dyspnea Gastrointestinal: Gastrointestinal: Denies nausea and Denies vomiting Musculoskeletal: Musculoskeletal: Denies back pain Integumentary/Breasts: Skin/Breast: Denies rash Neurologic: Denies vertigo, Denies headache(s) and Reports weakness [facility] Past Medical History Medical History (Updated 08/09/24 @ 19:03 by Vinay Hamilton) JOHNNY (acute kidney injury) Nicotine dependence, cigarettes, uncomplicated Hypovitaminosis D Moderate recurrent major depression Morbid obesity PVC's (premature ventricular contractions) Palpitations Menieres disease Tremors of nervous system Erectile dysfunction Hypertension Surgical History History of colonoscopy History of surgery Family History Family History (Updated 07/29/24 @ 15:39 by Ashwini Jolly MD) Father CVD (cardiovascular disease) Diabetes Mother No problems noted. Maternal Uncle Prostate cancer Family/Other Substance use disorder Social History Social History Household Members: Spouse Housing: Apartment Do you presently have visiting nurse or other home services: No Alcohol intake: never Patient Tobacco Use Status: Current everyday Tobacco user Tobacco use type: Cigarette Cigarette Packs Per Day: 0.5 Cigarettes Per Day: 10 Years Smoked: (onset 17yo, 1/2-1ppd x 45yrs, 30+pyh) e-Cigarette/Vaping Use: Never Used Second Hand Smoke Exposure: Yes Advance Directives: No Advance Directives Information Provided: No Do you have a plan to hurt others: No Plan service: No Current occupational status: disabled Cognitive needs: No Hearing needs: No Vision needs: Yes Physical Exam ED Vital Signs: Vital Signs - 24 hr 08/09/24 17:01 08/09/24 19:07 Temperature 98.3 F 98.3 F Pulse Rate 73 73 Respiratory Rate 18 18 Blood Pressure 136/75 136/75 Pulse Oximetry 97 97 Oxygen Delivery Method Room Air Room Air BMI result Body Mass Index 40.9 Const General: healthy appearing, comfortable, no acute distress, alert and awake Nutritional Appearance: well nourished Orientation/consciousness: patient oriented x3 HENMT Head: Yes normocephalic and Yes atraumatic Throat: Yes posterior oropharynx normal Eyes Eyelids: Yes eyelids normal Conjunctivae: conjunctivae normal Sclerae: sclerae normal Corneas: corneas normal Pupils: Equal, round and reactive pupils present EOM: EOMs intact bilaterally Neck Neck: Yes full ROM Resp Effort & Inspection: normal respiratory effort, able to speak in complete sentences, no audible wheezes and not labored Auscultation: clear to auscultation bilaterally Cardio Rate: regular rate Rhythm: regular rhythm GI Inspection: No distended Palpation (GI): Soft to palpation, not firm, nontender, no guarding and not rigid Skin General skin exam: elasticity normal Neuro General: patient oriented x3 Cranial nerves: Yes Equal, round and reactive pupils present and Yes Bilaterally intact EOM present Cognition (Neuro): normal cognition Extrem Other: Moving all extremities well without any obvious deformities Course Course Course Narrative: This is a rapid medical exam performed by Venkatesh Dickerson NP: Additional HPI, ROS, PE not included below will be deferred to primary provider. Patient is a 63-year-old male with history of HTN, Menieres, smoking, PVCs presenting with complaint of cough, rib pain with coughing, headache. sick with similar symptoms. Denies fevers. Plan: viral serology, CXR Medical Decision Making Medical Decision Making [facility] Narrative: 63-year-old male presents for evaluation of upper respiratory symptoms. His vital signs are within normal limits, his physical exam is reassuring, lungs are clear to auscultation, he is not in any respiratory distress. Viral swabs are negative for COVID, influenza, RSV. His chest x-ray is without infiltrate, effusions or pneumothorax. The patient be discharged with continued symptomatic care. Differential Diagnosis Differential Diagnoses: The differential diagnosis associated with the presentation includes Upper respiratory infection Bronchitis COVID-19 Influenza Pneumonia Lab Data [facility] Lab Attestation statement: I reviewed the patient's lab results. Negative for influenza, RSV, COVID Labs: Lab Results 08/09/24 Range/Units 17:42 Influenza Type A (PCR) NEGATIVE (Negative) Influenza Type B (PCR) NEGATIVE (Negative) RSV RNA Qual (PCR) NEGATIVE (Negative) SARS-CoV-2 RNA (RT-PCR) NEGATIVE (Negative) Independent Interpretation I performed an independent interpretation of an: Plain X-Ray Interpretation: No focal infiltrates or effusions Discharge Plan Discharge Clinical Impression: Upper respiratory infection Patient Disposition: Home, Self-Care Instructions: Upper Respiratory Infection (ED) Additional Instructions: Your viral swabs were negative for COVID, influenza, RSV Your chest x-ray does not show any pneumonia or fluid in your lungs You may continue a decongestant medication, Tylenol for discomfort and You may use Tessalon Perles as needed for cough Follow-up with your primary doctor, return for new or worsening symptoms Prescriptions: New benzonatate 200 mg capsule 200 mg PO TID PRN (Reason: cough) Qty: 20 0RF No Action gabapentin 100 mg capsule 100 mg PO TID 90 Days Qty: 270 1RF meclizine 25 mg tablet 25 mg PO TID PRN (Reason: dizziness) 30 Days Qty: 90 1RF tamsulosin 0.4 mg capsule 0.4 mg PO BEDTIME 14 Days Qty: 14 0RF ofloxacin 0.3 % drops 2 drp ophthalmic (eye) QID 5 Days Qty: 5 0RF Rx Instructions: Apply to both eyes amlodipine 2.5 mg tablet 2.5 mg PO DAILY Qty: 30 0RF Rx Instructions: Use amlodipine 2.5 mg for 1 week, repeat BMP if kidney function better than can switch back to lisinopril and stop amlodipine at that time. acetaminophen [Tylenol] 325 mg tablet 975 mg PO Q6H PRN (Reason: pain) Qty: 20 0RF cholecalciferol (vitamin D3) 50 mcg (2,000 unit) capsule 50 mcg PO DAILY 90 Days Qty: 90 1RF citalopram 10 mg tablet 10 mg PO DAILY 90 Days Qty: 90 0RF lisinopril 20 mg tablet 20 mg PO DAILY 90 Days Qty: 90 0RF naproxen 500 mg tablet 500 mg PO BID PRN (Reason: pain) 7 Days Qty: 14 0RF erythromycin 5 mg/gram (0.5 %) ointment 1 appl ophthalmic (eye) DAILY 7 Days Qty: 3.5 0RF Interventions: ED Discharge Assessment Last Done: 08/09/24 19:07 Discharge Date/Time: 08/09/24 19:08 Print Language: [place]
[2024-08-09 17:01] VITALS: BP 136/75; PULSE 73; RESP 18; TEMP 36.8; O2SAT 97; BMI 40.9
[2024-08-09 18:47] LABS: Influenza A PCR NEGATIVE (Negative); Influenza B PCR NEGATIVE (Negative); Resp Syncy Virus RNA Qual PCR NEGATIVE (Negative); SARS COV2 PCR INHOUSE NEGATIVE (Negative)
[2024-08-09 19:07] VITALS: BP 136/75; PULSE 73; RESP 18; TEMP 36.8; O2SAT 97
== END 2024-08-09 19:08 | disposition home or self-care (01) ==
PROVIDERS: Registered Nurse Emergency; Emergency Provider Emergency Medicine; PCP Internal Medicine
DX: J06.9 Acute upper respiratory infection, unspecified (principal); R05.9 Cough, unspecified; I10 Essential (primary) hypertension; H81.09 Meniere's disease, unspecified ear; F17.210 Nicotine dependence, cigarettes, uncomplicated; E66.01 Morbid (severe) obesity due to excess calories; Z68.41 Body mass index [BMI] 40.0-44.9, adult; Z03.818 Encounter for observation for suspected exposure to other biological agents ruled out
CPT/HCPCS: 0241U; 71046; 99282; 99283

== ENCOUNTER → 2024-10-30 22:34 | Outpatient (BNV) | payer OTHER, SELFPAY | PROVIDERS: Emergency Provider Emergency Medicine; PCP Internal Medicine; Visit Provider Internal Medicine | DX: R07.9 Chest pain, unspecified (principal) | CPT/HCPCS: 93010 ==

== ENCOUNTER → 2024-10-30 23:55 | Outpatient (BNV) | payer OTHER, SELFPAY | PROVIDERS: PCP Internal Medicine; Visit Provider Radiology Neuroradiology | DX: R07.9 Chest pain, unspecified (principal); J98.11 Atelectasis | CPT/HCPCS: 71045 ==

== ENCOUNTER 2024-11-04 15:32 | Outpatient (REF) | payer OTHER, SELFPAY ==
--- NOTE | ~2024-11-04 | US_ITS ---
CLINICAL HISTORY: N20.2 - Calculus of kidney with calculus of ureter US renal with Color Doppler Comparison: None Findings: Right kidney normal size and echotexture, 10.0 cm length. No hydronephrosis calculus or mass. Normal color flow. Left kidney normal size and echotexture, 10.5 cm length. 5 x 5 x 3 mm nonobstructing caliceal stone midpole. Minimal caliectasis lower pole. No hydronephrosis. No renal masses. Normal color flow. Impression: 1. Kidneys normal size and position with normal cortical width and echotexture. Nephrolithiasis on the left without evidence of hydronephrosis mild pelviectasis lower pole left kidney This document has been electronically signed by: Nicolás Ochoa MD on 11/06/2024 12:57:22
== END 2024-11-04 15:33 | disposition home or self-care (01) ==
LOC: HO.US 15:32
PROVIDERS: PCP Internal Medicine; Visit Provider Urology
DX: N20.2 Calculus of kidney with calculus of ureter (principal)
CPT/HCPCS: 76775

== ENCOUNTER → 2024-11-04 15:33 | Outpatient (BNV) | payer OTHER, SELFPAY | PROVIDERS: PCP Internal Medicine; Visit Provider Radiology Diagnostic Radiology | DX: N20.2 Calculus of kidney with calculus of ureter (principal) | CPT/HCPCS: 76775 ==

== ENCOUNTER 2024-11-18 12:23 | Outpatient (AMB) | payer OTHER, SELFPAY ==
--- NOTE | 2024-11-18 12:47 | A.OFFPC_ITS ---
Vital Signs 11/18/24 12:50 Height 5 ft 6 in Weight 253 lb BMI 40.8 BP 118/80 Blood Pressure Location Lt brachial Position Sitting Intake Visit Reasons: follow up Intake Note: Patient here c/o left leg pain, requesting labs, colonoscopy Welfare Centre Manager Required: Yes Welfare Centre Manager Language: Otologist Name: Ashwini Jolly MD Information Interpreted: non-clinical & clinical Accompanied by: Self / Same As Patient Allergies Penicillins Allergy (Mild, Verified 11/18/24 13:07) UNKNOWN nicotine [NICOTINE] Adverse Reaction (Intermediate, Verified 11/18/24 13:07) TACHYCARDIA (PATCH) Medication List - Last Reconciled 11/18/24 by Ashwini Jolly MD acetaminophen (Tylenol) 975 mg (3 x 325 mg) PO Q6H PRN amlodipine 2.5 mg PO DAILY citalopram 10 mg PO DAILY 90 days gabapentin 100 mg PO TID 90 days lisinopril 20 mg PO DAILY 90 days meclizine 25 mg PO TID PRN 30 days tamsulosin 0.4 mg PO BEDTIME 14 days Tobacco use date assessed: 11/18/24 Dental Screening Dental Screen Date: 11/18/24 Did you have a dental visit in the last 12 months?: No Did you have a dental problem in the last 6 months where you did not have access to dental care?: No Was dental information given to patient?: Patient has dentist HPI HPI Comments History of Present Illness Details This is a 64-year-old male with hypertension and morbid obesity that comes today complaining of new daily persistent headaches associated with dizziness and I will order an MRI of the brain. He has daytime somnolence and was diagnosed in the past with obstructive sleep apnea and needed a sleep study repetition. I will refer him to sleep Medicine. He also complains of tremors that has been present for years and has been evaluated by Neurology in the past which did not find any significant abnormality. He walks with a cane due to chronic low back pain radiating to the left leg and associated with left leg numbness and I will refer him to [facility]. He complains of chronic sore throat and would like to see ENT. He also has urge urinary incontinence and currently use diapers for it. History of kidney stones follow by Urology in which did a recent ultrasound and has to call them up to make an appointment. PENDING SALE TO [facility] Medical History (Updated 11/18/24 @ 13:24 by Ashwini Jolly MD) JOHNNY (acute kidney injury) Nicotine dependence, cigarettes, uncomplicated Hypovitaminosis D Moderate recurrent major depression Morbid obesity PVC's (premature ventricular contractions) Palpitations Menieres disease Tremors of nervous system Erectile dysfunction Hypertension Surgical History History of colonoscopy History of surgery Family History Father CVD (cardiovascular disease) Diabetes Mother No problems noted. Maternal Uncle Prostate cancer Family/Other Substance use disorder Social History Household Members: Spouse Housing: Apartment Do you presently have visiting nurse or other home services: No Alcohol intake: never Patient Tobacco Use Status: Current everyday Tobacco user Tobacco use type: Cigarette Cigarette Packs Per Day: 0.5 Cigarettes Per Day: 10 Years Smoked: (onset 17yo, 1/2-1ppd x 45yrs, 30+pyh) e-Cigarette/Vaping Use: Never Used Second Hand Smoke Exposure: Yes Advance Directives Date on File: 04/08/24 service: No Current occupational status: disabled Cognitive needs: No Hearing needs: No Vision needs: Yes Questionnaire PHQ-9 Over the last 2 weeks, how often have you been bothered by any of the following problems? 1. Little interest or pleasure in doing things: several days 2. Feeling down, depressed, or hopeless: several days 3. Trouble falling or staying asleep, or sleeping too much: several days 4. Feeling tired or having little energy: several days 5. Poor appetite or overeating: not at all 6. Feeling bad about yourself - or that you are a failure or have let yourself or your family down: not at all 7. Trouble concentrating on things, such as reading the newspaper or watching television: not at all 8. Moving or speaking so slowly that other people could have noticed. Or the opposite - being so fidgety or restless that you have been moving around a lot more than usual: not at all 9. Thoughts that you would be better off or of hurting yourself in some way: not at all Total score: 4 Depression Screening Interpretation: Positive Depression Screening Follow-up: Existing condition, In treatment and Follow-up Visit Requested Depression Screening Done: Yes 42088 - PHQ-9 Billing: Yes Source: Developed by Drs. Ran Nolan, Elizabeth Ibrahim, Ryley Bui and colleagues, with an educational damian from [employer]. Thrive Questionnaire Date Thrive assessed: 11/18/24 I am a: Patient What is your living situation today?: I do not have a steady places to live I am temporarily staying with others Within the past 12 months, did the food you bought not last and you didn't have the money to get more?: Sometimes True Within the past 12 months, did you worry whether your food would run out before you got money to buy more?: Sometimes True Do you have trouble paying for medicines?: Yes Do you have trouble getting transportation to medical appointments?: No Do you have trouble paying your heating and electricity bill?: Yes Do you have trouble taking care of your child, family member or friend?: Yes Do you have trouble with day-to-day activities such as bathing, preparing meals, shopping, managing finances, etc.?: Yes Are you currently unemployed and looking for a job?: Yes Are you interested in more education?: Yes Please select the resources that you would like help with: None Currently or been in a relationship where the following occur: No concerns reported THRIVE Score: 4 AUDIT C Alcohol Use Questionnaire (AUDIT-C) 1. How often do you have a drink containing alcohol?: Never Total Score: 0 MORGAN-7 AMB Questionnaire MORGAN-7 Date MORGAN - 7 assessed: 11/18/24 Feeling nervous, anxious, or on edge: 1 = Several days Not being able to stop or control worryin = Several days Worrying too much about different things: 1 = Several days Trouble relaxin = Several days Being so restless that it is hard to sit still: 1 = Several days Becoming easily annoyed or irritable: 1 = Several days Feeling afraid as if something awful might happen: 1 = Several days Total MORGAN-7 score (0-4 normal; 5-9 mild; 10-14 moderate; 15-21 severe): 7 Source: Developed by Elizabeth RenteriaW. Patrice, Ryley Bui and colleagues, with an educational damian from [employer]. MORGAN-7 Assessment Billing MORGAN-7 Assessment Tool: MORGAN-7 Assessment 18148 Review of Systems Const All systems reviewed & are unremarkable except as noted in HPI and below Reports headache(s) ENT Reports dizziness and Reports headache(s) Card Denies chest pain at rest, Denies chest pain with activity, Denies edema, Denies irregular heart rhythm, Denies claudication, Denies dyspnea, Denies dyspnea on exertion, Denies orthopnea, Denies paroxysmal nocturnal dyspnea and Denies slow heart rate Resp Denies cough, Denies dyspnea and Denies dyspnea on exertion GI Denies abdominal pain, Denies change in bowel habits, Denies excessive flatus, Denies nausea and Denies vomiting Musc Reports back pain and Reports arthralgias Neuro Reports dizziness and Reports headache(s) Physical exam (Primary Care) Vital Signs: Last Vital Signs BP 118/80 11/18/24 12:50 BMI result Body Mass Index 40.8 BMI Assessment/Plan discussion: High BMI High, discussed plan: lifestyle, weight reduction, dietary and physical activity Tobacco/Smoking Status: Tobacco use Status Tobacco use date assessed 11/18/24 11/18/24 12:59 Patient Tobacco Use Status Current everyday Tobacco 11/18/24 12:59 Tobacco use type Cigarette 11/18/24 12:59 e-Cigarette/Vaping Use Never Used 11/18/24 12:59 Are you ready to quit: No Tobacco cessation counseling provided: Yes Items discussed: Nicotine replacement and QuitWorks Relapse Prevention: discussed the importance of a supportive environment, discussed extending NRT, discussed negative mood or depression after quitting, weight gain after smoking is common and discussed dietary, exercise and/or lifestyle changes Number of minutes spent counselin CPT code: 16348 - 4-10 Minutes PHQ-9: PHQ-9 Score PHQ-9: Total score 4 11/18/24 14:24 Depression Screening Interpretation: Positive Depression Screening Follow-up: Existing condition, In treatment and Follow-up Visit Requested Thrive Assessment: Date of Thrive Assessment Date Thrive assessed 11/18/24 11/18/24 12:59 Currently or been in a relationship where the following occur: No concerns reported Resp Effort & Inspection: normal respiratory effort Auscultation: clear to auscultation bilaterally Cardio Jugular venous distension: no JVD Rate: regular rate Rhythm: regular rhythm Heart sounds: S1 normal heart sound present and S2 normal heart sound present Neuro General: no focal motor deficits Extrem General: Yes full ROM Office Procedures Flu Questionnaire Does the patient have a severe egg allergy?: No Immunizations Fluarix Triv [id number] (PF) 45 mcg (15 mcg x 3)/0.5 mL IM syringe Performing Provider: Ashwini Jolly MD [facility] [place] [facility] Documented (not given) by: FRANK Abbott on 11/18/24 13:36 Reason Not Given: Not Given Coding Level of Care Code Est Pt Level 4 (56527) Complex EM visit Add On G2211 Diagnoses Urge urinary incontinence N39.41 Chronic sore throat J31.2 New daily persistent headache G44.52 Daytime somnolence R40.0 Morbid obesity E66.01 Essential hypertension I10 Hypertension type: essential hypertension Moderate recurrent major depression F33.1 MORGAN (generalized anxiety disorder) F41.1 Additional Codes MORGAN-7 Assessment Billing - MORGAN-7 Assessment Tool: MORGAN-7 Assessment 22342 ([id number]) PHQ-9 - 78217 - PHQ-9 Billing: Yes ([id number]) Vital Signs *Quality* - CPT code: 29525 - 4-10 Minutes ([id number]) Time Spent (min) 26 Assessment & Plan Assessment & Plan (1) Urge urinary incontinence: Code(s): N39.41 - Urge incontinence Category: Medical (2) Chronic sore throat: Code(s): J31.2 - Chronic pharyngitis Category: Medical (3) New daily persistent headache: Code(s): G44.52 - New daily persistent headache (NDPH) Category: Medical (4) Daytime somnolence: Code(s): R40.0 - Somnolence Category: Medical (5) Morbid obesity: Comment: (BMI 41 - 11/2022) Code(s): E66.01 - Morbid (severe) obesity due to excess calories Category: Medical (6) Hypertension: Code(s): I10 - Essential (primary) hypertension Category: Medical Qualifiers: Hypertension type: essential hypertension Qualified Code(s): I10 - Essential (primary) hypertension (7) Moderate recurrent major depression: Code(s): F33.1 - Major depressive disorder, recurrent, moderate Category: Medical (8) MORGAN (generalized anxiety disorder): Code(s): F41.1 - Generalized anxiety disorder Category: Medical Plan Referred to ENT for chronic sore throat. Referred to neurology/sleep Medicine for headaches, tremors and daytime somnolence. MRI of the brain ordered. Discontinue citalopram and start amitriptyline for his depression. Referred to Gastroenterology for colonoscopy. Continue blood pressure medications. Advised to quit smoking. Advised to do diet and exercise to decrease his BMI. Referred to orthopedic surgeon for left sciatica. Orders: Orders MR head/brain wo con Today G44.52 - New daily persistent headache (NDPH) Influenza [id number] Immunization Today Z23 - Encounter for immunization Referrals Orthopedics Referral M54.32 - Sciatica, left side Gastroenterology Referral Z08 - Encounter for follow-up examination after completed treatment for malignant neoplasm, Z85.038 - Personal history of other malignant neoplasm of large intestine Neurology Referral G44.52 - New daily persistent headache (NDPH), R40.0 - Somnolence Ear/Nose/Throat Referral J31.2 - Chronic pharyngitis Medications: New [adult diapers pull-ups] As directed 150 ea 11RF N39.41 - Urge incontinence amitriptyline 10 mg PO BEDTIME 90 tabs 0RF 90 days Discontinued citalopram Discontinued Reason: Patient Completed Course 10 mg PO DAILY 90 days 90 tabs 0RF
[2024-11-18 12:50] VITALS: BP 118/80; BMI 40.8
--- OUTSIDE RECORDS SUMMARY | 2024-11-18 17:12 | XMS_ITS | Encounter Summary ---
Author Organization [facility] Address [address] [place] [address] Care Team Providers Care [employer] Teacher Name Role Phone Unavailable Primary Care Provider Unavailabl e Encounter Details Date Type Department Care Team (Latest Contact Info) Description 10/31/2024 Travel Social History Tobacco Use Types Packs/Day Years Used Date Smoking Tobacco: Every Day Cigarettes Sex and Gender Information Value Date Recorded Sex Assigned at Male 08/22/2022 10:17 AM EDT Legal Sex Male 10:17 AM EDT Gender Identity Male 08/22/2022 10:17 AM EDT Sexual Orientation Straight 08/22/2022 10 :17 AM EDT documented as of this encounter Plan of Treatment Upcoming Encounters Date Type Department Care Team (Late st Contact Info) Description 02/28/2025 2:30 PM EDT Office Visit [facility] [address] [place] [address] Leslie Tamayo, OD [address] [place] [address] documented as of this encounter Visit Diagnoses Not on filedocumented in this encounter
--- OUTSIDE RECORDS SUMMARY | 2024-11-18 17:12 | XMS_ITS | Encounter Summary ---
Author Organization [employer] Address [address] [facility] [address] [place] [address] Care Team Providers Care Endorsement Clerk Name Role Phone Unavailable Primary Care Provider Unavailabl e Reason for Visit * Reason Comments Glaucoma Suspect Encounter Details Date Type Department Care Team (Late st Contact Info) Description 10/31/2024 10:30 AM EST Office Visit [facility] [address] [place] [address] Leslie Tamayo, OD [address] [place] [address] Glaucoma suspect of both eyes (Primary Dx); Amblyopia of both eyes; Chorioretinal scar of left eye; Lattice degeneration of peripheral retina, right; Early cataracts, bilateral; Presbyopia of both eyes Social History Tobacco Use Types Packs/Day Years Used Date Smoking Tobacco: Every Day Cigarettes Smokeless Tobacco: Never Tobacco Cessation:Ready to Q uit: Not Asked; Counseling Given: Not Answered Sex and Gender Information Value Date Recorded Sex Assigned at Male 08/22/2022 10:17 AM EDT Legal Sex Male 10:17 AM EDT Gender Identity Male 08/22/2022 10:17 AM EDT Sexual Orientation Straight 08/22/2022 10 :17 AM EDT documented as of this encounter Progress Notes * Leslie Tamayo, OD - 10/31/2024 10:30 AM EST Eye Care Progress Note Patient ID: Aleksandr White is a 64 y.o. male. Chief Complaint Glaucoma Suspect HPI Here for a complete eye exam. The patient is a low risk glaucoma suspect secondary to large optic nerve cupping in both eyes. He also has a history of bilateral amblyopia in both eyes as well as chorioretinal scarring in both eyes. Today he denies vision or ocular complaints. He states he sees verywell with his glasses. His last eye exam was here on 11/25/2022. Last edited by Leslie Tamayo, OD on 11/18/2024 12:21 PM. Current Outpatient Medications Medication Sig Dispense Refill cholecalciferol VITAMIN D (Vitamin D-3) 50 MCG (1999) capsule Take 1 capsule by mouth Once per day. citalopram (CeleXA) 10 MG tablet Take 1 tablet by mouth Once per day. meclizine (Antivert) 25 MG tablet TAKE 1 TABLET ORALLY 3 TIMES A DAY NEEDED FOR DIZZINESS FOR 30DAYS naproxen (Naprosyn) 500 MG tablet TAKE 1 TABLET BY MOUTH TWICE A DAY NEEDED FOR PAIN FOR 7 DAYS aspirin 81 MG EC tablet Take 1 tablet by mouth at bed time. gabapentin (Neurontin) 100 MG capsule Take 100 mg by mouth 3 times daily. lisinopril 20 MG tablet Take 1 tablet by mouth at bed time. LORazepam (Ativan) 0.5 MG tablet take 1 Tablet by oral route 2 times daily as needed No current facility-administered medications for this visit. Past Medical History: Diagnosis Date Chorioretinal scar of both eyes Hypertension Major depressive disorder Optic nerve cupping of both eyes Refractive amblyopia, bilateral Tobacco abuse Past Surgical History: Procedure Laterality Date LUMBAR DISCECTOMY No family history on file. Social History Socioeconomic History Marital status: Single Spouse name: Not on file Number of children: Not on file Years of education: Not on file Highest education level: Not on file Occupational History Not on file Tobacco Use Smoking status: Every Day Current packs/day: 1.00 Types: Cigarettes Smokeless tobacco: Never Vaping Use Vaping status: Not on file Substance and Sexual Activity Alcohol use: Not on file Drug use: Not on file Sexual activity: Not on file Other Topics Concern Not on file Social History Narrative Not on file Social Drivers of Health Food Insecurity: Not on file Transportation Needs: Not on file Intimate Partner Violence: Not on file Housing Stability: Not on file Allergies Allergen Reactions Penicillins ROS Negative for: Constitutional, Gastrointestinal, Neurological, Skin, Genitourinary, Musculoskeletal,HENT, Endocrine, Cardiovascular, Eyes, Respiratory, Psychiatric, Allergic/Imm, Heme/Lymph Last edited by Leslie Tamayo, OD on 11/18/2024 12:21 PM. Base Eye Exam Visual Acuity (Snellen - Last Rx in phoropter) Right Left Dist cc 20/30- 20/40-2 Near cc 20/30 20/30 Correction: Glasses Tonometry ([facility] , 10:53 AM) Right Left Pressure 13 10 Pupils Pupils APD Right PERRL None Left PERRL None Visual Huff (Counting fingers) Left Right Full Full Extraocular Movement Right Left Full Full Neuro/Psych Oriented x3: Yes Mood/Affect: Normal Dilation Both eyes: 1% Tropicamide @ 11:07 AM Slit Lamp and Fundus Exam External Exam Right Left External Normal Normal Slit Lamp Exam Right Left Lids/Lashes Normal Large capped gland along inferior lid margin Conjunctiva/Sclera Pinguecula nasal and temporal White and quiet Cornea Clear Clear Anterior Chamber Deep and quiet Deep and quiet Iris Flat Flat Lens Trace NS Trace NS Fundus Exam Right Left Vitreous Clear Clear Disc Tilted downward, PPA temporal, pink and distinct Tilted downward, PPA temporal, pink and distinct C/D Ratio Vertical 0.65 0.75 C/D Ratio Horizontal 0.65 0.75 Macula Flat and Intact Flat and Intact Vessels Normal Normal Periphery Lattice degeneration at 6:30 in the periphery, No detachments 360 degrees Chorioretinal scarring at 6:00 and 7:30 in the periphery, No detachments 360 degrees Refraction Wearing Rx Sphere Cylinder [place] Add Right +0.25 -4.75 157 +2.50 Left [place] -3.75 011 +2.50 Manifest Refraction Sphere Cylinder [place] Dist [place] Add Right +0.25 -4.75 157 20/30 +2.50 Left +0.50 -3.75 011 20/30 +2.50 Final Rx Sphere Cylinder [place] Dist [place] Add Right +0.25 -4.75 157 20/30 +2.50 Left +0.50 -3.75 011 20/30 +2.50 Expiration Date: 10/31/2026 Comments: Polycarbonate only Assessment/plan: Diagnoses and all orders for this visit: Glaucoma suspect of both eyes The patient has large optic nerves with large optic nerve cupping in both eyes. There is low suspicion for Glaucoma at this time, however, a formal glaucoma work up is recommended. He was reeducated that Glaucoma is a condition that can cause permanent vision loss. Will have him return in 3-4 months for a visual field test, pachymetry, gonioscopy, and Goldmann intraocular pressure (IOP). Last DFE: 10/31/2024 Last Gonio: TBD Last Photos: 10/31/2024 Last optic nerve OCT: 10/31/2024 Last Visual Field: TBD Max intraocular pressure (IOP): 16/16 Target intraocular pressure (IOP): N/A Pachymetry: TBD Tests Today: - OCT, Optic Nerve - OU - Both Eyes 2. Amblyopia of both eyes Longstanding and stable. Vision improved with glasses. Will monitor at his next exam. 3. Chorioretinal scar of left eye Stable to previous exam findings. The patient was educated on the finding. A chorioretinal scar is an area of pigmentary change or fibrosis that is located on the inside surface of the eye (the retina). A scar may be the result of an old infection or injury, but in many cases we do not know the source. The scar is located away from the center of the eye and should not cause any visual problems. There is a slightly higher risk of a new hole or tear occurring in an eye with scars present. The patient was educated to [facility] with any sudden onset of flashes, floaters, or decreased vision as these are the symptoms of a hole or tear occurring. Otherwise, will monitor at their next eye exam. 4. Lattice degeneration of peripheral retina, right Lattice degeneration is a thinning of the peripheral retina. This condition does not interfere withcentral vision or cause any symptoms. Complications of having thin areas in the retina include an increased risk of developing tears in the retina which could lead to a retinal detachment. The patient was educated to [facility] if they experience a sudden onset of flashes, floaters, or decreased vision as these are the symptoms of a possible retinal complication. Otherwise, will monitor in 1 year. 5. Early cataracts, bilateral Not visually significant. No treatment necessary. Patient educated on progressive nature of cataracts. Will monitor at their next exam. 6. Presbyopia of both eyes Glasses prescription updated and given. Polycarbonate lenses are medically necessary. Will monitor at the patient's next full eye exam. Leslie Roni, OD 11/18/2024, 12:59 PM Student Name: Coni Harkins I attest that I was physically present with the optometry student. I personally saw and evaluated the patient and performed my own history and examination. I have reviewed, verified, and revised the documented findings as necessary and agree with the content and plan as written. Process Controller Source: ___ None _x__ Bilingual Staff ___ Qualified Staff Multifocal Button Generator ___ Telephone Process Controller; ID# ___ Process Controller brought by patient (family member, friend, CHRONOGRAPH OPERATOR, etc) ___ In person senior software qa analyst ___ Ipad Process Controller; ID#: Language Spoken During Exam: _Spanish documented in this encounter Plan of Treatment Upcoming Encounters Date Type Department Care Team (Late st Contact Info) Description 02/28/2025 2:30 PM EDT Office Visit [facility] [address] [place], [place] [phone] Leslie Tamayo, OD [address] [place] [address] Pending Results Name Type Priority Associated Diagnoses Date /Time OCT, Optic Nerve - OU - Both Eyes Ophthalmology Routine Glaucoma suspect of both eyes 10/31/2024 10:30 AM EST documented as of this encounter Procedures Procedure Name Priority Date/Time Associated Diagnosis Comments OCT, OPTIC NERVE - OU - BOTH EYES Routine 10/31/2024 10:30 AM EST Glaucoma suspect of both eyes documented in this encounter Visit Diagnoses Diagnosis Glaucoma suspect of both eyes- Primary Unspecified preglaucoma Amblyopia of both eyes Unspecified amblyopia Chorioretinal scar of left eye Unspecified chorioretinal scar Lattice degeneration of peripheral retina, right Lattice degeneration of peripheral retina Early cataracts, bilateral Presbyopia of both eyes documented in this encounter
--- OUTSIDE RECORDS SUMMARY | 2024-11-18 17:12 | XMS_ITS | Clinical Summary ---
Author Organization [employer] Address [address] [facility] [address] [place] [address] Care Team Providers Care Pilot Name Role Phone Unavailable Primary Care Provider Unavailabl e Allergies Active Allergy Reactions Criticality Noted Date Comments Penicillins Medium 11/29/2022 Medications aspirin 81 MG EC tablet Take 1 tablet by mouth at bed time. 5 Active lisinopril 20 MG tablet Take 1 tablet by mouth at bed time. 7 Active LORazepam (Ativan) 0.5 MG tablet take 1 Tablet by oral route 2 times daily as needed 8 Active gabapentin (Neurontin) 100 MG capsule Take 100 mg by mouth 3 times daily. 3 Active naproxen (Naprosyn) 500 MG tablet TAKE 1 TABLET BY MOUTH TWICE A DAY NEEDED FOR PAIN FOR 7 DAYS 4 Active meclizine (Antivert) 25 MG tablet TAKE 1 TABLET ORALLY 3 TIMES A DAY NEEDED FOR DIZZINESS FOR 30 DAYS 4 Active citalopram (CeleXA) 10 MG tablet Take 1 tablet by mouth Once per day. 4 Active cholecalciferol VITAMIN D (Vitamin D-3) 50 MCG (2000 UT) capsule Take 1 capsule by mouth Once per day. 4 Active Active Problems No known active problems Encounters Date Type Department Care Team Description 10/31/2024 10:30 AM EST Office Visit [facility] [address] [place] [address] Roni, Leslie, OD Glaucoma suspect of both eyes (Primary Dx); Amblyopia of both eyes; Chorioretinal scar of left eye; Lattice degeneration of peripheral retina, right; Early cataracts, bilateral; Presbyopia of both eyes 10/31/2024 Travel from Last 3 Months Social History Tobacco Use Types Packs/Day Years [...] Orientation Straight 08/22/2022 10 :17 AM EDT Plan of Treatment Upcoming Encounters Date Type Department Care Team (Late st Contact Info) Description 02/28/2025 2:30 PM EDT Office Visit [facility] [address] [place], [place] [phone] Roni, Leslie, OD [address] [place], [place] [phone] Health Maintenance Due Date Last Done Comments CT Colonography 1962 Colonoscopy 1962 Colorectal Cancer Screening 1962 Depression Screening 1962 FIT DNA/Cologuard 1962 FIT 1962 FOBT 1962 HIV Screening 1962 Lipid Panel 1962 SDOH Screening 1962 Sigmoidoscopy 1962 Pneumococcal Vaccine: Pediatrics (0 to 5 Years) and At-Risk Patients (6 to 64 Years) (1 of 2 - PCV) 1968 Alcohol/Substance Use Screening 1974 Hepatitis C Screening 1980 Hepatitis B Vaccines (3 of 3 - 19+ 3-dose series) 05/22/2003 01/31/2003, 11/22/2002 Zoster Vaccines (1 of 2) 2012 COVID-19 Vaccine ( - season) 2024 10/12/2021, 03/21/2021, 02/18/2021 Influenza Vaccine (#1) 2024 2, 07/24/2020, 01/07/2020, Additional history exists Tobacco Screening 11/12/2025 11/12/2024 DTaP/Tdap/Td Vaccines (2 - Td or Tdap) 06/01/2034 06/01/2024, 05/09/2017, 04/08/2012, Additional history exists RSV Patients and Patients Aged 60 years or older (1 - 1-dose 75+ series) 2037 HIB Vaccines Aged Out No longer eligi ble based on patient's age to complete this topic HPV Vaccines Aged Out No longer eligi ble based on patient's age to complete this topic Hepatitis A Vaccines Aged Out No long er eligible based on patient's age to complete this topic IPV Vaccines Aged Out No longer eligi ble based on patient's age to complete this topic Meningococcal Vaccine Aged Out No marlee susan eligible based on patient's age to complete this topic RSV under 20 months Aged Out No longe r eligible based on patient's age to complete this topic Rotavirus Vaccines Aged Out No longer eligible based on patient's age to complete this topic Procedures Procedure Name Priority Date/Time Associated Diagnosis Comments OCT, OPTIC NERVE - OU - BOTH EYES Routine 10/31/2024 10:30 AM EST Glaucoma suspect of both eyes from Last 3 Months Insurance STANDARD
== END 2024-11-18 13:23 | disposition home or self-care (01) ==
PROVIDERS: PCP Internal Medicine; Visit Provider Internal Medicine
DX: N39.41 Urge incontinence (principal); E66.01 Morbid (severe) obesity due to excess calories; F33.1 Major depressive disorder, recurrent, moderate; Z68.41 Body mass index [BMI] 40.0-44.9, adult; J31.2 Chronic pharyngitis; G44.52 New daily persistent headache (NDPH); R40.0 Somnolence; I10 Essential (primary) hypertension; F41.1 Generalized anxiety disorder

== ENCOUNTER → 2024-11-18 12:23 | Outpatient (BNVA) | payer OTHER, SELFPAY | PROVIDERS: PCP Internal Medicine; Visit Provider Internal Medicine | DX: N39.41 Urge incontinence (principal); J31.2 Chronic pharyngitis; G44.52 New daily persistent headache (NDPH); R40.0 Somnolence; E66.01 Morbid (severe) obesity due to excess calories; I10 Essential (primary) hypertension; F33.1 Major depressive disorder, recurrent, moderate; F41.1 Generalized anxiety disorder | CPT/HCPCS: 96127; 99212 ==

== ENCOUNTER 2024-11-19 12:41 | Outpatient (AMB) | payer OTHER, SELFPAY ==
--- NOTE | 2024-11-19 12:47 | A.OFFVIS_ITS ---
Vital Signs 11/19/24 12:48 Height 5 ft 6 in Weight 254 lb 2 oz BMI 41.0 Pulse 64 Pulse Source Pulse Oximeter Pulse Oximetry (%) 94 Oxygen Delivery Method Room Air Intake Visit Reasons: Follow up Dizziness Intake Note: Dizziness getting worse with pressure in the ears Power Plant Engineer Name: Peña [id number] Information Interpreted: non-clinical only Allergies Penicillins Allergy (Mild, Verified 11/19/24 12:55) UNKNOWN nicotine [NICOTINE] Adverse Reaction (Intermediate, Verified 11/19/24 12:55) TACHYCARDIA (PATCH) PFSH Medical History JOHNNY (acute kidney injury) Nicotine dependence, cigarettes, uncomplicated Hypovitaminosis D Moderate recurrent major depression Morbid obesity PVC's (premature ventricular contractions) Palpitations Menieres disease Tremors of nervous system Erectile dysfunction Hypertension Surgical History History of colonoscopy History of surgery Family History Father CVD (cardiovascular disease) Diabetes Mother No problems noted. Maternal Uncle Prostate cancer Family/Other Substance use disorder Social History Household Members: Spouse Housing: Apartment Do you presently have visiting nurse or other home services: No Alcohol intake: never Patient Tobacco Use Status: Current everyday Tobacco user Tobacco use type: Cigarette Cigarette Packs Per Day: 0.5 Cigarettes Per Day: 10 Years Smoked: (onset 17yo, 1/2-1ppd x 45yrs, 30+pyh) e-Cigarette/Vaping Use: Never Used Second Hand Smoke Exposure: Yes Advance Directives Date on File: 04/08/24 service: No Current occupational status: disabled Cognitive needs: No Hearing needs: No Vision needs: Yes Quality Reporting (2019) Adult ([facility] 138/12/14/68) Smoking risk assessment performed?: Yes Patient Tobacco Use Status: Current everyday Tobacco user Coding
[2024-11-19 12:48] VITALS: PULSE 64; O2SAT 94; BMI 41.0
--- NOTE | 2024-11-19 13:11 | A.OFFVIS_ITS ---
Vital Signs 11/19/24 12:48 11/19/24 13:41 Height 5 ft 6 in Weight 254 lb 2 oz BMI 41.0 41.0 Pulse 64 Pulse Source Pulse Oximeter Pulse Oximetry (%) 94 Oxygen Delivery Method Room Air Intake Visit Reasons: Follow up Dizziness Allergies Penicillins Allergy (Mild, Verified 11/19/24 12:55) UNKNOWN nicotine [NICOTINE] Adverse Reaction (Intermediate, Verified 11/19/24 12:55) TACHYCARDIA (PATCH) Medication List - Last Reconciled 11/19/24 by RASHEEDA Farley acetaminophen (Tylenol) 975 mg (3 x 325 mg) PO Q6H PRN [adult diapers pull-ups As directed] amitriptyline 10 mg PO BEDTIME 90 days amlodipine 2.5 mg PO DAILY gabapentin 100 mg PO TID 90 days lisinopril 20 mg PO DAILY 90 days meclizine 25 mg PO TID PRN 30 days tamsulosin 0.4 mg PO BEDTIME 14 days HPI Comments Details: 64-yr-old male presents for f/u visit of tremor, sleep apnea, head pressure/tinnitus, and dizziness. Patient was last seen by this provider in 2022. Patient underwent HST on 06/09/2023, which mild obstructive sleep apnea with nocturnal hypoxemia. AHI 9.6/hour, O2 mary alice 77% with SpO2 under 90% for 66 minute 12% of study time, and SpO2 under 88% for 22 minute, average SpO2 91%. Heart rate range 59-116 bpm. Sorry was noted for 6.3% of study time. After review of the sleep study, patient was off just start on CPAP, however he wanted to have visit to discuss w/ myself first. Unfortunately he had missed his f/u aapts, so has not started PAP tx yet. Patient reports he continues to help snoring and gasping arousals- even with sleeping on 2 pillows, as well as daytime sleepiness. Pt reports his tremor is occurring more frequently. The tremor is still symmetric and starts in his feet and moves up throughout his entire body, and more so at rest, but now can occur during the day as well when at rest. He used to have 1 or 2 days a week with tremor, but now has 3-4 days, and now he can have multiple days in a row with tremor. The tremor is very bothersome. At times, the tremor can make it difficult to put his shoes on. States gabapentin does not seem to be reducing the tremor anymore- overall he feels he tolerates this well. Pt is righthanded. ADL status: Difficulty putting on his shoes- which he attributes to low back pain as well. IADL status: He is needing more help overall. His son helps. His son lives close by and visits daily. Fine-motor skills: Ind Writing: shakey when he has tremor but otherwise ok Hypophonia: States his voice has changed-softer Hyposmia: decreased- he thinks it is d/t allergies Dysphagia: No issues Drooling: None, more prone to dry mouth Orthostatic lightheadedness: If he stands up quickly, everything turns black and feels lightheaded. Has room spinning dizziness with rolling over or laying flat in bed- so sleeps on 3 pillows. Drinks a small coffee in the am, 3 16 oz bottles of water a day, at times a glass of juice at night. He is on lisinopril and Flomax. BP can be either normotensive or hypertensive, and at times as low diastolic BP. Constipation: No issues Slowness: No Freezing episodes: No Tremor: as above Stiffness: neck, back pain/tightness which radiates down the left leg, feels left leg weakness. has h/o lumbar disc repair Tylenol helps some (takes 1000mg every 4 hours hours around the clock). Gait changes: Slow to stand d/t back pain. Using a cane now. Has had 3 falls r/t orthostatic lightheadedness. Sleep difficulty: Yes. He reports snoring, gasping arousals, daytime sleepiness. He had HST in 2022- showed mild MICHAEL w/ nocturnal hypoxemia. He is open to having a f/u HST- but states he will need something for sleep. Memory impairment: Finds himself forgetful. Hallucinations: At times sees a flash in front of him. His last eye exam was 3 months ago- has f/u ordered in February. [facility]. Usual exercise: Not exercising, but trying to eat better. Other: Bilateral near-constant ear pressure and high-pitched tinnitus. Rarely has a headache, which is not a/w photo/phonophobia or N/V. [facility] Medical History JOHNNY (acute kidney injury) Nicotine dependence, cigarettes, uncomplicated Hypovitaminosis D Moderate recurrent major depression Morbid obesity PVC's (premature ventricular contractions) Palpitations Menieres disease Tremors of nervous system Erectile dysfunction Hypertension Surgical History History of colonoscopy History of surgery Family History Father CVD (cardiovascular disease) Diabetes Mother No problems noted. Maternal Uncle Prostate cancer Family/Other Substance use disorder Social History Household Members: Spouse Housing: Apartment Do you presently have visiting nurse or other home services: No Alcohol intake: never Patient Tobacco Use Status: Current everyday Tobacco user Tobacco use type: Cigarette Cigarette Packs Per Day: 0.5 Cigarettes Per Day: 10 Years Smoked: (onset 17yo, 1/2-1ppd x 45yrs, 30+pyh) e-Cigarette/Vaping Use: Never Used Second Hand Smoke Exposure: Yes Advance Directives Date on File: 04/08/24 service: No Current occupational status: disabled Cognitive needs: No Hearing needs: No Vision needs: Yes Physical Exam Vital Signs: Last Vital Signs Pulse 64 11/19/24 12:48 Pulse Ox 94 11/19/24 12:48 Oxygen Delivery Method Room Air 11/19/24 12:48 BMI result Body Mass Index 41.0 Const General: cooperative and no acute distress Orientation/consciousness: oriented to person, oriented to place and oriented to time HEENT Other: Mallampati stage IV Resp Effort & Inspection: normal respiratory effort and able to speak in complete sentences Neuro Other: Expression: Good expression Voice: Intact Tremor: None Finger-nose: Intact, slower on left Tone: No increased tone Dyskinesia: None FFM: Mildly decreased on left Foot taps: Mildly decreased on left Gait: Slow to stand (pt attributes to back pain), shorter steps with mild bilateral BLE external rotation and lower floor clearance. Psych: Pleasant affect General: oriented to person, oriented to place and oriented to time Deep tendon reflexes (DTR's): Right triceps reflex intensity grade: 2+, Left triceps reflex intensity grade: 2+, Rt Biceps (C5, C6): 2+, Left biceps reflex intensity grade: 2+, Right brachioradialis reflex intensity grade: 2+, Left brachioradialis reflex intensity grade: 2+, Right patellar reflex intensity grade: 2+ and Left patellar reflex intensity grade: 2+ Psych Mental Status: mental status grossly normal Affect: normal affect Attitude: cooperative Thought process: Normal thought process present Quality Reporting (2019) Adult ([facility] 138/12/14/68) Smoking risk assessment performed?: Yes Patient Tobacco Use Status: Current everyday Tobacco user Body Mass Index: 41.0 Assessment & Plan Assessment & Plan (1) Tremors of nervous system: Comment: Worsening bilateral symmetric tremor- initially, now during the day at rest as well. ? RLS/PLMS, ? early movement d/o s/s. Code(s): R25.1 - Tremor, unspecified Category: Medical (2) Dizziness: Comment: With positional dizziness and orthostatic lightheadedness symptoms Code(s): R42 - Dizziness and giddiness Category: Medical (3) New daily persistent headache: Comment: Bilateral ear pressure and tinnitus. Code(s): G44.52 - New daily persistent headache (NDPH) Category: Medical (4) MICHAEL (obstructive sleep apnea): Code(s): G47.33 - Obstructive sleep apnea (adult) (pediatric) Category: Medical (5) Snoring: Code(s): R06.83 - Snoring Category: Medical (6) Sleep difficulties: Code(s): G47.9 - Sleep disorder, unspecified Category: Medical (7) Nocturnal hypoxemia: Code(s): G47.34 - Idiopathic sleep related nonobstructive alveolar hypoventilation Category: Medical Plan For untreated obstructive sleep apnea with nocturnal hypoxemia: Patient is agreeable to start PAP therapy, had follow-up sleep study to assess status of sleep apnea and nocturnal hypoxemia. Patient advised to undergo follow-up HST- patient may take gabapentin 300 mg prior to sleep study. For worsening tremor, ear pressure, tinnitus, dizziness: Increase gabapentin from 100 mg t.i.d. to 200 mg t.i.d. Check labs for common etiologies. Brain MRI to rule out secondary etiologies. PCP has already initiated in order for ENT consult For orthostatic lightheadedness: Advised to increase fluids, at 16-20 oz of electrolyte replacement beverage, such as Gatorade or Powerade daily in the morning. Advised to stand slowly. Will follow-up upon review of above and patient to follow-up in clinic in 6 months or sooner prn. Orders: Orders MR head/brain wo/w con Today G44.52 - New daily persistent headache (NDPH), H93.13 - Tinnitus, bilateral, R25.1 - Tremor, unspecified, R42 - Dizziness and giddiness Complete Blood Count Auto Diff Today D64.9 - Anemia, unspecified, E55.9 - Vitamin D deficiency, unspecified, R25.1 - Tremor, unspecified, R79.89 - Other specified abnormal findings of blood chemistry Vitamin B12 and Folate Today D64.9 - Anemia, unspecified, E55.9 - Vitamin D deficiency, unspecified, R25.1 - Tremor, unspecified, R79.89 - Other specified abnormal findings of blood chemistry Ferritin Today D64.9 - Anemia, unspecified, E55.9 - Vitamin D deficiency, unspecified, R25.1 - Tremor, unspecified, R79.89 - Other specified abnormal findings of blood chemistry Vitamin B1 Today D64.9 - Anemia, unspecified, E55.9 - Vitamin D deficiency, unspecified, R25.1 - Tremor, unspecified, R79.89 - Other specified abnormal findings of blood chemistry Comprehensive Met. Panel Today D64.9 - Anemia, unspecified, E55.9 - Vitamin D deficiency, unspecified, R25.1 - Tremor, unspecified, R79.89 - Other specified abnormal findings of blood chemistry Methylmalonic Acid Today D64.9 - Anemia, unspecified, E55.9 - Vitamin D deficiency, unspecified, R25.1 - Tremor, unspecified, R79.89 - Other specified abnormal findings of blood chemistry IRON PROFILE Today D64.9 - Anemia, unspecified, E55.9 - Vitamin D deficiency, unspecified, R25.1 - Tremor, unspecified, R79.89 - Other specified abnormal f indings of blood chemistry Homocysteine Today D64.9 - Anemia, unspecified, E55.9 - Vitamin D deficiency, unspecified, R25.1 - Tremor, unspecified, R79.89 - Other specified abnormal findings of blood chemistry TSH reflex Free T4 Today D64.9 - Anemia, unspecified, E55.9 - Vitamin D deficiency, unspecified, R25.1 - Tremor, unspecified, R79.89 - Other specified abnormal findings of blood chemistry Vitamin D 25-OH (D2 and D3) Today D64.9 - Anemia, unspecified, E55.9 - Vitamin D deficiency, unspecified, R25.1 - Tremor, unspecified, R79.89 - Other specified abnormal findings of blood chemistry Magnesium Today D64.9 - Anemia, unspecified, E55.9 - Vitamin D deficiency, unspecified, R25.1 - Tremor, unspecified, R79.89 - Other specified abnormal findings of blood chemistry Vitamin B6 Today D64.9 - Anemia, unspecified, E55.9 - Vitamin D deficiency, unspecified, R25.1 - Tremor, unspecified, R79.89 - Other specified abnormal findings of blood chemistry RT home sleep study Today G47.33 - Obstructive sleep apnea (adult) (pediatric), G47.34 - Idiopathic sleep related nonobstructive alveolar hypoventilation, G47.9 - Sleep disorder, unspecified, R06.83 - Snoring Medications: Changed From gabapentin 100 mg PO TID 90 days 270 caps 1RF To gabapentin 200 mg (2 x 100 mg) PO TID 90 days 540 caps 1RF Coding Level of Care Code Est Pt Level 4 (12105) Complex EM visit Add On G2211 Diagnoses Tremors of nervous system R25.1 Dizziness R42 New daily persistent headache G44.52 MICHAEL (obstructive sleep apnea) G47.33 Snoring R06.83 Sleep difficulties G47.9 Nocturnal hypoxemia G47.34 Time Spent (min) 45
--- OUTSIDE RECORDS SUMMARY | 2024-11-19 13:32 | XMS_ITS | Encounter Summary ---
Author Organization [employer] Address [address] [facility] 7 [place] [address] Care Team Providers Care Scooper Name Role Phone Unavailable Primary Care Provider [...] Description 02/28/2025 2:30 PM EDT Office Visit [facility] OPTOMETRY [address] [place] [address] Leslie Tamayo, OD [address] [place] [address] documented as of this encounter Visit Diagnoses Not on filedocumented in this encounter
--- OUTSIDE RECORDS SUMMARY | 2024-11-19 13:32 | XMS_ITS | Encounter Summary ---
Author Organization [employer] Address [address] [facility] [address] [place] [address] Care Team Providers Care Attorney Lawyer Name Role Phone Unavailable Primary Care Provider Unavailabl e Reason for Visit * Reason Comments Glaucoma Suspect Encounter Details Date Type Department Care Team (Late st Contact Info) Description 10/31/2024 10:30 AM EST Office Visit [facility] OPTOMETRY [address] [place] [address] Leslie Tamayo, OD [address] [place] [address] Glaucoma suspect of both eyes (Primary Dx); [...] 360 degrees Refraction Wearing Rx Sphere Cylinder [place] Add Right +0.25 -4.75 157 +2.50 Left [place] -3.75 011 +2.50 Manifest Refraction Sphere Cylinder [place] Dist [place] Add Right +0.25 -4.75 157 20/30 +2.50 Left +0.50 -3.75 011 20/30 +2.50 Final Rx Sphere Cylinder [place] Dist [place] Add Right +0.25 -4.75 157 [...] scars present. The patient was educated to [facility] with any sudden onset of flashes, floaters, [...] retinal detachment. The patient was educated to [facility] if they experience a sudden onset [...] with the content and plan as written. Program Director/Music Director Source: ___ None _x__ Bilingual Staff ___ Qualified Staff Operations Research Manager ___ Telephone Program Director/Music Director; ID# ___ Program Director/Music Director brought by patient (family member, friend, MANUFACTURING QUALITY ENGINEER, etc) ___ In person aerial photograph interpreter ___ Ipad Program Director/Music Director; ID#: Language Spoken During Exam: _Spanish documented in this encounter Plan of Treatment Upcoming Encounters Date Type Department Care Team (Late st Contact Info) Description 02/28/2025 2:30 PM EDT Office Visit [facility] OPTOMETRY [address] [place], [place] [phone] Leslie Tamayo, OD [address] [place] [address] Pending Results Name Type Priority Associated Diagnoses [...]
--- OUTSIDE RECORDS SUMMARY | 2024-11-19 13:32 | XMS_ITS | Clinical Summary ---
Author Organization [employer] Address [address] [facility] [address] [place] [address] Care Team Providers Care Bull Driver Name Role Phone Unavailable Primary Care Provider [...] Description 10/31/2024 10:30 AM EST Office Visit [facility] OPTOMETRY [address] [place] [address] Roni, Leslie, OD Glaucoma suspect of both [...] Description 02/28/2025 2:30 PM EDT Office Visit [facility] OPTOMETRY [address] [place], [place] [phone] Roni, Leslie, OD [address] [place], [place] [phone] Health Maintenance Due Date Last Done Comments [...]
[2024-11-19 13:41] VITALS: BMI 41.0
== END 2024-11-19 14:00 | disposition home or self-care (01) ==
PROVIDERS: PCP Internal Medicine; Visit Provider Nurse Practitioner Family
DX: R25.1 Tremor, unspecified (principal); R42 Dizziness and giddiness; G44.52 New daily persistent headache (NDPH); G47.33 Obstructive sleep apnea (adult) (pediatric); R06.83 Snoring; G47.9 Sleep disorder, unspecified; G47.34 Idiopathic sleep related nonobstructive alveolar hypoventilation
CPT/HCPCS: 99214; G2211

== ENCOUNTER → 2024-11-19 12:41 | Outpatient (BNVA) | payer OTHER, SELFPAY | PROVIDERS: PCP Internal Medicine; Visit Provider Nurse Practitioner Family | DX: R25.1 Tremor, unspecified (principal); R42 Dizziness and giddiness; R06.83 Snoring; G44.52 New daily persistent headache (NDPH); G47.33 Obstructive sleep apnea (adult) (pediatric); G47.9 Sleep disorder, unspecified; G47.34 Idiopathic sleep related nonobstructive alveolar hypoventilation | CPT/HCPCS: 99212 ==

== ENCOUNTER → 2024-12-01 15:13 | Outpatient (BNV) | payer OTHER, SELFPAY | PROVIDERS: PCP Internal Medicine; Visit Provider Radiology Diagnostic Radiology | DX: H93.13 Tinnitus, bilateral (principal); D37.030 Neoplasm of uncertain behavior of the parotid salivary glands | CPT/HCPCS: 70553 ==

== ENCOUNTER 2024-12-01 15:16 | Outpatient (REF) | payer OTHER, SELFPAY ==
[2024-12-01] MEDS: gadobutroL 10 ML VIAL IVPUSH (15:59)
== END 2024-12-01 15:17 | disposition home or self-care (01) ==
LOC: HO.MRI 15:16
PROVIDERS: PCP Internal Medicine; Visit Provider Nurse Practitioner Family
DX: H93.13 Tinnitus, bilateral (principal); R25.1 Tremor, unspecified; R42 Dizziness and giddiness; G44.52 New daily persistent headache (NDPH)
CPT/HCPCS: 70553; A9585

== ENCOUNTER 2024-12-20 14:33 | Outpatient (AMB) | payer OTHER, SELFPAY ==
--- NOTE | 2024-12-20 14:36 | MHC.OFFVIS ---
Intake Visit Reasons: Followup/US(set) Intake Note: Pt presents to the office today for a follow up US. Allergies Penicillins Allergy (Mild, Verified 12/20/24 14:38) UNKNOWN nicotine [NICOTINE] Adverse Reaction (Intermediate, Verified 12/20/24 14:38) TACHYCARDIA (PATCH) HPI Comments Details: Aleksandr is a pleasant male. He is a patient of Dr. Jolly. He is seen for the following urologic conditions - erectile dysfunction Uzbek translation provided by qualified medical service technician Background smoker Discussed renal ultrasound result Small fragment on left side Minimal symptoms Encourage 70 oz water per day with lemon water therapy Twelve month follow-up renal ultrasound Erectile dysfunction Good response to oral medications PSA 12/13 0.7 Testosterone 11/11 500 Nephrolithiasis Recurrent Imaging - 11/16 left 5 x 5 x 3 mm nonobstructing caliceal stone midpole Intervention - 06/15 left ESWL for 13 mm stone PFSH Medical History JOHNNY (acute kidney injury) Nicotine dependence, cigarettes, uncomplicated Hypovitaminosis D Moderate recurrent major depression Morbid obesity PVC's (premature ventricular contractions) Palpitations Menieres disease Tremors of nervous system Erectile dysfunction Hypertension Surgical History History of colonoscopy History of surgery Family History Father CVD (cardiovascular disease) Diabetes Mother No problems noted. Maternal Uncle Prostate cancer Family/Other Substance use disorder Social History Household Members: Spouse Housing: Apartment Do you presently have visiting nurse or other home services: No Alcohol intake: never Patient Tobacco Use Status: Current everyday Tobacco user Tobacco use type: Cigarette Cigarette Packs Per Day: 0.5 Cigarettes Per Day: 10 Years Smoked: (onset 17yo, 1/2-1ppd x 47yrs, 30+pyh) e-Cigarette/Vaping Use: Never Used Second Hand Smoke Exposure: Yes Advance Directives Date on File: 04/08/24 service: No Current occupational status: disabled Cognitive needs: No Hearing needs: No Vision needs: Yes Review of Systems Const Denies chills and Denies fever(s) Card Reports no additional complaints and Denies syncope Resp Denies cough GI Denies abdominal pain and Denies heartburn Reports as per HPI and Denies change in libido Neuro Denies syncope Psych Denies change in libido Endo Denies change in libido Physical Exam Const General: cooperative, healthy appearing, comfortable and no acute distress Orientation/consciousness: patient oriented x3 HEENT Face and sinus: Yes normal facial exam Mouth: moist mucous membranes Neck Neck: Yes normal visual inspection, Yes full ROM and Yes trachea midline Chest Chest palpation & inspection: normal inspection of the chest Resp Effort & Inspection: normal respiratory effort, able to speak in complete sentences and no respiratory distress GI Inspection: Yes normal to inspection Back/Spine/Pelvis Cervical Spine: normal cervical lordosis Thoracic/Lumbar Spine: thoracic and lumbar spine normal to inspection Skin General skin exam: no rashes or lesions noted Neuro General: patient oriented x3, gait normal, tone normal and moves all extremities Extrem General: Yes normal to inspection and Yes capillary refill normal Quality Reporting (2019) Adult ([facility] 138/12/14/68) Smoking risk assessment performed?: Yes Patient Tobacco Use Status: Current everyday Tobacco user Assessment & Plan Assessment & Plan (1) Renal and ureteric calculus: Code(s): N20.2 - Calculus of kidney with calculus of ureter Category: Medical (2) Erectile dysfunction: Comment: (improved, no longer needs medication - per Dr. Wright - 02/2022) Code(s): N52.9 - Male erectile dysfunction, unspecified Category: Medical Plan Twelve month follow-up renal ultrasound Orders: Orders US renal BI 12 Months N13.9 - Obstructive and reflux uropathy, unspecified Patient Instructions: This note is constructed using voice recognition software. While every effort has been made to ensure accuracy tester armature or fields errors may have been included. Imaging studies, laboratory and physical exam results were discussed and reviewed in detail. No major barriers to patient understanding were identified. An opportunity to ask questions regarding the treatment plan was provided. All questions were answered. The patient expressed understanding and agreement with the above treatment plan. The patient is aware they should contact our office by phone for worsening of their current condition or the appearance of new urologic symptoms. Compliance is encouraged with any medications and followup testing that is ordered. It is a privilege to participate in the urologic care of your patient. If you have any questions or concerns regarding treatment for the above conditions, or other urologic issues, please do not hesitate to contact me. The office telephone contact is [phone]. Sincerely, Dr Rashawn Wright MD, [facility] - Urology Compassionate Specialist Care for the Genitourinary System Coding Level of Care Code Est Pt Level 3 (97288) Diagnoses Renal and ureteric calculus N20.2 Erectile dysfunction N52.9
--- OUTSIDE RECORDS SUMMARY | 2024-12-20 16:43 | XMS_ITS | Clinical Summary ---
Author Organization [employer] Address [address] [facility] [address] [place] [address] Care Team Providers Care Harp Repairer Name Role Phone Unavailable Primary Care Provider [...] Description 10/31/2024 10:30 AM EST Office Visit [facility] OPTOMETRY [address] [place] [address] Roni, Lesile, OD Glaucoma suspect of both eyes (Primary [...] Description 02/28/2025 2:30 PM EDT Office Visit [facility] OPTOMETRY [address] [place], [place] [phone] Roni, Leslie, OD [address] [place], [place] [phone] Health Maintenance Due Date Last Done Comments CT Colonography 1962 Colonoscopy 1962 Colorectal Cancer Screening 1962 Depression Screening 1962 FIT DNA/Cologuard 1962 FIT 1962 FOBT 1962 HIV Screening 1962 Lipid Panel 1962 SDOH Screening 1962 Sigmoidoscopy 1962 Alcohol/Substance Use Screening 1974 Hepatitis C Screening 1980 Pneumococcal Vaccine: 50+ Years (1 of 2 - PCV) 1981 Hepatitis B Vaccines (3 of 3 - 19+ 3-dose series) 05/22/2003 01/31/2003, 11/22/2002 Zoster Vaccines (1 of 2) 2012 COVID-19 Vaccine ( season) 2024 10/12/2021, 03/21/2021, 02/18/2021 Influenza Vaccine [...]
== END 2024-12-20 15:07 | disposition home or self-care (01) ==
LOC: HO.HUSH 14:33
PROVIDERS: PCP Internal Medicine; Visit Provider Urology
DX: N20.2 Calculus of kidney with calculus of ureter (principal); N52.9 Male erectile dysfunction, unspecified
CPT/HCPCS: 99213

== ENCOUNTER → 2024-12-20 14:33 | Outpatient (BNVA) | payer OTHER, SELFPAY | PROVIDERS: PCP Internal Medicine; Visit Provider Urology | DX: N52.9 Male erectile dysfunction, unspecified (principal); N20.2 Calculus of kidney with calculus of ureter | CPT/HCPCS: 99212 ==

== ENCOUNTER 2025-01-08 13:45 | Outpatient (AMB) | payer OTHER, SELFPAY ==
--- NOTE | 2025-01-08 13:57 | MHC.PC.OV ---
Vital Signs 01/08/25 13:58 Height 5 ft 6 in Weight 255 lb BMI 41.2 BP 132/84 Blood Pressure Location Lt brachial Position Sitting Intake Visit Reasons: bp Intake Note: Patient here for a follow up BP Foreman/Pile Driving And Erection Required: No Accompanied by: Self / Same As Patient Allergies Penicillins Allergy (Mild, Verified 01/08/25 14:13) UNKNOWN nicotine [NICOTINE] Adverse Reaction (Intermediate, Verified 01/08/25 14:13) TACHYCARDIA (PATCH) Medication List - Last Reconciled 01/08/25 by Ashwini Jolly MD acetaminophen (Tylenol) 975 mg (3 x 325 mg) PO Q6H PRN [adult diapers pull-ups As directed] amitriptyline 10 mg PO BEDTIME 90 days amlodipine 2.5 mg PO DAILY gabapentin 200 mg (2 x 100 mg) PO TID 90 days lisinopril 20 mg PO DAILY 90 days meclizine 25 mg PO TID PRN 30 days tamsulosin 0.4 mg PO BEDTIME 14 days Tobacco use date assessed: 11/18/24 Dental Screening Dental Screen Date: 11/18/24 HPI HPI Comments History of Present Illness Details The patient is a 64-year-old male presenting with dizziness and history of falls. He reports worsening dizziness that has led to three recent falls. The dizziness feels as if his balance is distorted, preventing him from leaving his home confidently. Despite taking medications like Meclizine, he notes no improvement in symptoms, indicating a persistent issue affecting his daily life. In conjunction, he experiences insomnia, possibly contributing to his ongoing daytime fatigue and malaise. This patient also presents with a longstanding history of hypertension, stable under current pharmacological treatment with Amlodipine and Lisinopril. Lifestyle factors include smoking, with dependency noted and stress as a driving factor for continued tobacco use. In the context of his dizziness, smoking could contribute to cardiovascular conditions exacerbating his balance issue. During a brain MRI, a lesion in the left parotid gland was discovered. The patient has been advised to obtain further evaluation by an visual merchandising manager. Additionally, laboratory findings have revealed a persistently elevated white blood cell count, the cause of which is yet to be determined despite various repeated tests showing slight variability. He will see a chemical inspector for further clarification regarding this hematologic irregularity. [facility] Medical History (Updated 01/08/25 @ 14:30 by Ashwini Jolly MD) JOHNNY (acute kidney injury) Nicotine dependence, cigarettes, uncomplicated Hypovitaminosis D Moderate recurrent major depression Morbid obesity PVC's (premature ventricular contractions) Palpitations Menieres disease Tremors of nervous system Erectile dysfunction Hypertension Surgical History History of colonoscopy History of surgery Family History Father CVD (cardiovascular disease) Diabetes Mother No problems noted. Maternal Uncle Prostate cancer Family/Other Substance use disorder Social History Household Members: Spouse Housing: Apartment Do you presently have visiting nurse or other home services: No Alcohol intake: never Patient Tobacco Use Status: Current everyday Tobacco user Tobacco use type: Cigarette Cigarette Packs Per Day: 0.5 Cigarettes Per Day: 10 Years Smoked: (onset 17yo, 1/2-1ppd x 45yrs, 30+pyh) e-Cigarette/Vaping Use: Never Used Second Hand Smoke Exposure: Yes Advance Directives Date on File: 04/08/24 service: No Current occupational status: disabled Cognitive needs: No Hearing needs: No Vision needs: Yes Questionnaire Thrive Questionnaire Date Thrive assessed: 11/18/24 MORGAN-7 AMB Questionnaire MORGAN-7 Date MORGAN - 7 assessed: 11/18/24 Source: Developed by Drs. Ran Nolan, Elizabeth Ibrahim, Ryley Bui and colleagues, with an educational damian from [employer]. Review of Systems Const All systems reviewed & are unremarkable except as noted in HPI and below Card Denies chest pain at rest, Denies chest pain with activity, Denies edema, Denies irregular heart rhythm, Denies claudication, Denies dyspnea, Denies dyspnea on exertion, Denies orthopnea, Denies paroxysmal nocturnal dyspnea and Denies slow heart rate Resp Denies cough, Denies dyspnea and Denies dyspnea on exertion Musc Denies atrophy, Denies deformity and Denies limited range of motion Skin/Breast Denies bleeding lesions, Denies changing lesions and Denies rash Physical exam (Primary Care) Vital Signs: Last Vital Signs BP 132/84 01/08/25 13:58 BMI result Body Mass Index 41.2 BMI Assessment/Plan discussion: High BMI High, discussed plan: lifestyle, weight reduction, dietary and physical activity Tobacco/Smoking Status: Tobacco use Status Tobacco use date assessed 11/18/24 01/08/25 14:02 Patient Tobacco Use Status Current everyday Tobacco 01/08/25 14:02 Tobacco use type Cigarette 01/08/25 14:02 e-Cigarette/Vaping Use Never Used 01/08/25 14:02 Are you ready to quit: No Tobacco cessation counseling provided: Yes Items discussed: Nicotine replacement and QuitWorks Relapse Prevention: discussed the importance of a supportive environment, discussed extending NRT, discussed negative mood or depression after quitting, weight gain after smoking is common and discussed dietary, exercise and/or lifestyle changes Number of minutes spent counselin CPT code: 02762 - 4-10 Minutes Thrive Assessment: Date of Thrive Assessment Date Thrive assessed 11/18/24 01/08/25 14:02 Const Limitations: ambulation with cane Resp Effort & Inspection: normal respiratory effort Auscultation: clear to auscultation bilaterally Cardio Jugular venous distension: no JVD Rate: regular rate Rhythm: regular rhythm Heart sounds: S1 normal heart sound present and S2 normal heart sound present Extrem General: Yes full ROM Coding Level of Care Code Est Pt Level 4 (17215) Complex EM visit Add On G2211 Diagnoses Polyarthralgia M25.50 Leukocytosis D72.829 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 Morbid obesity E66.01 Essential hypertension I10 Hypertension type: essential hypertension Moderate recurrent major depression F33.1 MORGAN (generalized anxiety disorder) F41.1 Tremors of nervous system R25.1 Additional Codes Vital Signs *Quality* - CPT code: 47331 - 4-10 Minutes ([id number]) Time Spent (min) 24 Assessment & Plan Assessment & Plan (1) Polyarthralgia: Code(s): M25.50 - Pain in unspecified joint Category: Medical (2) Leukocytosis: Code(s): D72.829 - Elevated white blood cell count, unspecified Category: Medical (3) Mass of left parotid gland: Code(s): K11.8 - Other diseases of salivary glands Category: Medical (4) Morbid obesity: Comment: (BMI 41 - 11/2022) Code(s): E66.01 - Morbid (severe) obesity due to excess calories Category: Medical (5) Hypertension: Code(s): I10 - Essential (primary) hypertension Category: Medical Qualifiers: Hypertension type: essential hypertension Qualified Code(s): I10 - Essential (primary) hypertension (6) Moderate recurrent major depression: Code(s): F33.1 - Major depressive disorder, recurrent, moderate Category: Medical (7) MORGAN (generalized anxiety disorder): Code(s): F41.1 - Generalized anxiety disorder Category: Medical (8) Tremors of nervous system: Comment: nocturnal full body tremor. ? PLMS, lower suspicion for parasomnias Code(s): R25.1 - Tremor, unspecified Category: Medical Plan I intend to address the patient's dizziness by maintaining current Meclizine usage and referring him to a neurologist for additional evaluation. Smoking cessation support will be emphasized due to potential nicotine-related exacerbation of symptoms. For stability, the patient should continue using a cane and seek support in daily activities. The newly identified parotid gland lesion requires otorhinolaryngology consultation, and ongoing monitoring of elevated white blood cells demands a chemical inspector's evaluation. Hypertension management continues with the current regimen and potential lifestyle changes, while insomnia may require alternative treatment to improve sleep quality. Patient was informed and verbally consented to the use of an ambient scribe for clinic note documentation during this visit. I discussed with the patient the current findings of dizziness and recommended continued use of Meclizine along with referral to a neurologist for further testing. We talked about the benefits and necessity of smoking cessation given its exacerbating factors, and I advised strategies to support this process. For the lesion on the parotid gland noted on MRI, a follow-up with an visual merchandising manager is essential. Further, I expressed the importance of assessment by a chemical inspector for consistently elevated white blood cell counts. Conversations about stable hypertension management included maintaining current medication regimens and considering lifestyle modifications. The patient was informed about plans to explore treatment options for insomnia, emphasizing good sleep hygiene. Orders: Orders Complete Blood Count Auto Diff Today D64.9 - Anemia, unspecified Lipid Panel Today E78.5 - Hyperlipidemia, unspecified Comprehensive [place]. Panel Fast Today K11.8 - Other diseases of salivary glands Referrals Hematology & Oncology Referral D72.829 - Elevated white blood cell count, unspecified Ear/Nose/Throat Referral K11.8 - Other diseases of salivary glands Rheumatology Referral M25.50 - Pain in unspecified joint Patient Instructions: - Continue taking Meclizine for dizziness. - Use a cane to prevent falls. - Avoid activities that may lead to accidents or falls. - Seek support in smoking cessation and consider smoking cessation programs. - Continue managing hypertension with current medication and maintain a heart-healthy diet. - Prepare for a follow-up consultation with the visual merchandising manager regarding the parotid gland lesion. - Anticipate additional blood tests for your elevated white blood cell count. - Ensure good sleep practices to improve insomnia symptoms.
[2025-01-08 13:58] VITALS: BP 132/84; BMI 41.2
--- OUTSIDE RECORDS SUMMARY | 2025-01-08 16:11 | XMS_ITS | Encounter Summary ---
Author Organization [employer] Address [address] [place] [address] Care Team Providers Care Pasta Maker Name Role Phone Unavailable Primary Care Provider Unavailabl e Encounter Details Date Type Department Care Team (Late st Contact Info) Description 12/19/2024 9:30 AM EST Office Visit [facility] [address] [place] [address] Leslie Tamayo, OD [address] [place] [address] Regular astigmatism of both eyes (Primary Dx) Social History Tobacco Use Types Packs/Day Years Used Date Smoking Tobacco: Every Day Cigarettes Smokeless Tobacco: Never Sex and Gender Information Value Date Recorded Sex Assigned at Male 08/22/2022 10:17 AM EDT Legal Sex Male 10:17 AM EDT Gender Identity Male 08/22/2022 10:17 AM EDT Sexual Orientation Straight 08/22/2022 10 :17 AM EDT documented as of this encounter Progress Notes * Leslie Tamayo OD - 12/19/2024 9:30 AM EST MH glasses were dispensed. documented in this encounter Plan of Treatment Upcoming Encounters Date Type Department Care Team (Late st Contact Info) Description 02/28/2025 2:30 PM EDT Office Visit [facility] [address], [place] [phone] Leslie Tamayo, OD [address] [place] [address] documented as of this encounter Visit Diagnoses Diagnosis Regular astigmatism of both eyes- Primary documented in this encounter
--- OUTSIDE RECORDS SUMMARY | 2025-01-08 16:12 | XMS_ITS | Clinical Summary ---
Author Organization [employer] Address [address] [facility] [address] [place] [address] Care Team Providers Care Technical Writer And Editor Name Role Phone Unavailable Primary Care Provider [...] cholecalciferol VITAMIN D (Vitamin D-3) 50 MCG (1999 UT) capsule Take 1 capsule by mouth Once per day. 4 Active Active Problems No known active problems Encounters Date Type Department Care Team Description 12/23/2024 Outside Procedure [facility] [address] [place] [address] Sim Tamayon, OD Presbyopia (Primary Dx) 12/19/2024 9:30 AM EST Office Visit [facility] [address] [place] [address] Sim Tamayon, OD Regular astigmatism of both eyes (Primary Dx) 10/31/2024 10:30 AM EST Office Visit [facility] [address] [place] [address] Leslie Tamayo, OD Glaucoma suspect of both eyes (Primary [...] Description 02/28/2025 2:30 PM EDT Office Visit [facility] [address] [place] [address] Leslie Tamayo, OD [address] [place] [address] Health Maintenance Due Date Last Done Comments [...] both eyes from Last 3 Months Insurance [facility] ST[employer]
--- OUTSIDE RECORDS SUMMARY | 2025-01-08 16:12 | XMS_ITS | Encounter Summary ---
Author Organization [employer] Address [address] [facility] [address] [place] [address] Care Team Providers Care Tamale Machine Feeder Name Role Phone Unavailable Primary Care Provider Unavailabl e Encounter Details Date Type Department Care Team (Latest Contact Info) Description 12/23/2024 Outside Procedure [facility] [address] [place] [address] Leslie Tamayo, OD [address] [place] [address] Presbyopia (Primary Dx) Social History Tobacco Use Types [...] Progress Notes * Leslie Tamayo OD - 12/23/2024 9:41 AM EST MH glasses were dispensed, 2 of 2. documented in this encounter Plan of Treatment Upcoming Encounters Date Type Department Care Team (Late st Contact Info) Description 02/28/2025 2:30 PM EDT Office Visit [facility] [address] [place], [place] [phone] Leslie Tamayo, OD [address] [place] [address] documented as of this encounter Visit Diagnoses Diagnosis Presbyopia- Primary documented in this encounter
== END 2025-01-08 14:31 | disposition home or self-care (01) ==
LOC: HO.HMCH 13:46
PROVIDERS: PCP Internal Medicine; Visit Provider Internal Medicine
DX: M25.50 Pain in unspecified joint (principal); D72.829 Elevated white blood cell count, unspecified; K11.8 Other diseases of salivary glands; E66.01 Morbid (severe) obesity due to excess calories; I10 Essential (primary) hypertension; F33.1 Major depressive disorder, recurrent, moderate; F41.1 Generalized anxiety disorder; R25.1 Tremor, unspecified; Z68.41 Body mass index [BMI] 40.0-44.9, adult

== ENCOUNTER → 2025-01-08 13:45 | Outpatient (BNVA) | payer OTHER, SELFPAY | PROVIDERS: PCP Internal Medicine; Visit Provider Internal Medicine | DX: M25.50 Pain in unspecified joint (principal); D72.829 Elevated white blood cell count, unspecified; K11.8 Other diseases of salivary glands; E66.01 Morbid (severe) obesity due to excess calories; I10 Essential (primary) hypertension; F33.1 Major depressive disorder, recurrent, moderate; F41.1 Generalized anxiety disorder; R25.1 Tremor, unspecified | CPT/HCPCS: 99212 ==

== ENCOUNTER → 2025-01-13 15:44 | Outpatient (REF) | payer OTHER, SELFPAY | LOC: HO.SL 15:44 | PROVIDERS: PCP Internal Medicine; Visit Provider Nurse Practitioner Family | DX: G47.9 Sleep disorder, unspecified (principal); G47.34 Idiopathic sleep related nonobstructive alveolar hypoventilation; G47.33 Obstructive sleep apnea (adult) (pediatric); R06.83 Snoring | CPT/HCPCS: 95806 ==

== ENCOUNTER → 2025-01-15 16:02 | Outpatient (BNV) | payer OTHER, SELFPAY | PROVIDERS: PCP Internal Medicine; Visit Provider Psychiatry & Neurology Neurology | DX: G47.33 Obstructive sleep apnea (adult) (pediatric) (principal) | CPT/HCPCS: 95806 ==

== ENCOUNTER 2025-03-23 10:59 | Emergency (ER) | payer OTHER, SELFPAY ==
--- NOTE | ~2025-03-23 | XR_ITS ---
CLINICAL HISTORY: atraumatic L great toe pain --- Additional Notes or Special Instructions: ? gout AP view of the left foot and three views of the left 1st toe Comparison: None Findings: Old corticated fracture fragment versus osteophyte of the base of the left distal phalanx seen only on the lateral view. Mild degenerative changes of the base of the 1st metatarsal. No erosions. No radiopaque foreign body. IMPRESSION: Old corticated fracture fragment versus osteophyte of the base of the left distal phalanx seen only on the lateral view. No definite acute process. This document has been electronically signed by: Panda Hampton MD on 03/23/2025 12:17:05
[2025-03-23 11:30] VITALS: BP 146/78; PULSE 86; RESP 20; TEMP 36.8; O2SAT 94; BMI 41.2
--- NOTE | 2025-03-23 11:33 | ED_ITS ---
HPI - Extremity Injury (Lower) General Chief Complaint: Extremity Injury, Lower Stated Complaint: L big toe injury Time Seen by Provider: 03/23/25 11:28 Source: patient and smooth plater (Belgian) Mode of arrival: ambulatory Limitations: language barrier (Belgian) History of Present Illness ED Provider: AVIVA IGNACIO PA-C HPI Narrative: 64 year old male with pmhx significant for HTN and nephrolithiasis presents to the ED today for evaluation of atraumatic left great toe pain x3 days. Reports excruciating pain with movement/ palpation. Denies hx DM or gout. Denies etoh consumption or illicit substance use. Admits to eating red meat. He does not appear to be on any hyperuricemic medications. No fever, chills. Related Data Previous Rx's ?Medication ?Instructions ?Recorded tamsulosin 0.4 mg capsule 0.4 mg PO BEDTIME 14 days #14 caps 06/12/24 meclizine 25 mg tablet 25 mg PO TID PRN dizziness 30 days 07/21/24 #90 tabs acetaminophen 325 mg tablet 975 mg (3 x 325 mg) PO Q6H PRN 07/29/24 (Tylenol) pain #20 tabs amlodipine 2.5 mg tablet 2.5 mg PO DAILY #30 tabs 07/29/24 adult diapers pull-ups #150 ea 11/18/24 gabapentin 100 mg capsule 200 mg (2 x 100 mg) PO TID 90 days 11/19/24 #540 caps lisinopril 20 mg tablet 20 mg PO DAILY 90 days #90 tabs 01/10/25 amitriptyline 10 mg tablet 10 mg PO BEDTIME 90 days #90 tabs 02/14/25 colchicine 0.6 mg tablet 0.6 mg PO BID 7 days #14 tabs 03/23/25 prednisone 50 mg tablet 50 mg PO DAILY 5 days #5 tabs 03/23/25 Allergies Allergy/AdvReac Type Severity Reaction Status Date / Time Penicillins Allergy Mild UNKNOWN Verified 03/23/25 11:32 nicotine [NICOTINE] AdvReac Intermediate TACHYCARDIA Verified 03/23/25 11:32 (PATCH) Review of Systems 2 Review of Systems: Constitutional: No fever, chills, fatigue, night sweats, weight changes ENT/Mouth: No ear pain, hearing loss, nasal congestion, sinus pain, rhinorrhea, sore throat Eyes: No eye pain, swelling, redness, vision changes, discharge Cardio: No chest pain, palpitations, COLLINS, orthopnea, peripheral edema Pulm: No SOB, cough, sputum, wheezing, dyspnea, hemoptysis GI: No nausea, vomiting, hematemesis, abdominal pain, diarrhea, constipation, hematochezia, melena : No irregular bleeding, dysuria, frequency, urgency, hesitancy, hematuria, flank pain, urinary flow changes, urinary incontinence or retention MSK: No back pain, neck pain, joint pain, myalgias, +left great toe pain Skin: No lesions, rashes Neuro: No weakness, numbness, paresthesias, LOC, dizziness, headache Psych: No anxiety/panic, depression, SI/HI, AH/VH All other systems reviewed and are negative. Yes all other systems are reviewed and are negative [facility] Past Medical History Attestation statement: The following information was validated with the patient. Source: old records reviewed and nursing notes reviewed Medical History JOHNNY (acute kidney injury) Nicotine dependence, cigarettes, uncomplicated Hypovitaminosis D Moderate recurrent major depression Morbid obesity PVC's (premature ventricular contractions) Palpitations Menieres disease Tremors of nervous system Erectile dysfunction Hypertension Surgical History History of colonoscopy History of surgery Family History Family History Father CVD (cardiovascular disease) Diabetes Mother No problems noted. Maternal Uncle Prostate cancer Family/Other Substance use disorder Social History Social History Household Members: Spouse Housing: Apartment Do you presently have visiting nurse or other home services: No Alcohol intake: never Patient Tobacco Use Status: Current everyday Tobacco user Tobacco use type: Cigarette Cigarette Packs Per Day: 0.5 Cigarettes Per Day: 10 Years Smoked: (onset 17yo, 1/2-1ppd x 45yrs, 30+pyh) Smoked in Last 30 Days: Yes e-Cigarette/Vaping Use: Never Used Second Hand Smoke Exposure: Yes Use of substances other than those prescribed or required for medical reasons: No Advance Directives: Yes Advance Directives on File: Yes Advance Directives Date on File: 04/08/24 service: No Current occupational status: disabled Cognitive needs: No Hearing needs: No Vision needs: Yes Physical Exam 2 Vital Signs: Vital Signs: Last Vital Signs Temp 98.2 F 03/23/25 11:30 Pulse 86 03/23/25 11:30 Resp 20 03/23/25 11:30 BP 146/78 H 03/23/25 11:30 Pulse Ox 94 03/23/25 11:30 O2 Del Method Room Air 03/23/25 11:30 BMI result Body Mass Index 41.2 hypertensive, afebrile General: Well appearing, in no acute distress. Skin: Warm, dry, intact. No rashes or lesions. Head: Normocephalic, atraumatic. EENT: Hearing is intact b/l. Conjunctiva clear. Sclera is anicteric. PERRLA. EOM intact. Moist mucous membranes.? Cardiac: Chest wall symmetric. RRR Lungs: Normal respiratory effort without accessory muscle use. CTA bilaterally Back: No midline spinous or paraspinal tenderness. No step off deformity. Ext:+noted erythema/ swelling to left great toe, warm, ttp. no palpable crepitus. dec ROM to left great toe. 2+ dp pulse intact. Neuro: AOx3. Normal speech. ambulating with limping gait. Course Course Course Narrative: CBC without leukocytosis or left shift. H&H stable. Chemistry without acute electrolyte abnormality requiring intervention. BUN slightly elevated to 17, normal creatinine. Random glucose 128, no anion gap. Uric acid is elevated to 7.6 and CRP is elevated to 1.77. Concern for gout. X-ray of left great toe does not demonstrate acute fracture. > medicated with Toradol in the ED > will send home on prednisone and colchicine. Advised PCP follow up. Patient has remained stable throughout ED visit today. Discussed worrisome signs and symptoms and when to return to the ED. All questions answered at this time. Patient is agreeable with disposition and stable for discharge. Medications Administered Discontinued Medications Generic Name Dose Route Start Last Admin Trade Name Freq PRN Reason Stop Dose Admin Ketorolac Tromethamine 30 mg 03/23/25 11:53 03/23/25 12:56 Ketorolac Tromethamine 30 Mg/Ml Vial IM 03/23/25 11:54 30 mg ONCE ONE Administration Medical Decision Making Medical Decision Making [facility] Narrative: 64 year old male with pmhx significant for HTN and nephrolithiasis presents to the ED today for evaluation of atraumatic left great toe pain x3 days. hypertensive, afebrile. he is well appearing and in NAD. on exam, noted erythema/ swelling to left great toe, warm, ttp. no palpable crepitus. dec ROM to left great toe. 2+ dp pulse intact. ambulating with limping gait. Differential diagnosis includes gout v pseudo gout, arthritis, fracture. Unlikely septic joint, lyme arthritis, DM foot ulcer, osteomyelitis. Plan for labs, xr, pain control, re-evaluation. Differential Diagnosis Differential Diagnoses: The differential diagnosis associated with the presentation includes as above. Admission/Observation not indicated. Lab Data [facility] Lab Attestation statement: I reviewed the patient's lab results. as above 03/23/25 12:08 03/23/25 12:08 Labs: Lab Results 03/23/25 Range/Units 12:08 WBC 10.5 (4.8-10.8) X10*3/uL RBC 4.49 L (4.60-5.80) X10*6/uL Hgb 14.5 (14.0-18.0) g/dl Hct 41.1 L (42.0-52.0) % MCV 91.5 (80.0-98.0) fL MCH 32.3 (27.0-33.0) pg MCHC 35.3 (31.0-36.0) g/dl RDW 13.2 (11.0-16.0) % Plt Count 221 (160-400) X10*3/uL MPV 10.5 (9.4-12.4) fL Immature Gran % (Auto) 0.3 (0.0-0.4) % Neut % (Auto) 55.5 (45-73) % Lymph % (Auto) 28.7 (20-40) % [place] % (Auto) 10.2 (2-11) % Eos % (Auto) 4.7 H (0-4) % Baso % (Auto) 0.6 (0-2) % Lymph # (Auto) 3.0 (1.2-4.9) X10*3/uL [place] # (Auto) 1.1 (0.1-1.2) X10*3/uL Eos # (Auto) 0.5 H (0.0-0.4) X10*3/uL Baso # (Auto) 0.1 (0.0-0.2) X10*3/uL Abs Immat Gran (auto) 0.03 (0.00-0.03) X10*3/uL Absolute Neuts (auto) 5.8 (2.0-8.3) x10*3/uL Absolute Nucleated RBC 0.000 (0.0-0.012) X10*3/uL Nucleated RBC % (auto) 0.0 (0.0-0.2) /100WBC Sodium 141 (135-145) mmol/L Potassium 4.2 (3.3-5.1) mmol/L Chloride 109 H (96-108) mmol/L Carbon Dioxide 23 (22-29) mmol/L Anion Gap 13 (12-20) BUN 17 H (9-16) mg/dL Creatinine 1.16 (0.5-1.4) mg/dL Estim Creat Clear Calc 78.9 Estimated GFR > 60 Random Glucose 128 H (60-115) mg/dL Uric Acid 7.6 H (3.4-7.0) mg/dL Calcium 9.3 (8.4-10.2) mg/dL C-Reactive Protein 1.77 H (< or = 0.50) mg/dL Independent Interpretation I performed an independent interpretation of an: Plain X-Ray Interpretation: xr left great toe without obvious fracture Radiology Impression Discussion of test interpretation with radiology: I have reviewed the radiologist's reading. Radiologist Impression: Date of Service: 03/23/25 Procedure(s): XR toe LT min 2V Accession Number(s): [id number] cc: Aviva Ignacio; Ashwini Teague MD~ CLINICAL HISTORY: atraumatic L great toe pain --- Additional Notes or Special Instructions: ? gout AP view of the left foot and three views of the left 1st toe Comparison: None Findings: Old corticated fracture fragment versus osteophyte of the base of the left distal phalanx seen only on the lateral view. Mild degenerative changes of the base of the 1st metatarsal. No erosions. No radiopaque foreign body. IMPRESSION: Old corticated fracture fragment versus osteophyte of the base of the left distal phalanx seen only on the lateral view. No definite acute process. This document has been electronically signed by: Panda Hampton MD on 03/23/2025 12:17:05 External Record Review External record reviewed: Inpatient record Prescription Management I considered prescription management with: Pain Medication and Other (prednisone colchicine) Chronic Conditions Patient?s care impacted by: Hypertension Social Determinants Patient?s care significantly limited by Social Determinants of Health including: Other Social Determinant of Health Critical Care Time Critical Care Time Critical Care Time: No Discharge Plan Discharge Clinical Impression: Gout Clinical Impression: (Ruled Out): Lateral epicondylitis of left elbow Patient Disposition: Home, Self-Care Instructions: Low Purine Diet (ED), Gout (ED) Additional Instructions: Your blood work shows elevated uric acid levels. Otherwise reassuring. Your evaluation is consistent with gout. See home care instructions. Prednisone is a steroid that has been sent to your pharmacy. Take this daily for the next 5 days. Colchicine has been sent to your pharmacy. Take this twice a day for the next 7 days. I also recommend NSAIDs (anti-inflammatories) such as motrin to help with inflammation and swelling. Follow up with your primary care provider. Return with new or worsening symptoms. In the case of an emergency call 911. Prescriptions: New prednisone 50 mg tablet 50 mg PO DAILY 5 Days Qty: 5 0RF colchicine 0.6 mg tablet 0.6 mg PO BID 7 Days Qty: 14 0RF No Action meclizine 25 mg tablet 25 mg PO TID PRN (Reason: dizziness) 30 Days Qty: 90 1RF lisinopril 20 mg tablet 20 mg PO DAILY 90 Days Qty: 90 0RF amitriptyline 10 mg tablet 10 mg PO BEDTIME 90 Days Qty: 90 0RF tamsulosin 0.4 mg capsule 0.4 mg PO BEDTIME 14 Days Qty: 14 0RF amlodipine 2.5 mg tablet 2.5 mg PO DAILY Qty: 30 0RF Rx Instructions: Use amlodipine 2.5 mg for 1 week, repeat BMP if kidney function better than can switch back to lisinopril and stop amlodipine at that time. acetaminophen [Tylenol] 325 mg tablet 975 mg PO Q6H PRN (Reason: pain) Qty: 20 0RF (DME) adult diapers pull-ups Large See Rx Instructions .Route .MEDSUPPLY Qty: 150 11RF Rx Instructions: As directed gabapentin 100 mg capsule 200 mg PO TID 90 Days Qty: 540 1RF Referrals: Ashwini Teague MD [Primary Care Provider] - Discharge Date/Time: 03/23/25 13:07 Print Language: Belgian
[2025-03-23 12:15] LABS: MANUAL DIFF FLAG NO
[2025-03-23 12:17] LABS: Basophils Absolute Auto 0.1 X10*3/uL (0.0-0.2); Basophils Percent Auto 0.6 % (0-2); Eosinophils Absolute Auto 0.5 X10*3/uL (0.0-0.4); Eosinophils Percent Auto 4.7 % (0-4); Hematocrit 41.1 % (42.0-52.0); Hemoglobin 14.5 g/dl (14.0-18.0); Imm Gran Abs Auto 0.03 X10*3/uL (0.00-0.03); Imm Gran Pct Auto 0.3 % (0.0-0.4); Lymphocytes Percent Auto 28.7 % (20-40); Mean Corpuscular HGB Conc 35.3 g/dl (31.0-36.0); Mean Corpuscular Hemoglobin 32.3 pg (27.0-33.0); Mean Corpuscular Volume 91.5 fL (80.0-98.0); Mean Platelet Volume 10.5 fL (9.4-12.4); Monocytes Absolute Auto 1.1 X10*3/uL (0.1-1.2); Monocytes Percent Auto 10.2 % (2-11); Neutrophils Absolute Auto 5.8 x10*3/uL (2.0-8.3); Neutrophils Percent Auto 55.5 % (45-73); Platelet Count 221 X10*3/uL (160-400); Red Blood Count 4.49 X10*6/uL (4.60-5.80); Red Cell Distribution Width 13.2 % (11.0-16.0); White Blood Count 10.5 X10*3/uL (4.8-10.8)
[2025-03-23 12:27] LABS: C Reactive Protein 1.77 mg/dL (< or = 0.50)
[2025-03-23 12:29] LABS: Anion Gap 13 (12-20); Blood Urea Nitrogen 17 mg/dL (9-16); Calcium 9.3 mg/dL (8.4-10.2); Carbon Dioxide 23 mmol/L (22-29); Chloride 109 mmol/L (96-108); Creatinine Clr Calc Pharmacy 78.9; Estimated Glomerular Filt Rate > 60; Glucose Random 128 mg/dL (60-115); Potassium 4.2 mmol/L (3.3-5.1); Sodium 141 mmol/L (135-145); Uric Acid 7.6 mg/dL (3.4-7.0)
[2025-03-23] MEDS: Ketorolac Tromethamine 30 MG/ML VIAL IM (12:56)
[2025-03-23 13:07] VITALS: BP 146/78; PULSE 86; RESP 20; TEMP 36.8; O2SAT 94
== END 2025-03-23 13:07 | disposition home or self-care (01) ==
PROVIDERS: Physician Assistant Medical; Emergency Provider Emergency Medicine; PCP Internal Medicine
DX: M10.9 Gout, unspecified (principal); M79.675 Pain in left toe(s)
CPT/HCPCS: 36415; 73660; 80048; 84550; 85025; 86140; 96372; 99284; J1885

== ENCOUNTER → 2025-03-23 11:34 | Outpatient (BNV) | payer OTHER, SELFPAY | PROVIDERS: Emergency Provider Emergency Medicine; PCP Internal Medicine; Visit Provider Radiology Vascular & Interventional Radiology | DX: M19.072 Primary osteoarthritis, left ankle and foot (principal) | CPT/HCPCS: 73660 ==

== ENCOUNTER 2025-05-08 17:24 | Emergency (ER) | payer OTHER, SELFPAY ==
--- NOTE | ~2025-05-08 | XR_ITS ---
CLINICAL HISTORY: chest pain Two views of the chest. Comparison 10/31/2024. Findings: Body habitus mildly limits the study. The lungs are under ventilated. The heart is enlarged. There is no CHF. No consolidation or pleural effusion is seen. Impression: No acute abnormality is identified. This document has been electronically signed by: Roman Murry MD on 05/08/2025 18:08:03
--- NOTE | 2025-05-08 17:27 | ECG_ITS ---
Test Reason : CHEST PAIN Blood Pressure : */* mmHG Vent. Rate : 59 BPM Atrial Rate : 59 BPM P-R Int : 158 ms QRS Dur : 92 ms QT Int : 380 ms P-R-T Axes : 39 47 41 degrees QTcB Int : 376 ms Sinus bradycardia Otherwise normal ECG When compared with ECG of 30-Oct-2024 22:34, No significant change was found Referred By: Generic ED Physician Electronically Signed By: AILEEN GLEASON
[2025-05-08 17:30] VITALS: BP 107/77; PULSE 61; RESP 18; TEMP 36.8; O2SAT 96; BMI 41.5
--- NOTE | 2025-05-08 17:34 | ED.GENADULT ---
HPI - General Adult General Chief complaint: Chest Pain Stated complaint: CP Time Seen by Provider: 05/08/25 20:42 Source: patient Mode of arrival: ambulatory Limitations: no limitations History of Present Illness ED Provider: HPI narrative: Patient with history of frequent right-sided chest pain workup negative in the past but never had a stress test at Holter monitoring in the past comes here for right-sided heaviness started just whenever prior to arrival feeling much better at this time feels slightly anxious with slight shortness a breath and dizziness Related Data Previous Rx's ?Medication ?Instructions ?Recorded tamsulosin 0.4 mg capsule 0.4 mg PO BEDTIME 14 days #14 caps 06/12/24 meclizine 25 mg tablet 25 mg PO TID PRN dizziness 30 days 07/21/24 #90 tabs acetaminophen 325 mg tablet 975 mg (3 x 325 mg) PO Q6H PRN 07/29/24 (Tylenol) pain #20 tabs amlodipine 2.5 mg tablet 2.5 mg PO DAILY #30 tabs 07/29/24 adult diapers pull-ups #150 ea 11/18/24 gabapentin 100 mg capsule 200 mg (2 x 100 mg) PO TID 90 days 11/19/24 #540 caps amitriptyline 10 mg tablet 10 mg PO BEDTIME 90 days #90 tabs 02/14/25 colchicine 0.6 mg tablet 0.6 mg PO BID 7 days #14 tabs 03/23/25 prednisone 50 mg tablet 50 mg PO DAILY 5 days #5 tabs 03/23/25 lisinopril 20 mg tablet 20 mg PO DAILY 90 days #90 tabs 04/23/25 acetaminophen 500 mg tablet 500 mg PO Q6H PRN pain #40 tabs 05/08/25 Allergies Allergy/AdvReac Type Severity Reaction Status Date / Time Penicillins Allergy Mild UNKNOWN Verified 05/08/25 17:36 nicotine (NICOTINE) AdvReac Intermediate TACHYCARDIA Verified 05/08/25 17:36 (PATCH) Review of Systems Review of Systems: Yes all other systems are reviewed and are negative PMFSH Past Medical History Medical History JOHNNY (acute kidney injury) Nicotine dependence, cigarettes, uncomplicated Hypovitaminosis D Moderate recurrent major depression Morbid obesity PVC's (premature ventricular contractions) Palpitations Menieres disease Tremors of nervous system Erectile dysfunction Hypertension Surgical History History of colonoscopy History of surgery Family History Family History Father CVD (cardiovascular disease) Diabetes Mother No problems noted. Maternal Uncle Prostate cancer Family/Other Substance use disorder Social History Social History Household Members: Spouse Housing: Apartment Do you presently have visiting nurse or other home services: No Alcohol intake: never Patient Tobacco Use Status: Current everyday Tobacco user Tobacco use type: Cigarette Cigarette Packs Per Day: 0.5 Cigarettes Per Day: 10 Years Smoked: (onset 17yo, 1/2-1ppd x 45yrs, 30+pyh) Smoked in Last 30 Days: Yes e-Cigarette/Vaping Use: Never Used Second Hand Smoke Exposure: Yes Use of substances other than those prescribed or required for medical reasons: No Advance Directives: Yes Advance Directives on File: Yes Advance Directives Date on File: 04/08/24 Do you have a plan to hurt others: No Plan service: No Current occupational status: disabled Cognitive needs: No Hearing needs: No Vision needs: Yes Physical Exam ED Exam Exam: Appearance: Alert. Oriented X3. No acute distress. Eyes: PERRLA, No Nystagmus ENT: Pharynx normal. Oral Mucosa moist Neck: Normal inspection. Neck supple. CVS: Normal heart rate and rhythm. Pulses normal. Respiratory: No respiratory distress. Equal air entry bilateral, no wheezing/rales/rhonchi right-sided diffuse chest wall tenderness Abdomen: Soft and nontender. Bowel sounds are present, no mass palpable, no CVA tenderness Skin: Skin warm and dry. Normal skin color. Normal skin turgor. Extremities: No lower extremity edema. No calf tenderness Neuro: Oriented X 3. No motor deficit. No sensory deficit.No cerebellar signs , cranial nerves II-XII intact Vital Signs: Vital Signs - 24 hr 05/08/25 17:30 05/08/25 19:55 05/08/25 21:21 Temperature 98.2 F 97.8 F 97.8 F Pulse Rate 61 65 65 Respiratory Rate 18 18 18 Blood Pressure 107/77 131/60 131/60 Pulse Oximetry 96 96 96 Oxygen Delivery Method Room Air BMI result Body Mass Index 41.5 Course Course Course Narrative: This is a rapid medical exam performed by Venkatesh Dickerson NP: Additional HPI, ROS, PE not included below will be deferred to primary provider. Patient is a 64-year-old male presenting with complaint of R sided chest pain, dizziness, BP elevated at home, BP 188/71. States pain began around 1 hr ago. Plan: EKG, CXR, labs Medical Decision Making Medical Decision Making [facility] Narrative: Patient has atypical chest pain with history of similar chest pain in the past 2 sets of troponin negative for delta change will discharge patient home advised to follow up with delicatessen clerk Differential Diagnosis Differential Diagnoses: The differential diagnosis associated with the presentation includes Pleurisy/pneumonia/ACS Lab Data [facility] Lab Attestation statement: I reviewed the patient's lab results. 05/08/25 17:52 05/08/25 17:52 Labs: Lab Results 05/08/25 05/08/25 Range/Units 17:52 20:00 WBC 8.8 (4.8-10.8) X10*3/uL RBC 4.28 L (4.60-5.80) X10*6/uL Hgb 13.8 L (14.0-18.0) g/dl Hct 40.2 L (42.0-52.0) % MCV 93.9 (80.0-98.0) fL MCH 32.2 (27.0-33.0) pg MCHC 34.3 (31.0-36.0) g/dl RDW 13.3 (11.0-16.0) % Plt Count 232 (160-400) X10*3/uL MPV 10.7 (9.4-12.4) fL Immature Gran % (Auto) 0.3 (0.0-0.4) % Neut % (Auto) 43.0 L (45-73) % Lymph % (Auto) 40.8 H (20-40) % [place] % (Auto) 9.2 (2-11) % Eos % (Auto) 6.0 H (0-4) % Baso % (Auto) 0.7 (0-2) % Lymph # (Auto) 3.6 (1.2-4.9) X10*3/uL [place] # (Auto) 0.8 (0.1-1.2) X10*3/uL Eos # (Auto) 0.5 H (0.0-0.4) X10*3/uL Baso # (Auto) 0.1 (0.0-0.2) X10*3/uL Abs Immat Gran (auto) 0.03 (0.00-0.03) X10*3/uL Absolute Neuts (auto) 3.8 (2.0-8.3) x10*3/uL Absolute Nucleated RBC 0.000 (0.0-0.012) X10*3/uL Nucleated RBC % (auto) 0.0 (0.0-0.2) /100WBC Sodium 142 (135-145) mmol/L Potassium 4.6 (3.3-5.1) mmol/L Chloride 110 H (96-108) mmol/L Carbon Dioxide 26 (22-29) mmol/L Anion Gap 11 L (12-20) BUN 17 H (9-16) mg/dL Creatinine 1.24 (0.5-1.4) mg/dL Estim Creat Clear Calc 74.1 Estimated GFR 59 Random Glucose 123 H (60-115) mg/dL Calcium 9.2 (8.4-10.2) mg/dL Total Bilirubin 0.3 (0.0-1.0) mg/dL AST 31 (5-37) U/L ALT 26 (0-40) U/L Alkaline Phosphatase 88 (39-117) U/L Troponin I High Sens 3.9 4.1 (<3.5-35.0) ng/L Total Protein 6.8 (6.5-8.0) g/dL Albumin 4.1 (3.5-5.0) g/dL Independent Interpretation I performed an independent interpretation of an: EKG Interpretation: Sinus bradycardia with heart rate of 59 beats per minute normal interval normal axis no acute ST-T changes no acute ischemia Discharge Plan Discharge Clinical Impression: Chest pain Patient Disposition: Home, Self-Care Instructions: Chest Pain (ED) Additional Instructions: Your cause of chest pain is likely musculoskeletal Take Tylenol for pain and follow up with your PCP/delicatessen clerk for further evaluation Prescriptions: New acetaminophen 500 mg tablet 500 mg PO Q6H PRN (Reason: pain) Qty: 40 0RF No Action meclizine 25 mg tablet 25 mg PO TID PRN (Reason: dizziness) 30 Days Qty: 90 1RF amitriptyline 10 mg tablet 10 mg PO BEDTIME 90 Days Qty: 90 0RF lisinopril 20 mg tablet 20 mg PO DAILY 90 Days Qty: 90 0RF tamsulosin 0.4 mg capsule 0.4 mg PO BEDTIME 14 Days Qty: 14 0RF prednisone 50 mg tablet 50 mg PO DAILY 5 Days Qty: 5 0RF colchicine 0.6 mg tablet 0.6 mg PO BID 7 Days Qty: 14 0RF amlodipine 2.5 mg tablet 2.5 mg PO DAILY Qty: 30 0RF Rx Instructions: Use amlodipine 2.5 mg for 1 week, repeat BMP if kidney function better than can switch back to lisinopril and stop amlodipine at that time. acetaminophen [Tylenol] 325 mg tablet 975 mg PO Q6H PRN (Reason: pain) Qty: 20 0RF (DME) adult diapers pull-ups Large See Rx Instructions .Route .MEDSUPPLY Qty: 150 11RF Rx Instructions: As directed gabapentin 100 mg capsule 200 mg PO TID 90 Days Qty: 540 1RF Referrals: Jaxson Dalal MD [Physician, Cardiology] Referral Note: Chest pain Interventions: ED Discharge Assessment Last Done: 05/08/25 21:21 Discharge Date/Time: 05/08/25 21:22 Print Language: Persian
[2025-05-08 18:00] LABS: MANUAL DIFF FLAG NO
[2025-05-08 18:10] LABS: Hematocrit 40.2 % (42.0-52.0); Hemoglobin 13.8 g/dl (14.0-18.0); Imm Gran Abs Auto 0.03 X10*3/uL (0.00-0.03); Imm Gran Pct Auto 0.3 % (0.0-0.4); Lymphocytes Absolute Auto 3.6 X10*3/uL (1.2-4.9); Mean Corpuscular HGB Conc 34.3 g/dl (31.0-36.0); Mean Corpuscular Hemoglobin 32.2 pg (27.0-33.0); Mean Corpuscular Volume 93.9 fL (80.0-98.0); NRBC Abs Auto 0.000 X10*3/uL (0.0-0.012); NRBC Pct Auto 0.0 /100WBC (0.0-0.2); Platelet Count 232 X10*3/uL (160-400); Red Blood Count 4.28 X10*6/uL (4.60-5.80); White Blood Count 8.8 X10*3/uL (4.8-10.8)
[2025-05-08 18:19] LABS: Alanine Aminotransferase 26 U/L (0-40); Albumin Level 4.1 g/dL (3.5-5.0); Alkaline Phosphatase 88 U/L (39-117); Anion Gap 11 (12-20); Aspartate Amino Transferase 31 U/L (5-37); Blood Urea Nitrogen 17 mg/dL (9-16); Calcium 9.2 mg/dL (8.4-10.2); Carbon Dioxide 26 mmol/L (22-29); Chloride 110 mmol/L (96-108); Creatinine Clr Calc Pharmacy 74.1; Estimated Glomerular Filt Rate 59; Potassium 4.6 mmol/L (3.3-5.1); Sodium 142 mmol/L (135-145); Total Protein 6.8 g/dL (6.5-8.0)
[2025-05-08 18:26] LABS: Troponin-I High Sensitivity 3.9 ng/L (<3.5-35.0)
[2025-05-08 19:55] VITALS: BP 131/60; PULSE 65; RESP 18; TEMP 36.6; O2SAT 96
[2025-05-08 20:30] LABS: Troponin-I High Sensitivity 4.1 ng/L (<3.5-35.0)
[2025-05-08 21:21] VITALS: BP 131/60; PULSE 65; RESP 18; TEMP 36.6; O2SAT 96
== END 2025-05-08 21:22 | disposition home or self-care (01) ==
PROVIDERS: Registered Nurse Emergency; Emergency Provider Internal Medicine
DX: R07.89 Other chest pain (principal); R00.1 Bradycardia, unspecified; Z79.899 Other long term (current) drug therapy
CPT/HCPCS: 36415; 71046; 80053; 84484; 85025; 93005; 99283; 99284

== ENCOUNTER → 2025-05-08 17:27 | Outpatient (BNV) | payer OTHER, SELFPAY | PROVIDERS: Emergency Provider Internal Medicine; Visit Provider Internal Medicine | DX: R00.1 Bradycardia, unspecified (principal) | CPT/HCPCS: 93010 ==

== ENCOUNTER → 2025-05-08 17:35 | Outpatient (BNV) | payer OTHER, SELFPAY | PROVIDERS: Visit Provider Radiology Diagnostic Radiology | DX: R07.9 Chest pain, unspecified (principal) | CPT/HCPCS: 71046 ==

== ENCOUNTER 2025-05-19 14:52 | Outpatient (AMB) | payer OTHER, SELFPAY ==
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
[2025-05-19 15:08] VITALS: BP 110/70; BMI 40.5
--- OUTSIDE RECORDS SUMMARY | 2025-05-19 15:26 | XMS_ITS | Clinical Summary ---
Author Organization [facility] Address [address] [place] [address] Care Team Providers [employer] Operator Name Role Phone Unavailable Primary Care Provider [...] Encounters Date Type Department Care Team Description 02/28/2025 Telephone [facility] [address] [place] [address] Leslie Tamayo OD from Last 3 Months Social History Tobacco [...] 10 :17 AM EDT Plan of Treatment Health Maintenance Due Date Last Done Comments CT Colonography 1962 Colonoscopy 1962 Colorectal Cancer Screening 1962 Depression Screening 1962 FIT DNA/Cologuard 1962 FIT 1962 FOBT 1962 HIV Screening 1962 Lipid Panel 1962 SDOH Screening 1962 Sigmoidoscopy 1962 Disability Screening 1962 Alcohol/Substance Use Screening 1974 Hepatitis C Screening 1980 Pneumococcal Vaccine: 50+ Years (1 of 2 - PCV) 1981 Hepatitis B Vaccines (3 of 3 - 19+ 3-dose series) 05/22/2003 01/31/2003, 11/22/2002 Zoster Vaccines (1 of 2) 2012 COVID-19 Vaccine ( season) 2024 10/12/2021, 03/21/2021, 02/18/2021 Influenza Vaccine (#1) 2025 2, 07/24/2020, 01/07/2020, Additional history exists Tobacco [...] patient's age to complete this topic Meningococcal B Vaccine Aged Out No l onger eligible based on patient's age to complete this topic Meningococcal Vaccine Aged Out No marlee susan eligible based on patient's age to complete this topic RSV under 20 months Aged Out No longe r eligible based on patient's age to complete this topic Rotavirus Vaccines Aged Out No longer eligible based on patient's age to complete this topic [place] [place] [address] STANDARD
== END 2025-05-19 15:44 | disposition home or self-care (01) ==
LOC: HO.HMCH 14:53
PROVIDERS: PCP Internal Medicine; Visit Provider Internal Medicine
DX: I10 Essential (primary) hypertension (principal); F33.1 Major depressive disorder, recurrent, moderate; E66.01 Morbid (severe) obesity due to excess calories; Z68.41 Body mass index [BMI] 40.0-44.9, adult; F41.1 Generalized anxiety disorder; G47.00 Insomnia, unspecified

== ENCOUNTER → 2025-05-19 14:52 | Outpatient (BNVA) | payer OTHER, SELFPAY | PROVIDERS: PCP Internal Medicine; Visit Provider Internal Medicine | DX: I10 Essential (primary) hypertension (principal); F33.1 Major depressive disorder, recurrent, moderate; F41.1 Generalized anxiety disorder; E66.01 Morbid (severe) obesity due to excess calories; G47.00 Insomnia, unspecified; R35.1 Nocturia; F17.210 Nicotine dependence, cigarettes, uncomplicated; Z71.6 Tobacco abuse counseling; Z79.899 Other long term (current) drug therapy | CPT/HCPCS: 96127; 99212 ==

== ENCOUNTER 2025-05-20 12:47 | Outpatient (REF) | payer OTHER, SELFPAY ==
[2025-05-20 18:07] LABS: MANUAL DIFF FLAG NO
[2025-05-20 18:17] LABS: Hematocrit 44.6 % (42.0-52.0); Hemoglobin 14.9 g/dl (14.0-18.0); Imm Gran Abs Auto 0.02 X10*3/uL (0.00-0.03); Imm Gran Pct Auto 0.2 % (0.0-0.4); Lymphocytes Absolute Auto 3.2 X10*3/uL (1.2-4.9); Mean Corpuscular HGB Conc 33.4 g/dl (31.0-36.0); Mean Corpuscular Hemoglobin 31.9 pg (27.0-33.0); Mean Corpuscular Volume 95.5 fL (80.0-98.0); NRBC Abs Auto 0.000 X10*3/uL (0.0-0.012); NRBC Pct Auto 0.0 /100WBC (0.0-0.2); Platelet Count 279 X10*3/uL (160-400); Red Blood Count 4.67 X10*6/uL (4.60-5.80); White Blood Count 8.6 X10*3/uL (4.8-10.8)
[2025-05-20 18:29] LABS: Alanine Aminotransferase 27 U/L (0-40); Albumin Level 4.4 g/dL (3.5-5.0); Alkaline Phosphatase 73 U/L (39-117); Anion Gap 12 (12-20); Aspartate Amino Transferase 31 U/L (5-37); Blood Urea Nitrogen 18 mg/dL (9-16); Calcium 9.3 mg/dL (8.4-10.2); Carbon Dioxide 26 mmol/L (22-29); Chloride 109 mmol/L (96-108); Estimated Glomerular Filt Rate 60; Iron 165 mcg/dL (45-160); Percent Iron Saturation 54 % (15-50); Potassium 4.8 mmol/L (3.3-5.1); Sodium 142 mmol/L (135-145); Total Iron Binding Capacity 307 mcg/dL (228-428); Total Protein 7.4 g/dL (6.5-8.0); Unsaturated Iron Binding 142 ug/dL
[2025-05-20 18:47] LABS: Ferritin 189 ng/mL (20-250)
[2025-05-20 19:14] LABS: Folate 7.4 ng/mL (> or = 4.0); Vitamin B12 372 pg/mL (200-900)
== END 2025-05-20 12:48 | disposition home or self-care (01) ==
LOC: HO.HKASLDS 12:47
PROVIDERS: PCP Internal Medicine; Visit Provider Nurse Practitioner Family
DX: G47.33 Obstructive sleep apnea (adult) (pediatric) (principal); G25.81 Restless legs syndrome; H93.13 Tinnitus, bilateral; G44.52 New daily persistent headache (NDPH); G47.34 Idiopathic sleep related nonobstructive alveolar hypoventilation; D64.9 Anemia, unspecified; F41.1 Generalized anxiety disorder; I10 Essential (primary) hypertension; Z79.899 Other long term (current) drug therapy
CPT/HCPCS: 36415; 80053; 82607; 82728; 82746; 83090; 83540; 83921; 84443; 85025; 99212

== ENCOUNTER 2025-05-20 12:47 | Outpatient (AMB) | payer OTHER, SELFPAY ==
[2025-05-20 12:53] VITALS: BP 118/70; PULSE 77; O2SAT 95; BMI 41.1
--- NOTE | 2025-05-20 12:53 | A.OFFVIS_ITS ---
Vital Signs 05/20/25 12:53 Height 5 ft 6 in Weight 254 lb 8 oz BMI 41.1 BP 118/70 Blood Pressure Location Lt brachial Position Sitting Pulse 77 Pulse Source Pulse Oximeter Pulse Oximetry (%) 95 Oxygen Delivery Method Room Air Intake Visit Reasons: 6 mnts f/u Intake Note: Patient presents follow up Tremor/MICHAEL. MRI/HST in chart. No Labs. Stitch Wheeler Required: Yes Stitch Wheeler Name: mary [id number] Allergies Penicillins Allergy (Mild, Verified 05/20/25 13:01) UNKNOWN nicotine (NICOTINE) Adverse Reaction (Intermediate, Verified 05/20/25 13:01) TACHYCARDIA (PATCH) Medication List - Last Reconciled 05/20/25 by RASHEEDA Farley acetaminophen 500 mg PO Q6H PRN acetaminophen (Tylenol) 975 mg (3 x 325 mg) PO Q6H PRN [adult diapers pull-ups As directed] amitriptyline 10 mg PO BEDTIME 90 days amlodipine 2.5 mg PO DAILY colchicine 0.6 mg PO BID 7 days gabapentin 200 mg (2 x 100 mg) PO TID 90 days lisinopril 20 mg PO DAILY 90 days meclizine 25 mg PO TID PRN 30 days tamsulosin 0.4 mg PO BEDTIME 14 days HPI Comments Details: 64-yr-old male presents for f/u visit of tremor, sleep apnea, head pressure/tinnitus, and dizziness. Today, patient states that a medication that was supposed to be sent by our office, was not sent. Upon clarification, patient did receive the increased gabapentin to 200 mg 3 times a day, which he is taking. There was no other specific medication that was meant to be sent. Rather he just thought that a medication should be sent, as his ?tremor? symptoms have persisted. Today he clarifies that the tremor and restlessness only occur when he lays down in bed at night, although sleeping with his head elevated on 3 pillows is helpful. However he often has to get out of his bed and move around. His bedtime varies, maybe 00:00 or 1 or 02:00. He denies creepy crawly sensation. He states he tolerates the gabapentin well. However, he does note by he can be prone to some lightheaded dizziness, which he takes meclizine for. He states other than a morning coffee, he only eats 1 meal a day, in the afternoon. Interval brain MRI showed stable white matter changes, as well as a left parotid gland lesion. After review of the MRI results, patient was referred for ENT consult, however patient states he has not heard yet. He also states that he had asked his PCP for a referral to ENT for evaluation of his hearing, which was made, but he has not heard anything. Interval home sleep study showed moderate obstructive sleep apnea with nocturnal hypoxemia. An order was written for patient to start on APAP therapy, however patient states that he may have received a call to set up the appointment, but there was confusion about the date. 01/15/2025 home sleep study showed moderate sleep apnea with nocturnal hypoxemia. AHI 20 per hour, O2 mary alice 74% with SpO2 under 88% for 43 minute, and under 90% for 85 minutes study time, with average SpO2 91%. Snoring for 21% of study time. 12/01/2024, MR/MR head/brain wo/w con IMPRESSION: 1. No acute intracranial abnormality. No evidence of a CP angle or internal auditory canal mass. A few stable scattered white matter hyperintensities on the FLAIR images which are nonspecific but often seen in the setting of chronic small vessel ischemic disease. 2. 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 ENT evaluation is suggested. 11/19/2024, HPI: Patient underwent HST on 06/09/2023, which mild obstructive sleep apnea with nocturnal hypoxemia. AHI 9.6/hour, O2 mary alice 77% with SpO2 under 90% for 66 minute 12% of study time, and SpO2 under 88% for 22 minute, average SpO2 91%. Heart rate range 59-116 bpm. Sorry was noted for 6.3% of study time. After review of the sleep study, patient was off just start on CPAP, however he wanted to have visit to discuss w/ myself first. Unfortunately he had missed his f/u aapts, so has not started PAP tx yet. Patient reports he continues to help snoring and gasping arousals- even with sleeping on 2 pillows, as well as daytime sleepiness. Pt reports his tremor is occurring more frequently. The tremor is still symmetric and starts in his feet and moves up throughout his entire body, and more so at rest, but now can occur during the day as well when at rest. He used to have 1 or 2 days a week with tremor, but now has 3-4 days, and now he can have multiple days in a row with tremor. The tremor is very bothersome. At times, the tremor can make it difficult to put his shoes on. States gabapentin does not seem to be reducing the tremor anymore- overall he feels he tolerates this well. Pt is right-handed. ADL status: Difficulty putting on his shoes- which he attributes to low back pain as well. IADL status: He is needing more help overall. His son helps. His son lives close by and visits daily. Fine-motor skills: Ind Writing: shakey when he has tremor but otherwise ok Hypophonia: States his voice has changed-softer Hyposmia: decreased- he thinks it is d/t allergies Dysphagia: No issues Drooling: None, more prone to dry mouth Orthostatic lightheadedness: If he stands up quickly, everything turns black and feels lightheaded. Has room spinning dizziness with rolling over or laying flat in bed- so sleeps on 3 pillows. Drinks a small coffee in the am, 3 16 oz bottles of water a day, at times a glass of juice at night. He is on lisinopril and Flomax. BP can be either normotensive or hypertensive, and at times as low diastolic BP. Constipation: No issues Slowness: No Freezing episodes: No Tremor: as above Stiffness: neck, back pain/tightness which radiates down the left leg, feels left leg weakness. has h/o lumbar disc repair Tylenol helps some (takes 1000mg every 4 hours hours around the clock). Gait changes: Slow to stand d/t back pain. Using a cane now. Has had 3 falls r/t orthostatic lightheadedness. Sleep difficulty: Yes. He reports snoring, gasping arousals, daytime sleepiness. He had HST in 2022- showed mild MICHAEL w/ nocturnal hypoxemia. He is open to having a f/u HST- but states he will need something for sleep. Memory impairment: Finds himself forgetful. Hallucinations: At times sees a flash in front of him. His last eye exam was 3 months ago- has f/u ordered in February. [facility]. Usual exercise: Not exercising, but trying to eat better. Other: Bilateral near-constant ear pressure and high-pitched tinnitus. Rarely has a headache, which is not a/w photo/phonophobia or N/V. [facility] Medical History JOHNNY (acute kidney injury) Nicotine dependence, cigarettes, uncomplicated Hypovitaminosis D Moderate recurrent major depression Morbid obesity PVC's (premature ventricular contractions) Palpitations Menieres disease Tremors of nervous system Erectile dysfunction Hypertension Surgical History History of colonoscopy History of surgery Family History Father CVD (cardiovascular disease) Diabetes Mother No problems noted. Maternal Uncle Prostate cancer Family/Other Substance use disorder Social History Household Members: Spouse Housing: Apartment Do you presently have visiting nurse or other home services: No Alcohol intake: never Patient Tobacco Use Status: Current everyday Tobacco user Tobacco use type: Cigarette Cigarette Packs Per Day: 0.5 Cigarettes Per Day: 10 Years Smoked: (onset 17yo, 1/2-1ppd x 45yrs, 30+pyh) e-Cigarette/Vaping Use: Never Used Second Hand Smoke Exposure: Yes Advance Directives Date on File: 04/08/24 service: No Current occupational status: disabled Cognitive needs: No Hearing needs: No Vision needs: Yes Physical Exam Vital Signs: Last Vital Signs Pulse 77 05/20/25 12:53 BP 118/70 05/20/25 12:53 Pulse Ox 95 05/20/25 12:53 Oxygen Delivery Method Room Air 05/20/25 12:53 BMI result Body Mass Index 41.1 Const General: cooperative and no acute distress Orientation/consciousness: oriented to person, oriented to place and oriented to time HEENT Other: Mallampati stage IV Resp Effort & Inspection: normal respiratory effort and able to speak in complete sentences Neuro Other: Expression: Good expression Voice: Intact Tremor: None Gait: Slow to stand, shorter steps with mild bilateral BLE external rotation and lower floor clearance. Psych: Pleasant affect General: oriented to person, oriented to place and oriented to time Psych Mental Status: mental status grossly normal Affect: normal affect Attitude: cooperative Thought process: Normal thought process present Assessment & Plan Assessment & Plan (1) Restless leg syndrome: Code(s): G25.81 - Restless legs syndrome Category: Medical (2) New daily persistent headache: Comment: Bilateral ear pressure and tinnitus. Code(s): G44.52 - New daily persistent headache (NDPH) Category: Medical (3) MICHAEL (obstructive sleep apnea): Code(s): G47.33 - Obstructive sleep apnea (adult) (pediatric) Category: Medical (4) Sleep difficulties: Code(s): G47.9 - Sleep disorder, unspecified Category: Medical (5) Nocturnal hypoxemia: Code(s): G47.34 - Idiopathic sleep related nonobstructive alveolar hypoventilation Category: Medical Plan For obstructive sleep apnea with nocturnal hypoxemia: Start APAP 5-20 cmH2O w/ EPR set to need the nightly > 4 hours. * We will follow-up with regional home care, on the status of his APAP set up appointment. * Once patient has a adjusted using APAP therapy, patient is advised to undergo nocturnal pulse oximetry x1 night on room air via APAP 5-20 cm H2O to assess effectiveness of PAP therapy on reducing severity of nocturnal hypoxemia. * Clean CPAP machine and supplies routinely. * Change CPAP supplies routinely. * Use distilled water in CPAP water reservoir. * Pt to contact us or respiratory company with any questions or concerns. Reviewed brain MRI results, no acute findings, and stable chronic microangiopathic changes. There is noted a left parotid lesion, for which we have requested ENT evaluation. We will follow-up on status of ENT consult order. Discussed that patient has tremor symptoms at rest, are consistent with restless leg syndrome: Increase gabapentin from 200 mg 3 times a day to: * Gabapentin 200 mg 3 times a day in the morning, afternoon, and evening * Gabapentin 300 mg daily at bedtime Patient again advised to have labs to assess for common etiologies of RLS signs and symptoms-patient will do today For ear pressure, tinnitus, orthostatic lightheadedness, and dizziness: Ensure adequate fluid intake of at least 64 oz. per day. Patient encouraged to eat small meals throughout the day Stands slowly Gabapentin as above. ENT consult as above Will follow-up upon review of above and patient to follow-up in clinic in 6 months or sooner prn. Orders: Orders Comprehensive [place]. Panel Fast Today D64.9 - Anemia, unspecified, F41.1 - Generalized anxiety disorder, I10 - Essential (primary) hypertension Ferritin Today D64.9 - Anemia, unspecified, F41.1 - Generalized anxiety disorder, I10 - Essential (primary) hypertension Overnight Pulse Oximetry Today G47.33 - Obstructive sleep apnea (adult) (pediatric), G47.34 - Idiopathic sleep related nonobstructive alveolar hypoventilation Complete Blood Count Auto Diff Today D64.9 - Anemia, unspecified, F41.1 - Generalized anxiety disorder, I10 - Essential (primary) hypertension Vitamin B12 and Folate Today D64.9 - Anemia, unspecified, F41.1 - Generalized anxiety disorder, I10 - Essential (primary) hypertension IRON PROFILE Today D64.9 - Anemia, unspecified, F41.1 - Generalized anxiety disorder, I10 - Essential (primary) hypertension Methylmalonic Acid Today D64.9 - Anemia, unspecified, F41.1 - Generalized anxiety disorder, I10 - Essential (primary) hypertension Homocysteine Today D64.9 - Anemia, unspecified, F41.1 - Generalized anxiety disorder, I10 - Essential (primary) hypertension TSH reflex Free T4 Today D64.9 - Anemia, unspecified, F41.1 - Generalized anxiety disorder, I10 - Essential (primary) hypertension Medications: New gabapentin continue 200mg tid orser 300 mg PO BEDTIME 30 caps 6RF 30 days Refilled gabapentin 200 mg (2 x 100 mg) PO TID 540 caps 1RF 90 days Coding Level of Care Code Est Pt Level 4 (20965) Diagnoses Restless leg syndrome G25.81 New daily persistent headache G44.52 MICHAEL (obstructive sleep apnea) G47.33 Sleep difficulties G47.9 Nocturnal hypoxemia G47.34
--- OUTSIDE RECORDS SUMMARY | 2025-05-20 13:32 | XMS_ITS | Clinical Summary ---
Author Organization [employer] Address [address] [place] [address] Care Team Providers Care Brim Buster Name Role Phone Unavailable Primary Care Provider [...] Type Department Care Team Description 02/28/2025 Telephone [facility] OPTOMETRY [address] [place] [address] Leslie Tamayo OD from Last 3 Months [...] patient's age to complete this topic [place] [address] [place] [address] STANDARD
== END 2025-05-20 14:04 | disposition home or self-care (01) ==
LOC: HO.HSMS 12:48
PROVIDERS: PCP Internal Medicine; Visit Provider Nurse Practitioner Family
DX: G25.81 Restless legs syndrome (principal); G44.52 New daily persistent headache (NDPH); G47.33 Obstructive sleep apnea (adult) (pediatric); G47.9 Sleep disorder, unspecified; G47.34 Idiopathic sleep related nonobstructive alveolar hypoventilation
CPT/HCPCS: 99214

== ENCOUNTER 2025-05-26 08:34 | Outpatient (AMB) | payer OTHER, SELFPAY ==
--- NOTE | 2025-05-26 08:37 | A.OFFVIS_ITS ---
Vital Signs 05/26/25 08:38 Height 5 ft 6 in Weight 253 lb 15.56 oz BMI 41.0 BP 118/72 Blood Pressure Location Lt brachial Position Sitting Pulse 72 Pulse Source Pulse Oximeter Intake Visit Reasons[place] [facility] followup cp Gasket Former Required: Yes Gasket Former Name: voice cho [id number] Allergies Penicillins Allergy (Mild, Verified 05/26/25 08:42) UNKNOWN nicotine (NICOTINE) Adverse Reaction (Intermediate, Verified 05/26/25 08:42) TACHYCARDIA (PATCH) Medication List - Last Reconciled 05/26/25 by Monica Costello NP-C acetaminophen 500 mg PO Q6H PRN acetaminophen (Tylenol) 975 mg (3 x 325 mg) PO Q6H PRN [adult diapers pull-ups As directed] gabapentin 200 mg (2 x 100 mg) PO TID 90 days gabapentin 300 mg PO BEDTIME 30 days lisinopril 20 mg PO DAILY 90 days meclizine 25 mg PO TID PRN 30 days tamsulosin 0.4 mg PO BEDTIME 14 days HPI H[place] [facility] followup cp: Details: Aleksandr is a 64-year-old male with past medical history of hypertension, impaired fasting glucose, morbid obesity, smoking, who was recently seen in the emergency room for chest discomfort. He ruled out for ACS. It was thought his discomfort was musculoskeletal. He was referred to Cardiology in follow-up. Today he presents for cardiology consultation. He tells me he has been getting left-sided chest discomfort, pressure, for the last few years. He tells me that it can occur randomly and persists until he takes either Tylenol or aspirin and it will gradually go away. He says that palpation or movement does not affect his symptom. It makes him nervous that it is heart related. He tells me his brother just in his sleep a few weeks ago. No shortness of breath, PND, orthopnea or edema. No palpitations, lightheadedness, presyncope, syncope. Compliant with meds. Smokes 1/2 pack of cigarettes per day. Denies alcohol or illicit substance use. Admits to being sedentary and does no routine exercise. No other known family history of heart disease. No personal history of heart disease. [facility] Medical History JOHNNY (acute kidney injury) Nicotine dependence, cigarettes, uncomplicated Hypovitaminosis D Moderate recurrent major depression Morbid obesity PVC's (premature ventricular contractions) Palpitations Menieres disease Tremors of nervous system Erectile dysfunction Hypertension Surgical History History of colonoscopy History of surgery Family History Father CVD (cardiovascular disease) Diabetes Mother No problems noted. Maternal Uncle Prostate cancer Family/Other Substance use disorder Social History Household Members: Spouse Housing: Apartment Do you presently have visiting nurse or other home services: No Alcohol intake: never Patient Tobacco Use Status: Current everyday Tobacco user Tobacco use type: Cigarette Cigarette Packs Per Day: 0.5 Cigarettes Per Day: 10 Years Smoked: (onset 17yo, 1/2-1ppd x 45yrs, 30+pyh) e-Cigarette/Vaping Use: Never Used Second Hand Smoke Exposure: Yes Advance Directives Date on File: 04/08/24 service: No Current occupational status: disabled Cognitive needs: No Hearing needs: No Vision needs: Yes Review of Systems Const All systems reviewed & are unremarkable except as noted in HPI and below ENT Denies dizziness Card Reports chest pain, Reports chest pain at rest, Reports chest pain with activity, Denies rapid heart rate, Denies pedal edema, Denies edema, Denies leg edema, Denies lightheadedness, Denies palpitations, Denies dyspnea, Denies dyspnea on exertion and Denies orthopnea Resp Denies cough, Denies dyspnea and Denies dyspnea on exertion GI Denies hematochezia and Denies change in stool character Musc Denies abnormal gait, Denies limited range of motion, Denies muscle cramps, Denies muscle weakness, Denies numbness, Denies radiating pain into limb, Denies stiffness and Denies tingling Neuro Denies abnormal gait, Denies dizziness, Denies numbness and Denies tingling Endo Denies palpitations Physical Exam Vital Signs: Last Vital Signs Pulse 72 05/26/25 08:38 BP 118/72 05/26/25 08:38 BMI result Body Mass Index 41.0 Const General: cooperative, healthy appearing, comfortable and no acute distress Orientation/consciousness: patient oriented x3 Eyes Sclerae: sclerae normal Neck Neck: Yes normal visual inspection and Yes no JVD Carotids: normal carotid upstroke Chest Chest palpation & inspection: normal inspection of the chest Resp Effort & Inspection: normal respiratory effort Auscultation: clear to auscultation bilaterally, no crackles, no rales, no rhonchi and no wheezes Cardio Jugular venous distension: no JVD Rate: regular rate Rhythm: regular rhythm Heart sounds: S1 normal heart sound present, S2 normal heart sound present, no gallops, no murmurs and no rubs Peripheral pulses: Peripheral pulses 2+ throughout GI Inspection: Yes normal to inspection Neuro General: patient oriented x3 Extrem General: Yes normal to inspection, No no pedal edema and No calf tenderness Psych Appearance: grossly normal Mental Status: mental status grossly normal Speech and movement: Normal speech and movement present Assessment & Plan Assessment & Plan (1) Chest discomfort: Code(s): R07.89 - Other chest pain Category: Medical Plan: Reports of atypical sounding chest discomfort. Cardiac risk factors of obesity, hypertension, impaired fasting glucose, family history, smoking. Recent EKG showed sinus bradycardia, no acute ST or T-wave abnormalities. Will check exercise stress test to evaluate for ischemia. Will order echocardiogram to assess for structural heart disease. Signs and symptoms of angina reviewed with him. Cardiology follow-up 4-6 weeks. (2) Hypertension: Code(s): I10 - Essential (primary) hypertension Category: Medical Qualifiers: Hypertension type: essential hypertension Qualified Code(s): I10 - Essential (primary) hypertension Plan: Blood pressure goal less than 130/80, well controlled at this time. Continue lisinopril. (3) Morbid obesity: Comment: (BMI 41 - 11/2022) Code(s): E66.01 - Morbid (severe) obesity due to excess calories Category: Medical Plan: BMI 41. Does no routine exercise or activities. (4) Smoking 1/2 pack a day or less: Code(s): F17.210 - Nicotine dependence, cigarettes, uncomplicated Category: Social Hx Plan: Admits to smoking 1/2 pack of cigarettes per day, considering quitting. (5) Hospital discharge follow-up: Code(s): Z09 - Encounter for follow-up examination after completed treatment for conditions other than malignant neoplasm Category: Medical Plan: ED notes reviewed Plan Time spent on chart review, documentation, interview and assessment Orders: Orders CA stress test Today E66.01 - Morbid (severe) obesity due to excess calories, I10 - Essential (primary) hypertension, R07.89 - Other chest pain CA echo transthoracic complete Today E66.01 - Morbid (severe) obesity due to excess calories, I10 - Essential (primary) hypertension, R07.89 - Other chest pain Coding Level of Care Code New Pt Level 4 (00001) Complex EM visit Add On G2211 Diagnoses Chest discomfort R07.89 Essential hypertension I10 Hypertension type: essential hypertension Morbid obesity E66.01 Smoking 1/2 pack a day or less F17.210 Hospital discharge follow-up Z09 Time Spent (min) 28
[2025-05-26 08:38] VITALS: BP 118/72; PULSE 72; BMI 41.0
--- OUTSIDE RECORDS SUMMARY | 2025-05-26 08:57 | XMS_ITS | Clinical Summary ---
Author Organization [employer] Address [address] [place] [address] Care Team Providers Care Carbon Cleaner Name Role Phone Unavailable Primary Care Provider [...] Type Department Care Team Description 02/28/2025 Telephone [facility] OPTOMETRY [address] [place] [address] Leslie Tamayo OD from Last 3 Months [...] patient's age to complete this topic [place] [address] [address] [address] STANDARD
== END 2025-05-26 09:13 | disposition home or self-care (01) ==
LOC: HO.HCS 08:35
PROVIDERS: PCP Internal Medicine; Visit Provider Nurse Practitioner Family
DX: R07.89 Other chest pain (principal); I10 Essential (primary) hypertension; E66.01 Morbid (severe) obesity due to excess calories; F17.210 Nicotine dependence, cigarettes, uncomplicated; Z09 Encounter for follow-up examination after completed treatment for conditions other than malignant neoplasm
CPT/HCPCS: 99204

== ENCOUNTER → 2025-05-26 08:34 | Outpatient (BNVA) | payer OTHER, SELFPAY | PROVIDERS: PCP Internal Medicine; Visit Provider Nurse Practitioner Family | DX: I10 Essential (primary) hypertension (principal); R07.89 Other chest pain; E66.01 Morbid (severe) obesity due to excess calories; F17.210 Nicotine dependence, cigarettes, uncomplicated; Z09 Encounter for follow-up examination after completed treatment for conditions other than malignant neoplasm | CPT/HCPCS: 99202 ==

== ENCOUNTER 2025-07-02 14:14 | Outpatient (AMB) | payer OTHER, SELFPAY ==
[2025-07-02 14:23] VITALS: BP 122/80; PULSE 76; O2SAT 98; BMI 41.0
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
--- OUTSIDE RECORDS SUMMARY | 2025-07-02 17:31 | XMS_ITS | Clinical Summary ---
Author Organization [employer] Address [address] [place] [address] Care Team Providers Care Hat Mender Name Role Phone Unavailable Primary Care Provider [...] Active Active Problems No known active problems Social History Tobacco Use Types Packs/Day Years [...] of 2) 2012 COVID-19 Vaccine ( - 2024- season) 2025 10/12/2021, 03/21/2021, 02/18/2021 Influenza Vaccine (#1) 2025 [...] patient's age to complete this topic Insurance [facility] STANDARD
== END 2025-07-02 14:40 | disposition home or self-care (01) ==
PROVIDERS: PCP Internal Medicine; Visit Provider Internal Medicine
DX: F33.1 Major depressive disorder, recurrent, moderate (principal); E66.01 Morbid (severe) obesity due to excess calories; Z68.41 Body mass index [BMI] 40.0-44.9, adult; F41.1 Generalized anxiety disorder; I10 Essential (primary) hypertension; M54.32 Sciatica, left side

== ENCOUNTER → 2025-07-02 14:46 | Outpatient (REF) | payer OTHER, SELFPAY ==
--- NOTE | 2025-07-02 14:49 | CA_ITS ---
Transthoracic Echocardiogram Patient (Last, First, Middle): Aleksandr White R Gender: Male Date of : 1960 Age: 64 Procedure Date: 07/02/2025 Procedure Type: Transthoracic Echocardiogram Location: OP Height: 167.64 cm Weight: 115.21 kg BSA: 2.21 m2 Heart Rate: bpm BP: 122 / 80 mmHg Manager Mental Health: KEVIN/MARY Referring MD: Monica Costello [employer] SPECIALIST-C Gluer Machine Operator: Jaxson Dalal MD Symptoms: R07.89 - Other chest pain Study Quality: Technically Difficult/Contrast ECG Rhythm: Sinus Conclusions: - 1. Normal LV ejection fraction with impaired relaxation filling pattern 2. Normal cardiac valvular Dopplers 3. No gross pericardial effusion Findings Procedure Information Contrast agent, definity, is being given per protocol without apparent complications. Left Ventricle Normal left ventricular size, thickness, and systolic function. The visually estimated ejection fraction is between 60-65%. Spectral Doppler is indicative of an impaired relaxation filling pattern. Right Ventricle Normal right ventricular cavity size and systolic function. Atria Both atria are normal in size. Interatrial shunt cannot be excluded. Aortic Valve Normal aortic valve structure and function. There is no aortic valve stenosis. There is no aortic valve regurgitation. Mitral Valve Normal mitral valve structure and function. There is trace mitral valve regurgitation. There is no mitral valve stenosis. Pulmonic Valve The pulmonic valve is likely normal. Tricuspid Valve Likely normal tricuspid valve structure and function. Tricuspid regurgitation envelope is inadequate for calculation of right ventricular systolic pressure. Normal right atrial pressure. Great Vessels All visible segments of the aorta are normal in size. The pulmonary artery was not well visualized. Venous The inferior vena cava is normal in size and collapses greater than 50% with inspiration. Pericardium/Pleural There is no evidence of pericardial effusion. Prior Study Comparison No significant change compared to prior study dated: 12/30/2021. Measurements 2D Linear Measurements IVSd: 0.85 0.6-0.9/0.6-1.0 cm LVIDd: 4.71 3.9-5.3/4.2-5.9 cm LVIDd Index: 2.13 2.4-3.2/2.2-3.1 cm/m2 LVIDs: 3.29 2.0-3.6 cm LVPWd: 0.84 0.7-1.1 cm LA Diam: 3.60 2.7-3.8/3.0-4.0 cm LAIDs Index: 1.63 1.5-2.3 cm/m2 LV Mass: 163.96 67-162/88-224 g LV Mass Index: 74.19 43-95/49-115 g/m2 LVOT Diam: 2.00 3.0+(-)1.3 cm 2D Systolic Function EF 4C: 61.80 >55% EF 2C: 58.00 >55% EF BiP: 60.00 >55% Mitral Valve MV Pk E: 0.72 MV PK A: 0.61 MV Decel Time: 165.00 E/A: 1.20 E'Lateral: 10.00 E'Medial: 6.85 E/E' Med: 10.50 E/E' Lat: 7.20 PHT: 48.00 MVA PHT: 4.58 Decel [place]: 4.35 Aortic Valve AoV Pk Thai: 1.30 AoV Mn Thai: 0.93 AoV VTI: 0.26 AoV Pk Grad: 7.00 Aov Mn Grad: 4.00 VERNON Cont.VTI: 2.67 LVOT LVOT Pk Thai: 1.23 LVOT Mn Thai: 0.78 LVOT VTI: 0.22 LVOT Pk Grad: 6.00 LVOT Mn Grad: 3.00 LVOT Diam: 2.00 LVOT Area: 3.14 Diastolic Function MV Pk E: 0.72 MV Pk A: 0.61 E/A: 1.20 E'Medial: 6.85 E/E' Med: 10.50 E' Laterial: 10.00 E/E' Lat: 7.20 Right Ventricle TAPSE (mm): 17.00 TVS' Thai: 11.10 Tricuspid Valve TR Pk Thai: 2.30 TR Pk Grad: 21.00 Great Vessels Aorta Sinus of Valsalva: 3.00 2.0-3.5 cm Ao Asc: 3.10 2.1-3.4 cm Ao Arch: 2.90 Pulmonary Valve PV Pk Tahi: 1.25 Peak PV Grad: 6.00 Updated in Other Vendor System with Status of Final Jaxson Dalal MD electronically signed on 07/03/2025 10:56:40 AM with status of Final
== END ==
LOC: HO.CARD 14:46
PROVIDERS: PCP Internal Medicine; Visit Provider Nurse Practitioner Family
DX: F33.1 Major depressive disorder, recurrent, moderate (principal); F41.1 Generalized anxiety disorder; I10 Essential (primary) hypertension; E66.01 Morbid (severe) obesity due to excess calories; M54.32 Sciatica, left side; R07.89 Other chest pain; Z68.41 Body mass index [BMI] 40.0-44.9, adult
CPT/HCPCS: 93306; 96127; 99212; Q9957

== ENCOUNTER → 2025-07-02 14:49 | Outpatient (BNV) | payer OTHER, SELFPAY | PROVIDERS: PCP Internal Medicine; Visit Provider Internal Medicine Cardiovascular Disease | DX: R07.89 Other chest pain (principal); I51.89 Other ill-defined heart diseases | CPT/HCPCS: 93306 ==